=== PATIENT | female | born 1960 | race Caucasian/White ===

== ENCOUNTER 2020-09-28 20:08 | Emergency (ER) | payer MEDICAID, OTHER ==
--- OUTSIDE RECORDS SUMMARY | 2020-09-28 20:12 | XMS REPORT | Continuity of Care Document ---
:[address] [facility] t Address [address] [place] [address] Care Team Providers Name Role Phone Radiology Attending Clinician Unavailable Doctor Unassigned, Name Attending Clinician Unavailable Keo SON, Jose Attending Clinician Problems This patient has no known problems. Allergies, Adverse Reactions, Alerts This patient has no known allergies or adverse reactions. Medications Ordered Filled Start Stop Current Ordering Indication Dosage Frequency Signature Comments Components Source Medication Medication Date Date Medication? Clinician (SIG) Name Name Omeprazole Omeprazole Yes Mode [address] [facility] 2-25 [facility] 30 minutes [facility] before [facility] 00 [facility] l meal [facility] Pantoprazol Pantoprazol Yes Mode [address] [facility] Sodium e Sodium [facility] Cyclobenzap Cyclobenzap Yes Mode TAKE [address] [facility] rine HCl rine HCl Johnson TABLET BY L [facility]kes - MOUTH ONCE Memoria DAILY l NEEDED [facility] Atorvastati Atorvastati Yes Mode [address] [facility] n Calcium n Calcium Johnsno [facility] Lisinopril- Lisinopril- Yes Mode [address] [facility] Hydrochloro Hydrochloro Johnson [facility] - thiazide thiazide [facility] Montelukast Montelukast Yes Mode [address] [facility] Sodium Sodium [facility] Metformin Metformin Yes Mode [address] [facility] HCl HCl Johnson with a [facility] - meal [facility] Amlodipine Amlodipine Yes Mode [address] [facility] Besylate Besylate [facility] Tramadol Tramadol Yes Mode [address] HCl HCl Johnson as needed [facility] Cyclobenzap Cyclobenzap Yes Mode [address] [facility] rine HCl rine HCl Johnson as needed [facility] - [facility] Phendimetra Phendimetra Mode [address] [facility] zine zine 10-12 Johnson hour [facility] - Tartrate Tartrate 00:00 before a Me moria :00 meal l [facility] ent Clinics Immunizations Ordered Filled Immunization Date Status Comments [facility] e Immunization Name Name Afluria single dose Afluria single dose 2019-01-[address] [facility]00 [facility] Procedures This patient has no known procedures. Encounters Start End Encounter Admission Attending Care Care Encounter Source Date/Time Date/Time Type Type Clinicians Facility Department ID 2020-09-24 2020-09-24 Outpatient [facility] [id number] [facility] 2020-08-26 2020-08-26 Outpatient [facility] [id number] [facility] 2020-03-18 2020-03-18 Outpatient [facility] [id number] [facility] 2020-03-05 2020-03-05 Outpatient [facility] [id number] [facility] 2020-02-20 2020-02-20 Outpatient [facility] [id number] [facility] 2020-01-22 2020-01-22 Outpatient [facility] [id number] [facility] 2020-01-03 2020-01-03 Hospital Radiology [facility] [id number] 09:53:20 23:59:00 Encounter Maribeth [id number] [place] [id number] [place] [id number] 2020-01-03 2020-01-03 Orders Doctor EBENEZER [id number] 00:00:00 00:00:00 Only Unassigned, LUIS DANIEL [id number] [place] [facility] [id number] 2019-10-10 2019-10-10 [facility] [id number] [address] 09:30:00 09:30:00 t [employer] [facility] Outpati ent Clinics 2019-08-14 2019-08-14 [facility] [id number] [address] 11:30:00 11:30:00 [employer] [facility] Medicine Outpati ent Clinics 2019-08-10 2019-08-10 [facility] [id number] 10:42:00 10:42:00 t [employer] [facility] Outpati ent Clinics 2019-07-10 2019-07-10 [facility] [id number] [address] 10:45:00 10:45:00 [employer] [facility] Outpati ent Clinics 2019-06-19 2019-06-19 [facility] [id number] [address] 12:53:00 12:53:00 [employer] [facility] Medicine Outpati ent Clinics 2019-06-18 2019-06-18 Office LOGAN Crowley [id number] 10:59:16 11:29:16 Visit Guido Garcia AMBULATOR [id number] Y [id number] 2019-06-14 2019-06-14 [facility] [id number] 08:09:00 08:09:[address] [facility] - [facility] Medicine l Medicine Outpati ent Clinics 2019-05-15 2019-05-15 [facility] [id number] 09:45:00 09:45:[address] [facility] - Drive [facility] Medicine l Medicine Outpati ent Clinics 2019-05-01 2019-05-01 [facility] [id number] 17:15:00 17:15:[address] [facility] - Drive [facility] Medicine l Medicine Outpati ent Clinics 2019-04-24 2019-04-24 [facility] [id number] 12:46:00 12:46:00 t [place] [employer] [facility] - Drive [facility] Medicine l Medicine Outpati ent Clinics 2019-04-11 2019-04-11 [facility] [id number] 14:30:00 14:30:00 t [place] [employer] [facility] - Drive [facility] Medicine Outpati ent Clinics 2019-04-03 2019-04-03 [facility] [id number] 10:19:00 10:19:00 t [place] [employer] [facility] - Drive [facility] Medicine l Medicine Outpati ent Clinics 2019-04-02 2019-04-02 [facility] [id number] 16:33:00 16:33:00 [place] [employer] [facility] - Drive [facility] Medicine l Medicine Outpati ent Clinics 2019-01-17 2019-01-17 [facility] [id number] 13:00:00 13:00:00 t [place] [employer] [facility] - Drive [facility] Medicine l Medicine Outpati ent Clinics 2019-01-01 2019-01-01 [facility] [id number] 14:30:00 14:30:00 t [place] [employer] [facility] - Drive [facility] Medicine l Medicine Outpati ent Clinics 2018-12-20 2018-12-20 [facility] [id number] 17:00:00 17:00:00 [place] [employer] [facility] - Drive [facility] Medicine Outpati ent Clinics 2018-12-20 2018-12-20 [facility] [id number] 14:00:00 14:00:00 t [employer] [facility] Medicine Outpati ent Clinics Results This patient has no known results.
[2020-09-28 22:17] LABS: Absolute Lymphocytes (CBC) 1.2 K/uL (0.7-4.9); Basophils % 0.5 % (0-1.3); Hematocrit 38.5 % (36.0-45.0); Lymphocytes % 14.8 % (15.3-44.8); MPV 8.5 fL (7.6-11.3); RBC Red Blood Cell Count 4.48 M/uL (3.86-4.86)
[2020-09-28] MEDS ORDERED: BENZONATATE 100 MG CAP PO ONE (22:20)
[2020-09-28 22:25] LABS: ALT/SGPT 27 U/L (12-78); AST/SGOT 20 U/L (15-37); Alkaline Phosphatase 73 U/L (45-117); BUN Blood Urea Nitrogen 11 mg/dL (7-18); Bicarbonate 32 mmol/L (21-32); Bilirubin Direct < 0.1 mg/dL (0-0.2); Bilirubin Total 0.3 mg/dL (0.2-1.0); Glucose Level 105 mg/dL (74-106); Lipase 83 U/L (73-393); Potassium 3.3 mmol/L (3.5-5.1); Protein, Total 8.1 g/dL (6.4-8.2); Sodium Level 140 mmol/L (136-145)
[2020-09-28] MEDS ORDERED: IPRATROPIUM BROM 0.5MG/2.5ML ONE (23:07)
[2020-09-28] MEDS ORDERED: ALBUTEROL 2.5 MG/3 ML NEB SOL ONE (23:07)
--- NOTE | 2020-09-28 23:41 | ER ---
Nurse's Notes [facility] Name: Batsheva Guevara Age: 60 yrs Sex: Female : 1960 Arrival Date: 09/28/2020 Time: 20:18 Bed 5 Private MD: Diagnosis: Bronchitis, not specified as acute or chronic Presentation: 09/28 20:27 Chief complaint: Patient states: her daughter was here last night and diagnosed with an bb upper respiratory infection she is having similar symptoms x 3 days with cough, congestion. Pt states she is having pain to her ribs from coughing so much. Coronavirus screen: congestion, cough unrelated to allergies. Ebola Screen: No symptoms or risks identified at this time. Initial Sepsis Screen: Does the patient meet any 2 criteria? No. Patient's initial sepsis screen is negative. Does the patient have a suspected source of infection? No. Patient's initial sepsis screen is negative. Risk Assessment: Do you want to hurt yourself or someone else? Patient reports no desire to harm self or others. Onset of symptoms was September 25, 2020. 20:27 Method Of Arrival: Ambulatory 20:27 Acuity: HERMELINDA 3 bb Historical: - Allergies: 20:34 No Known Allergies; bb - Home Meds: 20:34 lisinopril-hydrochlorothiazide oral oral [Active]; Cyclobenzaprine Oral [Active]; bb amlodipine oral [Active]; pantoprazole oral oral [Active]; montelukast oral oral [Active]; Metformin Oral [Active]; Tramadol Oral [Active]; phentermine oral oral [Active]; - PMHx: 20:34 Hypertension; Diabetes - NIDDM; chronic neck pain; bb - PSHx: 20:34 Hysterectomy; ; bb - Immunization history:: Adult Immunizations up to date. - Social history:: Smoking status: unknown. Screenin:00 Abuse screen: Denies threats or abuse. Denies injuries from another. Nutritional lp1 screening: No deficits noted. Tuberculosis screening: No symptoms or risk factors identified. Fall Risk None identified. Assessment: 20:45 General: Appears in no apparent distress. Behavior is calm, cooperative. Pain: Pain: lp1 Complains of pain in chest Aggravated by coughing. 20:45 Neuro: Level of Consciousness is awake, alert, obeys commands, Oriented to person, lp1 place, time, situation. Cardiovascular: Patient's skin is warm and dry. Respiratory: Airway is patent Respiratory effort is even, Breath sounds are coarse in left posterior lower lobe and right posterior lower lobe. GI: No signs and/or symptoms were reported involving the gastrointestinal system. : No signs and/or symptoms were reported regarding the genitourinary system. EENT: No signs and/or symptoms were reported regarding the EENT system. Derm: Skin is intact, Skin is dry, Skin is normal. Musculoskeletal: No deficits noted. 22:30 Reassessment: Verbal order from Provider for Albuterol/Atrovent 3:1 nebulizer when lp1 COVID negative resulted. 22:45 Reassessment: Patient appears in no apparent distress at this time. Patient is alert, lp1 oriented x 3, equal unlabored respirations, skin warm/dry/pink. Patient denies shortness of breath. 23:30 Reassessment: Patient appears in no apparent distress at this time. Patient is alert, lp1 oriented x 3, equal unlabored respirations, skin warm/dry/pink. Patient states feeling better. Respiratory: Respiratory effort is even, unlabored, Respiratory pattern is regular, Breath sounds are clear bilaterally. Vital Signs: 20:27 BP 141 / 85; Pulse 94; Resp 18 S; Temp 98.2(O); Pulse Ox 95% on R/A; Weight 78.02 kg bb (R); Height 5 ft. 4 in. (162.56 cm) (R); Pain 4/10; 21:30 BP 133 / 87; Pulse 77; Resp 18; Pulse Ox 95% on R/A; lp1 22:30 BP 148 / 84; Pulse 96; Resp 20; Pulse Ox 94% on R/A; lp1 23:00 BP 130 / 71; Pulse 87; Resp 18; Pulse Ox 98% on R/A; lp1 23:45 BP 114 / 57; Pulse 92; Resp 18; Pulse Ox 96% on R/A; lp1 20:27 Body Mass Index 29.52 (78.02 kg, 162.56 cm) ED Course: 20:18 Patient arrived in ED. es 20:31 Triage completed. bb 20:32 Dustin Macdonald MD is Attending Physician. tw4 20:34 Arm band placed on Patient placed in an exam room, on a stretcher, on pulse oximetry. bb 20:35 Vandana Durand, RN is Primary Nurse. lp1 20:45 Patient has correct armband on for positive identification. Placed in gown. Bed in low lp1 position. panel monitor on. Pulse ox on. NIBP on. 20:45 Missed attempt(s): 20 gauge in left antecubital area. lp1 20:45 Missed attempt(s): 22 gauge in left forearm. lp1 21:00 COVID swab sent to lab. lp1 21:17 CXR XRAY In Process Unspecified. EDMS 21:45 Initial lab(s) drawn, by nd, sent to lab. Inserted saline lock: 18 gauge in right bb antecubital area, using aseptic technique. Blood collected. 22:28 No provider procedures requiring assistance completed. lp1 09/29 00:00 IV discontinued, No redness/swelling at site. Pressure dressing applied. lp1 Administered Medications: 09/28 21:58 CANCELLED (Other Intervention Used): Robitussin Pediatric (dextromethorphan) 20 mg PO bb once 22:00 Drug: Tessalon Perle (benzonatate) 200 mg Route: PO; bb 22:59 Follow up: Response: No adverse reaction lp1 22:45 Drug: Albuterol - atroVENT (ipratropium) (3:1) (2.5 mg - 0.5 mg) 3 ml Route: Nebulizer; lp1 Outcome: 23:41 Discharge ordered by . tw4 09/29 00:00 Discharged to home ambulatory. lp1 Condition: good Discharge instructions given to patient, Instructed on discharge instructions, follow up and referral plans. medication usage, Demonstrated understanding of instructions, follow-up care, medications, Prescriptions given X 3. 00:13 Patient left the ED. lp1 Signatures: Dispatcher [employer] TODDCT Lorri Long Brenda, RN RN bb Vandana Durand, LUNA RN lp1 Dustin Macdonald MD MD tw4 Corrections: (The following items were deleted from the chart) 09/28 22:28 22:19 General: Appears in no apparent distress. Behavior is calm, cooperative, lp1 lp1 22:28 22:19 Pain: lp1 lp1
--- NOTE | 2020-09-28 23:41 | EDPHYS ---
Physician Documentation [facility] Name: Batsheva Guevara Age: 60 yrs Sex: Female : 1960 Arrival Date: 09/28/2020 Time: 20:18 Bed 5 Private MD: ED Physician Dustin Macdonald HPI: 09/29 06:32 This 60 yrs old Female presents to ER via Ambulatory with complaints of COUGH.tw4 06:32 The patient or guardian reports cough, difficulty breathing. Onset: The tw4 symptoms/episode began/occurred 3 day(s) ago. Severity of symptoms: At their worst the symptoms were moderate, in the emergency department the symptoms are unchanged. The patient has not experienced similar symptoms in the past. Historical: - Allergies: 09/28 20:34 No Known Allergies; bb - Home Meds: 20:34 lisinopril-hydrochlorothiazide oral oral [Active]; Cyclobenzaprine Oral [Active]; bb amlodipine oral [Active]; pantoprazole oral oral [Active]; montelukast oral oral [Active]; Metformin Oral [Active]; Tramadol Oral [Active]; phentermine oral oral [Active]; - PMHx: 20:34 Hypertension; Diabetes - NIDDM; chronic neck pain; bb - PSHx: 20:34 Hysterectomy; ; bb - Immunization history:: Adult Immunizations up to date. - Social history:: Smoking status: unknown. ROS: 09/29 06:32 Constitutional: Negative for fever, chills, and weight loss. tw4 Eyes: Negative for injury, pain, redness, and discharge, Cardiovascular: Negative for chest pain, palpitations, and edema, Back: Negative for injury and pain, MS/Extremity: Negative for injury and deformity, Skin: Negative for injury, rash, and discoloration, Neuro: Negative for headache, weakness, numbness, tingling, and seizure. Respiratory: Positive for cough, Negative for dyspnea on exertion, hemoptysis, orthopnea, pleurisy. Exam: 06:32 Constitutional: This is a well developed, well nourished patient who is awake, alert, tw4 and in no acute distress. Head/Face: Normocephalic, atraumatic. Chest/axilla: Normal chest wall appearance and motion. Nontender with no deformity. No lesions are appreciated. Cardiovascular: Regular rate and rhythm with a normal S1 and S2. No gallops, murmurs, or rubs. Normal PMI, no JVD. No pulse deficits. Respiratory: Lungs have equal breath sounds bilaterally, clear to auscultation and percussion. No rales, rhonchi or wheezes noted. No increased work of breathing, no retractions or nasal flaring. Abdomen/GI: Soft, non-tender, with normal bowel sounds. No distension or tympany. No guarding or rebound. No evidence of tenderness throughout. Back: No spinal tenderness. No costovertebral tenderness. Full range of motion. Skin: Warm, dry with normal turgor. Normal color with no rashes, no lesions, and no evidence of cellulitis. MS/ Extremity: Pulses equal, no cyanosis. Neurovascular intact. Full, normal range of motion. Neuro: Awake and alert, GCS 15, oriented to person, place, time, and situation. Cranial nerves II-XII grossly intact. Motor strength 5/5 in all extremities. Sensory grossly intact. Cerebellar exam normal. Normal gait. Vital Signs: 09/28 20:27 BP 141 / 85; Pulse 94; Resp 18 S; Temp 98.2(O); Pulse Ox 95% on R/A; Weight 78.02 kg bb (R); Height 5 ft. 4 in. (162.56 cm) (R); Pain 4/10; 21:30 BP 133 / 87; Pulse 77; Resp 18; Pulse Ox 95% on R/A; lp1 22:30 BP 148 / 84; Pulse 96; Resp 20; Pulse Ox 94% on R/A; lp1 23:00 BP 130 / 71; Pulse 87; Resp 18; Pulse Ox 98% on R/A; lp1 23:45 BP 114 / 57; Pulse 92; Resp 18; Pulse Ox 96% on R/A; lp1 20:27 Body Mass Index 29.52 (78.02 kg, 162.56 cm) bb MDM: 20:32 Patient medically screened. tw4 09/29 06:32 Differential Diagnosis: Obstructed Airway Bronchitis Influenza. Data reviewed: vital tw4 signs, nurses notes. Data reviewed: lab test result(s), cardiac enzymes, CBC, hepatic panel, radiologic studies, plain films. Data interpreted: Pulse oximetry: Interpretation: normal. Test interpretation: by ED physician or midlevel provider: plain radiologic studies. Counseling: I had a detailed discussion with the patient and/or guardian regarding: the historical points, exam findings, and any diagnostic results supporting the discharge/admit diagnosis. Medication response: Response to treatment: and as a result, I will discharge patient. Special discussion: I discussed with the patient/guardian in detail that at this point there is no indication for admission to the hospital. It is understood, however, that if the symptoms persist or worsen the patient needs to return immediately for re-evaluation. 09/28 20:34 Order name: Basic Metabolic Panel tw4 09/28 20:34 Order name: CBC with Diff tw4 09/28 20:34 Order name: Hepatic Function tw4 09/28 20:34 Order name: Lipase tw4 09/28 22:28 Order name: SARS-COV-2 RT PCR EDLA 09/28 20:34 Order name: IV Saline Lock; Complete Time: 22:00 tw4 09/28 20:34 Order name: Labs collected and sent; Complete Time: 22:00 tw4 09/28 20:34 Order name: CXR XRAY tw4 Administered Medications: 09/28 21:58 CANCELLED (Other Intervention Used): Robitussin Pediatric (dextromethorphan) 20 mg PO bb once 22:00 Drug: Tessalon Perle (benzonatate) 200 mg Route: PO; bb 22:59 Follow up: Response: No adverse reaction lp1 22:45 Drug: Albuterol - atroVENT (ipratropium) (3:1) (2.5 mg - 0.5 mg) 3 ml Route: Nebulizer; lp1 Disposition: 09/28/20 23:41 Discharged to Home. Impression: Bronchitis, not specified as acute or chronic. - Condition is Stable. - Discharge Instructions: Acute Bronchitis, Adult, Upper Respiratory Infection, Adult. - Prescriptions for Tessalon Perles 100 mg Oral Capsule - take 1 capsule by ORAL route every 8 hours As needed; 15 capsule. Albuterol Sulfate 90 mcg/actuation - inhale 1-2 puff by INHALATION route every 4-6 hours; 1 Inhaler. Guaifenesin AC 10- 100 mg/5 mL Oral Liquid - take 10 milliliter by ORAL route every 4 hours As needed; 240 milliliter. - Medication Reconciliation Form, Thank You Letter, Antibiotic Education, Prescription Opioid Use form. - Follow up: Private Physician; When: Upon discharge from the Emergency Department; Reason: Recheck today's complaints, Continuance of care, Re-evaluation by your physician. - Problem is new. - Symptoms have improved. Signatures: Dispatcher [employer] EDYesenia Moreno RN RN bb Vandana Durand RN RN lp1 Dustin Macdonald MD MD tw4 Corrections: (The following items were deleted from the chart) 21:31 20:35 CORONAVIRUS+MR.LAB.BRZ ordered. EDLA EDMS 21:58 21:51 Robitussin Pediatric (dextromethorphan) Liquid 20 mg PO once ordered. tw4 09/29 00:13 09/28 23:41 09/28/2020 23:41 Discharged to Home. Impression: Bronchitis, not specified lp1 as acute or chronic. Condition is Stable. Forms are Medication Reconciliation Form, Thank You Letter, Antibiotic Education, Prescription Opioid Use. Follow up: Private Physician; When: Upon discharge from the Emergency Department; Reason: Recheck today's complaints, Continuance of care, Re-evaluation by your physician. Problem is new. Symptoms have improved. tw4
[2020-09-29 01:05] VITALS: TEMP 98.2
[2020-09-29 01:08] VITALS: BP 148/84; O2SAT 94
--- NOTE | 2020-09-29 07:38 | RAD REPORT ---
EXAM DESCRIPTION: Jameel Single View09/28/2020 9:17 pm CLINICAL HISTORY: Cough COMPARISON: none FINDINGS: The lungs appear clear of acute infiltrate. The heart is normal size IMPRESSION: No acute abnormalities displayed
== END 2020-09-29 00:13 | disposition home or self-care (01) ==
LOC: ER 20:08
DX: J40 Bronchitis, not specified as acute or chronic (principal); Z20.822 Contact with and (suspected) exposure to COVID-19; I10 Essential (primary) hypertension; E11.9 Type 2 diabetes mellitus without complications; M54.2 Cervicalgia; G89.29 Other chronic pain; Z79.84 Long term (current) use of oral hypoglycemic drugs
CPT/HCPCS: 85025; 80048; 36415; 80076; 83690; 71045; 99285; U0003

== ENCOUNTER 2020-10-03 16:11 | Inpatient (IN) | payer OTHER ==
[2020-10-03] MEDS ORDERED: ACETAMINOPHEN 325 MG TABLET ONE (16:55)
--- NOTE | 2020-10-03 17:17 | RAD REPORT ---
EXAM DESCRIPTION: RAD - Chest Pa And Lat (2 Views) - 10/03/2020 4:54 pm CLINICAL HISTORY: COUGH Chest pain. COMPARISON: Chest Single View dated 09/28/2020 FINDINGS: Airspace opacity has developed in the right middle lobe since the prior study compatible w ith bronchopneumonia. The heart is normal in size. No displaced fractures. IMPRESSION: Right middle lobe lobar bronchopneumonia.
[2020-10-03] MEDS ORDERED: METHYLPREDNISOLONE 125 MG INJ ONE (17:39)
[2020-10-03] MEDS ORDERED: IPRATROPIUM BROM 0.5MG/2.5ML ONE (17:40)
[2020-10-03] MEDS ORDERED: ALBUTEROL 2.5 MG/3 ML NEB SOL ONE (17:40)
[2020-10-03] MEDS ORDERED: CEFTRIAXONE/SWI 1gm 1 GM/10 ML SYR ONE (17:40)
[2020-10-03] MEDS ORDERED: AZITHROMYCIN 250 MG TAB ONE (17:40)
[2020-10-03 18:55] LABS: Absolute Lymphocytes (CBC) 1.4 K/uL (0.7-4.9); Basophils % 0.1 % (0-1.3); Hematocrit 30.8 % (36.0-45.0); Lymphocytes % 7.3 % (15.3-44.8); MPV 8.1 fL (7.6-11.3); RBC Red Blood Cell Count 3.63 M/uL (3.86-4.86)
--- NOTE | 2020-10-03 19:31 | EDPHYS ---
Physician Documentation [facility] Name: Batsheva Guevara Age: 60 yrs Sex: Female : 1960 Arrival Date: 10/03/2020 Time: 16:13 Bed 18 Private MD: Alex [facility] ED Physician Ketan Raymundo HPI: 10/03 19:35 This 60 yrs old Female presents to ER via Wheelchair with complaints of kb worsening bronchitis. 19:35 The patient or guardian reports cough, that is intermittent, described as moderate, flu kb symptoms, low-grade fever, myalgias. Onset: The symptoms/episode began/occurred 7 day(s) ago. Severity of symptoms: At their worst the symptoms were moderate, in the emergency department the symptoms are unchanged. Modifying factors: The symptoms are alleviated by nothing, the symptoms are aggravated by nothing. Associated signs and symptoms: Pertinent positives: fever, Pertinent negatives: chest pain, diarrhea, ear ache, nausea, rhinorrhea, sore throat, vomiting. The patient has not experienced similar symptoms in the past. The patient has been recently seen at the [facility] Emergency Department, this week, for similar complaints labs were performed, X-rays were performed. Pt reports she was here 5 days ago for bronchitis and her symptoms have gotten worse. Historical: - Allergies: 16:28 No Known Allergies; kg - Home Meds: 22:37 amlodipine oral [Active]; Cyclobenzaprine Oral [Active]; lisinopril-hydrochlorothiazide ap3 Oral [Active]; Metformin Oral [Active]; montelukast Oral [Active]; pantoprazole Oral [Active]; phentermine Oral [Active]; Tramadol Oral [Active]; - PMHx: 16:28 Hypertension; High Cholesterol; Diabetes - NIDDM; chronic neck pain; kg - PSHx: 16:28 ; Hysterectomy; kg - Immunization history:: Adult Immunizations not up to date, Client reports receiving the 2nd dose of the Covid vaccine. - Social history:: Smoking status: Patient denies any tobacco usage or history of. Patient uses alcohol, occasionally. ROS: 19:33 Cardiovascular: Negative for chest pain, palpitations, and edema, Abdomen/GI: Negative kb for abdominal pain, nausea, vomiting, diarrhea, and constipation. 19:33 Constitutional: Positive for body aches, chills, fatigue, fever, malaise. 19:33 Respiratory: Positive for cough, dyspnea on exertion, shortness of breath, Negative for hemoptysis, orthopnea, pleurisy. 19:33 All other systems are negative. 19:40 : Positive for burning with urination. kb Exam: 19:33 Constitutional: This is a well developed, well nourished patient who is awake, alert, kb and in no acute distress. Head/Face: Normocephalic, atraumatic. ENT: Moist Mucous membranes Cardiovascular: Regular rate and rhythm with a normal S1 and S2. No gallops, murmurs, or rubs. No pulse deficits. Abdomen/GI: Soft, non-tender. No distention Skin: Warm, dry with normal turgor. Normal color. MS/ Extremity: Pulses equal, no cyanosis. Neurovascular intact. Full, normal range of motion. Neuro: Awake and alert, GCS 15, oriented to person, place, time, and situation. Moves all extremities. Normal gait. Psych: Awake, alert, with orientation to person, place and time. Behavior, mood, and affect are within normal limits. 19:33 Respiratory: mild respiratory distress is noted, Respirations: labored breathing, that is mild, Breath sounds: wheezing: inspiratory expiratory that is moderate, is heard in the right middle lobe and right posterior middle lobe. Vital Signs: 16:23 BP 123 / 66; Pulse 108; Temp 100.4(O); Pulse Ox 93% on R/A; Weight 78.93 kg (R); Height kg 5 ft. 4 in. (162.56 cm) (R); Pain 7/10; 17:14 BP 107 / 52; Pulse 98; Resp 18; Pulse Ox 96% on R/A; vg1 18:44 BP 103 / 73; Pulse 77; Resp 16; Pulse Ox 98% on R/A; vg1 21:40 BP 112 / 55; Pulse 87; Resp 18; Pulse Ox 94% ; ap3 22:33 Temp 98.7; ap3 16:23 Body Mass Index 29.87 (78.93 kg, 162.56 cm) kg MDM: 16:31 Patient medically screened. kb 19:28 Data reviewed: vital signs, nurses notes. Data interpreted: Pulse oximetry: on room air benito is 98 %. Interpretation: normal. Counseling: I had a detailed discussion with the patient and/or guardian regarding: the historical points, exam findings, and any diagnostic results supporting the discharge/admit diagnosis, lab results, radiology results, the need for further work-up and treatment in the hospital. Physician consultation: Connor BARRAGAN was contacted at 19:29, regarding admission, to the medical/surgical unit. patient's condition, and will see patient in ED. 10/03 16:28 Order name: Urine Microscopic Only 10/03 16:29 Order name: Urine Microscopic Only EDAR 10/03 17:07 Order name: CBC with Diff 10/03 17:07 Order name: Basic Metabolic Panel; Complete Time: 19:24 kb 10/03 17:07 Order name: Blood Culture Adult (2) 10/03 17:07 Order name: Procalcitonin; Complete Time: 19:24 kb 10/03 16:28 Order name: Chest Pa And Lat (2 Views) XRAY; Complete Time: 17:18 kb 10/03 17:07 Order name: Lactate; Complete Time: 19:12 kb 10/03 17:07 Order name: CBC with Automated Diff; Complete Time: 18:59 EDAR 10/03 19:28 Order name: COVID-19 : Document "Date of Symptom Onset" if Symptomatic. kb 10/03 19:40 Order name: CT Chest W/ Con; Complete Time: 20:13 kb 10/03 22:21 Order name: SARS-COV-2 RT PCR EDAR 10/03 17:07 Order name: IV Start; Complete Time: 18:43 kb Administered Medications: 17:05 Drug: Tylenol 650 mg Route: PO; vg1 20:07 Follow up: Response: No adverse reaction ap3 17:51 Drug: DuoNeb (albuterol 2.5 mg, ipratropium 0.5 mg) (3:1) (2.5 mg - 0.5 mg) 3 ml Route: vg1 Nebulizer; 18:42 Follow up: Response: No adverse reaction vg1 18:36 Drug: Zithromax (azithromycin) 500 mg Route: PO; vg1 20:06 Follow up: Response: No adverse reaction ap3 18:37 Drug: Rocephin (cefTRIAXone) 1 grams Route: IV; Rate: calculated rate; Site: left vg1 jugular; 20:06 Follow up: IV Status: Completed infusion ap3 18:38 Drug: SOLU-Medrol (methylPrednisoLONE) 125 mg Route: IVP; Site: left jugular; vg1 20:06 Follow up: Response: No adverse reaction ap3 20:06 Drug: NS 0.9% 1000 ml Route: IV; Rate: 100 ml/hr; Site: left jugular; ap3 22:48 Follow up: Response: No adverse reaction; IV Status: Infusion continued upon admission ap3 21:13 Drug: Potassium Effervescent Tablet 50 mEq Route: PO; ap3 22:25 Follow up: Response: No adverse reaction ap3 Disposition: 10/03/20 19:30 Hospitalization ordered by Jayson Sheth for Observation. Preliminary diagnosis are Pneumonia, unspecified organism, Elevated white blood cell count. - Bed requested for Telemetry/MedSurg (observation). - Status is Observation. mw2 - Condition is Stable. - Problem is new. - Symptoms are unchanged. Addendum: 10/06/2020 11:18 Co-signature as Attending Physician, Ketan Raymundo MD I agree with the assessment and k dr plan of care. Signatures: Dispatcher [employer] EDMS Monalisa Leon, YUNG MIRELES-Ketan Toney MD MD [facility] Connor Sierra FNP-C F[facility] HospitalHelena Garcia, LUNA RN cg Shereen Cabrera RN RN ap3 Emile Luu mw2 Lacie Garg RN LUAN vg1 Angeli Barnhart RN RN kg Corrections: (The following items were deleted from the chart) 10/03 22:23 19:30 Hospitalization Ordered by Jayson Sheth DO for Observation. Preliminary cg diagnosis is Pneumonia, unspecified organism; Elevated white blood cell count. Bed requested for Telemetry/MedSurg (observation). Status is Observation. Condition is Stable. Problem is new. Symptoms are unchanged. kb 23:10 22:23 10/03/2020 19:30 Hospitalization Ordered by Jayson Sheth DO for Observation. mw2 Preliminary diagnosis is Pneumonia, unspecified organism; Elevated white blood cell count. Bed requested for Telemetry/MedSurg (observation). Status is Observation. Condition is Stable. Problem is new. Symptoms are unchanged. cg
--- NOTE | 2020-10-03 19:31 | ER ---
Nurse's Notes [facility] Name: Batsheva Guevara Age: 60 yrs Sex: Female : 1960 Arrival Date: 10/03/2020 Time: 16:13 Bed 18 Private MD: Mode Johnson Diagnosis: Pneumonia, unspecified organism;Elevated white blood cell count Presentation: 10/03 16:23 Chief complaint: Patient states: Pt stated, "I was just in here and they diagnosed me kg with bronchitis. I haven't gotten any better and just feel like I can't get enough air in my lungs. I also think I might have a bladder infection, its hurting when I pee.". Coronavirus screen: Client denies travel out of the [place] in the last 14 days. At this time, unable to obtain information related to travel outside the [place] Client presents with at least one sign or symptom that may indicate coronavirus-19. Standard/surgical mask placed on the client. Ebola Screen: Patient negative for fever greater than or equal to 101.5 degrees Fahrenheit, and additional compatible Ebola Virus Disease symptoms Patient denies exposure to infectious person. Patient denies travel to an Ebola-affected area in the 21 days before illness onset. Initial Sepsis Screen: Does the patient meet any 2 criteria? RR > 20 per min. HR > 90 bpm. Does the patient have a suspected source of infection? No. Patient's initial sepsis screen is negative. Risk Assessment: Do you want to hurt yourself or someone else? Patient reports no desire to harm self or others. Onset of symptoms was September 26, 2020. 16:23 Method Of Arrival: Wheelchair kg 16:23 Acuity: HERMELINDA 3 kg Triage Assessment: 16:28 General: Appears in no apparent distress. Behavior is calm, cooperative, appropriate kg for age, quiet. Pain: Complains of pain in left breast Pain radiates to back of neck. Historical: - Allergies: 16:28 No Known Allergies; kg - Home Meds: 22:37 amlodipine oral [Active]; Cyclobenzaprine Oral [Active]; lisinopril-hydrochlorothiazide ap3 Oral [Active]; Metformin Oral [Active]; montelukast Oral [Active]; pantoprazole Oral [Active]; phentermine Oral [Active]; Tramadol Oral [Active]; - PMHx: 16:28 Hypertension; High Cholesterol; Diabetes - NIDDM; chronic neck pain; kg - PSHx: 16:28 ; Hysterectomy; kg - Immunization history:: Adult Immunizations not up to date, Client reports receiving the 2nd dose of the Covid vaccine. - Social history:: Smoking status: Patient denies any tobacco usage or history of. Patient uses alcohol, occasionally. Screenin:14 Abuse screen: Denies threats or abuse. Nutritional screening: No deficits noted. vg1 Tuberculosis screening: No symptoms or risk factors identified. Fall Risk No fall in past 12 months (0 pts). No secondary diagnosis (0 pts). IV access (20 points). Ambulatory Aid- None/Bed Rest/Nurse Assist (0 pts). Gait- Normal/Bed Rest/Wheelchair (0 pts) Mental Status- Oriented to own ability (0 pts). Total Means Fall Scale indicates No Risk (0-24 pts). Assessment: 17:05 General: Appears in no apparent distress. comfortable, Behavior is calm, cooperative. vg1 Pain: Complains of pain in throat and lower left marni of rib Pain currently is 5 out of 10 on a pain scale. Pain began 09/28/20. Neuro: Level of Consciousness is awake, alert, obeys commands, Oriented to person, place, time, situation. Cardiovascular: Patient's skin is warm and dry. Respiratory: Airway is patent Respiratory effort is even, labored, Breath sounds with wheezes bilaterally. in right upper lobe, left upper lobe, left posterior upper lobe, right posterior upper lobe, left posterior lower lobe and right posterior middle lobe. GI: Reports nausea. : No signs and/or symptoms were reported regarding the genitourinary system. EENT: Throat is pink. Derm: Skin is intact, Skin is pink, warm \\T\\ dry. Musculoskeletal: Circulation, motion, and sensation intact. 18:44 Reassessment: Patient appears in no apparent distress at this time. Patient and/or vg1 family updated on plan of care and expected duration. Pain level reassessed. Patient is alert, oriented x 3, equal unlabored respirations, skin warm/dry/pink. Patient is alert/active/playful, equal unlabored respirations, skin warm/dry/pink. 21:40 Reassessment: Patient and/or family updated on plan of care and expected duration. Pain ap3 level reassessed. Patient is alert, oriented x 3, equal unlabored respirations, skin warm/dry/pink. 22:40 General: attempted report to 2nd floor receiving nurse. was told they will call me back.ap3 Vital Signs: 16:23 BP 123 / 66; Pulse 108; Temp 100.4(O); Pulse Ox 93% on R/A; Weight 78.93 kg (R); Height kg 5 ft. 4 in. (162.56 cm) (R); Pain 7/10; 17:14 BP 107 / 52; Pulse 98; Resp 18; Pulse Ox 96% on R/A; vg1 18:44 BP 103 / 73; Pulse 77; Resp 16; Pulse Ox 98% on R/A; vg1 21:40 BP 112 / 55; Pulse 87; Resp 18; Pulse Ox 94% ; ap3 22:33 Temp 98.7; ap3 16:23 Body Mass Index 29.87 (78.93 kg, 162.56 cm) kg ED Course: 16:13 Patient arrived in ED. am2 16:13 Mode Johnson DO is Private Physician. am2 16:27 Triage completed. kg 16:27 Monalisa Leon FNP-C [facility] kb 16:27 Ketan Raymundo MD is Attending Physician. kb 16:33 Lacie Garg, LUNA is Primary Nurse. vg1 16:52 Chest Pa And Lat (2 Views) XRAY In Process Unspecified. EDMS 17:14 Patient has correct armband on for positive identification. Bed in low position. Call vg1 light in reach. Side rails up X 1. 17:43 Missed attempt(s): 22 gauge in right forearm. vg1 17:46 Missed attempt(s): 22 gauge in left antecubital area. vg1 18:30 Inserted saline lock: 20 gauge in left EJ, using aseptic technique. Blood collected. bp 19:12 Primary Nurse role handed off by Lacie Garg, RN ap3 19:12 Shereen Cabrera, LUNA is Primary Nurse. ap3 19:24 Primary Nurse role handed off by Shereen Cabrera, LUNA mw2 19:29 Jayson Sheth DO is Hospitalizing Provider. kb 19:31 Prokisch, Shereen, RN is Primary Nurse. ap3 19:57 CT Chest W/ Con In Process Unspecified. EDMS 22:36 Arm band placed on right wrist. ap3 22:47 Report given to Lilibeth. ap3 22:47 No provider procedures requiring assistance completed. Patient admitted, IV remains in ap3 place. Administered Medications: 17:05 Drug: Tylenol 650 mg Route: PO; vg1 20:07 Follow up: Response: No adverse reaction ap3 17:51 Drug: DuoNeb (albuterol 2.5 mg, ipratropium 0.5 mg) (3:1) (2.5 mg - 0.5 mg) 3 ml Route: vg1 Nebulizer; 18:42 Follow up: Response: No adverse reaction vg1 18:36 Drug: Zithromax (azithromycin) 500 mg Route: PO; vg1 20:06 Follow up: Response: No adverse reaction ap3 18:37 Drug: Rocephin (cefTRIAXone) 1 grams Route: IV; Rate: calculated rate; Site: left vg1 jugular; 20:06 Follow up: IV Status: Completed infusion ap3 18:38 Drug: SOLU-Medrol (methylPrednisoLONE) 125 mg Route: IVP; Site: left jugular; vg1 20:06 Follow up: Response: No adverse reaction ap3 20:06 Drug: NS 0.9% 1000 ml Route: IV; Rate: 100 ml/hr; Site: left jugular; ap3 22:48 Follow up: Response: No adverse reaction; IV Status: Infusion continued upon admission ap3 21:13 Drug: Potassium Effervescent Tablet 50 mEq Route: PO; ap3 22:25 Follow up: Response: No adverse reaction ap3 Outcome: 19:30 Decision to Hospitalize by Provider. kb 22:47 Admitted to Med/surg accompanied by nurse, via wheelchair, room 213, with chart. ap3 22:47 Condition: good 23:10 Patient left the ED. mw2 Signatures: Dispatcher [employer] EDMS Monalisa Leon, YUNG ALEOJP-Shereen Chau am2 Jhony Parker, RN RN bp Shereen Cabrera, RN RN ap3 Emile Luu mw2 Lacie Garg RN RN vg1 Angeli Barnhart, RN RN kg
[2020-10-03] MEDS ORDERED: NA CHLORIDE 0.9% 1,000 ML ONE (19:53)
--- NOTE | 2020-10-03 20:10 | RAD REPORT ---
EXAM DESCRIPTION: CT - Thorax W/ Con CLINICAL HISTORY: Chest pain dyspnea COMPARISON: No comparisons FINDINGS: Large airspace consolidation is seen in the right middle lobe. Small area of consolidation is seen in the medial and posterior right lower lobe. Findings likely represent a bacterial pneumoni a. No pleural thickening or pleural effusion. No pneumothorax. Mildly prominent lymph nodes are seen in the mediastinum in right hilum favored to represent reactive adenopathy. No concerning bony finding. Irregular low-density 5.9 x 3.8 cm mass lesion in the posterior right hep atic lobe with large internal area of calcification. All CT scans are performed using dose optimization technique as appropriate and may include automated exposure control or mA/KV adjustment according to patient size. IMPRESSION: Bronchopneumonia pattern is seen involving the right middle lobe and right lower lobe as detailed.After appropriate therapy, followup imaging would be advised assure complete clearance. Irregular low-density 5.9 cm hepatic mass containing internal calcification. Followup MRI liver dennis col with contrast would be recommended for further evaluation.
--- NOTE | 2020-10-03 20:58 | P.HP ---
Certification for Inpatient Patient admitted to: Inpatient With expected LOS: >2 Midnights Patient will require the following post-hospital care: None Practitioner: I am a practitioner with admitting privileges, knowledge of patient current condition, hospital course, and medical plan of care. Services: Services provided to patient in accordance with Admission requirements found in Title 42 Section 412.3 of the Code of Federal Regulations Patient History Date of Service: 10/03/20 Reason for admission: Dyspnea, Pneumonia History of Present Illness: 60-year-old female with history of diabetes mellitus type 2, hypertension, hyperlipidemia presents emergency department for shortness of breath. Patient was seen in the emergency department few days prior diagnosed with bronchitis, discharged out antibiotics, chest x-ray unremarkable at that time. Chest x-ray/CT today demonstrates right middle and lower lobe pneumonia, white blood cell count 18.9 hemoglobin 10.6 hematocrit 30.8 sodium 125 potassium 3.0 GFR 57 pro calcitonin 0.4. Patient saturating around 93% on room air, feeling a bit short of breath. ED provider wishes to admit for further evaluation and management. - Past Medical/Surgical History -: Hypertension -: Hyperlipidemia -: Diabetes mellitus type 2 -: -: Hysterectomy Psychosocial/ Personal History: Retired, lives with family - Family History Father -: Heart disease Mother -: Lung disease Brother -: Lung disease - Social History Smoking Status: Never smoker Counseled patient to stop smoking for: less than 10 minutes Alcohol use: No CD- Drugs: No Caffeine use: Yes Place of Residence: Home Review of Systems 10-point ROS is otherwise unremarkable General: Weakness, Malaise Respiratory: Cough, Shortness of Breath, SOB with Excertion Physical Examination - Physical Exam General: Alert, In no apparent distress, Oriented x3 HEENT: Atraumatic, PERRLA, Mucous membr. moist/pink Neck: Supple, 2+ carotid pulse no bruit, No LAD Respiratory: Normal air movement, Crackles/rales Cardiovascular: Regular rate/rhythm, Normal S1 S2 Gastrointestinal: Normal bowel sounds, No tenderness Musculoskeletal: No tenderness Integumentary: No rashes Neurological: Normal gait, Normal speech, Normal strength at 5/5 x4 extr, Normal tone, Normal affect - Studies Laboratory Data (last 24 hrs) 10/03/20 18:29: Sodium 125 L, Potassium 3.0 L, BUN 12, Creatinine 0.99, Glucose 203 H 10/03/20 18:29: WBC 18.90 H D, Hgb 10.6 L D, Hct 30.8 L D, Plt Count 331 Assessment and Plan - Plan Assessment Dyspnea secondary to right middle/lower lobe pneumonia Hyponatremia, hypokalemia Diabetes mellitus type 2 Hypertension, hyperlipidemia Plan Dyspnea secondary to right middle/lower lobe pneumonia: Continue with IV Rocephin/Zithromax, blood cultures obtained sputum cultures ordered. Daily room air saturations. Daily labs. Anticipate clinical improvement next 48-72 hr. DVT prophylaxis Lovenox 40 mg subcutaneous once daily. Hyponatremia, hypokalemia: Potassium protocol in place continue with normal saline at 100 cc/hour, recheck with morning labs tomorrow. Diabetes mellitus type 2: A.c. HS Accu-Cheks, sliding scale insulin. A1c with morning labs. Hypertension, hyperlipidemia: Continue home medications. Discharge Plan: Home Plan to discharge in: 48 Hours - Advance Directives Does patient have a Living Will: No Does patient have a Durable POA for Healthcare: No - Code Status/Comfort Care Code Status Assessed: Yes (Full code) Critical Care: No Time Spent Managing Pts Care (In Minutes): 55
[2020-10-03] MEDS ORDERED: POTASSIUM 25 MEQ EFFERV TAB ONE (21:32)
[2020-10-03] MEDS ORDERED: BENZONATATE 100 MG CAP PO PRN (23:31)
[2020-10-03] MEDS ORDERED: ACETAMINOPHEN 500 MG TAB PO PRN (23:31)
[2020-10-03] MEDS ORDERED: ONDANSETRON 4 MG/2 ML VIAL IV PRN (23:31)
[2020-10-04 00:27] VITALS: BMI 29.8
[2020-10-04] MEDS: NA CHLORIDE 0.9% 1,000 ML IV SCH ×3 (00:41→21:08)
[2020-10-04] MEDS ORDERED: NA CHLORIDE 0.9% 1,000 ML ONE (00:59)
[2020-10-04] MEDS: INSULIN -REGULAR HUMAN 50 UNIT/0.5 ML ML SQ SCH ×5 (04:46→21:16)
[2020-10-04] MEDS ORDERED: INSULIN -REGULAR HUMAN 50 UNIT/0.5 ML ML ONE (05:05)
[2020-10-04 05:40] LABS: Absolute Lymphocytes (CBC) 0.6 K/uL (0.7-4.9); Basophils % 0.2 % (0-1.3); Hematocrit 34.7 % (36.0-45.0); MPV 8.2 fL (7.6-11.3); RBC Red Blood Cell Count 4.05 M/uL (3.86-4.86)
--- NOTE | 2020-10-04 05:56 | P.PN ---
Subjective Date of Service: 10/04/20 Chief Complaint: Dyspnea, Pneumonia Subjective: Other (Still feeling very weak. Still with cough. SOB has improved) Physical Examination - Vital Signs Temperature: 98.6 F Blood Pressure: 100/61 Pulse: 81 Respirations: 18 Pulse Ox (%): 95 - Studies Laboratory Data (last 24 hrs) 10/03/20 18:29: Sodium 125 L, Potassium 3.0 L, BUN 12, Creatinine 0.99, Glucose 203 H 10/03/20 18:29: WBC 18.90 H D, Hgb 10.6 L D, Hct 30.8 L D, Plt Count 331 Assessment & Plan Discharge Plan: Home Plan to discharge in: 24 Hours Physician Review Additional Text: CT scan: COMPARISON: No comparisons FINDINGS: Large airspace consolidation is seen in the right middle lobe. Small area of consolidation is seen in the medial and posterior right lower lobe. Findings likely represent a bacterial pneumonia. No pleural thickening or pleural effusion. No pneumothorax. Mildly prominent lymph nodes are seen in the mediastinum in right hilum favored to represent reactive adenopathy. No concerning bony finding. Irregular low-density 5.9 x 3.8 cm mass lesion in the posterior right hepatic lobe with large internal area of calcification. All CT scans are performed using dose optimization technique as appropriate and may include automated exposure control or mA/KV adjustment according to patient size. IMPRESSION: Bronchopneumonia pattern is seen involving the right middle lobe and right lower lobe as detailed.After appropriate therapy, followup imaging would be advised assure complete clearance. Irregular low-density 5.9 cm hepatic mass containing internal calcification. Followup MRI liver protocol with contrast would be recommended for further evaluation. Physical Exam: GENERAL: The patient is a well-developed, well-nourished, in no apparent distress. Alert and oriented x3. VITAL SIGNS: Reviewed HEENT: Head is normocephalic and atraumatic. Extraocular muscles are intact. Pupils are equal, round, and reactive to light and accommodation. Nares appeared normal. Mouth is well hydrated and without lesions. Mucous membranes are moist. NECK: Supple. No carotid bruits. No lymphadenopathy or thyromegaly. LUNGS: Clear to auscultation. No crackles or wheezes are heard. HEART: Regular rate and rhythm, no appreciable gallops, rubs, murmurs or extra heart sounds ABDOMEN: Soft, nontender, and nondistended. Positive bowel sounds. No hepatosplenomegaly was noted. EXTREMITIES: Without any cyanosis, clubbing, rash, lesions or peripheral edema. NEUROLOGIC: The patient is oriented to person, place and time. Strength and sensation are grossly intact. Face is symmetric. SKIN: Normal color, turgor and temperature. No ulcerations or rashes noted. Impression: Dyspnea secondary to right middle/lower lobe pneumonia Hyponatremia with hypokalemia likely from dehydration Diabetes mellitus type 2 with hyperglycemia Hypertension Hyperlipidemia GERD Seasonal allergies Chronic pain Plan Dyspnea secondary to right middle/lower lobe pneumonia: Slight improvement noted. Continue IV Rocephin and Zithromax. Blood and sputum cultures obtained. Encourage incentive spirometer. Encourage ambulation. Continue with IV fluids due to hyponatremia. Will provide medication for cough. DVT prophylaxis in place. Recheck chest x-ray tomorrow. Anticipate improvement over the next 24 to 48 hours. Hyponatremia with hypokalemia likely from dehydration: Continue IV fluids. Electrolyte protocol in place. Recheck lab tomorrow. Overall improved. Encourage oral intake. Diabetes mellitus type 2 with hyperglycemia: Continue to hold metformin as the patient had CT scan. Due to elevated blood sugar will start Lantus 10 units this morning for better blood pressure control. Continue Accu-Cheks and sliding scale. Hemoglobin A1c 6.3 Hypertension: Blood pressure remains low but stable. Continue to hold home medicationNorvasc. Will obtain and review home meds. Hyperlipidemia: Continue home medicationLipitor. GERD: Continue home medicationProtonix Seasonal allergies: Continue with home medicationSingulair Chronic pain: Restart home medicationtramadol as needed along with muscle relaxer. Code Status: Full Code DVT prophylaxis: Lovenox Advanced Care Planning-30 minutes: Patient desires to go home at discharge. Time Spent Managing Pts Care (In Minutes): 55
[2020-10-04 06:05] LABS: Platelet Estimate ADEQ; White Blood Cell Scan OK (OK)
[2020-10-04 06:06] LABS: Blood Morphology Comment NOT SEEN (NOT SEEN)
[2020-10-04 06:11] LABS: Albumin 2.5 g/dL (3.4-5.0); Bilirubin Total 0.5 mg/dL (0.2-1.0); Potassium 3.4 mmol/L (3.5-5.1); Protein, Total 7.9 g/dL (6.4-8.2); Thyroid Stimulating Hormone 0.449 uIU/mL (0.360-3.740)
[2020-10-04] MEDS ORDERED: GLUCAGON 1 MG/VIAL IM PRN (06:54)
[2020-10-04] MEDS ORDERED: D50W 25 GM/50 ML VIAL IV PRN (07:27)
[2020-10-04] MEDS ORDERED: KCL 20 MEQ/100 mL IVPB 20 MEQ/100 ML BAG IV SCH (08:00)
[2020-10-04] MEDS ORDERED: TRAMADOL HCL 50 MG TAB PO PRN (08:46)
[2020-10-04] MEDS ORDERED: HOME MED 1 EA UNK (Cyclobenzaprine Hcl [Flexeril] 5 MG Tablet) PO PRN (08:46)
[2020-10-04] MEDS ORDERED: POTASSIUM CL SA 10 MEQ TAB PO ONE ×2 (09:00→21:00)
[2020-10-04] MEDS: ENOXAPARIN 40 MG/0.4 ML SQ SCH (09:00)
[2020-10-04] MEDS ORDERED: CYCLOBENZAPRINE 10 MG TAB PO PRN (09:01)
[2020-10-04] MEDS: CEFTRIAXONE/SWI 1gm 1 GM/10 ML SYR IVP SCH (09:11)
[2020-10-04] MEDS: INSULIN GLARGINE 100 UNITS/ML SQ SCH (09:11)
[2020-10-04] MEDS: PANTOPRAZOLE 40MG TABLET PO SCH (09:16)
[2020-10-04] MEDS: MONTELUKAST 10 MG TAB PO SCH (09:16)
[2020-10-04] MEDS: ATORVASTATIN 10 MG TAB PO SCH (09:16)
[2020-10-04] MEDS: AZITHROMYCIN IV 500 MG in NA CHLORIDE 0.9% 250 ML IVPB SCH (09:17)
[2020-10-04 15:13] LABS: Urine Appearance Clear (Clear); Urine Bilirubin Negative (Negative); Urine Blood 2+ (Negative); Urine Color Yellow (Yellow); Urine Glucose 3+ (Negative); Urine Protein 2+ (Negative); Urine Specific Gravity 1.015 (1.005-1.030); Urine Urobilinogen 0.2 mg/dL (0.2-1.0); Urine pH 6.5 (5.0-7.0)
[2020-10-04 15:15] LABS: Urine Microscopic Reflex ORDER UMIC
[2020-10-04 15:42] LABS: Potassium 3.8 mmol/L (3.5-5.1)
[2020-10-04 15:47] LABS: Urine Bacteria <20 /HPF (<20); Urine RBC <5 /HPF (NONE SEEN)
--- NOTE | 2020-10-05 05:55 | P.DS ---
Admission Date: 10/03/20 Discharge Date: 10/05/20 Primary Care Provider: Dr. Johnson Disposition: ROUTINE DISCHARGE Discharge Condition: GOOD Reason for Admission: Dyspnea, Pneumonia Consultations: none Procedures: COVID: Negative CT scan: COMPARISON: No comparisons FINDINGS: Large airspace consolidation is seen in the right middle lobe. Small area of consolidation is seen in the medial and posterior right lower lobe. Findings likely represent a bacterial pneumonia. No pleural thickening or pleural effusion. No pneumothorax. Mildly prominent lymph nodes are seen in the mediastinum in right hilum favored to represent reactive adenopathy. No concerning bony finding. Irregular low-density 5.9 x 3.8 cm mass lesion in the posterior right hepatic lobe with large internal area of calcification. All CT scans are performed using dose optimization technique as appropriate and may include automated exposure control or mA/KV adjustment according to patient size. IMPRESSION: Bronchopneumonia pattern is seen involving the right middle lobe and right lower lobe as detailed.After appropriate therapy, followup imaging would be advised assure complete clearance. Irregular low-density 5.9 cm hepatic mass containing internal calcification. Followup MRI liver protocol with contrast would be recommended for further evaluation. Medical Problem list: Dyspnea secondary to right middle/lower lobe pneumonia Hyponatremia with hypokalemia likely from dehydration Diabetes mellitus type 2 with hyperglycemia Hypertension Hyperlipidemia GERD Seasonal allergies Chronic pain CT showing irregular low-density 5.9 cm hepatic mass, patient reports history of liver hemangioma in the past Brief History of Present Illness: 60-year-old female with history of diabetes mellitus type 2, hypertension, hyperlipidemia presents emergency department for shortness of breath. Patient was seen in the emergency department few days prior diagnosed with bronchitis, discharged out antibiotics, chest x-ray unremarkable at that time. Chest x-ray/CT today demonstrates right middle and lower lobe pneumonia, white blood cell count 18.9 hemoglobin 10.6 hematocrit 30.8 sodium 125 potassium 3.0 GFR 57 pro calcitonin 0.4. Patient saturating around 93% on room air, feeling a bit short of breath. ED provider wishes to admit for further evaluation and management. Hospital Course: Patient presented with dyspnea secondary to right middle and lower lobe pneumonia. Patient also hyponatremic with hypokalemia from dehydration. Patient received IV antibiotic therapy and IV fluids with improvement. Patient has done well. Patient not requiring any oxygen at discharge. No significant shortness of breath or cough noted at discharge. Blood cultures negative. COVID test negative. At discharge patient will continue with Levaquin 500 mg daily for 7 days. Patient will be provided Tessalon Perles 100 mg 3 times a day as needed for cough. Patient may continue with albuterol 2 puffs 3 times a day as needed for shortness of breath. Recommend to continue incentive spirometer at home. Recommend follow-up with her PCP this week to follow-up his hospitalization. Recommend to recheck chest x-ray in 2 to 4 weeks to monitor resolution. If this persists recommend pulmonology evaluation as an outpatient. Recommend to recheck labCBC, BMP in 1 week to monitor resolution as well. Education on pneumonia provided. Patient with diabetes mellitus type 2 with hyperglycemia. Hemoglobin A1c 6.3. Blood sugars better controlled. At discharge patient may continue with Metformin 500 mg 1 pill twice daily. Recommend to maintain blood sugar less than 140 fasting and less than 200 after meals. If blood sugars remain above 200 she should follow-up with her PCP to further address and consider adjustment in medication. Recommend to recheck hemoglobin A1c every 3 months to monitor her progress. Recommend follow-up this week to monitor her diabetes. Patient with hypertension. Her blood pressure medicationNorvasc 10 mg daily was held due to low blood pressure during the course of her stay. Blood pressures have remained stable off medication. Recommend to monitor her blood pressures daily. Recommend to maintain blood pressure less than 130/80. I will recommend at discharge to lower Norvasc to 5 mg daily. May need to hold medication if blood pressure systolic less than 110. Recommend follow-up with her PCP to further monitor and adjust her medication. Patient with hyperlipidemia. At discharge patient may continue with Lipitor 10 mg daily. Patient with GERD. At discharge she may continue with Protonix 40 mg daily. Patient with seasonal allergies. At discharge she may continue with Singulair daily. Patient with chronic pain. Patient may continue with tramadol 50 mg daily and muscle relaxerFlexeril 5 mg at bedtime. Further adjustment in medication can be done by her PCP. Vital Signs/Physical Exam: Temp Pulse Resp BP Pulse Ox 97.7 F 80 18 120/67 97 10/05/20 00:00 10/05/20 00:00 10/05/20 00:00 10/05/20 00:00 10/05/20 00:00 General: Alert, In no apparent distress, Oriented x3, Cooperative HEENT: Atraumatic Neck: Supple Respiratory: Clear to auscultation bilaterally, Normal air movement Cardiovascular: Normal pulses, Regular rate/rhythm Gastrointestinal: Normal bowel sounds, Soft and benign, Non-distended, No tenderness, No masses, No rebound, No guarding Musculoskeletal: No erythema, No tenderness, No warmth Integumentary: No tenderness/swelling Neurological: Normal speech, Normal strength at 5/5 x4 extr, Normal tone, Normal affect Laboratory Data at Discharge: WBC 14.80 K/uL (4.3-10.9) H D 10/04/20 05:07 Hgb 11.6 g/dL (12.0-15.0) L 10/04/20 05:07 Hct 34.7 % (36.0-45.0) L 10/04/20 05:07 Plt Count 350 K/uL (152-406) 10/04/20 05:07 Sodium 130 mmol/L (136-145) L 10/04/20 15:20 Potassium 3.8 mmol/L (3.5-5.1) 10/04/20 15:20 BUN 21 mg/dL (7-18) H 10/04/20 15:20 Creatinine 0.87 mg/dL (0.55-1.3) 10/04/20 15:20 Glucose 238 mg/dL (74-106) H 10/04/20 15:20 Magnesium 2.0 mg/dL (1.8-2.4) 10/04/20 05:07 Total Bilirubin 0.5 mg/dL (0.2-1.0) 10/04/20 05:07 AST 37 U/L (15-37) 10/04/20 05:07 ALT 40 U/L (12-78) 10/04/20 05:07 Alkaline Phosphatase 74 U/L (45-117) 10/04/20 05:07 Triglycerides 112 mg/dL (<150) 10/04/20 05:07 Cholesterol 116 mg/dL (<200) 10/04/20 05:07 HDL Cholesterol 14 mg/dL (40-60) L 10/04/20 05:07 Cholesterol/HDL Ratio 8.29 10/04/20 05:07 Home Medications: Atorvastatin Calcium [Lipitor*] 1 tab PO DAILY 10/04/20 Cyclobenzaprine HCl [Flexeril] 1 tab PO BEDTIME PRN 10/04/20 Metformin HCl [Glucophage*] 1 tab PO BIDWM 10/04/20 Montelukast Sodium [Singulair] 1 tab PO DAILY 10/04/20 Pantoprazole [Protonix Tab*] 1 tab PO DAILY 10/04/20 Tramadol HCl [Ultram] 1 tab PO DAILY PRN 10/04/20 Amlodipine [Norvasc] 5 mg PO DAILY #30 tab 10/05/20 Benzonatate [Tessalon Perle*] 100 mg PO TID PRN #10 cap 10/05/20 levoFLOXacin [Levaquin] 500 mg PO DAILY #7 tab 10/05/20 New Medications: levoFLOXacin [Levaquin] 500 mg PO DAILY #7 tab Amlodipine [Norvasc] 5 mg PO DAILY #30 tab Benzonatate [Tessalon Perle*] 100 mg PO TID PRN #10 cap PRN Reason: Cough Physician Discharge Instructions: Patient presented with dyspnea secondary to right middle and lower lobe pneumonia. Patient also hyponatremic with hypokalemia from dehydration. Patient received IV antibiotic therapy and IV fluids with improvement. Patient has done well. Patient not requiring any oxygen at discharge. No significant shortness of breath or cough noted at discharge. Blood cultures negative. COVID test negative. At discharge patient will continue with Levaquin 500 mg daily for 7 days. Patient will be provided Tessalon Perles 100 mg 3 times a day as needed for cough. Patient may continue with albuterol 2 puffs 3 times a day as needed for shortness of breath. Recommend to continue incentive spirometer at home. Recommend follow-up with her PCP this week to follow-up his hospitalization. Recommend to recheck chest x-ray in 2 to 4 weeks to monitor resolution. If this persists recommend pulmonology evaluation as an outpatient. Recommend to recheck labCBC, BMP in 1 week to monitor resolution as well. Education on pneumonia provided. Patient with diabetes mellitus type 2 with hyperglycemia. Hemoglobin A1c 6.3. Blood sugars better controlled. At discharge patient may continue with Metformin 500 mg 1 pill twice daily. Recommend to maintain blood sugar less than 140 fasting and less than 200 after meals. If blood sugars remain above 200 she should follow-up with her PCP to further address and consider adjustment in medication. Recommend to recheck hemoglobin A1c every 3 months to monitor her progress. Recommend follow-up this week to monitor her diabetes. Patient with hypertension. Her blood pressure medicationNorvasc 10 mg daily was held due to low blood pressure during the course of her stay. Blood pressures have remained stable off medication. Recommend to monitor her blood pressures daily. Recommend to maintain blood pressure less than 130/80. I will recommend at discharge to lower Norvasc to 5 mg daily. May need to hold medication if blood pressure systolic less than 110. Recommend follow-up with her PCP to further monitor and adjust her medication. Patient with hyperlipidemia. At discharge patient may continue with Lipitor 10 mg daily. Patient with GERD. At discharge she may continue with Protonix 40 mg daily. Patient with seasonal allergies. At discharge she may continue with Singulair daily. Patient with chronic pain. Patient may continue with tramadol 50 mg daily and muscle relaxerFlexeril 5 mg at bedtime. Further adjustment in medication can be done by her PCP. Diet: ADA Activity: Ad caridad Followup: Mode Johnson DO [Primary Care Provider] - Time spent managing pt's care (in minutes): 55
[2020-10-05 06:03] LABS: Absolute Lymphocytes (CBC) 1.2 K/uL (0.7-4.9); Basophils % 0.1 % (0-1.3); Hematocrit 32.1 % (36.0-45.0); Lymphocytes % 6.1 % (15.3-44.8); MPV 8.6 fL (7.6-11.3); RBC Red Blood Cell Count 3.74 M/uL (3.86-4.86)
[2020-10-05 06:18] LABS: Albumin 2.5 g/dL (3.4-5.0); Bilirubin Total 0.3 mg/dL (0.2-1.0); Magnesium 2.3 mg/dL (1.8-2.4); Potassium 3.9 mmol/L (3.5-5.1)
[2020-10-05] MEDS: NA CHLORIDE 0.9% 1,000 ML IV SCH (06:50)
[2020-10-05 08:05] LABS: Blood Morphology Comment NOT SEEN (NOT SEEN); Platelet Estimate ADEQ
[2020-10-05] MEDS: INSULIN -REGULAR HUMAN 50 UNIT/0.5 ML ML SQ SCH ×2 (08:12→11:30)
[2020-10-05] MEDS: ENOXAPARIN 40 MG/0.4 ML SQ SCH (09:00)
[2020-10-05] MEDS ORDERED: POTASSIUM CL SA 10 MEQ TAB PO ONE (09:00)
[2020-10-05] MEDS: INSULIN GLARGINE 100 UNITS/ML SQ SCH (09:13)
[2020-10-05] MEDS: AZITHROMYCIN IV 500 MG in NA CHLORIDE 0.9% 250 ML IVPB SCH (09:13)
[2020-10-05] MEDS: CEFTRIAXONE/SWI 1gm 1 GM/10 ML SYR IVP SCH (09:13)
[2020-10-05] MEDS: MONTELUKAST 10 MG TAB PO SCH (09:14)
[2020-10-05] MEDS: PANTOPRAZOLE 40MG TABLET PO SCH (09:14)
[2020-10-05] MEDS: ATORVASTATIN 10 MG TAB PO SCH (09:14)
[2020-10-05 10:21] VITALS: BP 115/68; TEMP 97.3
[2020-10-05 10:50] VITALS: O2SAT 98
--- NOTE | 2020-10-05 12:17 | RAD REPORT ---
EXAM DESCRIPTION: RAD - Chest Pa And Lat (2 Views) - 10/05/2020 5:49 am CLINICAL HISTORY: follow up R sided pneumonia Chest pain. COMPARISON: Chest Pa And Lat (2 Views) dated 10/03/2020; Chest Single View dated 09/28/2020 FINDINGS: Mild improvement is seen in the inferior right lung pneumonia since comparative study. The left lung remains grossly clear. The heart is normal in size. No displaced fractures. IMPRESSION: Mild improvement in right-sided pneumonia.
== END 2020-10-05 13:42 | disposition home or self-care (01) | DRG 194 ==
LOC: ER 16:11 → ERHOLD 20:36 → 2ND 22:36
PROVIDERS: ADMIT Family Medicine; ATTEND Family Medicine
DX: J18.9 Pneumonia, unspecified organism (principal); E87.1 Hypo-osmolality and hyponatremia; E87.6 Hypokalemia; E86.0 Dehydration; E11.65 Type 2 diabetes mellitus with hyperglycemia; I10 Essential (primary) hypertension; E78.5 Hyperlipidemia, unspecified; K21.9 Gastro-esophageal reflux disease without esophagitis; J30.2 Other seasonal allergic rhinitis; R16.0 Hepatomegaly, not elsewhere classified; G89.29 Other chronic pain; Z20.822 Contact with and (suspected) exposure to COVID-19
CPT/HCPCS: 36415; 71046; 71260; 80048; 80053; 80061; 81003; 81015; 82947; 83036; 83605; 83735; 84145; 84439; 84443; 85025; 87040; 94010; 96361; 96365; 96375; 97116; 97162; 99285; J0456; J0696; J1650; J1815; J2930; J7030; J7050; Q9967; U0003

== ENCOUNTER 2021-06-12 14:43 | Emergency (ER) | payer OTHER ==
--- OUTSIDE RECORDS SUMMARY | 2021-06-12 14:46 | XMS REPORT | Continuity of Care Document ---
:1960 Author Organization [facility] t Address [address] [place] [address] Care Team Providers Name Role Phone Kamlesh Johnson Attending Clinician Unavailable Radiology Attending Clinician Unavailable RADIOLOGY Attending Clinician Unavailable Doctor Unassigned, Name Attending Clinician Unavailable Jose Crowley MD Attending Clinician Payers Payer Name Policy Type Policy Number Effective Date Expiration Date S ource Problems Condition Condition Condition Status Onset Resolution Last Treating Co mments Source Name Details Category Date Date Treatment Clinician Date No known No known Disease [facility] active [place] problems problems of Medicin e Allergies, Adverse Reactions, Alerts Allergy Allergy Status Severity Reaction(s) Onset Inactive Treating Comm ents Source Name Type Date Date Clinician NO KNOWN Drug Active Univers ALLERGIE Class [facility] Social History Social Habit Start Date Stop Date Quantity Comments Source Sex Assigned [facility] Exposure to Not sure [facility]-CoV-2 [facility] (event) Branch Alcohol intake 2019-06-18 2019-06-18 Current drinker [facility] of 00:00:00 00:00:00 of alcohol Medicine (finding) Smoking Status Start Date Stop Date Source Unknown if ever smoked [facility] Former smoker 2019-06-18 00:00:00 2019-06-18 00:00:00 [facility] debo of Medicine Medications Ordered Filled Start Stop Current Ordering Indication Dosage Frequency Signature Comments Components Source Medication Medication Date Date Medication? Clinician (SIG) Name Name Omeprazole Omeprazole 2020-0 Yes Mode [address] [facility] 2-25 Johnson 30 minutes [facility] 00:[facility]: before [facility] 00 morning l [facility] ATORVASTATI 2020-0 Yes Take by [facility] N CALCIUM 2-24 mouth. [place] OR 17:05: of 00 Medicin e METFORMIN 2020-0 Yes Take by [facility] OR 2-24 mouth. [place] 17:05: of 00 Medicin e PHENDIMETRA 2020-0 Yes Take by Ba [facility]lor ZINE 2-24 mouth. [place] TARTRATE OR 17:05: of 00 Medicin e Cyclobenzap 2020-0 Yes Take by Ba [facility] rine HCl 2-24 mouth. [place] (FLEXERIL 17:05: of OR) 00 Medicin e LISINOPRIL 2020-0 Yes Take by [place] kev OR 2-24 mouth. [place] 17:05: of 00 Medicin e TRAMADOL 2019-0 Yes Take by [facility]CL ER OR 2-24 mouth. [place] 17:04: of 59 Medicin e tramadol 2020-0 Yes 1{tbl} Take 1 Tab [facility] (ULTRAM) 50 2-24 by mouth Tommy ege MG tablet 00:00: every 8 of 00 hours as Medicin needed for e Pain. Pantoprazol Pantoprazol Yes Mode [address] [facility] Sodium e Sodium Johnson [facility] Cyclobenzap Cyclobenzap Yes Mode TAKE [address] [facility] rine HCl rine HCl Johnson TABLET BY L ukes - MOUTH ONCE [facility] DAILY l NEEDED [facility] Atorvastati Atorvastati Yes Mode [address] [facility] n Calcium n Calcium Johnson [facility] Lisinopril- Lisinopril- Yes Mode [address] [facility] Hydrochloro Hydrochloro Johnson [facility] - thiazide thiazide [facility] Montelukast Montelukast Yes Mode [address] [facility] Sodium Sodium Johnson [facility] Metformin Metformin Yes Mode [address] [facility] HCl HCl Johnson with a [facility] - meal [facility] Amlodipine Amlodipine Yes Mode [address] [facility] Besylate Besylate Johnson [facility] Tramadol Tramadol Yes Mode [address] HCl HCl Johnson as needed [facility] Cyclobenzap Cyclobenzap Yes Mode [address] [facility] rine HCl rine HCl Johnson as needed L [facility]kes - [facility] Phendimetra Phendimetra 2020- No Mode [address] [facility] zine zine 06-20 Johnson hour [facility] - Tartrate Tartrate 00:00 before a Me moria :00 meal l [facility] Immunizations Ordered Filled Immunization Date Status Comments Sour e Immunization Name Name Influenza Quad-PF 2019-05-18 Completed [facility] 00:00:00 Medicine Afluria single dose Afluria single dose 2019-01-[address] [facility] 00[facility]00 [facility] Vital Signs Vital Name Observation Time Observation Value Comments Source Systolic blood 2019-06-18 17:03:00 111 mm[Hg] [facility] Medicine Diastolic blood 2019-06-18 17:03:00 77 mm[Hg] [facility] Medicine Heart rate 2019-06-18 17:03:00 76 /min [facility] Body temperature 2019-06-18 17:03:00 37 [facility] Body height 2019-06-18 17:03:00 162.6 cm [facility] Body weight 2019-06-18 17:03:00 78.472 kg [facility] BMI 2019-06-18 17:03:00 29.70 kg/m2 [facility] Systolic blood 2019-06-18 17:03:00 111 mm[Hg] [facility] Medicine Diastolic blood 2019-06-18 17:03:00 77 mm[Hg] [facility] Medicine Heart rate 2019-06-18 17:03:00 76 /min [facility] Body temperature 2019-06-18 17:03:00 37 [facility] Body height 2019-06-18 17:03:00 162.6 cm [facility] Body weight 2019-06-18 17:03:00 78.472 kg [facility] BMI 2019-06-18 17:03:00 29.70 kg/m2 [facility] Procedures Procedure Date / Time Performed Performing Clinician Chyna cabral MR CERVICAL SPINE WO 2020-01-03 16:04:53 Requisition, Paper [facility] ASSIGNMENT OF BENEFITS 2020-01-03 14:52:10 Doctor Unassigned, No [facility] Plan of Care Planned Activity Planned Date Details Comments Source Future Scheduled Test COLON CANCER SCREENING: [facility] COLONOSCOPY [code = Medicine COLON CANCER SCREENING: COLONOSCOPY] Future Scheduled Test MAMMOGRAM ANNUAL [code [facility] = MAMMOGRAM ANNUAL] Medicine Future Scheduled Test TETANUS SHOT (ADULT) [facility] [code = TETANUS SHOT Medicin e (ADULT)] Future Scheduled Test BMI FOLLOW UP PLAN [facility] [code = BMI FOLLOW UP Medici ne PLAN] Future Scheduled Test HEPATITIS C SCREENING [facility] [code = HEPATITIS C Medicine SCREENING] Future Scheduled Test HIV SCREENING [code = [facility] HIV SCREENING] Medicine Future Scheduled Test CERVICAL CANCER [facility] SCREENING 3 YEAR FOLLOW Medi cine UP [code = CERVICAL CANCER SCREENING 3 YEAR FOLLOW UP] Encounters Start End Encounter Admission Attending Care Care Encounter Source Date/Time Date/Time Type Type Clinicians Facility Department ID 2021-05-20 Outpatient Johnson, [facility] 13:[facility]:21 Mode [id number] [facility] 2021-05-20 [facility] 13[facility]:10 Mode [id number] [facility] 2021-05-20 Out[facility] Johnson[facility] 13[facility]32:56 Mode [id number] [facility] 2021-05-20 [facility] 13[facility]14:18 Mode [id number] [facility] 2021-05-20 Outpatient Johnson, [facility] 13:05:50 Mode [id number] [facility] 2021-05-20 [facility] 12[facility]59:33 Mode [id number] [facility] 2021-05-20 Outpatient Johnson, STLMLC STLMLC [id number] 12:56:29 Mode [id number] [facility] 2021-05-20 Outpatient Johnson, STLMLC STLMLC [id number] 12:08:06 Mode [id number] [facility] 2021-05-20 Outpatient Johnson, STLMLC STLMLC [id number] [facility] 12:07:38 Mode [id number] [facility] 2021-05-20 Outpatient Johnson, STLMLC STLMLC [id number] 11:17:53 Mode [id number] [facility] 2021-05-20 Outpatient Johnson, STLMLC STLC [id number] [facility] 11:17:22 Mode [id number] [facility] 2021-05-20 Outpatient Johnson, STLMLC STLC [id number] 11:10:00 Mode [id number] [facility] 2021-05-20 Outpatient Johnson, STLMLC STLC [id number] [facility] 11:02:01 Mode [id number] [facility] 2021-05-20 Outpatient Johnson, STLMLC STLC [id number] 11:01:01 Mode [id number] [facility] 2021-05-25 2021-05-25 ambulatory [facility]LMLC [facility] [id number] [facility] 2021-01-29 2021-01-29 Outpatient [facility] [id number] [facility] 2020-12-30 2020-12-30 Outpatient STLMLC [facility] [id number] [facility] 2020-12-23 2020-12-23 Outpatient [facility] [id number] [facility] 2020-12-17 2020-12-17 Outpatient STLMLC [facility] [id number] [facility] 2020-12-15 2020-12-15 Outpatient STLMLC [facility] [id number] [facility] 2020-12-15 2020-12-15 Outpatient STLMLC [facility] [id number] [facility] 2020-11-21 2020-11-21 Outpatient STLMLC [facility] [id number] [facility] 2020-10-22 2020-10-22 Outpatient STLMLC [facility] [id number] [facility] 2020-10-15 2020-10-15 Outpatient STLMLC [facility] [id number] [facility] 2020-10-13 2020-10-13 Outpatient STLMLC [facility] [id number] [facility] 2020-10-13 2020-10-13 Outpatient [facility]LMLC [facility] [id number] [facility] 2020-10-03 2020-10-03 Outpatient STLMLC [facility] [id number] [facility] 2020-09-24 2020-09-24 Outpatient [facility]LMLC [facility] [id number] [facility] 2020-08-26 2020-08-26 Outpatient [facility]LMLC [facility] [id number] [facility] 2020-03-18 2020-03-18 [facility] [id number] [facility] 2020-03-05 2020-03-05 [facility] [id number] [facility] 2020-02-20 2020-02-20 [facility] [id number] [facility] 2020-01-22 2020-01-22 [facility] [id number] [facility] 2020-01-03 2020-01-03 Hospital Radiology [facility] [id number] [facility] 09:53:20 23:59:00 Encounter [place] [id number] ity of [place] [id number] [facility] [id number] [facility] [address] [place] [address] 2020-01-03 2020-01-03 [facility] Radiology [facility] [id number] 09:53:20 23:59:00 Encounter [place] [id number] [place] [id number] [place] [id number] 2020-01-03 2020-01-03 Outpatient R RADIOLOGY [facility] [id number] Univers 00:00:00 00:00:00 ity of [facility] 2020-01-03 2020-01-03 Orders Doctor SOL [id number] Univers 00:00:00 00:00:00 Only Unassigned, LUIS DANIEL [id number] ity of [place] [facility] [id number] Eric [id number] [address] 2020-01-03 2020-01-03 Orders Doctor EBENEZER [id number] 00:00:00 00:00:00 Only Unassigned, LUIS DANIEL [id number] Minor [facility] [id number] 2019-10-10 2019-10-10 [facility] [id number] 09:30:00 09:30:[address] [employer] s - Drive [facility] Medicine Outpati ent Clinics 2019-08-14 2019-08-14 [facility] [id number] 11:30:00 11:30:[address] [employer] s - Drive [facility] Medicine Outpati ent Clinics 2019-08-10 2019-08-10 [facility] [id number] 10:42:00 10:42:00 [place] [employer]um[place] [employer] s - Drive [facility] Medicine Outpati ent Clinics 2019-07-10 2019-07-10 [facility] [id number] 10:45:00 10:45:00 [place] [employer] [employer] s - Drive [facility] Medicine Outpati ent Clinics 2019-06-19 2019-06-19 [facility] [id number] 12:53:00 12:53:00 t [place] [employer] s - Drive [facility] Medicine Outpati ent Clinics 2019-06-18 2019-06-18 Office Keo, LOGAN [id number] 10:59:16 11:29:16 Visit Guido Ray AMBULATOR [id number] Y [id number] 2019-06-18 2019-06-18 Office Keo, LOGAN [id number] [place] [address] 10:59:16 11:29:16 Visit Guido Ray AMBULATOR [id number] [place] Y [id number] of [id number] [facility] 800 e 2019-06-14 2019-06-14 [facility] [id number] 08:09:00 08:09:00 [place] [employer] s - Drive [facility] Medicine Outpati ent Clinics 2019-05-15 2019-05-15 [facility] [id number] 09:45:00 09:45:00 [place] [employer] [employer] s - Drive [facility] Out[facility] Clinics 2019-05-01 2019-05-01 [facility] [id number] 17:15:00 17:15:00 [place] [employer] [employer] s - Drive [facility] Medicine l Medicine Outpati ent Clinics 2019-04-24 2019-04-24 [facility] [id number] 12:46:00 12:46:00 [place] [employer] s - Drive [facility] Medicine l Medicine Outpati ent Clinics 2019-04-11 2019-04-11 [facility] [id number] 14:30:00 14:30:00 [place] [employer] [employer] s - Drive [facility] Medicine l Medicine Outpati ent Clinics 2019-04-03 2019-04-03 [facility] [id number] 10:19:00 10:19:00 [place] [employer] s - Drive [facility] Medicine l Medicine Outpati ent Clinics 2019-04-02 2019-04-02 [facility] [id number] 16:33:00 16:33:00 [place] [employer] s - Drive [facility] Medicine Medicine Outpati ent Clinics 2019-01-17 2019-01-17 [facility] [id number] 13:00:00 13:00:00 [place] [employer] s - Drive [facility] Medicine Medicine Outpati ent Clinics 2019-01-01 2019-01-01 [facility] [id number] 14:30:00 14:30:00 [place] [employer] s - Drive [facility] Medicine l Medicine Outpati ent Clinics 2018-12-20 2018-12-20 [facility] [id number] 17:00:00 17:00:00 [place] [employer] s - Drive [facility] Medicine Medicine Outpati ent Clinics 2018-12-20 2018-12-20 [facility] [id number] 14:00:00 14:00:00 [place] [employer] s - Drive [facility] Medicine l Medicine Outpati ent Clinics Results Test Description Test Test Results Result Source Time Comments Comments MR CERVICAL 2019-12- HISTORY: Chronic neck Un iversity of SPINE WO 10 pain radiating into [facility] 16:17:36 both shoulders with Branc h bilateralhand numbness. TECHNIQUE: T1/T2/STIR sagittal and T1/T2 FRFSE/2D MERGE axial studies ofcervical spines were obtained. FINDINGS: Reversal of normal cervical lordosis is suggestive of chronicneck muscle spasm. No compression fracture or abnormal marrow changes ofthe bones detected. Spinal canal is of adequate size and no intrinsiccervical cord pathology detected. Low lying cerebellar tonsils noted, left side more than right, minimallyprotruding below the level of foramina magnum.. C2-C3: Prominent bulging disc into the prevertebral soft tissue. Minimalbulging disc in the spinal canal without cord compression or foraminalencroachment. C3-C4: Small osteophytes along the ventral vertebral margins and minimalmidline disc bulge without cord compression or foraminal encroachment. C4-C5: Moderate degenerative disc disease with narrowing of the posteriordisc by approximately 50%, prominent Schmorl's nodes in the vertebralendplates, likely secondary to remote trauma, large osteophytes protrudinginto the prevertebral soft tissues, minimal retrolisthesis of C4 over C5,disc osteophyte complex encroaching into the spinal canal and into theneural foramina, slightly more on the right side. No cord compressioncompression. Minimal bilateral nerve root compression suspected. C5-C6: Moderate degenerative disc disease with narrowing of the posteriordisc space by 50-60%, grade 1 retrolisthesis of C5 over C6, prominent discosteophyte complex along the ventral as well as dorsal vertebral marginsencroaching toward the spinal canal causing spinal stenosis with mildflattening of the spinal cord in AP dimension. Encroachment is slightlymore into the left side of the spinal canal. Foraminal encroachment is notsignificant on either side. C6-C7: Moderate degenerative disc disease with narrowing of the posteriordisc space by up to 70%, grade 1 retrolisthesis of C6 over C7, bulging discinto the spinal canal with additional encroachment from dorsal aspect bythickened ligaments causing mild spinal stenosis with mild flattening ofthe spinal cord in AP dimension. Foraminal narrowing noted on both sides,slightly more on the right side with mild right nerve root compression andminimal left nerve root compression. C7-T1, T1-T2, T2-T3, T3-T4: Unremarkable. CONCLUSIONS:1. Reversal of normal cervical lordosis suggestive of chronic neck musclespasm.2. Spinal stenosis at C6-C7, C5-C6 secondary to grade 1 retrolisthesis ofC6 over C7 and C5 over C6, prominent osteophyte complex encroach into thespinal canal with additional encroachment from dorsal aspect by thickenedligaments causing mild flattening of the spinal cord in AP dimension atC5-C6 and C6-C7.3. Foraminal encroachment causing mild right nerve root compression atC6-C7, minimal left nerve root compression at C6-C7 and minimal bilateralnerve root compression suspected at C4-C5. [facility], Radiant Results Inft User - 01/03/2020 11:18 AM CDTHISTORY: Chronic neck pain radiating into both shoulders with bilateralhand numbness.TECHNIQUE: T1/T2/STIR sagittal and T1/T2 FRFSE/2D MERGE axial studies ofcervical spines were obtained.FINDINGS: Reversal of normal cervical lordosis is suggestive of chronicneck muscle spasm. No compression fracture or abnormal marrow changes ofthe bones detected. Spinal canal is of adequate size and no intrinsiccervical cord pathology detected.Low lying cerebellar tonsils noted, left side more than right, minimallyprotruding below the level of foramina magnum..C2-C3: Prominent bulging disc into the prevertebral soft tissue. Minimalbulging disc in the spinal canal without cord compression or foraminalencroachment.C 3-C4: Small osteophytes along the ventral vertebral margins and minimalmidline disc bulge without cord compression or foraminal encroachment.C4-C5: Moderate degenerative disc disease with narrowing of the posteriordisc by approximately 50%, prominent Schmorl's nodes in the vertebralendplates, likely secondary to remote trauma, large osteophytes protrudinginto the prevertebral soft tissues, minimal retrolisthesis of C4 over C5,disc osteophyte complex encroaching into the spinal canal and into theneural foramina, slightly more on the right side. No cord compressioncompression. Minimal bilateral nerve root compression suspected.C5-C6: Moderate degenerative disc disease with narrowing of the posteriordisc space by 50-60%, grade 1 retrolisthesis of C5 over C6, prominent discosteophyte complex along the ventral as well as dorsal vertebral marginsencroaching toward the spinal canal causing spinal stenosis with mildflattening of the spinal cord in AP dimension. Encroachment is slightlymore into the left side of the spinal canal. Foraminal encroachment is notsignificant on either side.C6-C7: Moderate degenerative disc disease with narrowing of the posteriordisc space by up to 70%, grade 1 retrolisthesis of C6 over C7, bulging discinto the spinal canal with additional encroachment from dorsal aspect bythickened ligaments causing mild spinal stenosis with mild flattening ofthe spinal cord in AP dimension. Foraminal narrowing noted on both sides,slightly more on the right side with mild right nerve root compression andminimal left nerve root compression.C7-T1, T1-T2, T2-T3, T3-T4: Unremarkable.CONCLUSION S:1. Reversal of normal cervical lordosis suggestive of chronic neck musclespasm.2. Spinal stenosis at C6-C7, C5-C6 secondary to grade 1 retrolisthesis ofC6 over C7 and C5 over C6, prominent osteophyte complex encroach into thespinal canal with additional encroachment from dorsal aspect by thickenedligaments causing mild flattening of the spinal cord in AP dimension atC5-C6 and C6-C7.3. Foraminal encroachment causing mild right nerve root compression atC6-C7, minimal left nerve root compression at C6-C7 and minimal bilateralnerve root compression suspected at C4-C5.
[2021-06-12] MEDS ORDERED: HYDROCODONE/APAP 5/325 MG TAB ONE (15:28)
--- NOTE | 2021-06-12 16:16 | RAD REPORT ---
EXAM DESCRIPTION: RAD - Wrist Right 3 View - 06/12/2021 3:59 pm CLINICAL HISTORY: Right wrist pain status post injury FINDINGS: No fracture or dislocation is seen. No bone or joint abnormality noted If the patient continues to have symptoms to suggest an occult fracture then a followup plain film s eries in 7 days would be recommended.
[2021-06-12] MEDS ORDERED: TRAMADOL HCL 50 MG TAB ONE (16:26)
--- NOTE | 2021-06-12 16:59 | ER ---
Nurse's Notes [facility] Name: Batsheva Guevara Age: 61 yrs Sex: Female : 1960 Arrival Date: 06/12/2021 Time: 14:44 Bed 10 Private MD: Diagnosis: Sprain of carpal joint of right wrist Presentation: 06/12 14:56 Chief complaint: Patient states: I tripped over uneven sidewalk, caught my toe and I ld1 fell. C/O right hand/wrist. Coronavirus screen: At this time, the client does not indicate any symptoms associated with coronavirus-19. Ebola Screen: No symptoms or risks identified at this time. Initial Sepsis Screen: Does the patient meet any 2 criteria? No. Patient's initial sepsis screen is negative. Does the patient have a suspected source of infection? No. Patient's initial sepsis screen is negative. Risk Assessment: Do you want to hurt yourself or someone else?. Onset of symptoms was June 12, 2021. 14:56 Method Of Arrival: Ambulatory ld1 14:56 Acuity: HERMELINDA 4 ld1 Triage Assessment: 14:57 General: Appears in no apparent distress. comfortable, Behavior is calm, cooperative, ld1 appropriate for age. Pain: Complains of pain in right hand and right wrist Pain does not radiate. Pain currently is 10 out of 10 on a pain scale. Quality of pain is described as sharp, shooting, throbbing, Pain began suddenly, Is continuous. Neuro: Level of Consciousness is awake, alert, obeys commands, Oriented to person, place, time, situation. Respiratory: Airway is patent Respiratory effort is even, unlabored. 15:39 General: Appears in no apparent distress. comfortable, Behavior is calm, cooperative. lr4 Pain: Denies pain. Aggravated by increased activity. Neuro: No deficits noted. Cardiovascular: No deficits noted. Respiratory: No deficits noted. Musculoskeletal: Circulation, motion, and sensation intact. Capillary refill Range of motion: limited in right wrist Swelling present in right wrist Tenderness Reports pain in right hand and right wrist Pain is 0 out of 10 on a pain scale. Pt denies pain as long as she is not moving her R wrist, pt states pain is sharp and 10/10 upon movement of R wrist. 17:00 General: pt departed ed ambulatory with all personal effects, pt in nad, vss. lr4 Historical: - Home Meds: 14:57 amlodipine oral [Active]; Cyclobenzaprine Oral [Active]; lisinopril-hydrochlorothiazide ld1 Oral [Active]; Metformin Oral [Active]; montelukast Oral [Active]; pantoprazole Oral [Active]; phentermine Oral [Active]; Tramadol Oral [Active]; - PMHx: 14:57 Diabetes - NIDDM; chronic neck pain; High Cholesterol; Hypertension; ld1 - PSHx: 14:57 section; Hysterectomy; ld1 - Immunization history:: Adult Immunizations up to date, Adult Immunizations Client reports receiving the 2nd dose of the Covid vaccine, moderna. - Social history:: Smoking status: Patient denies any tobacco usage or history of. Patient uses alcohol, occasionally. Screenin:43 Abuse screen: Denies threats or abuse. Nutritional screening: No deficits noted. lr4 Tuberculosis screening: No symptoms or risk factors identified. Fall Risk Fall in past 12 months (25 points). No secondary diagnosis (0 pts). No IV (0 pts). Ambulatory Aid- None/Bed Rest/Nurse Assist (0 pts). Gait- Normal/Bed Rest/Wheelchair (0 pts) Mental Status- Oriented to own ability (0 pts). Total Means Fall Scale indicates No Risk (0-24 pts). Vital Signs: 14:56 BP 136 / 86; Pulse 80; Resp 18; Temp 98.3(TE); Pulse Ox 96% on R/A; Weight 85.73 kg; ld1 Height 5 ft. 4 in. (162.56 cm); Pain 10/10; 16:49 BP 154 / 72; Pulse 73; Resp 20; Temp 96.6; Pulse Ox 98% ; lr4 14:56 Body Mass Index 32.44 (85.73 kg, 162.56 cm) ld1 ED Course: 14:44 Patient arrived in ED. as 14:53 Rivas Steinberg PA is PHCP. [facility] 14:53 Arnold Ayala MD is Attending Physician. jm 14:57 Triage completed. ld1 14:57 Arm band placed on right wrist. ld1 15:43 Wrist Right 3 View XRAY Sent. lr4 15:44 Patient has correct armband on for positive identification. Bed in low position. Call lr4 light in reach. 15:59 Wrist Right 3 View XRAY In Process Unspecified. EDMS 16:44 No provider procedures requiring assistance completed. lr4 16:44 Patient did not have IV access during this emergency room visit. lr4 16:58 Son Ruiz MD is Referral Physician. duran Administered Medications: 15:27 Drug: HYDROcodone-acetaminophen 5 mg-325 mg 1 tabs Route: PO; ww 16:26 Follow up: Response: Pain is decreased lr4 16:26 Drug: UltRAM (traMADol) 50 mg Route: PO; lr4 16:26 Follow up: Response: Pain is decreased lr4 Outcome: 15:44 Condition: good lr4 16:44 Discharged to home lr4 16:50 Discharge instructions given to patient. lr4 16:58 Discharge ordered by . duran 17:06 Patient left the ED. lr4 Signatures: Dispatcher [employer] EDMS Rivas Steinberg PA PA jmm Martinez, Amelia as Dibbern, Lauren, RN RN ld1 Kym Anders RN RN ww Cassi Smyth RN RN lr4
--- NOTE | 2021-06-12 16:59 | EDPHYS ---
Physician Documentation [facility] Name: Batsheva Guevara Age: 61 yrs Sex: Female : 1960 Arrival Date: 06/12/2021 Time: 14:44 Bed 10 Private MD: ED Physician Arnold Ayala HPI: 06/12 16:53 This 61 yrs old Female presents to ER via Ambulatory with complaints of Fall Injury, jmm Wrist Injury. 16:53 Onset: The symptoms/episode began/occurred acutely, just prior to arrival. Associated jmm injuries: The patient sustained Right wrist. It is unknown whether or not the patient has had similar symptoms in the past. Patient complaints of right wrist pain after falling on an outstretched hand after tripping on a curb. Denies other injury.. Denies hitting her head. . Historical: - Home Meds: 14:57 amlodipine oral [Active]; Cyclobenzaprine Oral [Active]; lisinopril-hydrochlorothiazide ld1 Oral [Active]; Metformin Oral [Active]; montelukast Oral [Active]; pantoprazole Oral [Active]; phentermine Oral [Active]; Tramadol Oral [Active]; - PMHx: 14:57 Diabetes - NIDDM; chronic neck pain; High Cholesterol; Hypertension; ld1 - PSHx: 14:57 section; Hysterectomy; ld1 - Immunization history:: Adult Immunizations up to date, Adult Immunizations Client reports receiving the 2nd dose of the Covid vaccine, moderna. - Social history:: Smoking status: Patient denies any tobacco usage or history of. Patient uses alcohol, occasionally. ROS: 16:53 Constitutional: Negative for fever, chills, and weight loss, Cardiovascular: Negative jmm for chest pain, palpitations, and edema, Respiratory: Negative for shortness of breath, cough, wheezing, and pleuritic chest pain. 16:53 MS/extremity: Positive for pain. 16:53 All other systems are negative. Exam: 16:53 Constitutional: This is a well developed, well nourished patient who is awake, alert, jmm and in no acute distress. Head/Face: atraumatic. Eyes: EOMI, no conjunctival erythema appreciated ENT: Moist Mucus Membranes Neck: Trachea midline, Supple Chest/axilla: Normal chest wall appearance and motion. Cardiovascular: Regular rate and rhythm. No edema appreciated Respiratory: Normal respirations, no respiratory distress appreciated Abdomen/GI: Non distended, soft Back: Normal ROM Skin: General appearance color normal 16:53 Musculoskeletal/extremity: pain on palpation of the right snuffbox region, swellling noted to the wrist, compartments are soft, full radial pulse, NVI. 16:53 Skin: Appearance: Color: normal in color. 16:53 Neuro: Orientation: is normal, Mentation: is normal, Memory: is normal. 16:53 Psych: Behavior/mood is pleasant, cooperative. Vital Signs: 14:56 BP 136 / 86; Pulse 80; Resp 18; Temp 98.3(TE); Pulse Ox 96% on R/A; Weight 85.73 kg; ld1 Height 5 ft. 4 in. (162.56 cm); Pain 10/10; 16:49 BP 154 / 72; Pulse 73; Resp 20; Temp 96.6; Pulse Ox 98% ; lr4 14:56 Body Mass Index 32.44 (85.73 kg, 162.56 cm) ld1 MDM: 15:16 Patient medically screened. [facility] 16:55 Data reviewed: vital signs, nurses notes. Counseling: I had a detailed discussion with [facility] the patient and/or guardian regarding: the historical points, exam findings, and any diagnostic results supporting the discharge/admit diagnosis, radiology results, the need for outpatient follow up, to return to the emergency department if symptoms worsen or persist or if there are any questions or concerns that arise at home. ED course: Patient advised to follow up with ortho/hand for reevaluation. Patient understood and agrees with the plan of care. . 06/12 15:18 Order name: Wrist Right 3 View XRAY; Complete Time: 16:17 [facility] 06/12 16:03 Order name: Thumb Spica Splint; Complete Time: 16:43 [facility] Administered Medications: 15:27 Drug: HYDROcodone-acetaminophen 5 mg-325 mg 1 tabs Route: PO; ww 16:26 Follow up: Response: Pain is decreased lr4 16:26 Drug: UltRAM (traMADol) 50 mg Route: PO; lr4 16:26 Follow up: Response: Pain is decreased lr4 Disposition: 18:46 Co-signature as Attending Physician, Arnold Ayala MD I agree with the assessment and rn plan of care. Attestation: The patient's history, exam findings, diagnostics, and a summary of any interventions or procedures was reviewed in detail with Rivas TORRES. Disposition Summary: 06/12/21 16:58 Discharge Ordered Location: Home [facility] Condition: Stable jmm Diagnosis - Sprain of carpal joint of right wrist jmm Followup: [facility] - With: Son Ruiz MD - When: 2 - 3 days - Reason: Recheck today's complaints, Continuance of care, Re-evaluation by your physician Discharge Instructions: - Discharge Summary Sheet jmm - Scaphoid Fracture jmm - Wrist Sprain, Adult jm Forms: - Medication Reconciliation Form jm - Thank You Letter jmm - Antibiotic Education jmm - Prescription Opioid Use [facility] Signatures: Dispatcher [employer] Rivas Escalante PA PA m Arnold Ayala MD MD rn Dibbern, Lauren, RN RN ld1 Kym Anders RN RN Cassi Milian RN RN lr4
[2021-06-12 17:44] VITALS: BP 154/72; TEMP 96.6; O2SAT 98
== END 2021-06-12 17:06 | disposition home or self-care (01) ==
LOC: ER 14:43
DX: S63.511A Sprain of carpal joint of right wrist, initial encounter (principal); W01.0XXA Fall on same level from slipping, tripping and stumbling without subsequent striking against object, initial encounter; I10 Essential (primary) hypertension; E11.9 Type 2 diabetes mellitus without complications
CPT/HCPCS: 99283

== ENCOUNTER 2021-12-08 12:28 | Emergency (ER) | payer OTHER ==
--- OUTSIDE RECORDS SUMMARY | 2021-12-08 12:31 | XMS REPORT | Continuity of Care Document ---
:1960 Author Organization [facility] t Address [address] [place] [address] Care Team Providers Name Role Phone Mode Johnson Attending Clinician Unavailable Radiology Attending Clinician Unavailable RADIOLOGY Attending Clinician Unavailable Doctor Unassigned, [place] Attending Clinician Unavailable Keo SON, Guido Garcia Attending Clinician Payers Payer Name Policy Type Policy Number Effective Date Expiration Date S ource Problems Condition Condition Condition Status Onset Resolution Last Treating Co mments Source Name Details Category Date Date Treatment Clinician Date No known No known Disease [facility] problems problems of Medicin e Allergies, Adverse Reactions, Alerts Allergy Allergy Status Severity Reaction(s) Onset Inactive Treating Comm ents Source Name Type Date Date Clinician NO KNOWN Drug Active Univers ALLERGIE Class ity of S [facility] Social History Social Habit Start Date Stop Date Quantity Comments Source Sex Assigned At [facility] l[facility] of Medicine Exposure to Not sure University SARS-CoV-2 [facility] (event) Branch Alcohol intake 2019-06-18 2019-06-18 Current drinker [facility] of 00:00:00 00:00:00 of alcohol Medicine (finding) Smoking Status Start Date Stop Date Source Unknown if ever smoked General acute hospital Former smoker 2019-06-18 00:00:00 2019-06-18 00:00:00 [facility] Medications Ordered Filled Start Stop Current Ordering Indication Dosage Frequency Signature Comments Components Source Medication Medication Date Date Medication? Clinician (SIG) Name Name Omeprazole Omeprazole 2020-0 Yes Mode 1 capsule Common 2-25 Johnson 30 minutes Spirit 00:00: before - [facility] 00 morning [facility] LISINOPRIL 2020-0 Yes Take by Bayl or OR 2-24 mouth. College 17:05: of 00 Medicin e ATORVASTATI 2020-0 Yes Take by Belle kev N CALCIUM 2-24 mouth. [place] OR 17:05: of 00 Medicin e METFORMIN 2020-0 Yes Take by Baylo r HCL OR 2-24 mouth. [place] 17:05: of 00 Medicin e PHENDIMETRA 2020-0 Yes Take by Belle kev ZINE 2-24 mouth. [place] [facility] 17:05: of 00 Medicin e Cyclobenzap 2020-0 Yes Take by Belle kev rine HCl 2-24 mouth. [place] (FLEXERIL 17:05: of OR) 00 Medicin e TRAMADOL 2020-0 Yes Take by Wilman HCL ER OR 2-24 mouth. [place] 17:04: of 59 Medicin e tramadol 2020-0 Yes 1{tbl} Take 1 Tab B aylor (ULTRAM) 50 2-24 by mouth Tommy ege MG tablet 00:00: every 8 of 00 hours as Medicin needed for e Pain. Pantoprazol Pantoprazol Yes Mode 1 tablet Common e Sodium e Sodium [facility] Cyclobenzap Cyclobenzap Yes Mode TAKE 1 Common rine HCl rine HCl Johnson TABLET BY S pirit MOUTH ONCE - CHI DAILY [facility] Atorvastati Atorvastati Yes Mode 1 tablet Common n Calcium n Calcium Johnson Spir it - [facility] Lisinopril- Lisinopril- Yes Mode 1 tablet Common Hydrochloro Hydrochloro [facility] thiazide thiazide - [facility] Montelukast Montelukast Yes Mode 1 tablet Common Sodium Sodium [facility] Metformin Metformin Yes Mode 1 tablet Common HCl HCl Johnson with a Spirit meal - [facility] Amlodipine Amlodipine Yes Mode 1 tablet Common Besylate Besylate [facility] Tramadol Tramadol Yes Mode 1 tablet C ommon HCl HCl Johnson [facility] Cyclobenzap Cyclobenzap Yes Mode 1 tablet Common rine HCl rine HCl Johnson as needed S pirit [facility] Phendimetra Phendimetra Mode 1 tablet 1 Common zine zine 10-12 Johnson hour Spirit Tartrate Tartrate 00:00 before a - [facility]I :00 meal [facility] Immunizations Ordered Immunization Filled Immunization Date Status Commen ts Source Name Name Influenza Quad-PF 2019-05-18 Completed [facility] 00:00:00 of Medicine Afluria single dose Afluria single dose 2019-01-17 Completed [facility] 00:00:00 [facility] Vital Signs Vital Name Observation Time Observation Value Comments Source Systolic blood 2019-06-18 17:03:00 111 mm[Hg] [facility] Medicine Diastolic blood 2019-06-18 17:03:00 77 mm[Hg] [facility] Medicine Heart rate 2019-06-18 17:03:00 76 /min [facility] Body temperature 2019-06-18 17:03:00 37 [facility] Body height 2019-06-18 17:03:00 162.6 cm [facility] Body weight 2019-06-18 17:03:00 78.472 kg [facility] BMI 2019-06-18 17:03:00 29.70 kg/m2 [facility] Systolic blood 2019-06-18 17:03:00 111 mm[Hg] [facility] Medicine Diastolic blood 2019-06-18 17:03:00 77 mm[Hg] [facility] Medicine Heart rate 2019-06-18 17:03:00 76 /min [facility] Body temperature 2019-06-18 17:03:00 37 [facility] Body height 2019-06-18 17:03:00 162.6 cm [facility] Body weight 2019-06-18 17:03:00 78.472 kg [facility] BMI 2019-06-18 17:03:00 29.70 kg/m2 [facility] Procedures Procedure Date / Time Performed Performing Clinician Chyna cabral MR CERVICAL SPINE WO 2020-01-03 16:04:53 Requisition, Paper [facility] ASSIGNMENT OF BENEFITS 2020-01-03 14:52:10 Doctor Unassigned, No [facility] Plan of Care Planned Activity Planned Date Details Comments Source Future Scheduled Test COLON CANCER SCREENING: [facility] COLONOSCOPY [code = Medicine COLON CANCER SCREENING: COLONOSCOPY] Future Scheduled Test MAMMOGRAM ANNUAL [code [facility] = MAMMOGRAM ANNUAL] Medicine Future Scheduled Test TETANUS SHOT (ADULT) [facility] [code = TETANUS SHOT Medicin e (ADULT)] Future Scheduled Test BMI FOLLOW UP PLAN [facility] [code = BMI FOLLOW UP Medici ne PLAN] Future Scheduled Test HEPATITIS C SCREENING [facility] [code = HEPATITIS C Medicine SCREENING] Future Scheduled Test HIV SCREENING [code = [facility] HIV SCREENING] Medicine Future Scheduled Test CERVICAL CANCER [facility] SCREENING 3 YEAR FOLLOW Medi cine UP [code = CERVICAL CANCER SCREENING 3 YEAR FOLLOW UP] Encounters Start End Encounter Admission Attending Care Care Encounter Source Date/Time Date/Time Type Type Clinicians Facility Department ID 2021-10-09 Outpatient Johnson, STLMLC [facility] [id number] Common 10:47:01 [facility] 2021-09-08 Outpatient Johnson, [facility] [id number] Common 10:11:20 [facility] 2021-09-07 Outpatient Johnson, STLMLC [facility] [id number] Common 13:25:06 [facility] 2021-09-04 Outpatient Johnson, STLMLC [facility] [id number] Common 11:34:00 [facility] 2021-05-20 Outpatient Johnson, STLM [facility] [id number] Common 13:45:21 [facility] [id number] [facility] 2021-05-20 Out[facility], [facility] [id number] Common 13:45:10 [facility] [id number] [facility] 2021-05-20 Outpatient Johnson, STLMLC STLMLC [id number] Common 13:32:56 Mode [id number] [facility] 2021-05-20 Outpatient Johnson, STLMLC STLMLC [id number] Common 13:14:18 Mode [id number] [facility] 2021-05-20 Outpatient Johnson, STLMLC STLMLC [id number] Common 13:05:50 Mode [id number] [facility] 2021-05-20 Outpatient Johnson, STLMLC STLMLC [id number] Common 12:59:33 Mode [id number] [facility] 2021-05-20 Outpatient Johnson, STLMLC STLMLC [id number] Common 12:56:29 Mode [id number] [facility] 2021-05-20 Outpatient Johnson, STLMLC STLMLC [id number] Common 12:08:06 Omde [id number] [facility] 2021-05-20 Outpatient Johnson, STLMLC STLMLC [id number] Common 12:07:38 Mode [id number] [facility] 2021-05-20 Outpatient Johnson, STLMLC STLMLC [id number] Common 11:17:53 Mode [id number] [facility] 2021-05-20 Outpatient Johnson, STLMLC STLMLC [id number] Common 11:17:22 Mode [id number] [facility] 2021-05-20 Outpatient Johnson, STLMLC STLMLC [id number] Common 11:10:00 Mode [id number] [facility] 2021-05-20 Outpatient Johnson, STLMLC STLMLC [id number] Common 11:02:01 Mode [id number] [facility] 2021-05-20 Outpatient Johnson, STLMLC STLMLC [id number] Common 11:01:01 Mode [id number] [facility] 2021-10-27 2021-10-27 ambulatory STLMLC STLMLC [id number] Common 00:00:00 00:00:00 [facility] 2021-10-16 2021-10-16 ambulatory STLMLC STLMLC [id number] Common 00:00:00 00:00:00 [facility] 2021-09-07 2021-09-07 ambulatory STLMLC STLMLC [id number] Common 00:00:00 00:00:00 [facility] 2021-07-23 2021-07-23 ambulatory STLMLC STLMLC [id number] Common 00:00:00 00:00:00 [facility] 2021-07-07 2021-07-07 ambulatory STLMLC STLMLC [id number] Common 00:00:00 00:00:00 [facility] 2021-06-12 2021-06-12 ambulatory STLMLC STLMLC [id number] Common 00:00:00 00:00:00 [facility] 2021-05-25 2021-05-25 ambulatory STLMLC STLMLC [id number] Common 00:00:00 00:00:00 [facility] 2021-01-29 2021-01-29 Outpatient STLMLC STLMLC [id number] Common 00:00:00 00:00:00 [facility] 2020-12-30 2020-12-30 Outpatient STLMLC STLMLC [id number] Common 00:00:00 00:00:00 [facility] 2020-12-23 2020-12-23 Outpatient STLMLC STLMLC [id number] Common 00:00:00 00:00:00 [facility] 2020-12-17 2020-12-17 Outpatient STLMLC STLMLC [id number] Common 00:00:00 00:00:00 [facility] 2020-12-15 2020-12-15 Outpatient STLMLC STLMLC [id number] Common 00:00:00 00:00:00 [facility] 2020-12-15 2020-12-15 Outpatient STLMLC STLMLC [id number] Common 00:00:00 00:00:00 [facility] 2020-11-21 2020-11-21 Outpatient STLMLC STLMLC [id number] Common 00:00:00 00:00:00 [facility] 2020-10-22 2020-10-22 Outpatient STLMLC STLMLC [id number] Common 00:00:00 00:00:00 [facility] 2020-10-15 2020-10-15 Outpatient STLMLC STLMLC [id number] Common 00:00:00 00:00:00 [facility] 2020-10-13 2020-10-13 Outpatient STLMLC STLMLC [id number] Common 00:00:00 00:00:00 [facility] 2020-10-13 2020-10-13 Outpatient STLMLC STLMLC [id number] Common 00:00:00 00:00:00 [facility] 2020-10-03 2020-10-03 Outpatient STLMLC STLMLC [id number] Common 00:00:00 00:00:00 [facility] 2020-09-24 2020-09-24 Outpatient STLMLC STLMLC [id number] Common 00:00:00 00:00:00 [facility] 2020-08-26 2020-08-26 Outpatient STLMLC STLMLC [id number] Common 00:00:00 00:00:00 [facility] 2020-03-18 2020-03-18 Outpatient STLMLC STLMLC [id number] Common 00:00:00 00:00:00 [facility] 2020-03-05 2020-03-05 Outpatient STLMLC STLMLC [id number] Common 00:00:00 00:00:00 [facility] 2020-02-20 2020-02-20 Outpatient STLMLC STLMLC [id number] Common 00:00:00 00:00:00 [facility] 2020-01-22 2020-01-22 Outpatient STLMLC STLMLC [id number] Common 00:00:00 00:00:00 [facility] 2020-01-03 2020-01-03 Hospital Radiology [facility] [id number] Univers 09:53:20 23:59:00 Encounter [place] [id number] ity of [place] [id number] [facility] [id number] [facility] [address] [place] 2020-01-03 2020-01-03 Hospital Radiology [facility] [id number] 09:53:20 23:59:00 Encounter [place] [id number] [place] [id number] [place] [id number] [facility] 2020-01-03 2020-01-03 Outpatient R RADIOLOGY [facility] [id number] Univers 00:00:00 00:00:00 ity of [facility] 2020-01-03 2020-01-03 Orders Doctor SOL [id number] Univers 00:00:00 00:00:00 Only Unassigned, LUIS DANIEL [id number] ity of [place] [facility] [id number] [facility] [id number] [address] 2020-01-03 2020-01-03 Orders Doctor EBENEZER [id number] 00:00:00 00:00:00 Only Unassigned, LUIS DANIEL [id number] [place] [facility] [id number] 2019-10-10 2019-10-10 [facility] [id number] Common 09:30:00 09:30:[address] [facility] 2019-08-14 2019-08-14 [facility] [id number] Common 11:30:00 11:30:[address] Family [facility] 2019-08-10 2019-08-10 [facility] [id number] Common 10:42:00 10:42:[address] [facility] 2019-07-10 2019-07-10 [facility] [id number] Common 10:45:00 10:45:[address] [facility] 2019-06-19 2019-06-19 Out[facility] [id number] Common 12:53:00 12:53:[address] [facility] 2019-06-18 2019-06-18 Office LOGAN Crowley [id number] 10:59:16 11:29:16 Visit Guido Ray AMBULATOR [id number] Y [id number] 2019-06-18 2019-06-18 Office LOGAN Crowley [id number] 93 [facility] 10:59:16 11:29:16 Visit Guido Ray AMBULATOR [id number] College Y [id number] of [id number] Medi stalin 800 e 2019-06-14 2019-06-14 Out[facility] [id number] Common 08:09:00 08:09:[address] [facility] 2019-05-15 2019-05-15 Out[facility] [id number] Common 09:45:00 09:45:[address] [facility] 2019-05-01 2019-05-01 Out[facility] [id number] Common 17:15:00 17:15:[address] [facility] 2019-04-24 2019-04-24 [facility] [id number] Common 12:46:00 12:46:[address] [facility] 2019-04-11 2019-04-11 Out[facility] [id number] Common 14:30:00 14:30:[address] [facility] 2019-04-03 2019-04-03 [facility] [id number] Common 10:19:00 10:19:[address] [facility] 2019-04-02 2019-04-02 [facility] [id number] Common 16:33:00 16:33:[address] [facility] 2019-01-17 2019-01-17 Outpatient Haydee Brice [id number] Common 13:00:00 13:00:[address] [facility] 2019-01-01 2019-01-01 Outpatient Haydee Brice [id number] Common 14:30:00 14:30:[address] [facility] 2018-12-20 2018-12-20 Outpatient Haydee Brice [id number] Common 17:00:00 17:00:[address] [facility] 2018-12-20 2018-12-20 Outpatient Haydee Brice [id number] Common 14:00:00 14:00:[address] [facility] Results Test Description Test Test Results Result [...] minimal bilateralnerve root compression suspected at C4-C5. [facility], Radiant Results Inft User - 01/03/2020 11:18 [...]
[2021-12-08] MEDS ORDERED: IBUPROFEN 200 MG TAB PO ONE (13:27)
--- NOTE | 2021-12-08 14:42 | RAD REPORT ---
EXAM DESCRIPTION: Jameel Single View12/08/2021 2:08 pm CLINICAL HISTORY: Chest pain COMPARISON: 2020 FINDINGS: The lungs appear clear of acute infiltrate. The heart is normal size IMPRESSION: No acute abnormalities displayed
--- NOTE | 2021-12-08 15:26 | RAD REPORT ---
EXAM DESCRIPTION: RAD - Ribs Left - 12/08/2021 2:15 pm CLINICAL HISTORY: Left rib pain FINDINGS: No fracture is seen
--- NOTE | 2021-12-08 15:53 | ER ---
Nurse's Notes [facility] Name: Batsheva Guevara Age: 61 yrs Sex: Female : 1960 Arrival Date: 12/08/2021 Time: 12:34 Bed Treatment Private MD: Diagnosis: Contusion of left back wall of thorax, initial encounter;Rib pain;Fall Presentation: 12/08 12:38 Chief complaint: Left wrist, forearm, and chest wall pain after mechanical fall from standing two days ago. left chest wall pain became severe after sneeze just prior to arrival. Coronavirus screen: At this time, the client does not indicate any symptoms associated with coronavirus-19. Ebola Screen: No symptoms or risks identified at this time. Initial Sepsis Screen: Does the patient meet any 2 criteria? No. Patient's initial sepsis screen is negative. Does the patient have a suspected source of infection? No. Patient's initial sepsis screen is negative. Risk Assessment: Do you want to hurt yourself or someone else? Patient reports no desire to harm self or others. Onset of symptoms was December 06, 2021. 12:38 Method Of Arrival: Ambulatory 12:38 Acuity: HERMELINDA 4 hb Triage Assessment: 12/07 14:10 General: Appears in no apparent distress. Behavior is calm, cooperative. iw Cardiovascular: Patient's skin is warm and dry. Historical: - Allergies: 12/08 12:40 No Known Allergies; hb - PMHx: 12:40 chronic neck pain; Diabetes - NIDDM; Hypertension; High Cholesterol; hb - PSHx: 12:40 section; hysterectomy; hb - Immunization history:: Adult Immunizations unknown. - Social history:: Smoking status: unknown. Screenin:00 Abuse screen: Denies threats or abuse. Denies injuries from another. Nutritional iw screening: No deficits noted. Nutritional screening: No deficits noted. Tuberculosis screening: No symptoms or risk factors identified. Fall Risk Assessment: 14:12 Reassessment: Patient appears in no apparent distress at this time. Patient and/or iw family updated on plan of care and expected duration. Pain level reassessed. Patient is alert, oriented x 3, equal unlabored respirations, skin warm/dry/pink. warm blanket given. Vital Signs: 12:38 BP 192 / 85; Pulse 74; Resp 16; Temp 97.8; Pulse Ox 97% on R/A; Weight 86.18 kg; Height hb 5 ft. 3 in. (160.02 cm); Pain 8/10; 12:38 Body Mass Index 33.66 (86.18 kg, 160.02 cm) hb ED Course: 12:34 Patient arrived in ED. bd 12:39 Ermias Levine DO is Attending Physician. ms3 12:40 Triage completed. hb 12:40 Arm band placed on. hb 13:59 CXR XRAY In Process Unspecified. EDMS 14:17 Ribs Left XRAY In Process Unspecified. EDMS 14:54 Kellee Thornton, RN is Primary Nurse. iw 15:52 Mode Johnson DO is Referral Physician. ms3 16:19 No provider procedures requiring assistance completed. Patient did not have IV access iw during this emergency room visit. Patient maintains SpO2 saturation greater than 95% on room air. Administered Medications: 13:23 Drug: Ibuprofen 600 mg Route: PO; iw 13:30 Follow up: Response: No adverse reaction iw Medication: 16:00 VIS not applicable for this client. iw Outcome: 15:53 Discharge ordered by MD. ms3 16:20 Discharged to home ambulatory. iw 16:20 Condition: good 16:20 Discharge instructions given to patient, Instructed on discharge instructions, follow up and referral plans. medication usage, Demonstrated understanding of instructions, follow-up care, medications, Prescriptions given X 1. 16:21 Patient left the ED. iw Signatures: Dispatcher [employer] EDMS Cat Lazcano Kellee Thornton RN RN Malia Daniel RN RN Ermias Levine DO DO ms3
--- NOTE | 2021-12-08 15:53 | EDPHYS ---
Physician Documentation [facility] Name: Batsheva Guevara Age: 61 yrs Sex: Female : 1960 Arrival Date: 12/08/2021 Time: 12:34 Bed Treatment Private MD: ED Physician Ermias Levine HPI: 12/08 15:53 This 61 yrs old Female presents to ER via Ambulatory with complaints of Chest Wall Pain.ms3 15:53 The patient or guardian reports chest pain that is located primarily in the left ms3 lateral posterior chest. Onset: 2 day(s) ago. The pain does not radiate. Associated signs and symptoms: The patient has no apparent associated signs or symptoms. The chest pain is described as sharp. Modifying factors: the symptoms are aggravated by movement. Severity of pain: At its worst the pain was severe in the emergency department the pain is unchanged. Historical: - Allergies: 12:40 No Known Allergies; hb - PMHx: 12:40 chronic neck pain; Diabetes - NIDDM; Hypertension; High Cholesterol; hb - PSHx: 12:40 section; hysterectomy; hb - Immunization history:: Adult Immunizations unknown. - Social history:: Smoking status: unknown. ROS: 15:53 Constitutional: Negative for fever, and chills. Neck: Negative for injury, pain, and ms3 swelling, Respiratory: Negative for shortness of breath, cough, wheezing, and pleuritic chest pain, Abdomen/GI: Negative for abdominal pain, nausea, vomiting, diarrhea, and constipation, Skin: Negative for injury, rash, and discoloration, Neuro: Negative for headache, weakness, numbness, tingling. 15:53 Cardiovascular: Positive for chest pain. 15:53 All other systems are negative. Exam: 15:53 Constitutional: This is a well developed, well nourished patient who is awake, alert, ms3 and in no acute distress. Head/Face: Normocephalic, atraumatic. Neck: Trachea midline, no cervical lymphadenopathy. Supple, full range of motion without nuchal rigidity, or vertebral point tenderness. No Meningismus. Cardiovascular: Regular rate and rhythm with a normal S1 and S2. No gallops, murmurs, or rubs. Normal PMI, no JVD. No pulse deficits. 15:53 Abdomen/GI: Soft, non-tender, with normal bowel sounds. No distension or tympany. No guarding or rebound. No evidence of tenderness throughout. Neuro: Awake and alert, GCS 15, oriented to person, place, time, and situation. Cranial nerves II-XII grossly intact. Motor strength 5/5 in all extremities. Sensory grossly intact. Cerebellar exam normal. Normal gait. Psych: Awake, alert, with orientation to person, place and time. Behavior, mood, and affect are within normal limits. 15:53 Chest/axilla: Inspection: normal, Palpation: tenderness, of the left lateral posterior chest. Vital Signs: 12:38 BP 192 / 85; Pulse 74; Resp 16; Temp 97.8; Pulse Ox 97% on R/A; Weight 86.18 kg; Height hb 5 ft. 3 in. (160.02 cm); Pain 8/10; 12:38 Body Mass Index 33.66 (86.18 kg, 160.02 cm) hb MDM: 12:52 Patient medically screened. ms3 15:53 Data reviewed: vital signs, nurses notes, radiologic studies, plain films, and as a ms3 result, I will discharge patient. Counseling: I had a detailed discussion with the patient and/or guardian regarding: the historical points, exam findings, and any diagnostic results supporting the discharge/admit diagnosis, radiology results, the need for outpatient follow up, to return to the emergency department if symptoms worsen or persist or if there are any questions or concerns that arise at home. 12/08 12:53 Order name: CXR XRAY; Complete Time: 14:57 ms3 12/08 12:53 Order name: Ribs Left XRAY; Complete Time: 15:52 ms3 Administered Medications: 13:23 Drug: Ibuprofen 600 mg Route: PO; iw 13:30 Follow up: Response: No adverse reaction iw Disposition Summary: 12/08/21 15:53 Discharge Ordered Location: Home ms3 Condition: Stable ms3 Diagnosis - Contusion of left back wall of thorax, initial encounter ms3 - Rib pain ms3 - Fall ms3 Followup: ms3 - With: Mode Johnson DO - When: 2 - 3 days - Reason: Recheck today's complaints Discharge Instructions: - Discharge Summary Sheet ms3 - Blunt Chest Trauma ms3 Forms: - Medication Reconciliation Form ms3 - Thank You Letter ms3 - Antibiotic Education ms3 - Prescription Opioid Use ms3 Prescriptions: - Ibuprofen 600 mg Oral Tablet - take 1 tablet by ORAL route every 6 hours As needed take with food; 30 tablet; ms3 Refills: 0, Product Selection Permitted Signatures: Dispatcher [employer] Kellee Freeman, RN Malia Pedraza RN RN Ermias Kowng, DO ms3
[2021-12-08 16:40] VITALS: BP 192/85; TEMP 97.8; O2SAT 97
== END 2021-12-08 16:21 | disposition home or self-care (01) ==
LOC: ER 12:28
DX: S20.222A Contusion of left back wall of thorax, initial encounter (principal); W19.XXXA Unspecified fall, initial encounter; E11.9 Type 2 diabetes mellitus without complications; I10 Essential (primary) hypertension
CPT/HCPCS: 71045

== ENCOUNTER 2022-01-04 08:58 | Emergency (ER) | payer OTHER ==
--- OUTSIDE RECORDS SUMMARY | 2022-01-04 09:02 | XMS REPORT | Continuity of Care Document ---
:1960 Author Organization [facility] t Address [address] [place] [address] Care Team Providers Name Role Phone Mode Johnson Attending Clinician Unavailable Radiology Attending Clinician Unavailable RADIOLOGY Attending Clinician Unavailable Doctor Unassigned, [place] Attending Clinician Unavailable Keo SON, Guido Garcia Attending Clinician Payers Payer Name Policy Type Policy Number Effective Date Expiration Date S ource Problems Condition Condition Condition Status Onset Resolution Last Treating Co mments Source Name Details Category Date Date Treatment Clinician Date No known No known Disease [facility] active [place] problems problems of Medicin e Allergies, Adverse Reactions, Alerts Allergy Allergy Status Severity Reaction(s) Onset Inactive Treating Comm ents Source Name Type Date Date Clinician NO KNOWN Drug Active Univers ALLERGIE Class ity of [facility] [place] Social History Social Habit Start Date Stop Date Quantity Comments Source Exposure to Not sure [facility]-CoV-2 [facility] (event) Branch Sex Assigned At [facility] llege of Medicine Alcohol intake 2019-06-18 2019-06-18 Current drinker [facility] of 00:00:00 00:00:00 of alcohol Medicine (finding) Smoking Status Start Date Stop Date Source Unknown if ever smoked [facility] Former smoker 2019-06-18 00:00:00 2019-06-18 00:00:00 [facility] debo [facility] Medications Ordered Filled Start Stop Current Ordering Indication Dosage Frequency Signature Comments Components Source Medication Medication Date Date Medication? Clinician (SIG) Name Name Omeprazole Omeprazole 2020-0 Yes Mode 1 capsule Common 2-25 Johnson 30 minutes Spirit 00:00: before - [facility] [address] [facility] LISINOPRIL 2020-0 Yes Take by Bayl or OR 2-24 mouth. [place] 17:05: of 00 Medicin e ATORVASTATI 2020-0 Yes Take by [place] kev N CALCIUM 2-24 mouth. [facility] 17:05: of 00 Medicin e METFORMIN 2020-0 Yes Take by Baylo r HCL OR 2-24 mouth. [place] 17:05: of 00 Medicin e PHENDIMETRA 2020-0 Yes Take by Ba ylor ZINE 2-24 mouth. [place] [facility] OR 17:05: of 00 Medicin e Cyclobenzap 2019-0 Yes Take by [place] kev rine HCl 2-24 mouth. [place] (FLEXERIL 17:05: of OR) 00 Medicin e TRAMADOL 2020-0 Yes Take by Wilman HCL ER OR 2-24 mouth. [place] 17:04: of 58 Medicin e tramadol 2020-0 Yes 1{tbl} Take 1 Tab B aylor (ULTRAM) 50 2-24 by mouth Tommy ege MG tablet 00:00: every 8 of 00 hours as Medicin needed for e Pain. Pantoprazol Pantoprazol Yes Mode 1 tablet Common e Sodium e Sodium [facility] Cyclobenzap Cyclobenzap Yes Mode TAKE 1 Common rine HCl rine HCl Johnson TABLET BY S pirit MOUTH ONCE - [facility]I DAILY [facility] Atorvastati Atorvastati Yes Mode 1 tablet Common n Calcium n Calcium Johnson Spir it - [facility] Lisinopril- Lisinopril- Yes Mode 1 tablet Common Hydrochloro Hydrochloro [facility] thiazide thiazide - [facility] Montelukast Montelukast Yes Mode 1 tablet Common Sodium Sodium [facility] Metformin Metformin Yes Mode 1 tablet Common HCl HCl Johnson with a Spirit meal - [facility] Amlodipine Amlodipine Yes Mode 1 tablet Common Besylate Besylate Johnson [facility] Tramadol Tramadol Yes Mode 1 tablet C ommon HCl HCl Johnson as needed [facility] Cyclobenzap Cyclobenzap Yes Mode 1 tablet Common rine HCl rine HCl Johnson as needed S pirit [facility] Phendimetra Phendimetra No Mode 1 tablet 1 Common zine zine 10-12 Johnson hour Spirit Tartrate Tartrate 00:00 before a - [facility] :00 meal [facility] Immunizations Ordered Immunization Filled Immunization Date Status Commen ts Source Name Name Influenza Quad-PF 2019-05-18 Completed [facility] 00:00:00 of Medicine Afluria single dose Afluria single dose 2019-01-17 Completed Common [facility] 00:00:00 [facility] Vital Signs Vital Name Observation Time Observation Value Comments Source Systolic blood 2019-06-18 17:03:00 111 mm[Hg] [facility] Medicine Diastolic blood 2019-06-18 17:03:00 77 mm[Hg] [facility] Heart rate 2019-06-18 17:03:00 76 /min [facility] Body temperature 2019-06-18 17:03:00 37 [facility] Body height 2019-06-18 17:03:00 162.6 cm [facility] Body weight 2019-06-18 17:03:00 78.472 kg [facility] BMI 2019-06-18 17:03:00 29.70 kg/m2 [facility] Systolic blood 2019-06-18 17:03:00 111 mm[Hg] [facility] Medicine Diastolic blood 2019-06-18 17:03:00 77 mm[Hg] [facility] Heart rate 2019-06-18 17:03:00 76 /min [facility] Body temperature 2019-06-18 17:03:00 37 [facility] Body height 2019-06-18 17:03:00 162.6 cm [facility] Body weight 2019-06-18 17:03:00 78.472 kg [facility] BMI 2019-06-18 17:03:00 29.70 kg/m2 [facility] Procedures Procedure Date / Time Performed Performing Clinician Chyna cabral MR CERVICAL SPINE WO 2020-01-03 16:04:53 Requisition, Paper [facility] ASSIGNMENT OF BENEFITS 2020-01-03 14:52:10 Doctor Unassigned, No [facility] [place] Plan of Care Planned Activity Planned Date Details Comments Source Future Scheduled Test COLON CANCER SCREENING: [facility] COLONOSCOPY [code = Medicine COLON CANCER SCREENING: COLONOSCOPY] Future Scheduled Test MAMMOGRAM ANNUAL [code [facility] = MAMMOGRAM ANNUAL] Medicine Future Scheduled Test TETANUS SHOT (ADULT) [facility] [code = TETANUS SHOT Medicin e (ADULT)] Future Scheduled Test BMI FOLLOW UP PLAN [facility] [code = BMI FOLLOW UP Medici ne PLAN] Future Scheduled Test HEPATITIS C SCREENING [facility] [code = HEPATITIS C Medicine SCREENING] Future Scheduled Test HIV SCREENING [code = [facility] HIV SCREENING] Medicine Future Scheduled Test CERVICAL CANCER [facility] SCREENING 3 YEAR FOLLOW Medi cine UP [code = CERVICAL CANCER SCREENING 3 YEAR FOLLOW UP] Encounters Start End Encounter Admission Attending Care Care Encounter Source Date/Time Date/Time Type Type Clinicians Facility Department ID 2021-12-31 Outpatient Johnson, STLMLC [facility] [id number] Common 11:26:00 [facility] 2021-10-09 Outpatient Johnson, STLMLC [facility] [id number] Common 10:47:01 [facility] 2021-09-08 Outpatient Johnson, STLMLC [facility] [id number] Common 10:11:20 [facility] 2021-09-07 Outpatient Johnson, STLMLC [facility] [id number] Common 13:25:06 [facility] 2021-09-04 Outpatient Johnson, STLMLC ST[facility] [id number] Common 11:34:00 [facility] 2021-05-20 Outpatient Johnson, STLMLC [facility] [id number] Common 13:45:21 Mode [id number] [facility] 2021-05-20 Outpatient Johnson, STLMLC ST[facility] [id number] Common 13:45:10 Mode [id number] [facility] 2021-05-20 Outpatient Johnson, STLMLC STL[facility]C [id number] Common 13:32:56 Mode [id number] [facility] 2021-05-20 Outpatient Johnson, STLMLC STL[facility] [id number] Common 13:14:18 Mode [id number] [facility] 2021-05-20 Outpatient Johnson, STLMLC STL[facility]C [id number] Common 13:05:50 Mode 25702 [facility] 2021-05-20 Outpatient Johnson, STLMLC STL[facility]C [id number] Common 12:59:33 Mode 11133 [facility] 2021-05-20 Outpatient Johnson, STLMLC STL[facility]C [id number] Common 12:56:29 Mode [id number] [facility] 2021-05-20 Outpatient Johnson, STLMLC ST[facility]C [id number] Common 12:08:06 Mode [id number] [facility] 2021-05-20 Outpatient Johnson, STLMLC STLMLC [id number] Common 12:07:38 Mode 50096 [facility] 2021-05-20 Outpatient Johnson, STLMLC STLMLC [id number] Common 11:17:53 Mode [id number] [facility] 2021-05-20 Outpatient Johnson, STLMLC STLMLC [id number] Common 11:17:22 Mode [id number] [facility] 2021-05-20 Outpatient Johnson, STLMLC STLMLC [id number] Common 11:10:00 Mode [id number] [facility] 2021-05-20 Outpatient Johnson, STLMLC STLMLC [id number] Common 11:02:01 Mode 10580 [facility] 2021-05-20 Outpatient Johnson, STLMLC STLMLC [id number] Common 11:01:01 Mode 02041 [facility] 2021-12-29 2021-12-29 ambulatory STLMLC STLMLC [id number] Common 00:00:00 00:00:00 [facility] 2021-10-27 2021-10-27 ambulatory STLMLC STLMLC [id number] Common 00:00:00 00:00:00 [facility] 2021-10-16 2021-10-16 ambulatory STLMLC STLMLC [id number] Common 00:00:00 00:00:00 [facility] 2021-09-07 2021-09-07 ambulatory STLMLC STLMLC [id number] Common 00:00:00 00:00:00 [facility] 2021-07-23 2021-07-23 ambulatory STLMLC STLMLC [id number] Common 00:00:00 00:00:00 [facility] 2021-07-07 2021-07-07 ambulatory STLMLC STLMLC [id number] Common 00:00:00 00:00:00 [facility] 2021-06-12 2021-06-12 ambulatory STLMLC STLMLC [id number] Common 00:00:00 00:00:00 [facility] 2021-05-25 2021-05-25 ambulatory STLMLC STLMLC [id number] Common 00:00:00 00:00:00 [facility] 2021-01-29 2021-01-29 Outpatient STLMLC STLMLC [id number] Common 00:00:00 00:00:00 [facility] 2020-12-30 2020-12-30 Outpatient STLMLC STLMLC [id number] Common 00:00:00 00:00:00 [facility] 2020-12-23 2020-12-23 Outpatient STLMLC STLMLC [id number] Common 00:00:00 00:00:00 [facility] 2020-12-17 2020-12-17 Outpatient STLMLC STLMLC [id number] Common 00:00:00 00:00:00 [facility] 2020-12-15 2020-12-15 Outpatient STLMLC STLMLC [id number] Common 00:00:00 00:00:00 [facility] 2020-12-15 2020-12-15 Outpatient STLMLC STLMLC [id number] Common 00:00:00 00:00:00 [facility] 2020-11-21 2020-11-21 Outpatient STLMLC STLMLC [id number] Common 00:00:00 00:00:00 [facility] 2020-10-22 2020-10-22 Outpatient STLMLC STLMLC [id number] Common 00:00:00 00:00:00 [facility] 2020-10-15 2020-10-15 Outpatient STLMLC STLMLC [id number] Common 00:00:00 00:00:00 [facility] 2020-10-13 2020-10-13 Outpatient STLMLC STLMLC [id number] Common 00:00:00 00:00:00 [facility] 2020-10-13 2020-10-13 Outpatient STLMLC STLMLC [id number] Common 00:00:00 00:00:00 [facility] 2020-10-03 2020-10-03 Outpatient STLMLC STLMLC [id number] Common 00:00:00 00:00:00 [facility] 2020-09-24 2020-09-24 Outpatient STLMLC STLMLC [id number] Common 00:00:00 00:00:00 [facility] 2020-08-26 2020-08-26 Outpatient STLMLC STLMLC [id number] Common 00:00:00 00:00:00 [facility] 2020-03-18 2020-03-18 Outpatient STLMLC STLMLC [id number] Common 00:00:00 00:00:00 [facility] 2020-03-05 2020-03-05 Outpatient STLMLC STLMLC [id number] Common 00:00:00 00:00:00 [facility] 2020-02-20 2020-02-20 Outpatient STLMLC STLMLC [id number] Common 00:00:00 00:00:00 [facility] 2020-01-22 2020-01-22 Outpatient STLMLC STLMLC [id number] Common 00:00:00 00:00:00 [facility] 2020-01-03 2020-01-03 [facility] Radiology [facility] [id number] [facility] 09:53:20 23:59:00 Encounter [place] [id number] ity [facility] [id number] [facility] [id number] [facility] 804 [place] 2020-01-03 2020-01-03 [facility] Radiology [facility] [id number] 09:53:20 23:59:00 Encounter [place] [id number] [place] [id number] [place] [id number] 2020-01-03 2020-01-03 Outpatient R RADIOLOGY [facility] [id number] Univers 00:00:00 00:00:[address] [facility] [place] 2020-01-03 2020-01-03 Orders Doctor EBENEZER [id number] 00:00:00 00:00:00 Only Unassigned, LUIS DANIEL [id number] [facility] [id number] [facility] 2020-01-03 2020-01-03 Orders Doctor EBENEZER [id number] Univers 00:00:00 00:00:00 Only Unassigned, LUIS DANIEL [id number] [facility] [id number] [facility] [id number] [facility] 009 Branch 2019-10-10 2019-10-10 [facility] [id number] Common 09:30:00 09:30:00 t Who is Undercover Spy Spir [address] [facility] 2019-08-14 2019-08-14 [facility] [id number] Common 11:30:00 11:30:00 t Who is Undercover Spy [address]ir [address] [facility] 2019-08-10 2019-08-10 [facility] [id number] Common 10:42:00 10:42:[address] [facility] 2019-07-10 2019-07-10 [facility] [id number] Common 10:45:00 10:45:[address] [facility] 2019-06-19 2019-06-19 Out[facility] [id number] Common 12:53:00 12:53:[address] [facility] 2019-06-18 2019-06-18 Office Crowley, MANDEEP [id number] [facility] 10:59:16 11:29:16 Visit Guido Ray AMBULATOR [id number] College Y [id number] of [id number] Medi stalin 800 e 2019-06-18 2019-06-18 Office Keo, LOGAN [id number] 10:59:16 11:29:16 Visit Guido Ray AMBULATOR [id number] Y [id number] 2019-06-14 2019-06-14 [facility] [id number] Common 08:09:00 08:09:[address] [facility] 2019-05-15 2019-05-15 Out[facility] [id number] Common 09:45:00 09:45:[address] [facility] 2019-05-01 2019-05-01 Outpatient [facility] [id number] Common 17:15:00 17:15:[address] [facility] 2019-04-24 2019-04-24 Outpatient [facility] [id number] Common 12:46:00 12:46:[address] [facility] 2019-04-11 2019-04-11 Outpatient [facility] [id number] Common 14:30:00 14:30:[address] [facility] 2019-04-03 2019-04-03 Outpatient Brazpablo [facility]t [id number] Common 10:19:00 10:19:[address] [facility] 2019-04-02 2019-04-02 Outpatient Haydee [facility] [id number] Common 16:33:00 16:33:[address] [facility] 2019-01-17 2019-01-17 Outpatient Brazpablo [facility] [id number] Common 13:00:00 13:00:[address] [facility] 2019-01-01 2019-01-01 Outpatient Braz[facility] [id number] Common 14:30:00 14:30:[address] [facility] 2018-12-20 2018-12-20 Outpatient Haydee Brice [id number] Common 17:00:00 17:00:[address] [facility] 2018-12-20 2018-12-20 Outpatient Brazp[facility] [id number] Common 14:00:00 14:00:[address] [facility] Results Test Description Test Test [...] minimal bilateralnerve root compression suspected at C4-C5. [facility], Radiant Results Inft User - 01/03/2020 11:18 [...]
[2022-01-04] MEDS ORDERED: MORPHINE 2 MG/ML SYR ONE (10:01)
[2022-01-04] MEDS ORDERED: ONDANSETRON 4 MG/2 ML VIAL ONE (10:02)
[2022-01-04] MEDS ORDERED: KETOROLAC 30 MG/ML INJ ONE (10:02)
[2022-01-04 10:44] LABS: Absolute Lymphocytes (CBC) 1.7 K/uL (0.7-4.9); Hematocrit 37.8 % (36.0-45.0); MCV 84.4 fL (80-100); MPV 8.1 fL (7.6-11.3); RBC Red Blood Cell Count 4.48 M/uL (3.86-4.86)
[2022-01-04 10:50] LABS: Urine Blood Negative (Negative); Urine Glucose 3+ (Negative); Urine Protein Negative (Negative); Urine Specific Gravity 1.015 (1.005-1.030)
[2022-01-04 11:04] LABS: Albumin 3.8 g/dL (3.4-5.0); Bilirubin Total 0.5 mg/dL (0.2-1.0); Protein, Total 7.4 g/dL (6.4-8.2)
--- NOTE | 2022-01-04 12:26 | RAD REPORT ---
EXAM DESCRIPTION: CT - Chest Abdomen Pelvis W Cont - 01/04/2022 11:21 am CLINICAL HISTORY: Chest and abdomen pain. Polytrauma, blunt COMPARISON: Thorax W/ Con dated 10/03/2020 TECHNIQUE: Approximately 100 mL nonionic IV contrast was administered to the patient. All CT scans are performed using dose optimization technique as appropriate and may include automated exposure control or mA/KV adjustment according to patient size. FINDINGS: There are fractures present of the left posterolateral eleventh and twelfth ribs. These fr actures are only slightly displaced.The lung are clear.No pleural or pericardial effusion.No intratho racic adenopathy. Low-density hepatic lesion again seen containing calcification. This measures 5.8 cm is unchanged sin ce 2020 comparative study. Nonemergent MRI follow up remains advisable. Intact spleen. Pancreas, adre nal glands are normal. Benign cysts present left kidney. No renal acute or aggressive abnormality. No bowel obstruction, free air, free fluid or abscess. Nonvisualized appendix. Colonic diverticulosis without diverticulitis. Small fat containing umbilical hernia. No pathologic lymphadenopathy in the abdomen or pelvis. Mild lumbosacral degenerative changes. IMPRESSION: Mildly displaced fracture posterolateral left eleventh and twelfth ribs.No pneumothorax or spleen injury.
--- NOTE | 2022-01-04 12:29 | EDPHYS ---
Physician Documentation [facility] Name: Batsheva Guevara Age: 61 yrs Sex: Female : 1960 Arrival Date: 01/04/2022 Time: 09:00 Bed 7 Private MD: TODD Physician Everardo Tenorio HPI: 01/04 10:14 This 61 yrs old Female presents to ER via Ambulatory with complaints of Back trisha Pain. 10:14 The patient presents with pain that is acute, and contusion. The symptoms are located trisha in the left mid back. Onset: The symptoms/episode began/occurred 14 day(s) ago. The pain does not radiate. Associated signs and symptoms: The patient has no apparent associated signs or symptoms. The problem was sustained during a fall, while walking. Modifying factors: The patient symptoms are alleviated by remaining still, the patient symptoms are aggravated by movement, walking. The patient has not experienced similar symptoms in the past. Historical: - Allergies: 09:12 No Known Allergies; aa5 - PMHx: 09:12 chronic neck pain; Diabetes - NIDDM; High Cholesterol; Hypertension; aa5 - PSHx: 09:12 section; hysterectomy; aa5 - Immunization history:: Adult Immunizations unknown. - Social history:: Smoking status: Patient denies any tobacco usage or history of. ROS: 10:14 Constitutional: Negative for fever, chills, and weight loss, Eyes: Negative for injury, trisha pain, redness, and discharge, ENT: Negative for injury, pain, and discharge, Neck: Negative for injury, pain, and swelling, Cardiovascular: Negative for chest pain, palpitations, and edema, : Negative for injury, bleeding, discharge, and swelling, MS/Extremity: Negative for injury and deformity, Skin: Negative for injury, rash, and discoloration, Neuro: Negative for headache, weakness, numbness, tingling, and seizure, Psych: Negative for depression, anxiety, suicide ideation, homicidal ideation, and hallucinations, Allergy/Immunology: Negative for hives, rash, and allergies, Endocrine: Negative for neck swelling, polydipsia, polyuria, polyphagia, and marked weight changes, Hematologic/Lymphatic: Negative for swollen nodes, abnormal bleeding, and unusual bruising. 10:14 Respiratory: Positive for pleurisy, of the left mid back and anterior aspect of left lateral abdomen and posterior aspect of left lateral abdomen. 10:14 Abdomen/GI: Positive for abdominal pain, of the posterior aspect of left lateral abdomen and anterior aspect of left lateral abdomen. 10:14 Back: Positive for decreased range of motion, pain at rest, pain with movement. Exam: 10:14 Constitutional: This is a well developed, well nourished patient who is awake, alert, trisha and in no acute distress. Head/Face: Normocephalic, atraumatic. Eyes: Pupils equal round and reactive to light, extra-ocular motions intact. Lids and lashes normal. Conjunctiva and sclera are non-icteric and not injected. Cornea within normal limits. Periorbital areas with no swelling, redness, or edema. ENT: Nares patent. No nasal discharge, no septal abnormalities noted. Tympanic membranes are normal and external auditory canals are clear. Oropharynx with no redness, swelling, or masses, exudates, or evidence of obstruction, uvula midline. Mucous membranes moist. Neck: Trachea midline, no thyromegaly or masses palpated, and no cervical lymphadenopathy. Supple, full range of motion without nuchal rigidity, or vertebral point tenderness. No Meningismus. Chest/axilla: Normal chest wall appearance and motion. Nontender with no deformity. No lesions are appreciated. Cardiovascular: Regular rate and rhythm with a normal S1 and S2. No gallops, murmurs, or rubs. Normal PMI, no JVD. No pulse deficits. Back: No spinal tenderness. No costovertebral tenderness. Full range of motion. Female : Normal external genitalia. Skin: Warm, dry with normal turgor. Normal color with no rashes, no lesions, and no evidence of cellulitis. MS/ Extremity: Pulses equal, no cyanosis. Neurovascular intact. Full, normal range of motion. Neuro: Awake and alert, GCS 15, oriented to person, place, time, and situation. Cranial nerves II-XII grossly intact. Motor strength 5/5 in all extremities. Sensory grossly intact. Cerebellar exam normal. Normal gait. Psych: Awake, alert, with orientation to person, place and time. Behavior, mood, and affect are within normal limits. 10:14 Respiratory: the patient does not display signs of respiratory distress, Respirations: normal, Breath sounds: decreased breath sounds, that are mild, are heard in the left posterior lower lobe. Vital Signs: 09:12 BP 156 / 80; Pulse 90; Resp 16 S; Temp 98.6(O); Pulse Ox 99% on R/A; Weight 86.18 kg aa5 (R); Height 5 ft. 3 in. (160.02 cm) (R); Pain 7/10; 11:20 BP 158 / 87; Pulse 79; Resp 18; Pulse Ox 98% on R/A; em6 12:48 BP 125 / 83; Pulse 69; Resp 18; Pulse Ox 99% on R/A; Pain 2/10; eh3 09:12 Body Mass Index 33.66 (86.18 kg, 160.02 cm) aa5 MDM: 09:11 Patient medically screened. [facility] 10:17 Differential diagnosis: Osteoarthritis ruptured disc, sprain, vertebral fracture. Data trisha reviewed: vital signs, nurses notes, EMS record, lab test result(s), radiologic studies, CT scan. Data interpreted: court recording monitor: rate is 90 beats/min, rhythm is regular, Pulse oximetry: on room air is 99 %. Test interpretation: by ED physician or midlevel provider:. Counseling: I had a detailed discussion with the patient and/or guardian regarding: the historical points, exam findings, and any diagnostic results supporting the discharge/admit diagnosis, lab results, radiology results, the need for outpatient follow up, for definitive care, a family practitioner. 01/04 09:37 Order name: CBC with Diff; Complete Time: 10:56 [facility] 01/04 09:37 Order name: Comprehensive Metabolic Panel; Complete Time: 11:06 [facility] 01/04 09:37 Order name: CT Chest, Abdomen, Pelvis - W/Contrast [facility] 01/04 09:37 Order name: INCENTIVE SPIROMETRY [facility] 01/04 10:50 Order name: Urine Dipstick-Ancillary; Complete Time: 10:56 [facility] 01/04 09:37 Order name: Urine Dipstick-Ancillary (obtain specimen); Complete Time: 11:28 [facility] 01/04 10:28 Order name: IV; Complete Time: 10:28 jd3 Administered Medications: 10:33 Drug: Zofran (Ondansetron) 4 mg Route: IVP; Site: right forearm; em6 11:30 Follow up: Response: No adverse reaction em6 10:34 Drug: Ketorolac 30 mg Route: IVP; Site: right forearm; em6 11:30 Follow up: Response: Adverse reaction, Physician notified em6 10:34 Drug: morphine 2 mg Route: IVP; Infused Over: 4 mins; Site: right forearm; em6 11:30 Follow up: Response: No adverse reaction; RASS: Alert and Calm (0) em6 Disposition Summary: 01/04/22 12:29 Discharge Ordered Location: Home trisha Problem: new trisha Symptoms: have improved trisha Condition: Stable trisha Diagnosis - Fall on same level, unspecified trisha - Contusion of left front wall of thorax trisha - Contusion of left back wall of thorax trisha - Contusion of thorax trisha - Multiple fractures of ribs, left side - 11th \T\ 12th ribs trisha Followup: trisha - With: Private Physician - When: 2 - 3 days - Reason: Recheck today's complaints, Continuance of care, Re-evaluation by your physician Discharge Instructions: - Discharge Summary Sheet trisha - Contusion trisha - How to Use an Incentive Spirometer trisha - Contusion, [id number] trisha - Fall Prevention in the Home, Adult, [id number] trisha - Rib Fracture, Sios-[id number] [facility] Forms: - Medication Reconciliation Form [facility] - Thank You Letter trisha - Antibiotic Education trisha - Prescription Opioid Use [facility] Prescriptions: - Diclofenac Sodium 75 mg Oral Tablet Sustained Release - take 1 tablet by ORAL route 2 times per day; 30 tablet; Refills: 0, Product trisha Selection Permitted - Cyclobenzaprine 5 mg Oral Tablet - take 1 tablet by ORAL route 3 times per day As needed; 15 tablet; Refills: 0, [facility] Product Selection Permitted - Tylenol-Codeine #3 300 mg-30 mg Oral - take 2 tablet by ORAL route every 6 hours; 24 tablet; Refills: 0, Product [facility] Selection Permitted Signatures: Dispatcher [employer] Everardo Curran MD MD cha Calderon, Audri, RN RN [email or web address] Onofre Pinon RN RN jd3 Dianne Rosado RN RN em6
--- NOTE | 2022-01-04 12:29 | ER ---
Nurse's Notes [facility] Name: Batsheva Guevara Age: 61 yrs Sex: Female : 1960 Arrival Date: 01/04/2022 Time: 09:00 Bed 7 Private MD: Diagnosis: Fall on same level, unspecified;Contusion of left front wall of thorax;Contusion of left back wall of thorax;Contusion of thorax;Multiple fractures of ribs, left side-11th \\T\\ 12th ribs Presentation: 01/04 09:09 Chief complaint: Patient states: seen here on Tuesday post fall, reports she had a aa5 negative x-ray for fracture. Pt c/o left flank pain, pt states "I was moving some decorations on Tuesday and I think I twisted my side or something because it hurts worse". Coronavirus screen: At this time, the client does not indicate any symptoms associated with coronavirus-19. Ebola Screen: Patient denies travel to an Ebola-affected area in the 21 days before illness onset. Initial Sepsis Screen: Does the patient meet any 2 criteria? No. Patient's initial sepsis screen is negative. Does the patient have a suspected source of infection? No. Patient's initial sepsis screen is negative. Risk Assessment: Do you want to hurt yourself or someone else? Patient reports no desire to harm self or others. Onset of symptoms was December 2021. 09:09 Acuity: HERMELINDA 4 aa5 09:09 Method Of Arrival: Ambulatory aa5 09:44 Acuity: HERMELINDA 3 iw Historical: - Allergies: 09:12 No Known Allergies; aa5 - PMHx: 09:12 chronic neck pain; Diabetes - NIDDM; High Cholesterol; Hypertension; aa5 - PSHx: 09:12 section; hysterectomy; aa5 - Immunization history:: Adult Immunizations unknown. - Social history:: Smoking status: Patient denies any tobacco usage or history of. Screenin:20 Abuse screen: Denies threats or abuse. Nutritional screening: No deficits noted. em6 Tuberculosis screening: No symptoms or risk factors identified. 12:47 Fall Risk None identified. eh3 Assessment: 09:16 General: Appears in no apparent distress. Behavior is calm, cooperative, appropriate em6 for age. Pain: Complains of pain in posterior aspect of left lateral abdomen and anterior aspect of left lateral abdomen Pain does not radiate. Pain currently is 10 out of 10 on a pain scale. Quality of pain is described as sharp, Is continuous, Alleviated by repositioning, Aggravated by sneezing and coughing. Neuro: Mckeon Agitation-Sedation Scale (RASS): 0 - Alert and Calm Level of Consciousness is awake, alert, obeys commands, Oriented to person, place, time, situation. Cardiovascular: Heart tones present Capillary refill < 3 seconds Patient's skin is warm and dry. Respiratory: Airway is patent Respiratory effort is even, unlabored, Respiratory pattern is regular, symmetrical. GI: Abdomen is non-distended, Abd is soft and non tender X 4 quads. : No signs and/or symptoms were reported regarding the genitourinary system. EENT: No signs and/or symptoms were reported regarding the EENT system. Derm: No signs and/or symptoms reported regarding the dermatologic system. Musculoskeletal: Circulation, motion, and sensation intact. Range of motion: intact in all extremities. 10:20 Reassessment: No changes from previously documented assessment. Patient and/or family em6 updated on plan of care and expected duration. Pain level reassessed. Patient is alert, oriented x 3, equal unlabored respirations, skin warm/dry/pink. 11:20 Reassessment: No changes from previously documented assessment. Patient and/or family em6 updated on plan of care and expected duration. Pain level reassessed. Patient is alert, oriented x 3, equal unlabored respirations, skin warm/dry/pink. 12:20 Reassessment: Patient and/or family updated on plan of care and expected duration. Pain eh3 level reassessed. Patient is alert, oriented x 3, equal unlabored respirations, skin warm/dry/pink. Patient denies pain at this time. Patient states feeling better. Vital Signs: 09:12 BP 156 / 80; Pulse 90; Resp 16 S; Temp 98.6(O); Pulse Ox 99% on R/A; Weight 86.18 kg aa5 (R); Height 5 ft. 3 in. (160.02 cm) (R); Pain 7/10; 11:20 BP 158 / 87; Pulse 79; Resp 18; Pulse Ox 98% on R/A; em6 12:48 BP 125 / 83; Pulse 69; Resp 18; Pulse Ox 99% on R/A; Pain 2/10; eh3 09:12 Body Mass Index 33.66 (86.18 kg, 160.02 cm) aa5 ED Course: 09:00 Patient arrived in ED. rg4 09:09 Arm band placed on Patient placed in an exam room, on a stretcher. aa5 09:11 Everardo Tenorio MD is Attending Physician. [facility] 09:11 Triage completed. aa5 09:20 Patient has correct armband on for positive identification. Bed in low position. Call em6 light in reach. Side rails up X 1. Pulse ox on. NIBP on. Warm blanket given. 09:21 Onofre Pinon, RN is Primary Nurse. jd3 10:28 Inserted saline lock: 22 gauge in right forearm, using aseptic technique. Blood jd3 collected. 11:22 CT Chest, Abdomen, Pelvis - W/Contrast In Process Unspecified. EDMS 11:55 Primary Nurse role handed off by Onofre Pinon RN eh3 11:55 Kelly Smyth, LUNA is Primary Nurse. eh3 12:02 INCENTIVE SPIROMETRY Sent. ld1 12:46 No provider procedures requiring assistance completed. eh3 12:47 IV discontinued, intact, bleeding controlled, No redness/swelling at site. Pressure eh3 dressing applied. Administered Medications: 10:33 Drug: Zofran (Ondansetron) 4 mg Route: IVP; Site: right forearm; em6 11:30 Follow up: Response: No adverse reaction em6 10:34 Drug: Ketorolac 30 mg Route: IVP; Site: right forearm; em6 11:30 Follow up: Response: Adverse reaction, Physician notified em6 10:34 Drug: morphine 2 mg Route: IVP; Infused Over: 4 mins; Site: right forearm; em6 11:30 Follow up: Response: No adverse reaction; RASS: Alert and Calm (0) em6 Medication: 12:47 VIS not applicable for this client. eh3 Outcome: 12:29 Discharge ordered by . trisha 12:47 Discharged to home ambulatory. eh3 12:47 Condition: stable 12:47 Discharge instructions given to patient, Instructed on discharge instructions, follow up and referral plans. medication usage, Demonstrated understanding of instructions, follow-up care, medications, Prescriptions given X 3. 12:58 Patient left the ED. eh3 Signatures: Dispatcher [employer] EDEverardo Stern MD MD cha Williams, Irene, RN RN Chika Saldivar, RN RN [email or web address] Yana Garg Jonathon RN RN jd3 Anjana Mckeon RN RN ld1 Kelly Smyth, RN RN eh3 Dianne Rosado RN RN em6
[2022-01-04 13:27] VITALS: TEMP 98.6
[2022-01-04 13:33] VITALS: BP 125/83; O2SAT 99
== END 2022-01-04 12:58 | disposition home or self-care (01) ==
LOC: ER 08:58
DX: S22.42XA Multiple fractures of ribs, left side, initial encounter for closed fracture (principal); S20.212A Contusion of left front wall of thorax, initial encounter; S20.222A Contusion of left back wall of thorax, initial encounter; W18.30XA Fall on same level, unspecified, initial encounter; I10 Essential (primary) hypertension
CPT/HCPCS: 85025; 36415; 81003; 80053; 71260; 74177; 96375; 96374; 99284; Q9967; J2270; J2405

== ENCOUNTER 2022-08-23 00:27 | Emergency (ER) | payer OTHER ==
--- OUTSIDE RECORDS SUMMARY | 2022-08-23 00:34 | XMS REPORT | Continuity of Care Document ---
:1960 Author Organization [facility] t Address [address] [place] [address] Care Team Providers Name Role Phone Mode Johnson Attending Clinician Unavailable Radiology Attending Clinician Unavailable RADIOLOGY Attending Clinician Unavailable Doctor Unassigned, Mason Attending Clinician Unavailable Keo SON, Guido Garcia Attending Clinician Payers Payer Name Policy Type Policy Number Effective Date Expiration Date [place] [address] [id number] 2021 Common HEALTHCARE 00:00:00 [facility] Problems Condition Condition Condition Status Onset Resolution Last Treating Co mments Source Name Details Category Date Date Treatment Clinician Date No known No known Disease [facility] active active College problems problems of Medicin e Body mass Body mass Problem Com mon index index Spirit 30.00 to (BMI) of - [facility] 34.[address] 32[address]9 in [facility] [id number] Noncomplia Problem Co mmon nce with Spirit dietary - [facility] restrictio [facility] [id number] Pain, [place] Commo n 13634 joint, Spirit hip, right - [facility] [id number] Pain, [place] 7[address] joint, Spirit hip, left - [facility] [id number] Bilateral Problem Co mmon [id number] carpal Spirit tunnel - [facility]I syndrome [facility] [id number] Chronic Problem Commo n hepatitis Spirit C without - [facility] hepatic [facility] [id number] Gastroesop Problem Co mmon hageal Spirit reflux - [facility] disease [facility] esophagiti [facility]ica [facility] [place] [id number] Mixed Problem Common hyperlipid Spirit emia - [facility] [id number] Other Problem Common chronic Spirit pain - [facility]I [facility] [id number] Type 2 Problem Common diabetes [facility] mellitus - [facility] with other [facility] complicati Medica l on, Center without long-term current use of insulin [id number] Depression Problem Co mmon with Spirit anxiety - [facility] [id number] Allergic Problem Commo n rhinitis, Spirit unspecifie - [facility]I d [facility] unspecifie Center d trigger [id number] Subclinica Problem Com mon l Spirit hypothyroi - [facility]I dism [facility] [id number] HTN, goal Problem Comm on below Spirit 130/80 - [facility] [id number] Cervical Problem Comm on herniated Spirit disc - [facility] [id number] Body mass Problem Com mon index Spirit (BMI) - [facility] 32.0-32.9, [facility] [id number] Other Problem Common obesity Spirit due to - [facility] excess [facility] Allergies, Adverse Reactions, Alerts Allergy Allergy Status Severity Reaction(s) Onset Inactive Treating Comm ents Source Name Type Date Date Clinician NO KNOWN Drug Active Univers ALLERGIE Class ity of [facility] Social History Social Habit Start Date Stop Date Quantity Comments Source Exposure to Not sure [facility]2 [facility]event[facility] History of Common Spirit - Tobacco Use [facility] Sex Assigned At Common Sp mikaela - [facility] Alcohol intake 2019-06-18 2019-06-18 Current drinker [facility] 00:00:00 00:00:00 of alcohol Medicine (finding) Smoking Status Start Date Stop Date Source Unknown if ever smoked [facility] Former Smoker 2022-04-02 00:00:00 2022-04-02 00:00:00 Common S pirit - [facility] Medications Ordered Filled Start Stop Current Ordering Indication Dosage Frequency Signature Comments Components Source Medication Medication Date Date Medication? Clinician (SIG) Name Name Jardiance Jardiance 2021-04- No 1{table QD Jardiance 10 MG 10 MG 2-14 03-14 t} 10 MG 00:00: 00:00 00 :00 Phentermine Phentermine 2020-04 No 1{capsu QD Phentermin HCl 37.5 MG HCl 37.5 MG 0-07 le} e HCl 37.5 00:00: MG 00 Omeprazole Omeprazole 2020-0 Yes Mode 1 capsule Common 2-25 Johnson 30 minutes Spirit 00:00: before - [facility] 00 morning [facility] Omeprazole Omeprazole 2020-0 No QD Omeprazole 40 MG 40 MG 2-25 40 MG 00:00: 00 Omeprazole Omeprazole 2020-0 No QD Omeprazole 40 MG 40 MG 2-25 40 MG 00:00: 00 Omeprazole Omeprazole 2020-0 No QD Omeprazole 40 MG 40 MG 2-25 40 MG 00:00: 00 Omeprazole Omeprazole 2020-0 No QD Omeprazole 40 MG 40 MG 2-25 40 MG 00:00: 00 Omeprazole Omeprazole 2020-0 No QD Omeprazole 40 MG 40 MG 2-25 40 MG 00:00: 00 Omeprazole Omeprazole 2020-0 No QD Omeprazole 40 MG 40 MG 2-25 40 MG 00:00: 00 Omeprazole Omeprazole 2020-0 No QD Omeprazole 40 MG 40 MG 2-25 40 MG 00:00: 00 Omeprazole Omeprazole 2020-0 No QD Omeprazole 40 MG 40 MG 2-25 40 MG 00:00: 00 Omeprazole Omeprazole 2020-0 No QD Omeprazole 40 MG 40 MG 2-25 40 MG 00:00: 00 Omeprazole Omeprazole 2020-0 No QD Omeprazole 40 MG 40 MG 2-25 40 MG 00:00: 00 Omeprazole Omeprazole 2020-0 No QD Omeprazole 40 MG 40 MG 2-25 40 MG 00:00: 00 Omeprazole Omeprazole 2020-0 No QD Omeprazole 40 MG 40 MG 2-25 40 MG 00:00: 00 Omeprazole Omeprazole 2020-0 No QD Omeprazole 40 MG 40 MG 2-25 40 MG 00:00: 00 Omeprazole Omeprazole 2020-0 No QD Omeprazole 40 MG 40 MG 2-25 40 MG 00:00: 00 Omeprazole Omeprazole 2020-0 No QD Omeprazole 40 MG 40 MG 2-25 40 MG 00:00: 00 Omeprazole Omeprazole 2020-0 No QD Omeprazole 40 MG 40 MG 2-25 40 MG 00:00: 00 Omeprazole Omeprazole 2020-0 No QD Omeprazole 40 MG 40 MG 2-25 40 MG 00:00: 00 Omeprazole Omeprazole 2020-0 No QD Omeprazole 40 MG 40 MG 2-25 40 MG 00:00: 00 Omeprazole Omeprazole 2020-0 No QD Omeprazole 40 MG 40 MG 2-25 40 MG 00:00: 00 Omeprazole Omeprazole 2020-0 No QD Omeprazole 40 MG 40 MG 2-25 40 MG 00:00: 00 LISINOPRIL 2020-0 Yes Take by Bayl or OR 2-24 mouth. College 17:05: of 00 Medicin e ATORVASTATI 2020-0 Yes Take by Irion kev N CALCIUM 2-24 mouth. College OR 17:05: of 00 Medicin e METFORMIN 2020-0 Yes Take by Bay[facility] r HCL OR 2-24 mouth. College 17:05: of 00 Medicin e PHENDIMETRA 2020-0 Yes Take by Irion kev ZINE 2-24 mouth. Sammy Martinez TARTRATE OR 17:05: of 00 Medicin e Cyclobenzap 2020-0 Yes Take by Irion kev rine HCl 2-24 mouth. College (FLEXERIL 17:05: of OR) 00 Medicin e TRAMADOL 2020-0 Yes Take by Wilman HCL ER OR 2-24 mouth. College 17:04: of 59 Medicin e tramadol 2020-0 Yes 1{tbl} Take 1 Tab B aylor (ULTRAM) 50 2-24 by mouth Tommy ege MG tablet 00:00: every 8 of 00 hours as Medicin needed for e Pain. Kenalog Kenalog 2018-0 No 40mg Common (Triamcinol (Triamcinol 9- S pirit one) one) 00:00: - [facility]I 00 [facility] Kenalog Kenalog 2019-0 No 40mg Common (Triamcinol (Triamcinol 9-09 S pirit one) one) 00:00: - CHI 00 [facility] Kenalog Kenalog 2019-0 No 40mg Common (Triamcinol (Triamcinol 9-09 S pirit one) one) 00:00: - CHI 00 [facility] Kenalog Kenalog 2019-0 No 40mg Common (Triamcinol (Triamcinol 9-09 S pirit one) one) 00:00: - CHI 00 [facility] Kenalog Kenalog 2019-0 No 40mg Common (Triamcinol (Triamcinol 9-09 S pirit one) one) 00:00: - CHI 00 [facility] Kenalog Kenalog 2019-0 No 40mg Common (Triamcinol (Triamcinol 9-09 S pirit one) one) 00:00: - CHI 00 [facility] Kenalog Kenalog 2019-0 No 40mg Common (Triamcinol (Triamcinol 9-09 S pirit one) one) 00:00: - CHI 00 [facility] Kenalog Kenalog 2019-0 No 40mg Common (Triamcinol (Triamcinol 9-09 S pirit one) one) 00:00: - CHI 00 [facility] Kenalog Kenalog 2019-0 No 40mg Common (Triamcinol (Triamcinol 9-09 S pirit one) one) 00:00: - CHI 00 [facility] Kenalog Kenalog 2019-0 No 40mg Common (Triamcinol (Triamcinol 9-09 S pirit one) one) 00:00: - CHI 00 [facility] Kenalog Kenalog 2019-0 No 40mg Common (Triamcinol (Triamcinol 9-09 S pirit one) one) 00:00: - CHI 00 [facility] Kenalog Kenalog 2019-0 No 40mg Common (Triamcinol (Triamcinol 9-09 S pirit one) one) 00:00: - CHI 00 [facility] Kenalog Kenalog 2019-0 No 40mg Common (Triamcinol (Triamcinol 9- S pirit one) one) 00:00: [facility] Common (Triamcinol (Triamcinol 9- S pirit one) one) 00:00: - CHI 00 [facility] Juan Antonio Akbaralog No 40mg Common (Triamcinol (Triamcinol 9- S pirit one) one) 00:00: - CHI [facility] Raffysaint alphonsus eagle Raffysaint alphonsus eagle No 40mg Common (Triamcinol (Triamcinol 9- S pirit one) one) 00:00: - CHI 00 [facility] Raffysaint alphonsus eagle Raffysaint alphonsus eagle No 40mg Common (Triamcinol (Triamcinol 9- S pirit one) one) 00:00: - CHI 00 [facility] Pantoprazol Pantoprazol Yes Mode 1 tablet Common e Sodium e Sodium Johnson [facility] Cyclobenzap Cyclobenzap Yes Mode TAKE 1 Common rine HCl rine HCl Johnson TABLET BY S pirit MOUTH ONCE - CHI DAILY [facility] Atorvastati Atorvastati Yes Mode 1 tablet Common n Calcium n Calcium Johnson Spir it - [facility] Lisinopril- Lisinopril- Yes Mode 1 tablet Common Hydrochloro Hydrochloro Johnson Spirit thiazide thiazide [facility] Montelukast Montelukast Yes Mode 1 tablet Common Sodium Sodium Johnson [facility] Metformin Metformin Yes Mode 1 tablet Common HCl HCl Johnson with a Spirit meal [facility] Amlodipine Amlodipine Yes Mode 1 tablet Common Besylate Besylate Johnson [facility] Tramadol Tramadol Yes Mode 1 tablet C ommon HCl HCl Johnson as needed Spirit [facility] Cyclobenzap Cyclobenzap Yes Mode 1 tablet Common rine HCl rine HCl Johnson as needed S pirit [facility] traMADol traMADol No 1{table traMADol HCl 50 MG HCl 50 MG t_as_ne HCl 50 MG eded} amLODIPine amLODIPine No amLODIPine Besylate 5 Besylate 5 Besylate 5 MG MG MG Pantoprazol Pantoprazol No 1{table QD Pantoprazo e Sodium 40 e Sodium 40 t} le Sodium MG MG 40 MG Fluticasone Fluticasone No 1{spray QD Fluticason Propionate Propionate _in_eac e 50 MCG/ACT 50 MCG/ACT h_nostr Propionate il} 50 MCG/ACT Atorvastati Atorvastati No Atorvastat n Calcium n Calcium in Calcium 40 MG 40 MG 40 MG Atorvastati Atorvastati No 1{table QD Atorvastat n Calcium n Calcium t} in Calcium 40 MG 40 MG 40 MG Lisinopril- Lisinopril- No 1{table QD Lisinopril hydroCHLORO hydroCHLORO t} -hydroCHLO thiazide thiazide ROthiazide 10-12.5 MG 10-12.5 MG 10-12.5 MG metFORMIN metFORMIN No metFORMIN HCl 500 MG HCl 500 MG HCl 500 MG Cyclobenzap Cyclobenzap No Cyclobenza rine HCl 10 rine HCl 10 carolina HCl MG MG 10 MG Lisinopril- Lisinopril- No 1{table QD Lisinopril hydroCHLORO hydroCHLORO t} -hydroCHLO thiazide thiazide ROthiazide 10-12.5 MG 10-12.5 MG 10-12.5 MG Cyclobenzap Cyclobenzap No Cyclobenza rine HCl 10 rine HCl 10 carolina HCl MG MG 10 MG Fluticasone Fluticasone No 1{spray QD Fluticason Propionate Propionate _in_eac e 50 MCG/ACT 50 MCG/ACT h_nostr Propionate il} 50 MCG/ACT metFORMIN metFORMIN No 1{table BID metFORMIN HCl 500 MG HCl 500 MG t_with_ HCl 500 MG a_meal} Montelukast Montelukast No Montelukas Sodium 10 Sodium 10 t Sodium MG MG 10 MG Lisinopril- Lisinopril- No Lisinopril hydroCHLORO hydroCHLORO -hydroCHLO thiazide thiazide ROthiazide 10-12.5 MG 10-12.5 MG 10-12.5 MG Atorvastati Atorvastati No Atorvastat n Calcium n Calcium in Calcium 40 MG 40 MG 40 MG Atorvastati Atorvastati No 1{table QD Atorvastat n Calcium n Calcium t} in Calcium 40 MG 40 MG 40 MG traMADol traMADol No 1{table traMADol HCl 50 MG HCl 50 MG t_as_ne HCl 50 MG eded} amLODIPine amLODIPine No amLODIPine Besylate 5 Besylate 5 Besylate 5 MG MG MG Cyclobenzap Cyclobenzap No 1{table QD Cyclobenza rine HCl 10 rine HCl 10 t_as_ne carolina HCl MG MG eded} 10 MG Pantoprazol Pantoprazol No Pantoprazo e Sodium 40 e Sodium 40 le Sodium MG MG 40 MG Tylenol Tylenol No Tylenol with with with Codeine #3 Codeine #3 Codeine #3 Phendimetra Phendimetra No QD Phendimetr zine zine azine Tartrate 35 Tartrate 35 Tartrate MG MG 35 MG amLODIPine amLODIPine No amLODIPine Besylate 10 Besylate 10 Besylate MG MG 10 MG Montelukast Montelukast No 1{table QD Montelukas Sodium 10 Sodium 10 t} t Sodium MG MG 10 MG metFORMIN metFORMIN No metFORMIN HCl 500 MG HCl 500 MG HCl 500 MG Pantoprazol Pantoprazol No 1{table QD Pantoprazo e Sodium 40 e Sodium 40 t} le Sodium MG MG 40 MG amLODIPine amLODIPine No amLODIPine Besylate 10 Besylate 10 Besylate MG MG 10 MG Pantoprazol Pantoprazol No 1{table QD Pantoprazo e Sodium 40 e Sodium 40 t} le Sodium MG MG 40 MG Cyclobenzap Cyclobenzap No Cyclobenza rine HCl 10 rine HCl 10 carolina HCl MG MG 10 MG Phendimetra Phendimetra No QD Phendimetr tien bhatiane azine Tartrate 35 Tartrate 35 Tartrate MG MG 35 MG methylPREDN methylPREDN No QD methylPRED ISolone 4 ISolone 4 NISolone 4 MG MG MG Fluticasone Fluticasone No 1{spray QD Fluticason Propionate Propionate _in_eac e 50 MCG/ACT 50 MCG/ACT h_nostr Propionate il} 50 MCG/ACT Pseudoeph-B Pseudoeph-B No 5{ml_as QID Pseudoeph- romphen-DM romphen-DM _needed Bromphen-D 302- 30210 } M 30-2-10 MG/5ML MG/5ML MG/5ML traMADol traMADol No 1{table traMADol HCl 50 MG HCl 50 MG t_as_ne HCl 50 MG eded} metFORMIN metFORMIN No 1{table BID metFORMIN HCl 500 MG HCl 500 MG t_with_ HCl 500 MG a_meal} Montelukast Montelukast No Montelukas Sodium 10 Sodium 10 t Sodium MG MG 10 MG Pantoprazol Pantoprazol No Pantoprazo e Sodium 40 e Sodium 40 le Sodium MG MG 40 MG Lisinopril- Lisinopril- No 1{table QD Lisinopril hydroCHLORO hydroCHLORO t} -hydroCHLO thiazide thiazide ROthiazide 10-12.5 MG 10-12.5 MG 10-12.5 MG Lisinopril- Lisinopril- No Lisinopril hydroCHLORO hydroCHLORO -hydroCHLO thiazide thiazide ROthiazide 10-12.5 MG 10-12.5 MG 10-12.5 MG Atorvastati Atorvastati No Atorvastat n Calcium n Calcium in Calcium 40 MG 40 MG 40 MG Cyclobenzap Cyclobenzap No 1{table QD Cyclobenza rine HCl 10 rine HCl 10 t_as_ne carolina HCl MG MG eded} 10 MG metFORMIN metFORMIN No metFORMIN HCl 500 MG HCl 500 MG HCl 500 MG Atorvastati Atorvastati No 1{table QD Atorvastat n Calcium n Calcium t} in Calcium 40 MG 40 MG 40 MG Montelukast Montelukast No 1{table QD Montelukas Sodium 10 Sodium 10 t} t Sodium MG MG 10 MG Tylenol Tylenol No Tylenol with with with Codeine #3 Codeine #3 Codeine #3 amLODIPine amLODIPine No amLODIPine Besylate 5 Besylate 5 Besylate 5 MG MG MG amLODIPine amLODIPine No amLODIPine Besylate 10 Besylate 10 Besylate MG MG 10 MG Pantoprazol Pantoprazol No 1{table QD Pantoprazo e Sodium 40 e Sodium 40 t} le Sodium MG MG 40 MG Cyclobenzap Cyclobenzap No Cyclobenza rine HCl 10 rine HCl 10 carolina HCl MG MG 10 MG Phendimetra Phendimetra No QD Phendimetr zine zine azine Tartrate 35 Tartrate 35 Tartrate MG MG 35 MG methylPREDN methylPREDN No QD methylPRED ISolone 4 ISolone 4 NISolone 4 MG MG MG Fluticasone Fluticasone No 1{spray QD Fluticason Propionate Propionate _in_eac e 50 MCG/ACT 50 MCG/ACT h_nostr Propionate il} 50 MCG/ACT Pseudoeph-B Pseudoeph-B No 5{ml_as QID Pseudoeph- romphen-DM romphen-DM _needed Bromphen-D 30-2-10 30-2-10 } M 30-2-10 MG/5ML MG/5ML MG/5ML traMADol traMADol No 1{table traMADol HCl 50 MG HCl 50 MG t_as_ne HCl 50 MG eded} metFORMIN metFORMIN No 1{table BID metFORMIN HCl 500 MG HCl 500 MG t_with_ HCl 500 MG a_meal} Montelukast Montelukast No Montelukas Sodium 10 Sodium 10 t Sodium MG MG 10 MG Pantoprazol Pantoprazol No Pantoprazo e Sodium 40 e Sodium 40 le Sodium MG MG 40 MG Lisinopril- Lisinopril- No 1{table QD Lisinopril hydroCHLORO hydroCHLORO t} -hydroCHLO thiazide thiazide ROthiazide 10-12.5 MG 10-12.5 MG 10-12.5 MG Lisinopril- Lisinopril- No Lisinopril hydroCHLORO hydroCHLORO -hydroCHLO thiazide thiazide ROthiazide 10-12.5 MG 10-12.5 MG 10-12.5 MG Atorvastati Atorvastati No Atorvastat n Calcium n Calcium in Calcium 40 MG 40 MG 40 MG Cyclobenzap Cyclobenzap No 1{table QD Cyclobenza rine HCl 10 rine HCl 10 t_as_ne carolina HCl MG MG eded} 10 MG metFORMIN metFORMIN No metFORMIN HCl 500 MG HCl 500 MG HCl 500 MG Atorvastati Atorvastati No 1{table QD Atorvastat n Calcium n Calcium t} in Calcium 40 MG 40 MG 40 MG Montelukast Montelukast No 1{table QD Montelukas Sodium 10 Sodium 10 t} t Sodium MG MG 10 MG Tylenol Tylenol No Tylenol with with with Codeine #3 Codeine #3 Codeine #3 amLODIPine amLODIPine No amLODIPine Besylate 5 Besylate 5 Besylate 5 MG MG MG Cyclobenzap Cyclobenzap No Cyclobenza rine HCl 10 rine HCl 10 carolina HCl MG MG 10 MG amLODIPine amLODIPine No amLODIPine Besylate 10 Besylate 10 Besylate MG MG 10 MG metFORMIN metFORMIN No 1{table BID metFORMIN HCl 500 MG HCl 500 MG t_with_ HCl 500 MG a_meal} traMADol traMADol No 1{table traMADol HCl 50 MG HCl 50 MG t_as_ne HCl 50 MG eded} Pantoprazol Pantoprazol No Pantoprazo e Sodium 40 e Sodium 40 le Sodium MG MG 40 MG metFORMIN metFORMIN No 1{table BID metFORMIN HCl 500 MG HCl 500 MG t_with_ HCl 500 MG a_meal} Phendimetra Phendimetra No QD Phendimetr zimp bhatiane azine Tartrate 35 Tartrate 35 Tartrate MG MG 35 MG amLODIPine amLODIPine No 1{table QD amLODIPine Besylate 5 Besylate 5 t} Besylate 5 MG MG MG Lisinopril- Lisinopril- No 1{table QD Lisinopril hydroCHLORO hydroCHLORO t} -hydroCHLO thiazide thiazide ROthiazide 10-12.5 MG 10-12.5 MG 10-12.5 MG Montelukast Montelukast No Montelukas Sodium 10 Sodium 10 t Sodium MG MG 10 MG Cyclobenzap Cyclobenzap No 1{table QD Cyclobenza rine HCl 10 rine HCl 10 t_as_ne carolina HCl MG MG eded} 10 MG Montelukast Montelukast No 1{table QD Montelukas Sodium 10 Sodium 10 t} t Sodium MG MG 10 MG Atorvastati Atorvastati No 1{table QD Atorvastat n Calcium n Calcium t} in Calcium 40 MG 40 MG 40 MG amLODIPine amLODIPine No amLODIPine Besylate 5 Besylate 5 Besylate 5 MG MG MG Fluticasone Fluticasone No 1{spray QD Fluticason Propionate Propionate _in_eac e 50 MCG/ACT 50 MCG/ACT h_nostr Propionate il} 50 MCG/ACT Pantoprazol Pantoprazol No 1{table QD Pantoprazo e Sodium 40 e Sodium 40 t} le Sodium MG MG 40 MG amLODIPine amLODIPine No amLODIPine Besylate 10 Besylate 10 Besylate MG MG 10 MG metFORMIN metFORMIN No 1{table BID metFORMIN HCl 500 MG HCl 500 MG t_with_ HCl 500 MG a_meal} Fluticasone Fluticasone No 1{spray QD Fluticason Propionate Propionate _in_eac e 50 MCG/ACT 50 MCG/ACT h_nostr Propionate il} 50 MCG/ACT Montelukast Montelukast No Montelukas Sodium 10 Sodium 10 t Sodium MG MG 10 MG Cyclobenzap Cyclobenzap No Cyclobenza rine HCl 10 rine HCl 10 carolina HCl MG MG 10 MG Atorvastati Atorvastati No 1{table QD Atorvastat n Calcium n Calcium t} in Calcium 40 MG 40 MG 40 MG Lisinopril- Lisinopril- No 1{table QD Lisinopril hydroCHLORO hydroCHLORO t} -hydroCHLO thiazide thiazide ROthiazide 10-12.5 MG 10-12.5 MG 10-12.5 MG Montelukast Montelukast No 1{table QD Montelukas Sodium 10 Sodium 10 t} t Sodium MG MG 10 MG Atorvastati Atorvastati No 1{table QD Atorvastat n Calcium n Calcium t} in Calcium 40 MG 40 MG 40 MG traMADol traMADol No 1{table traMADol HCl 50 MG HCl 50 MG t_as_ne HCl 50 MG eded} metFORMIN metFORMIN No metFORMIN HCl 500 MG HCl 500 MG HCl 500 MG Pantoprazol Pantoprazol No Pantoprazo e Sodium 40 e Sodium 40 le Sodium MG MG 40 MG Pantoprazol Pantoprazol No 1{table QD Pantoprazo e Sodium 40 e Sodium 40 t} le Sodium MG MG 40 MG Phendimetra Phendimetra No QD Phendimetr zine zine azine Tartrate 35 Tartrate 35 Tartrate MG MG 35 MG Cyclobenzap Cyclobenzap No 1{table QD Cyclobenza rine HCl 10 rine HCl 10 t_as_ne carolina HCl MG MG eded} 10 MG amLODIPine amLODIPine No 1{table QD amLODIPine Besylate 5 Besylate 5 t} Besylate 5 MG MG MG amLODIPine amLODIPine No amLODIPine Besylate 5 Besylate 5 Besylate 5 MG MG MG amLODIPine amLODIPine No amLODIPine Besylate 10 Besylate 10 Besylate MG MG 10 MG metFORMIN metFORMIN No 1{table BID metFORMIN HCl 500 MG HCl 500 MG t_with_ HCl 500 MG a_meal} Fluticasone Fluticasone No 1{spray QD Fluticason Propionate Propionate _in_eac e 50 MCG/ACT 50 MCG/ACT h_nostr Propionate il} 50 MCG/ACT Montelukast Montelukast No Montelukas Sodium 10 Sodium 10 t Sodium MG MG 10 MG Cyclobenzap Cyclobenzap No Cyclobenza rine HCl 10 rine HCl 10 carolina HCl MG MG 10 MG Atorvastati Atorvastati No 1{table QD Atorvastat n Calcium n Calcium t} in Calcium 40 MG 40 MG 40 MG Lisinopril- Lisinopril- No 1{table QD Lisinopril hydroCHLORO hydroCHLORO t} -hydroCHLO thiazide thiazide ROthiazide 10-12.5 MG 10-12.5 MG 10-12.5 MG Montelukast Montelukast No 1{table QD Montelukas Sodium 10 Sodium 10 t} t Sodium MG MG 10 MG Atorvastati Atorvastati No 1{table QD Atorvastat n Calcium n Calcium t} in Calcium 40 MG 40 MG 40 MG traMADol traMADol No 1{table traMADol HCl 50 MG HCl 50 MG t_as_ne HCl 50 MG eded} metFORMIN metFORMIN No metFORMIN HCl 500 MG HCl 500 MG HCl 500 MG Pantoprazol Pantoprazol No Pantoprazo e Sodium 40 e Sodium 40 le Sodium MG MG 40 MG Pantoprazol Pantoprazol No 1{table QD Pantoprazo e Sodium 40 e Sodium 40 t} le Sodium MG MG 40 MG Phendimetra Phendimetra No QD Phendimetr tien bhatiane azine Tartrate 35 Tartrate 35 Tartrate MG MG 35 MG Cyclobenzap Cyclobenzap No 1{table QD Cyclobenza rine HCl 10 rine HCl 10 t_as_ne carolina HCl MG MG eded} 10 MG amLODIPine amLODIPine No 1{table QD amLODIPine Besylate 5 Besylate 5 t} Besylate 5 MG MG MG amLODIPine amLODIPine No amLODIPine Besylate 5 Besylate 5 Besylate 5 MG MG MG Cyclobenzap Cyclobenzap No Cyclobenza rine HCl 10 rine HCl 10 carolina HCl MG MG 10 MG amLODIPine amLODIPine No amLODIPine Besylate 10 Besylate 10 Besylate MG MG 10 MG metFORMIN metFORMIN No metFORMIN HCl 500 MG HCl 500 MG HCl 500 MG Fluticasone Fluticasone No 1{spray QD Fluticason Propionate Propionate _in_eac e 50 MCG/ACT 50 MCG/ACT h_nostr Propionate il} 50 MCG/ACT Atorvastati Atorvastati No 1{table QD Atorvastat n Calcium n Calcium t} in Calcium 40 MG 40 MG 40 MG Montelukast Montelukast No 1{table QD Montelukas Sodium 10 Sodium 10 t} t Sodium MG MG 10 MG Pantoprazol Pantoprazol No Pantoprazo e Sodium 40 e Sodium 40 le Sodium MG MG 40 MG Atorvastati Atorvastati No 1{table QD Atorvastat n Calcium n Calcium t} in Calcium 40 MG 40 MG 40 MG Cyclobenzap Cyclobenzap No 1{table QD Cyclobenza rine HCl 10 rine HCl 10 t_as_ne carolina HCl MG MG eded} 10 MG traMADol traMADol No 1{table traMADol HCl 50 MG HCl 50 MG t_as_ne HCl 50 MG eded} amLODIPine amLODIPine No amLODIPine Besylate 5 Besylate 5 Besylate 5 MG MG MG Montelukast Montelukast No Montelukas Sodium 10 Sodium 10 t Sodium MG MG 10 MG Lisinopril- Lisinopril- No Lisinopril hydroCHLORO hydroCHLORO -hydroCHLO thiazide thiazide ROthiazide 10-12.5 MG 10-12.5 MG 10-12.5 MG amLODIPine amLODIPine No 1{table QD amLODIPine Besylate 5 Besylate 5 t} Besylate 5 MG MG MG Phendimetra Phendimetra No QD Phendimetr zine zine azine Tartrate 35 Tartrate 35 Tartrate MG MG 35 MG metFORMIN metFORMIN No 1{table BID metFORMIN HCl 500 MG HCl 500 MG t_with_ HCl 500 MG a_meal} Fluticasone Fluticasone No 1{spray QD Fluticason Propionate Propionate _in_eac e 50 MCG/ACT 50 MCG/ACT h_nostr Propionate il} 50 MCG/ACT Lisinopril- Lisinopril- No Lisinopril hydroCHLORO hydroCHLORO -hydroCHLO thiazide thiazide ROthiazide 10-12.5 MG 10-12.5 MG 10-12.5 MG Phendimetra Phendimetra No QD Phendimetr zine zine azine Tartrate 35 Tartrate 35 Tartrate MG MG 35 MG Montelukast Montelukast No Montelukas Sodium 10 Sodium 10 t Sodium MG MG 10 MG Pantoprazol Pantoprazol No Pantoprazo e Sodium 40 e Sodium 40 le Sodium MG MG 40 MG metFORMIN metFORMIN No 1{table BID metFORMIN HCl 500 MG HCl 500 MG t_with_ HCl 500 MG a_meal} amLODIPine amLODIPine No amLODIPine Besylate 5 Besylate 5 Besylate 5 MG MG MG metFORMIN metFORMIN No metFORMIN HCl 500 MG HCl 500 MG HCl 500 MG Atorvastati Atorvastati No Atorvastat n Calcium n Calcium in Calcium 40 MG 40 MG 40 MG Cyclobenzap Cyclobenzap No 1{table QD Cyclobenza rine HCl 10 rine HCl 10 t_as_ne carolina HCl MG MG eded} 10 MG amLODIPine amLODIPine No amLODIPine Besylate 10 Besylate 10 Besylate MG MG 10 MG amLODIPine amLODIPine No 1{table QD amLODIPine Besylate 5 Besylate 5 t} Besylate 5 MG MG MG traMADol traMADol No 1{table traMADol HCl 50 MG HCl 50 MG t_as_ne HCl 50 MG eded} Cyclobenzap Cyclobenzap No Cyclobenza rine HCl 10 rine HCl 10 carolina HCl MG MG 10 MG Atorvastati Atorvastati No 1{table QD Atorvastat n Calcium n Calcium t} in Calcium 40 MG 40 MG 40 MG Lisinopril- Lisinopril- No 1{table QD Lisinopril hydroCHLORO hydroCHLORO t} -hydroCHLO thiazide thiazide ROthiazide 10-12.5 MG 10-12.5 MG 10-12.5 MG Montelukast Montelukast No 1{table QD Montelukas Sodium 10 Sodium 10 t} t Sodium MG MG 10 MG Cyclobenzap Cyclobenzap No 1{table QD Cyclobenza rine HCl 10 rine HCl 10 t_as_ne carolina HCl MG MG eded} 10 MG metFORMIN metFORMIN No 1{table BID metFORMIN HCl 500 MG HCl 500 MG t_with_ HCl 500 MG a_meal} Atorvastati Atorvastati No Atorvastat n Calcium n Calcium in Calcium 40 MG 40 MG 40 MG Lisinopril- Lisinopril- No Lisinopril hydroCHLORO hydroCHLORO -hydroCHLO thiazide thiazide ROthiazide 10-12.5 MG 10-12.5 MG 10-12.5 MG Pantoprazol Pantoprazol No Pantoprazo e Sodium 40 e Sodium 40 le Sodium MG MG 40 MG Pantoprazol Pantoprazol No 1{table QD Pantoprazo e Sodium 40 e Sodium 40 t} le Sodium MG MG 40 MG traMADol traMADol No 1{table traMADol HCl 50 MG HCl 50 MG t_as_ne HCl 50 MG eded} Montelukast Montelukast No Montelukas Sodium 10 Sodium 10 t Sodium MG MG 10 MG Cyclobenzap Cyclobenzap No Cyclobenza rine HCl 10 rine HCl 10 carolina HCl MG MG 10 MG amLODIPine amLODIPine No amLODIPine Besylate 5 Besylate 5 Besylate 5 MG MG MG Fluticasone Fluticasone No 1{spray QD Fluticason Propionate Propionate _in_eac e 50 MCG/ACT 50 MCG/ACT h_nostr Propionate il} 50 MCG/ACT Phendimetra Phendimetra No QD Phendimetr zine zine azine Tartrate 35 Tartrate 35 Tartrate MG MG 35 MG metFORMIN metFORMIN No metFORMIN HCl 500 MG HCl 500 MG HCl 500 MG amLODIPine amLODIPine No amLODIPine Besylate 10 Besylate 10 Besylate MG MG 10 MG Lisinopril- Lisinopril- No Lisinopril hydroCHLORO hydroCHLORO -hydroCHLO thiazide thiazide ROthiazide 10-12.5 MG 10-12.5 MG 10-12.5 MG traMADol traMADol No 1{table traMADol HCl 50 MG HCl 50 MG t_as_ne HCl 50 MG eded} Montelukast Montelukast No 1{table QD Montelukas Sodium 10 Sodium 10 t} t Sodium MG MG 10 MG Montelukast Montelukast No Montelukas Sodium 10 Sodium 10 t Sodium MG MG 10 MG metFORMIN metFORMIN No metFORMIN HCl 500 MG HCl 500 MG HCl 500 MG Cyclobenzap Cyclobenzap No Cyclobenza rine HCl 10 rine HCl 10 carolina HCl MG MG 10 MG Fluticasone Fluticasone No 1{spray QD Fluticason Propionate Propionate _in_eac e 50 MCG/ACT 50 MCG/ACT h_nostr Propionate il} 50 MCG/ACT Pantoprazol Pantoprazol No Pantoprazo e Sodium 40 e Sodium 40 le Sodium MG MG 40 MG Atorvastati Atorvastati No Atorvastat n Calcium n Calcium in Calcium 40 MG 40 MG 40 MG Cyclobenzap Cyclobenzap No 1{table QD Cyclobenza rine HCl 10 rine HCl 10 t_as_ne carolina HCl MG MG eded} 10 MG amLODIPine amLODIPine No amLODIPine Besylate 10 Besylate 10 Besylate MG MG 10 MG Phendimetra Phendimetra No QD Phendimetr jannettemp bhatiane azine Tartrate 35 Tartrate 35 Tartrate MG MG 35 MG amLODIPine amLODIPine No amLODIPine Besylate 5 Besylate 5 Besylate 5 MG MG MG metFORMIN metFORMIN No 1{table BID metFORMIN HCl 500 MG HCl 500 MG t_with_ HCl 500 MG a_meal} Lisinopril- Lisinopril- No Lisinopril hydroCHLORO hydroCHLORO -hydroCHLO thiazide thiazide ROthiazide 10-12.5 MG 10-12.5 MG 10-12.5 MG Cyclobenzap Cyclobenzap No 1{table QD Cyclobenza rine HCl 10 rine HCl 10 t_as_ne carolina HCl MG MG eded} 10 MG Montelukast Montelukast No 1{table QD Montelukas Sodium 10 Sodium 10 t} t Sodium MG MG 10 MG Montelukast Montelukast No Montelukas Sodium 10 Sodium 10 t Sodium MG MG 10 MG metFORMIN metFORMIN No metFORMIN HCl 500 MG HCl 500 MG HCl 500 MG Fluticasone Fluticasone No 1{spray QD Fluticason Propionate Propionate _in_eac e 50 MCG/ACT 50 MCG/ACT h_nostr Propionate il} 50 MCG/ACT traMADol traMADol No 1{table traMADol HCl 50 MG HCl 50 MG t_as_ne HCl 50 MG eded} metFORMIN metFORMIN No 1{table BID metFORMIN HCl 500 MG HCl 500 MG t_with_ HCl 500 MG a_meal} amLODIPine amLODIPine No amLODIPine Besylate 10 Besylate 10 Besylate MG MG 10 MG amLODIPine amLODIPine No amLODIPine Besylate 5 Besylate 5 Besylate 5 MG MG MG Cyclobenzap Cyclobenzap No Cyclobenza rine HCl 10 rine HCl 10 carolina HCl MG MG 10 MG Phendimetra Phendimetra No QD Phendimetr tien bhatiane azine Tartrate 35 Tartrate 35 Tartrate MG MG 35 MG Pantoprazol Pantoprazol No Pantoprazo e Sodium 40 e Sodium 40 le Sodium MG MG 40 MG Atorvastati Atorvastati No Atorvastat n Calcium n Calcium in Calcium 40 MG 40 MG 40 MG Atorvastati Atorvastati No Atorvastat n Calcium n Calcium in Calcium 40 MG 40 MG 40 MG amLODIPine amLODIPine No amLODIPine Besylate 10 Besylate 10 Besylate MG MG 10 MG metFORMIN metFORMIN No 1{table BID metFORMIN HCl 500 MG HCl 500 MG t_with_ HCl 500 MG a_meal} Atorvastati Atorvastati No 1{table QD Atorvastat n Calcium n Calcium t} in Calcium 40 MG 40 MG 40 MG Lisinopril- Lisinopril- No Lisinopril hydroCHLORO hydroCHLORO -hydroCHLO thiazide thiazide ROthiazide 10-12.5 MG 10-12.5 MG 10-12.5 MG Pantoprazol Pantoprazol No Pantoprazo e Sodium 40 e Sodium 40 le Sodium MG MG 40 MG Montelukast Montelukast No Montelukas Sodium 10 Sodium 10 t Sodium MG MG 10 MG metFORMIN metFORMIN No metFORMIN HCl 500 MG HCl 500 MG HCl 500 MG Cyclobenzap Cyclobenzap No 1{table QD Cyclobenza rine HCl 10 rine HCl 10 t_as_ne carolina HCl MG MG eded} 10 MG Pantoprazol Pantoprazol No 1{table QD Pantoprazo e Sodium 40 e Sodium 40 t} le Sodium MG MG 40 MG amLODIPine amLODIPine No amLODIPine Besylate 5 Besylate 5 Besylate 5 MG MG MG Fluticasone Fluticasone No 1{spray QD Fluticason Propionate Propionate _in_eac e 50 MCG/ACT 50 MCG/ACT h_nostr Propionate il} 50 MCG/ACT Lisinopril- Lisinopril- No 1{table QD Lisinopril hydroCHLORO hydroCHLORO t} -hydroCHLO thiazide thiazide ROthiazide 10-12.5 MG 10-12.5 MG 10-12.5 MG traMADol traMADol No 1{table traMADol HCl 50 MG HCl 50 MG t_as_ne HCl 50 MG eded} Phendimetra Phendimetra No QD Phendimetr tien bhatiane azine Tartrate 35 Tartrate 35 Tartrate MG MG 35 MG Montelukast Montelukast No 1{table QD Montelukas Sodium 10 Sodium 10 t} t Sodium MG MG 10 MG Cyclobenzap Cyclobenzap No Cyclobenza rine HCl 10 rine HCl 10 carolina HCl MG MG 10 MG Montelukast Montelukast No Montelukas Sodium 10 Sodium 10 t Sodium MG MG 10 MG Cyclobenzap Cyclobenzap No Cyclobenza rine HCl 10 rine HCl 10 carolina HCl MG MG 10 MG metFORMIN metFORMIN No metFORMIN HCl 500 MG HCl 500 MG HCl 500 MG Atorvastati Atorvastati No Atorvastat n Calcium n Calcium in Calcium 40 MG 40 MG 40 MG Pantoprazol Pantoprazol No 1{table QD Pantoprazo e Sodium 40 e Sodium 40 t} le Sodium MG MG 40 MG Lisinopril- Lisinopril- No 1{table QD Lisinopril hydroCHLORO hydroCHLORO t} -hydroCHLO thiazide thiazide ROthiazide 10-12.5 MG 10-12.5 MG 10-12.5 MG Montelukast Montelukast No 1{table QD Montelukas Sodium 10 Sodium 10 t} t Sodium MG MG 10 MG metFORMIN metFORMIN No 1{table BID metFORMIN HCl 500 MG HCl 500 MG t_with_ HCl 500 MG a_meal} Phendimetra Phendimetra No QD Phendimetr tien bhatiane azine Tartrate 35 Tartrate 35 Tartrate MG MG 35 MG amLODIPine amLODIPine No amLODIPine Besylate 10 Besylate 10 Besylate MG MG 10 MG Atorvastati Atorvastati No 1{table QD Atorvastat n Calcium n Calcium t} in Calcium 40 MG 40 MG 40 MG Pantoprazol Pantoprazol No Pantoprazo e Sodium 40 e Sodium 40 le Sodium MG MG 40 MG Cyclobenzap Cyclobenzap No 1{table QD Cyclobenza rine HCl 10 rine HCl 10 t_as_ne carolina HCl MG MG eded} 10 MG amLODIPine amLODIPine No amLODIPine Besylate 5 Besylate 5 Besylate 5 MG MG MG Fluticasone Fluticasone No 1{spray QD Fluticason Propionate Propionate _in_eac e 50 MCG/ACT 50 MCG/ACT h_nostr Propionate il} 50 MCG/ACT traMADol traMADol No 1{table traMADol HCl 50 MG HCl 50 MG t_as_ne HCl 50 MG eded} Lisinopril- Lisinopril- No Lisinopril hydroCHLORO hydroCHLORO -hydroCHLO thiazide thiazide ROthiazide 10-12.5 MG 10-12.5 MG 10-12.5 MG Pantoprazol Pantoprazol No Pantoprazo e Sodium 40 e Sodium 40 le Sodium MG MG 40 MG metFORMIN metFORMIN No 1{table BID metFORMIN HCl 500 MG HCl 500 MG t_with_ HCl 500 MG a_meal} Lisinopril- Lisinopril- No Lisinopril hydroCHLORO hydroCHLORO -hydroCHLO thiazide thiazide ROthiazide 10-12.5 MG 10-12.5 MG 10-12.5 MG amLODIPine amLODIPine No amLODIPine Besylate 10 Besylate 10 Besylate MG MG 10 MG Montelukast Montelukast No 1{table QD Montelukas Sodium 10 Sodium 10 t} t Sodium MG MG 10 MG Phendimetra Phendimetra No QD Phendimetr zine zine azine Tartrate 35 Tartrate 35 Tartrate MG MG 35 MG Tylenol Tylenol No Tylenol with with with Codeine #3 Codeine #3 Codeine #3 Montelukast Montelukast No Montelukas Sodium 10 Sodium 10 t Sodium MG MG 10 MG Cyclobenzap Cyclobenzap No 1{table QD Cyclobenza rine HCl 10 rine HCl 10 t_as_ne carolina HCl MG MG eded} 10 MG traMADol traMADol No 1{table traMADol HCl 50 MG HCl 50 MG t_as_ne HCl 50 MG eded} amLODIPine amLODIPine No amLODIPine Besylate 5 Besylate 5 Besylate 5 MG MG MG Pantoprazol Pantoprazol No 1{table QD Pantoprazo e Sodium 40 e Sodium 40 t} le Sodium MG MG 40 MG Fluticasone Fluticasone No 1{spray QD Fluticason Propionate Propionate _in_eac e 50 MCG/ACT 50 MCG/ACT h_nostr Propionate il} 50 MCG/ACT Atorvastati Atorvastati No Atorvastat n Calcium n Calcium in Calcium 40 MG 40 MG 40 MG Atorvastati Atorvastati No 1{table QD Atorvastat n Calcium n Calcium t} in Calcium 40 MG 40 MG 40 MG Lisinopril- Lisinopril- No 1{table QD Lisinopril hydroCHLORO hydroCHLORO t} -hydroCHLO thiazide thiazide ROthiazide 10-12.5 MG 10-12.5 MG 10-12.5 MG metFORMIN metFORMIN No metFORMIN HCl 500 MG HCl 500 MG HCl 500 MG Cyclobenzap Cyclobenzap No Cyclobenza rine HCl 10 rine HCl 10 carolina HCl MG MG 10 MG Lisinopril- Lisinopril- No 1{table QD Lisinopril hydroCHLORO hydroCHLORO t} -hydroCHLO thiazide thiazide ROthiazide 10-12.5 MG 10-12.5 MG 10-12.5 MG Cyclobenzap Cyclobenzap No Cyclobenza rine HCl 10 rine HCl 10 carolina HCl MG MG 10 MG Fluticasone Fluticasone No 1{spray QD Fluticason Propionate Propionate _in_eac e 50 MCG/ACT 50 MCG/ACT h_nostr Propionate il} 50 MCG/ACT metFORMIN metFORMIN No 1{table BID metFORMIN HCl 500 MG HCl 500 MG t_with_ HCl 500 MG a_meal} Montelukast Montelukast No Montelukas Sodium 10 Sodium 10 t Sodium MG MG 10 MG Lisinopril- Lisinopril- No Lisinopril hydroCHLORO hydroCHLORO -hydroCHLO thiazide thiazide ROthiazide 10-12.5 MG 10-12.5 MG 10-12.5 MG Atorvastati Atorvastati No Atorvastat n Calcium n Calcium in Calcium 40 MG 40 MG 40 MG Atorvastati Atorvastati No 1{table QD Atorvastat n Calcium n Calcium t} in Calcium 40 MG 40 MG 40 MG traMADol traMADol No 1{table traMADol HCl 50 MG HCl 50 MG t_as_ne HCl 50 MG eded} amLODIPine amLODIPine No amLODIPine Besylate 5 Besylate 5 Besylate 5 MG MG MG Cyclobenzap Cyclobenzap No 1{table QD Cyclobenza rine HCl 10 rine HCl 10 t_as_ne carolina HCl MG MG eded} 10 MG Pantoprazol Pantoprazol No Pantoprazo e Sodium 40 e Sodium 40 le Sodium MG MG 40 MG Tylenol Tylenol No Tylenol with with with Codeine #3 Codeine #3 Codeine #3 Phendimetra Phendimetra No QD Phendimetr tien bhatiane azine Tartrate 35 Tartrate 35 Tartrate MG MG 35 MG amLODIPine amLODIPine No amLODIPine Besylate 10 Besylate 10 Besylate MG MG 10 MG Montelukast Montelukast No 1{table QD Montelukas Sodium 10 Sodium 10 t} t Sodium MG MG 10 MG metFORMIN metFORMIN No metFORMIN HCl 500 MG HCl 500 MG HCl 500 MG Pantoprazol Pantoprazol No 1{table QD Pantoprazo e Sodium 40 e Sodium 40 t} le Sodium MG MG 40 MG amLODIPine amLODIPine No amLODIPine Besylate 10 Besylate 10 Besylate MG MG 10 MG Pantoprazol Pantoprazol No 1{table QD Pantoprazo e Sodium 40 e Sodium 40 t} le Sodium MG MG 40 MG Cyclobenzap Cyclobenzap No Cyclobenza rine HCl 10 rine HCl 10 carolina HCl MG MG 10 MG Phendimetra Phendimetra No QD Phendimetr zine zine azine Tartrate 35 Tartrate 35 Tartrate MG MG 35 MG methylPREDN methylPREDN No QD methylPRED ISolone 4 ISolone 4 NISolone 4 MG MG MG Fluticasone Fluticasone No 1{spray QD Fluticason Propionate Propionate _in_eac e 50 MCG/ACT 50 MCG/ACT h_nostr Propionate il} 50 MCG/ACT Pseudoeph-B Pseudoeph-B No 5{ml_as QID Pseudoeph- romphen-DM romphen-DM _needed Bromphen-D 30-2-10 30-2-10 } M 30-2-10 MG/5ML MG/5ML MG/5ML traMADol traMADol No 1{table traMADol HCl 50 MG HCl 50 MG t_as_ne HCl 50 MG eded} metFORMIN metFORMIN No 1{table BID metFORMIN HCl 500 MG HCl 500 MG t_with_ HCl 500 MG a_meal} Montelukast Montelukast No Montelukas Sodium 10 Sodium 10 t Sodium MG MG 10 MG Pantoprazol Pantoprazol No Pantoprazo e Sodium 40 e Sodium 40 le Sodium MG MG 40 MG Lisinopril- Lisinopril- No 1{table QD Lisinopril hydroCHLORO hydroCHLORO t} -hydroCHLO thiazide thiazide ROthiazide 10-12.5 MG 10-12.5 MG 10-12.5 MG Lisinopril- Lisinopril- No Lisinopril hydroCHLORO hydroCHLORO -hydroCHLO thiazide thiazide ROthiazide 10-12.5 MG 10-12.5 MG 10-12.5 MG Atorvastati Atorvastati No Atorvastat n Calcium n Calcium in Calcium 40 MG 40 MG 40 MG Cyclobenzap Cyclobenzap No 1{table QD Cyclobenza rine HCl 10 rine HCl 10 t_as_ne carolina HCl MG MG eded} 10 MG metFORMIN metFORMIN No metFORMIN HCl 500 MG HCl 500 MG HCl 500 MG Atorvastati Atorvastati No 1{table QD Atorvastat n Calcium n Calcium t} in Calcium 40 MG 40 MG 40 MG Montelukast Montelukast No 1{table QD Montelukas Sodium 10 Sodium 10 t} t Sodium MG MG 10 MG Tylenol Tylenol No Tylenol with with with Codeine #3 Codeine #3 Codeine #3 amLODIPine amLODIPine No amLODIPine Besylate 5 Besylate 5 Besylate 5 MG MG MG amLODIPine amLODIPine No amLODIPine Besylate 10 Besylate 10 Besylate MG MG 10 MG Pantoprazol Pantoprazol No 1{table QD Pantoprazo e Sodium 40 e Sodium 40 t} le Sodium MG MG 40 MG Cyclobenzap Cyclobenzap No Cyclobenza rine HCl 10 rine HCl 10 carolina HCl MG MG 10 MG Phendimetra Phendimetra No QD Phendimetr zine zine azine Tartrate 35 Tartrate 35 Tartrate MG MG 35 MG methylPREDN methylPREDN No QD methylPRED ISolone 4 ISolone 4 NISolone 4 MG MG MG Fluticasone Fluticasone No 1{spray QD Fluticason Propionate Propionate _in_eac e 50 MCG/ACT 50 MCG/ACT h_nostr Propionate il} 50 MCG/ACT Pseudoeph-B Pseudoeph-B No 5{ml_as QID Pseudoeph- romphen-DM romphen-DM _needed Bromphen-D 30-2-10 30-2-10 } M 30-2-10 MG/5ML MG/5ML MG/5ML traMADol traMADol No 1{table traMADol HCl 50 MG HCl 50 MG t_as_ne HCl 50 MG eded} metFORMIN metFORMIN No 1{table BID metFORMIN HCl 500 MG HCl 500 MG t_with_ HCl 500 MG a_meal} Montelukast Montelukast No Montelukas Sodium 10 Sodium 10 t Sodium MG MG 10 MG Pantoprazol Pantoprazol No Pantoprazo e Sodium 40 e Sodium 40 le Sodium MG MG 40 MG Lisinopril- Lisinopril- No 1{table QD Lisinopril hydroCHLORO hydroCHLORO t} -hydroCHLO thiazide thiazide ROthiazide 10-12.5 MG 10-12.5 MG 10-12.5 MG Lisinopril- Lisinopril- No Lisinopril hydroCHLORO hydroCHLORO -hydroCHLO thiazide thiazide ROthiazide 10-12.5 MG 10-12.5 MG 10-12.5 MG Atorvastati Atorvastati No Atorvastat n Calcium n Calcium in Calcium 40 MG 40 MG 40 MG Cyclobenzap Cyclobenzap No 1{table QD Cyclobenza rine HCl 10 rine HCl 10 t_as_ne carolina HCl MG MG eded} 10 MG metFORMIN metFORMIN No metFORMIN HCl 500 MG HCl 500 MG HCl 500 MG Atorvastati Atorvastati No 1{table QD Atorvastat n Calcium n Calcium t} in Calcium 40 MG 40 MG 40 MG Montelukast Montelukast No 1{table QD Montelukas Sodium 10 Sodium 10 t} t Sodium MG MG 10 MG Tylenol Tylenol No Tylenol with with with Codeine #3 Codeine #3 Codeine #3 amLODIPine amLODIPine No amLODIPine Besylate 5 Besylate 5 Besylate 5 MG MG MG amLODIPine amLODIPine No amLODIPine Besylate 10 Besylate 10 Besylate MG MG 10 MG Pantoprazol Pantoprazol No 1{table QD Pantoprazo e Sodium 40 e Sodium 40 t} le Sodium MG MG 40 MG Cyclobenzap Cyclobenzap No Cyclobenza rine HCl 10 rine HCl 10 carolina HCl MG MG 10 MG Phendimetra Phendimetra No QD Phendimetr zine zine azine Tartrate 35 Tartrate 35 Tartrate MG MG 35 MG methylPREDN methylPREDN No QD methylPRED ISolone 4 ISolone 4 NISolone 4 MG MG MG Fluticasone Fluticasone No 1{spray QD Fluticason Propionate Propionate _in_eac e 50 MCG/ACT 50 MCG/ACT h_nostr Propionate il} 50 MCG/ACT Pseudoeph-B Pseudoeph-B No 5{ml_as QID Pseudoeph- romphen-DM romphen-DM _needed Bromphen-D 302- 30210 } M 30-2-10 MG/5ML MG/5ML MG/5ML traMADol traMADol No 1{table traMADol HCl 50 MG HCl 50 MG t_as_ne HCl 50 MG eded} metFORMIN metFORMIN No 1{table BID metFORMIN HCl 500 MG HCl 500 MG t_with_ HCl 500 MG a_meal} Montelukast Montelukast No Montelukas Sodium 10 Sodium 10 t Sodium MG MG 10 MG Pantoprazol Pantoprazol No Pantoprazo e Sodium 40 e Sodium 40 le Sodium MG MG 40 MG Lisinopril- Lisinopril- No 1{table QD Lisinopril hydroCHLORO hydroCHLORO t} -hydroCHLO thiazide thiazide ROthiazide 10-12.5 MG 10-12.5 MG 10-12.5 MG Lisinopril- Lisinopril- No Lisinopril hydroCHLORO hydroCHLORO -hydroCHLO thiazide thiazide ROthiazide 10-12.5 MG 10-12.5 MG 10-12.5 MG Atorvastati Atorvastati No Atorvastat n Calcium n Calcium in Calcium 40 MG 40 MG 40 MG Cyclobenzap Cyclobenzap No 1{table QD Cyclobenza rine HCl 10 rine HCl 10 t_as_ne carolina HCl MG MG eded} 10 MG metFORMIN metFORMIN No metFORMIN HCl 500 MG HCl 500 MG HCl 500 MG Atorvastati Atorvastati No 1{table QD Atorvastat n Calcium n Calcium t} in Calcium 40 MG 40 MG 40 MG Montelukast Montelukast No 1{table QD Montelukas Sodium 10 Sodium 10 t} t Sodium MG MG 10 MG Tylenol Tylenol No Tylenol with with with Codeine #3 Codeine #3 Codeine #3 amLODIPine amLODIPine No amLODIPine Besylate 5 Besylate 5 Besylate 5 MG MG MG Montelukast Montelukast No 1{table QD Montelukas Sodium 10 Sodium 10 t} t Sodium MG MG 10 MG traMADol traMADol No 1{table traMADol HCl 50 MG HCl 50 MG t_as_ne HCl 50 MG eded} Atorvastati Atorvastati No 1{table QD Atorvastat n Calcium n Calcium t} in Calcium 40 MG 40 MG 40 MG amLODIPine amLODIPine No amLODIPine Besylate 5 Besylate 5 Besylate 5 MG MG MG metFORMIN metFORMIN No 1{table BID metFORMIN HCl 500 MG HCl 500 MG t_with_ HCl 500 MG a_meal} Pseudoeph-B Pseudoeph-B No 5{ml_as QID Pseudoeph- romphen-DM romphen-DM _needed Bromphen-D 30-2-10 30-2-10 } M 30-2-10 MG/5ML MG/5ML MG/5ML Lisinopril- Lisinopril- No 1{table QD Lisinopril hydroCHLORO hydroCHLORO t} -hydroCHLO thiazide thiazide ROthiazide 10-12.5 MG 10-12.5 MG 10-12.5 MG Tylenol Tylenol No Tylenol with with with Codeine #3 Codeine #3 Codeine #3 metFORMIN metFORMIN No metFORMIN HCl 500 MG HCl 500 MG HCl 500 MG Lisinopril- Lisinopril- No Lisinopril hydroCHLORO hydroCHLORO -hydroCHLO thiazide thiazide ROthiazide 10-12.5 MG 10-12.5 MG 10-12.5 MG Phendimetra Phendimetra No QD Phendimetr zine zine azine Tartrate 35 Tartrate 35 Tartrate MG MG 35 MG methylPREDN methylPREDN No QD methylPRED ISolone 4 ISolone 4 NISolone 4 MG MG MG Pantoprazol Pantoprazol No 1{table QD Pantoprazo e Sodium 40 e Sodium 40 t} le Sodium MG MG 40 MG Atorvastati Atorvastati No Atorvastat n Calcium n Calcium in Calcium 40 MG 40 MG 40 MG Montelukast Montelukast No Montelukas Sodium 10 Sodium 10 t Sodium MG MG 10 MG Cyclobenzap Cyclobenzap No 1{table QD Cyclobenza rine HCl 10 rine HCl 10 t_as_ne carolina HCl MG MG eded} 10 MG amLODIPine amLODIPine No amLODIPine Besylate 10 Besylate 10 Besylate MG MG 10 MG Cyclobenzap Cyclobenzap No Cyclobenza rine HCl 10 rine HCl 10 carolina HCl MG MG 10 MG Pantoprazol Pantoprazol No Pantoprazo e Sodium 40 e Sodium 40 le Sodium MG MG 40 MG Fluticasone Fluticasone No 1{spray QD Fluticason Propionate Propionate _in_eac e 50 MCG/ACT 50 MCG/ACT h_nostr Propionate il} 50 MCG/ACT Pantoprazol Pantoprazol No Pantoprazo e Sodium 40 e Sodium 40 le Sodium MG MG 40 MG metFORMIN metFORMIN No 1{table BID metFORMIN HCl 500 MG HCl 500 MG t_with_ HCl 500 MG a_meal} Lisinopril- Lisinopril- No Lisinopril hydroCHLORO hydroCHLORO -hydroCHLO thiazide thiazide ROthiazide 10-12.5 MG 10-12.5 MG 10-12.5 MG amLODIPine amLODIPine No amLODIPine Besylate 10 Besylate 10 Besylate MG MG 10 MG Montelukast Montelukast No 1{table QD Montelukas Sodium 10 Sodium 10 t} t Sodium MG MG 10 MG Phendimetra Phendimetra No QD Phendimetr zine zine azine Tartrate 35 Tartrate 35 Tartrate MG MG 35 MG Tylenol Tylenol No Tylenol with with with Codeine #3 Codeine #3 Codeine #3 Montelukast Montelukast No Montelukas Sodium 10 Sodium 10 t Sodium MG MG 10 MG Cyclobenzap Cyclobenzap No 1{table QD Cyclobenza rine HCl 10 rine HCl 10 t_as_ne carolina HCl MG MG eded} 10 MG Phendimetra Phendimetra 2020- No Mode 1 tablet 1 [facility] Tart[facility] Tartrate 00:00 before a - [facility] :00 meal [facility] Immunizations Ordered Immunization Filled Immunization Date Status Commen ts Source Name Name Flucelvax - single Flucelvax - single 2022-01-06 Completed [facility] - dose syringe dose syringe 14:17:00 [facility] Flucelvax - single Flucelvax - single 2022-01-06 Completed [facility] - dose syringe dose syringe 14:17:00 [facility] Flucelvax - single Flucelvax - single 2022-01-06 Completed [facility] - dose syringe dose syringe 14:17:00 [facility] Flucelvax - single Flucelvax - single 2022-01-06 Completed [facility] - dose syringe dose syringe 14:17:00 [facility] Flucelvax - single Flucelvax - single 2022-01-06 Completed [facility] - dose syringe dose syringe 14:17:00 [facility] Flucelvax - single Flucelvax - single 2022-01-06 Completed [facility] - dose syringe dose syringe 14:17:00 [facility] Flucelvax - single Flucelvax - single 2022-01-06 Completed [facility] - dose syringe dose syringe 14:17:00 [facility] Flucelvax - single Flucelvax - single 2022-01-06 Completed [facility] - dose syringe dose syringe 14:17:00 [facility] Flucelvax - single Flucelvax - single 2022-01-06 Completed [facility] - dose syringe dose syringe 14:17:00 [facility] Flucelvax - single Flucelvax - single 2022-01-06 Completed [facility] - dose syringe dose syringe 14:17:00 [facility] Flucelvax - single Flucelvax - single 2022-01-06 Completed [facility] - dose syringe dose syringe 14:17:00 [facility] Moderna COVID-19 Moderna COVID-19 2020-08-07 Completed [facility] - Vaccine Vaccine 17:23:00 [facility] Moderna COVID-19 Moderna COVID-19 2020-08-07 Completed [facility] - Vaccine Vaccine 17:23:00 [facility] Moderna COVID-19 Moderna COVID-19 2020-08-07 Completed [facility] - Vaccine Vaccine 17:23:00 [facility] Moderna COVID-19 Moderna COVID-19 2020-08-07 Completed [facility] - Vaccine Vaccine 17:23:00 [facility] Moderna COVID-19 Moderna COVID-19 2020-08-07 Completed [facility] - Vaccine Vaccine 17:23:00 [facility] Moderna COVID-19 Moderna COVID-19 2020-08-07 Completed [facility] - Vaccine Vaccine 17:23:00 [facility] Moderna COVID-19 Moderna COVID-19 2020-08-07 Completed [facility] - Vaccine Vaccine 17:23:00 [facility] Moderna COVID-19 Moderna COVID-19 2020-08-07 Completed [facility] - Vaccine Vaccine 17:23:00 [facility] Moderna COVID-19 Moderna COVID-19 2020-08-07 Completed [facility] - Vaccine Vaccine 17:23:00 [facility] Moderna COVID-19 Moderna COVID-19 2020-08-07 Completed [facility] - Vaccine Vaccine 17:23:00 [facility] Moderna COVID-19 Moderna COVID-19 2020-08-07 Completed [facility] - Vaccine Vaccine 17:23:00 [facility] Moderna COVID-19 Moderna COVID-19 2020-08-07 Completed [facility] - Vaccine Vaccine 17:23:00 [facility] Moderna COVID-19 Moderna COVID-19 2020-08-07 Completed [facility] - Vaccine Vaccine 17:23:00 [facility] Moderna COVID-19 Moderna COVID-19 2020-08-07 Completed [facility] - Vaccine Vaccine 17:23:00 [facility] Moderna COVID-19 Moderna COVID-19 2020-08-07 Completed [facility] Vaccine Vaccine 17:23:00 [facility] Moderna COVID-19 Moderna COVID-19 2020-08-07 Completed [facility] - Vaccine Vaccine 17:23:00 [facility] Moderna COVID-19 Moderna COVID-19 2020-08-07 Completed [facility] Vaccine Vaccine 17:23:00 [facility] Moderna COVID-19 Moderna COVID-19 2020-08-07 Completed [facility] Vaccine Vaccine 17:23:00 [facility] Moderna COVID-19 Moderna COVID-19 2020-08-07 Completed [facility] 17[facility]23:00 [facility] [facility] COVID-19 Moderna COVID-19 2020-08-07 Completed [facility] Vaccine Vaccine 17:23:00 [facility] Moderna COVID-19 Moderna COVID-19 2020-07-10 Completed [facility] Vaccine Vaccine 17:22:00 [facility] Moderna COVID-19 Moderna COVID-19 2020-07-10 Completed [facility] Vaccine Vaccine 17:22:00 [facility] Moderna COVID-19 Moderna COVID-19 2020-07-10 Completed [facility] Vaccine Vaccine 17:22:00 [facility] Moderna COVID-19 Moderna COVID-19 2020-07-10 Completed [facility] Vaccine Vaccine 17:22:00 [facility] Moderna COVID-19 Moderna COVID-19 2020-07-10 Completed [facility] Vaccine Vaccine 17:22:00 [facility] Moderna COVID-19 Moderna COVID-19 2020-07-10 Completed [facility] Vaccine Vaccine 17:22:00 [facility] Moderna COVID-19 Moderna COVID-19 2020-07-10 Completed [facility] Vaccine Vaccine 17:22:00 [facility] Moderna COVID-19 Moderna COVID-19 2020-07-10 Completed [facility] Vaccine Vaccine 17:22:00 [facility] Moderna COVID-19 Moderna COVID-19 2020-07-10 Completed [facility] Vaccine Vaccine 17:22:00 [facility] Moderna COVID-19 Moderna COVID-19 2020-07-10 Completed [facility] Vaccine Vaccine 17:22:00 [facility] Moderna COVID-19 Moderna COVID-19 2020-07-10 Completed [facility] Vaccine Vaccine 17:22:00 [facility] Moderna COVID-19 Moderna COVID-19 2020-07-10 Completed [facility] Vaccine Vaccine 17:22:00 [facility] Moderna COVID-19 Moderna COVID-19 2020-07-10 Completed [facility] Vaccine Vaccine 17:22:00 [facility] Moderna COVID-19 Moderna COVID-19 2020-07-10 Completed [facility] Vaccine Vaccine 17:22:00 [facility] Moderna COVID-19 Moderna COVID-19 2020-07-10 Completed [facility] Vaccine Vaccine 17:22:00 [facility] Moderna COVID-19 Moderna COVID-19 2020-07-10 Completed [facility] Vaccine Vaccine 17:22:00 [facility] Moderna COVID-19 Moderna COVID-19 2020-07-10 Completed [facility] Vaccine Vaccine 17:22:00 [facility] Moderna COVID-19 Moderna COVID-19 2020-07-10 Completed [facility] Vaccine Vaccine 17:22:00 [facility] Moderna COVID-19 Moderna COVID-19 2020-07-10 Completed [facility] Vaccine Vaccine 17:22:00 [facility] Moderna COVID-19 Moderna COVID-19 2020-07-10 Completed [facility] Vaccine Vaccine 17:22:00 [facility] Afluria single dose Afluria single dose 2020-01-22 Completed [facility] 10:26:00 [facility] Afluria single dose Afluria single dose 2020-01-22 Completed [facility] 10:26:00 [facility] Afluria single dose Afluria single dose 2020-01-22 Completed [facility] 10:26:00 [facility] Afluria single dose Afluria single dose 2020-01-22 Completed [facility] 10:26:00 [facility] Afluria single dose Afluria single dose 2020-01-22 Completed [facility] 10:26:00 [facility] Afluria single dose Afluria single dose 2020-01-22 Completed [facility] 10:26:00 [facility] Afluria single dose Afluria single dose 2020-01-22 Completed [facility] 10:26:00 [facility] Afluria single dose Afluria single dose 2020-01-22 Completed [facility] 10:26:00 [facility] Afluria single dose Afluria single dose 2020-01-22 Completed [facility] 10:26:00 [facility] Afluria single dose Afluria single dose 2020-01-22 Completed [facility] 10:26:00 [facility] Afluria single dose Afluria single dose 2020-01-22 Completed [facility] 10:26:00 [facility] Afluria single dose Afluria single dose 2020-01-22 Completed [facility] 10:26:00 [facility] Afluria single dose Afluria single dose 2020-01-22 Completed [facility] 10:26:00 [facility] Afluria single dose Afluria single dose 2020-01-22 Completed [facility] 10:26:00 [facility] Afluria single dose Afluria single dose 2020-01-22 Completed [facility] 10:26:00 [facility] Afluria single dose Afluria single dose 2020-01-22 Completed [facility] 10:26:00 [facility] Afluria single dose Afluria single dose 2020-01-22 Completed [facility] 10:26:00 [facility] Afluria single dose Afluria single dose 2020-01-22 Completed [facility] 10:26:00 [facility] Afluria single dose Afluria single dose 2020-01-22 Completed [facility] 10:26:00 [facility] Afluria single dose Afluria single dose 2020-01-22 Completed [facility] 10:26:00 [facility] Influenza Quad-PF 2019-05-18 Completed [facility] 00:00:00 of Medicine Afluria single dose Afluria single dose 2019-01-17 Completed [facility] - 13:15:00 [facility] Afluria single dose Afluria single dose 2019-01-17 Completed [facility] - 13:15:00 [facility] Afluria single dose Afluria single dose 2019-01-17 Completed [facility] - 13:15:00 [facility] Afluria single dose Afluria single dose 2019-01-17 Completed [facility] 13:15:00 [facility] Afluria single dose Afluria single dose 2019-01-17 Completed [facility] - 13:15:00 [facility] Afluria single dose Afluria single dose 2019-01-17 Completed [facility] 13:15:00 [facility] Afluria single dose Afluria single dose 2019-01-17 Completed [facility] 13:15:00 [facility] Afluria single dose Afluria single dose 2019-01-17 Completed [facility] 13:15:00 [facility] Afluria single dose Afluria single dose 2019-01-17 Completed [facility] 13:15:00 [facility] Afluria single dose Afluria single dose 2019-01-17 Completed [facility] 13:15:00 [facility] Afluria single dose Afluria single dose 2019-01-17 Completed [facility] 13:15:00 [facility] Afluria single dose Afluria single dose 2019-01-17 Completed [facility] 13:15:00 [facility] Afluria single dose Afluria single dose 2019-01-17 Completed [facility] 13:15:00 [facility] Afluria single dose Afluria single dose 2019-01-17 Completed [facility] 13:15:00 [facility] Afluria single dose Afluria single dose 2019-01-17 Completed [facility] 13:15:00 [facility] Afluria single dose Afluria single dose 2019-01-17 Completed [facility] 13:15:00 [facility] Afluria single dose Afluria single dose 2019-01-17 Completed [facility] 13:15:00 [facility] Afluria single dose Afluria single dose 2019-01-17 Completed [facility] 13:15:00 [facility] Afluria single dose Afluria single dose 2019-01-17 Completed [facility] 13:15:00 [facility] Afluria single dose Afluria single dose 2019-01-17 Completed [facility] 13:15:00 [facility] Afluria single dose Afluria single dose 2019-01-17 Completed [facility] 00:00:00 [facility] Kenalog Kenalog 2019-01-01 Completed [facility] - (Triamcinolone) (Triamcinolone) 14:58:00 [facility] Vital Signs Vital Name Observation Time Observation Value Comments Source height 2022-04-07 11:10:00 64 [in_i] [facility] weight 2022-04-07 11:10:00 192.4 [lb_av] [facility] temperature 2022-04-07 11:10:00 97.3 [degF] [facility] bmi 2022-04-07 11:10:00 33.02 kg/m2 [facility] oximetry 2022-04-07 11:10:00 96 % [facility] respiratory rate 2022-04-07 11:10:00 17 /min [facility] blood pressure 2022-04-07 11:10:00 124 mm[Hg] [facility] - systolic [facility] blood pressure 2022-04-07 11:10:00 69 mm[Hg] [facility] diastolic [facility] height 2022-01-22 08:20:00 64 [in_i] [facility] weight 2022-01-22 08:20:00 206 [lb_av] [facility] bmi 2022-01-22 08:20:00 35.36 kg/m2 [facility] height 2022-01-13 13:00:00 64 [in_i] [facility] weight 2022-01-13 13:00:00 206 [lb_av] [facility] temperature 2022-01-13 13:00:00 98.1 [degF] [facility] bmi 2022-01-13 13:00:00 35.36 kg/m2 [facility] blood pressure 2022-01-13 13:00:00 132 mm[Hg] [facility] - systolic [facility] blood pressure 2022-01-13 13:00:00 75 mm[Hg] [facility] diastolic [facility] height 2022-01-06 13:50:00 64 [in_i] [facility] weight 2022-01-06 13:50:00 204.9 [lb_av] [facility] temperature 2022-01-06 13:50:00 97.4 [degF] [facility] bmi 2022-01-06 13:50:00 35.17 kg/m2 [facility] oximetry 2022-01-06 13:50:00 96 % [facility] respiratory rate 2022-01-06 13:50:00 17 /min Comm on [facility] blood pressure 2022-01-06 13:50:00 129 mm[Hg] [facility] - systolic [facility] blood pressure 2022-01-06 13:50:00 74 mm[Hg] [facility] diastolic [facility] height 2021-09-07 13:00:00 64 [in_i] [facility] weight 2021-09-07 13:00:00 191.9 [lb_av] [facility] temperature 2021-09-07 13:00:00 96.3 [degF] [facility] bmi 2021-09-07 13:00:00 32.94 kg/m2 [facility] oximetry 2021-09-07 13:00:00 95 % [facility] respiratory rate 2021-09-07 13:00:00 16 /min Comm on [facility] blood pressure 2021-09-07 13:00:00 134 mm[Hg] [facility] - systolic [facility] blood pressure 2021-09-07 13:00:00 75 mm[Hg] [facility] diastolic [facility] height 2021-05-25 16:20:00 64 [in_i] [facility] weight 2021-05-25 16:20:00 175 [lb_av] [facility] temperature 2021-05-25 16:20:00 98 [degF] [facility] bmi 2021-05-25 16:20:00 30.04 kg/m2 [facility] blood pressure 2021-05-25 16:20:00 132 mm[Hg] [facility] systolic [facility] blood pressure 2021-05-25 16:20:00 70 mm[Hg] [facility] diastolic [facility] height 2021-01-29 13:00:00 64 [in_i] [facility] weight 2021-01-29 13:00:00 172 [lb_av] [facility] temperature 2021-01-29 13:00:00 97.5 [degF] [facility] bmi 2021-01-29 13:00:00 29.52 kg/m2 [facility] blood pressure 2021-01-29 13:00:00 135 mm[Hg] [facility] - systolic [facility] blood pressure 2021-01-29 13:00:00 70 mm[Hg] [facility] - diastolic [facility] Systolic blood 2019-06-18 17:03:00 111 mm[Hg] [facility] Medicine Diastolic blood 2019-06-18 17:03:00 77 mm[Hg] [facility] Medicine Heart rate 2019-06-18 17:03:00 76 /min [facility] Body temperature 2019-06-18 17:03:00 37 [facility] Body height 2019-06-18 17:03:00 [facility] Body weight 2019-06-18 17:03:00 78[facility]472 [facility] BMI 2019-06-18 17:03:00 29.70 kg/m2 [facility] Systolic blood 2019-06-18 17:03:00 111 mm[Hg] [facility] pressure Medicine Diastolic blood 2019-06-18 17:03:00 77 mm[Hg] [facility] Medicine Heart rate 2019-06-18 17:03:00 76 /min [facility] Body temperature 2019-06-18 17:03:00 37 [place] Body height 2019-06-18 17:03:00 162.6 cm [facility] Medicine Body weight 2019-06-18 17:03:00 78.472 kg [facility] BMI 2019-06-18 17:03:00 29.70 [facility]m2 [facility] Procedures Procedure Date / Time Performed Performing Clinician Chyna cabral MR CERVICAL SPINE WO 2020-01-03 16:04:53 Requisition, Paper [facility] ASSIGNMENT OF BENEFITS 2020-01-03 14:52:10 Doctor Unassigned, No [facility] Plan of Care Planned Activity Planned Date Details Comments Source Future Scheduled Test COLON CANCER SCREENING: [facility] COLONOSCOPY [code = Medicine COLON CANCER SCREENING: COLONOSCOPY] Future Scheduled Test MAMMOGRAM ANNUAL [code [facility] = MAMMOGRAM ANNUAL] Medicine Future Scheduled Test TETANUS SHOT (ADULT) [facility] [code = TETANUS SHOT Medicin e (ADULT)] Future Scheduled Test BMI FOLLOW UP PLAN [facility] [code = BMI FOLLOW UP Medici ne PLAN] Future Scheduled Test HEPATITIS C SCREENING [facility] [code = HEPATITIS C Medicine SCREENING] Future Scheduled Test HIV SCREENING [code = [facility] HIV SCREENING] Medicine Future Scheduled Test CERVICAL CANCER [facility] SCREENING 3 YEAR FOLLOW Medi cine UP [code = CERVICAL CANCER SCREENING 3 YEAR FOLLOW UP] Encounters Start End Encounter Admission Attending Care Care Encounter Source Date/Time Date/Time Type Type Clinicians Facility Department ID 2022-07-06 Outpatient Johnson, STLMLC STLC [id number] Common 09:20:01 [facility] [address] [facility] 2022-07-02 Outpatient Johnson, STLMLC STLMLC [id number] Common 09:15:00 [facility] [address] [facility] 2022-06-24 Outpatient Johnson, STLMLC STLMLC [id number] Common 14:38:01 [facility] [address] [facility] 2022-04-07 Outpatient Johnson, STLMLC STLMLC [id number] Common 10:54:00 [facility] [address] [facility] 2022-04-05 Outpatient Johnson, STLMLC STLMLC [id number] Common 13:33:01 [facility] [address] [facility] 2022-01-14 Outpatient Johnson, STLMLC STLMLC [id number] Common 07:17:00 [facility] [address] [facility] 2022-01-05 Outpatient Johnson, STLMLC STLMLC [id number] Common 11:43:00 [facility] [address] [facility] 2021-12-31 Outpatient Johnson, STLMLC STLMLC [id number] Common 11:26:00 Mode [facility] 2021-10-09 Outpatient Johnson, STLMLC STLMLC [id number] Common 10:47:01 Mode [facility] 2021-09-08 Outpatient Johnson, STLMLC STLMLC [id number] Common 10:11:20 Mode [facility] 2021-09-07 Outpatient Johnson, STLMLC STLMLC [id number] Common 13:25:06 Mode [facility] 2021-09-04 Outpatient Johnson, STLMLC STLMLC [id number] Common 11:34:00 Mode [facility] 2021-05-20 Outpatient Johnson, STLMLC STLMLC [id number] Common 13:45:21 Mode 12786 [facility] 2021-05-20 Outpatient Johnson, STLMLC STLMLC [id number] Common 13:45:10 Mode 88031 [facility] 2021-05-20 Outpatient Johnson, STLMLC STLMLC [id number] Common 13:32:56 Mode 43119 [facility] 2021-05-20 Outpatient Johnson, STLMLC STLMLC [id number] Common 13:14:18 Mode 41150 [facility] 2021-05-20 Outpatient Johnson, STLMLC STLMLC [id number] Common 13:05:50 Mode 30975 [facility] 2021-05-20 Outpatient Johnson, STLMLC STLMLC [id number] Common 12:59:33 Mode 57904 [facility] 2021-05-20 Outpatient Johnson, STLMLC STLMLC [id number] Common 12:56:29 Mode 41887 [facility] 2021-05-20 Outpatient Johnson, STLMLC STLMLC [id number] Common 12:08:06 Mode 48488 [facility] 2021-05-20 Outpatient Johnson, STLMLC STLMLC [id number] Common 12:07:38 Mode 21672 [facility] 2021-05-20 Outpatient Johnson, STLMLC STLMLC [id number] Common 11:17:53 Mode 58418 [facility] 2021-05-20 Outpatient Johnson, STLMLC STLMLC [id number] Common 11:17:22 Mode 63145 [facility] 2021-05-20 Outpatient Johnson, STLMLC STLMLC [id number] Common 11:10:00 Mode 88962 [facility] 2021-05-20 Outpatient Johnson, STLMLC STLMLC [id number] Common 11:02:01 Mode 62517 [facility] 2021-05-20 Outpatient Johnson, STLMLC STLMLC [id number] Common 11:01:01 Mode 21436 [facility] 2022-04-07 2022-04-07 OFFICE STLMLC STLMLC [id number] [facility] 00:00:00 00:00:00 VISIT [facility] PT [facility] LEVEL 4 [facility] 2022-03-04 2022-03-04 (TEL) STLMLC STLMLC [id number] [facility] 00:00:00 00:00:00 [facility] 2022-01-22 2022-01-22 OFFICE STLMLC STLMLC [id number] [facility] 00:00:00 00:00:00 VISIT EST Spir it PT LEVEL 3 [facility] 2022-01-21 2022-01-21 (TEL) STLMLC STLMLC [id number] [facility] 00:00:00 00:00:00 [facility] 2022-01-13 2022-01-13 (TEL) STLMLC STLMLC [id number] [facility] 00:00:00 00:00:00 [facility] 2022-01-13 2022-01-13 OFFICE STLMLC STLMLC [id number] [facility] 00:00:00 00:00:00 VISIT NEW Spir it PT LEVEL 3 [facility] 2022-01-06 2022-01-06 (WELLNESS) STLMLC STLMLC [id number] Common 00:00:00 00:00:00 [facility] 2021-12-29 2021-12-29 (TEL) STLMLC STLMLC [id number] [facility] 00:00:00 00:00:00 [facility] 2021-10-27 2021-10-27 (TEL) STLMLC STLMLC [id number] [facility] 00:00:00 00:00:00 [facility] 2021-10-16 2021-10-16 (TEL) STLMLC STLMLC [id number] [facility] 00:00:00 00:00:00 [facility] 2021-09-07 2021-09-07 OFFICE STLMLC STLMLC [id number] [facility] 00:00:00 00:00:00 VISIT [facility] ESTAB PT - CHI LEVEL 4 [facility] 2021-07-23 2021-07-23 (TEL) STLMLC STLMLC [id number] [facility] 00:00:00 00:00:00 [facility] 2021-07-07 2021-07-07 (TEL) STLMLC STLMLC [id number] [facility] 00:00:00 00:00:00 [facility] 2021-06-12 2021-06-12 (TEL) STLMLC STLMLC [id number] [facility] 00:00:00 00:00:00 [facility] 2021-05-25 2021-05-25 OFFICE STLMLC STLMLC [id number] [facility] 00:00:00 00:00:00 VISIT EST Spir it PT LEVEL 3 [facility] 2021-01-29 2021-01-29 OFFICE STLMLC STLMLC [id number] [facility] 00:00:00 00:00:00 VISIT [facility] ESTAB PT - CHI LEVEL 4 [facility] 2020-12-30 2020-12-30 Outpatient STLMLC STLMLC [id number] Common 00:00:00 00:00:00 [facility] 2020-12-23 2020-12-23 Outpatient STLMLC STLMLC [id number] Common 00:00:00 00:00:00 [facility] 2020-12-17 2020-12-17 Outpatient STLMLC STLMLC [id number] Common 00:00:00 00:00:00 [facility] 2020-12-15 2020-12-15 Outpatient STLMLC STLMLC [id number] Common 00:00:00 00:00:00 [facility] 2020-12-15 2020-12-15 Outpatient STLMLC STLMLC [id number] Common 00:00:00 00:00:00 [facility] 2020-11-21 2020-11-21 Outpatient STLMLC STLMLC [id number] Common 00:00:00 00:00:00 [facility] 2020-10-22 2020-10-22 Outpatient STLMLC STLMLC [id number] Common 00:00:00 00:00:00 [facility] 2020-10-15 2020-10-15 Outpatient STLMLC STLMLC [id number] Common 00:00:00 00:00:00 [facility] 2020-10-13 2020-10-13 Outpatient STLMLC STLMLC [id number] Common 00:00:00 00:00:00 [facility] 2020-10-13 2020-10-13 Outpatient STLMLC STLMLC [id number] Common 00:00:00 00:00:00 [facility] 2020-10-03 2020-10-03 Outpatient STLMLC STLMLC [id number] Common 00:00:00 00:00:00 [facility] 2020-09-24 2020-09-24 Outpatient STLMLC STLMLC [id number] Common 00:00:00 00:00:00 [facility] 2020-08-26 2020-08-26 Outpatient STLMLC STLMLC [id number] Common 00:00:00 00:00:00 [facility] 2020-03-18 2020-03-18 Outpatient STLMLC STLMLC [id number] Common 00:00:00 00:00:00 [facility] 2020-03-05 2020-03-05 Outpatient STLMLC STLMLC [id number] Common 00:00:00 00:00:00 [facility] 2020-02-20 2020-02-20 Outpatient STLMLC STLMLC [id number] Common 00:00:00 00:00:00 [facility] 2020-01-22 2020-01-22 Outpatient STLMLC STLMLC [id number] Common 00:00:00 00:00:00 [facility] 2020-01-03 2020-01-03 Hospital Radiology [facility] [id number] Univers 09:53:20 23:59:00 Encounter [place] [id number] ity of [place] [id number] [facility] [id number] [facility] [address] [place] 2020-01-03 2020-01-03 Hospital Radiology [facility] [id number] 09:53:20 23:59:00 Encounter [place] [id number] [place] [id number] [place] [id number] 2020-01-03 2020-01-03 Outpatient R RADIOLOGY [facility] [id number] Univers 00:00:00 00:00:00 ity of [facility] 2020-01-03 2020-01-03 Orders Doctor SOL [id number] Univers 00:00:00 00:00:00 Only Unassigned, LUIS DANIEL [id number] ity of [place] [facility] [id number] Eric [id number] [facility] [address] 2020-01-03 2020-01-03 Orders Doctor EBENEZER [id number] 00:00:00 00:00:00 Only Unassigned, LUIS DANIEL [id number] [place] [facility] [id number] 009 2019-10-10 2019-10-10 [facility] [id number] Common 09:30:00 09:30:[address] [facility] 2019-08-14 2019-08-14 [facility] [id number] Common 11:30:00 11:30:[address] [facility] 2019-08-10 2019-08-10 [facility] [id number] Common 10:42:00 10:42:[address] [facility] 2019-07-10 2019-07-10 [facility] [id number] Common 10:45:00 10:45:[address] [facility] 2019-06-19 2019-06-19 [facility] [id number] Common 12:53:00 12:53:[address] [facility] 2019-06-18 2019-06-18 Office LOGAN Crowley [id number] 10:59:16 11:29:16 Visit Guido Ray AMBULATOR [id number] Y [id number] [facility] 2019-06-18 2019-06-18 Office LOGAN Crowley [id number] [place] [address] 10:59:16 11:29:16 Visit Guido Ray AMBULATOR [id number] College Y [id number] [facility] 800 e 2019-06-14 2019-06-14 [facility] [id number] Common 08:09:00 08:09:[address] [facility] 2019-05-15 2019-05-15 [facility] [id number] Common 09:45:00 09:45:[address] [facility] 2019-05-01 2019-05-01 [facility] [id number] Common 17:15:00 17:15:[address] [facility] 2019-04-24 2019-04-24 [facility] [id number] Common 12:46:00 12:46:[address] [facility] 2019-04-11 2019-04-11 [facility] [id number] Common 14:30:00 14:30:[address] [facility] 2019-04-03 2019-04-03 [facility] [id number] Common 10:19:00 10:19:[address] [facility] 2019-04-02 2019-04-02 [facility] [id number] Common 16:33:00 16:33:[address] [facility] 2019-01-17 2019-01-17 [facility] [id number] Common 13:00:00 13:00:[address] [facility] 2019-01-01 2019-01-01 [facility] [id number] Common 14:30:00 14:30:[address] [facility] 2018-12-20 2018-12-20 [facility] [id number] Common 17:00:00 17:00:[address] [facility] 2018-12-20 2018-12-20 [facility] [id number] Common 14:00:00 14:00:[address] [facility] Results Test Description Test Test Results Result [...]
[2022-08-23] MEDS ORDERED: IBUPROFEN 400 MG TAB ONE (01:12)
[2022-08-23] MEDS ORDERED: HYDROCODONE/APAP 10/325 TAB ONE (01:12)
--- NOTE | 2022-08-23 04:16 | ER ---
Nurse's Notes [facility] Name: Batsheva Guevara Age: 62 yrs Sex: Female : 1960 Arrival Date: 08/23/2022 Time: 00:27 Bed 13 Private MD: Diagnosis: Fracture of the left radial head without displacement, acute left elbow fracture Presentation: 08/23 00:47 Chief complaint: Patient states: "I was going down some steps and I missed one. my left as6 arm really hurts". Coronavirus screen: At this time, the client does not indicate any symptoms associated with coronavirus-19. Ebola Screen: No symptoms or risks identified at this time. Initial Sepsis Screen: Does the patient meet any 2 criteria? No. Patient's initial sepsis screen is negative. Does the patient have a suspected source of infection? No. Patient's initial sepsis screen is negative. Risk Assessment: Do you want to hurt yourself or someone else? Patient reports no desire to harm self or others. Onset of symptoms was August 23, 2022. 00:47 Method Of Arrival: Ambulatory as6 00:47 Acuity: HERMELINDA 4 as6 Triage Assessment: 00:50 General: Appears uncomfortable, Behavior is calm, cooperative. Pain: Complains of pain as6 in left arm. Musculoskeletal: Range of motion: limited in left elbow. Historical: - Allergies: 00:48 No Known Allergies; as6 - Home Meds: 00:48 Metformin Oral [Active]; Lisinopril Oral [Active]; atorvastatin oral [Active]; as6 - PMHx: 00:48 chronic neck pain; Diabetes - NIDDM; High Cholesterol; Hypertension; as6 - PSHx: 00:48 section; hysterectomy; as6 - Immunization history:: Client reports receiving the 2nd dose of the Covid vaccine, moderna. - Social history:: Smoking status: Patient denies any tobacco usage or history of. - Family history:: not pertinent. Screenin:51 [facility] ED Fall Risk Assessment (Adult) History of falling in the last 3 months, ll3 including since admission Yes- single mechanical fall (1 pt) Confusion or Disorientation No (0 pts) Intoxicated or Sedated No (0 pts) Impaired Gait No (0 pts) Mobility Assist Device Used No (0 pt) Altered Elimination No (0 pt) Score/Fall Risk Level 0 - 2 = Low Risk Oriented to surroundings, Maintained a safe environment, Educated pt \\T\\ family on fall prevention, incl call for assistance when getting out of bed. Abuse screen: Denies threats or abuse. Denies injuries from another. Nutritional screening: No deficits noted. Tuberculosis screening: No symptoms or risk factors identified. Assessment: 00:50 General: Appears uncomfortable, Behavior is calm, cooperative. Pain: Complains of pain ll3 in anterior aspect of left shoulder and left bicep Pain does not radiate. Is continuous. 00:50 Neuro: Level of Consciousness is awake, alert, obeys commands, Oriented to person, ll3 place, time, situation. Derm: Skin is pink, warm \\T\\ dry. Musculoskeletal: Reports pain in left arm. Vital Signs: 00:47 BP 125 / 72; Pulse 85; Resp 18 S; Temp 97.7(O); Pulse Ox 97% on R/A; Weight 81.65 kg as6 (R); Height 5 ft. 4 in. (R); Pain 6/10; 01:30 BP 113 / 78; Pulse 80; Resp 16; Pulse Ox 100% on R/A; ll3 02:30 BP 100 / 73; Pulse 80; Resp 16; Pulse Ox 93% on R/A; ll3 04:07 BP 123 / 71; Pulse 77; Resp 15; Pulse Ox 97% on R/A; ll3 00:47 Body Mass Index 30.90 (81.65 kg, 162.56 cm) as6 00:47 Pain Scale: Adult as6 ED Course: 00:31 Patient arrived in ED. mr 00:48 Triage completed. as6 00:50 Arm band placed on. as6 00:51 Patient has correct armband on for positive identification. Bed in low position. Call ll3 light in reach. Side rails up X 1. 00:54 Reza Diaz MD is Attending Physician. sp4 01:21 Elbow Left 3 View XRAY In Process Unspecified. EDMS 01:21 Wrist Left (3 View) XRAY In Process Unspecified. EDMS 04:14 Roman Hughes MD is Referral Physician. sp4 04:36 No provider procedures requiring assistance completed. Patient did not have IV access ll3 during this emergency room visit. Administered Medications: 01:07 Drug: [place] PO 10 mg-325 mg 1 tabs Route: PO; ll3 04:16 Follow up: Response: No adverse reaction; Marked relief of symptoms ll3 01:07 Drug: Ibuprofen PO 800 mg Route: PO; ll3 04:16 Follow up: Response: No adverse reaction; Marked relief of symptoms ll3 04:16 Drug: HYDROcodone-acetaminophen PO 5 mg-325 mg 1 tabs Route: PO; ll3 04:36 Follow up: Response: No adverse reaction ll3 Medication: 04:36 VIS not applicable for this client. ll3 Outcome: 04:15 Discharge ordered by . sp4 04:36 Discharged to home ambulatory, with family. ll3 04:36 Condition: stable 04:36 Discharge instructions given to patient, Instructed on discharge instructions, follow up and referral plans. medication usage, Demonstrated understanding of instructions, follow-up care, medications, Prescriptions given X 1. 04:38 Patient left the ED. ll3 Signatures: Dispatcher [employer] [facility] HarshaCe Ashby, RN RN as6 Preston Corbin RN RN ll3 Reza Diaz MD MD sp4 Corrections: (The following items were deleted from the chart) 00:51 00:50 Pain: Complains of pain in anterior aspect of left shoulder and left bicep Pain ll3 does not radiate. Pain ll3
--- NOTE | 2022-08-23 04:16 | EDPHYS ---
Physician Documentation [facility] Name: Batsheva Guevara Age: 62 yrs Sex: Female : 1960 Arrival Date: 08/23/2022 Time: 00:27 Bed 13 Private MD: ED Physician Reza Diaz HPI: 08/23 00:54 This 62 yrs old Other Female presents to ER via Ambulatory with complaints of Fall sp4 Injury, Arm Pain. 04:08 Severity of symptoms: in the emergency department the symptoms are unchanged. sp4 62-year-old female presents after acute fall at home with injury to the left elbow. Patient states she fell sideways accidentally stumbling and injuring her left elbow. Patient complains of pain in the left elbow decreased range of motion left elbow. No additional injury. Historical: - Allergies: 00:48 No Known Allergies; as6 - Home Meds: 00:48 Metformin Oral [Active]; Lisinopril Oral [Active]; atorvastatin oral [Active]; as6 - PMHx: 00:48 chronic neck pain; Diabetes - NIDDM; High Cholesterol; Hypertension; as6 - PSHx: 00:48 section; hysterectomy; as6 - Immunization history:: Client reports receiving the 2nd dose of the Covid vaccine, moderna. - Social history:: Smoking status: Patient denies any tobacco usage or history of. - Family history:: not pertinent. ROS: 04:10 Constitutional: Negative for fever, chills, and weight loss, MS/Extremity: Positive for sp4 left elbow injury, positive for left elbow pain, negative deformity, positive decreased range of motion. Positive worsening pain with movement, otherwise negative musculoskeletal ROS 04:10 All other systems are negative. Exam: 04:10 Constitutional: This is a well developed, well nourished patient who is awake, alert, sp4 and in no acute distress. Head/Face: Normocephalic, atraumatic. Eyes: Pupils equal round and reactive to light, extra-ocular motions intact. Lids and lashes normal. Conjunctiva and sclera are not injected. Cornea within normal limits. Periorbital areas with no swelling, redness, or edema. ENT: Nares patent. No nasal discharge, no septal abnormalities noted. Tympanic membranes are normal and external auditory canals are clear. Oropharynx with no redness, swelling, or masses, exudates, or evidence of obstruction, uvula midline. Mucous membranes moist. Neck: Trachea midline, no thyromegaly or masses palpated, and no cervical lymphadenopathy. Supple, full range of motion without nuchal rigidity, or vertebral point tenderness. No Meningismus. Chest/axilla: Normal chest wall appearance and motion. Nontender with no deformity. No lesions are appreciated. Cardiovascular: Regular rate and rhythm with a normal S1 and S2. No gallops, murmurs, or rubs. Normal PMI, no JVD. No pulse deficits. Respiratory: Lungs have equal breath sounds bilaterally, clear to auscultation and percussion. No rales, rhonchi or wheezes noted. No increased work of breathing, no retractions or nasal flaring. Abdomen/GI: Soft, non-tender, with normal bowel sounds. No distension or tympany. No guarding or rebound. No evidence of tenderness throughout. Back: No spinal tenderness. No costovertebral tenderness. Skin: Warm, dry with normal turgor. Normal color with no rashes, no lesions, and no evidence of cellulitis. MS/ Extremity: Pulses equal, no cyanosis. Neurovascular intact. Full, positive for left elbow tenderness, positive for left elbow decreased ROM, negative for effusion, negative for deformity, neurovascular components intact Neuro: Awake and alert, GCS 15, oriented to person, place, time, and situation. Cranial nerves II-XII grossly intact. Motor strength 5/5 in all extremities. Sensory grossly intact. Psych: Awake, alert, with orientation to person, place and time. Behavior, mood, and affect are within normal limits Vital Signs: 00:47 BP 125 / 72; Pulse 85; Resp 18 S; Temp 97.7(O); Pulse Ox 97% on R/A; Weight 81.65 kg as6 (R); Height 5 ft. 4 in. (R); Pain 6/10; 01:30 BP 113 / 78; Pulse 80; Resp 16; Pulse Ox 100% on R/A; ll3 02:30 BP 100 / 73; Pulse 80; Resp 16; Pulse Ox 93% on R/A; ll3 04:07 BP 123 / 71; Pulse 77; Resp 15; Pulse Ox 97% on R/A; ll3 00:47 Body Mass Index 30.90 (81.65 kg, 162.56 cm) as6 00:47 Pain Scale: Adult as6 Procedures: 04:10 Splinting: Splint applied to left tricep, left elbow, left wrist and palmar aspect of sp4 left forearm using Orthoglass splint, Fiberglas left posterior arm splint at 90 degree angle. applied by myself. post reduction film - Postreduction film not indicated, Examined by me, post splint application: neurovascular intact, 2+ distal pulses palpable, brisk capillary refill noted, Patient tolerated well, Left arm sling applied. MDM: 01:00 Patient medically screened. sp4 04:10 Differential diagnosis: contusion, fracture, multiple trauma, sprain, strain. Data sp4 reviewed: vital signs, nurses notes, radiologic studies, plain films. ED course: Left wrist x-ray revealed no acute bony injuries, minimal early degenerative change. Left elbow x-ray revealed acute depressed radial head fracture without significant displacement of the radial head, there is associated anterior and posterior joint effusion. In conclusion there is a radial head fracture that is nondisplaced. . ED course: Splint was applied patient will be referred to orthopedist for follow-up in the next 2 to 3 days, will advised to maintain arm in the splint and sling until cleared by orthopedic. . 08/23 00:59 Order name: Elbow Left 3 View XRAY sp4 08/23 01:00 Order name: Wrist Left (3 View) XRAY sp4 08/23 04:10 Order name: Sling; Complete Time: 04:36 sp4 08/23 04:10 Order name: Splint - Elbow - Posterior; Complete Time: 04:17 sp4 Administered Medications: 01:07 Drug: [place] PO 10 mg-325 mg 1 tabs Route: PO; ll3 04:16 Follow up: Response: No adverse reaction; Marked relief of symptoms ll3 01:07 Drug: Ibuprofen PO 800 mg Route: PO; ll3 04:16 Follow up: Response: No adverse reaction; Marked relief of symptoms ll3 04:16 Drug: HYDROcodone-acetaminophen PO 5 mg-325 mg 1 tabs Route: PO; ll3 04:36 Follow up: Response: No adverse reaction ll3 Disposition Summary: 08/23/22 04:15 Discharge Ordered Location: Home sp4 Problem: new sp4 Symptoms: have improved sp4 Condition: Stable sp4 Diagnosis - Fracture of the left radial head without displacement, acute left elbow fracture sp4 Followup: sp4 - With: Roman Hughes MD - When: 2 - 3 days - Reason: Recheck today's complaints Discharge Instructions: - Discharge Summary Sheet sp4 - Elbow Contusion, [id number] sp4 Forms: - Prescription Opioid Use sp4 Prescriptions: - Tramadol 50 mg Oral Tablet - take 1 tablet by ORAL route every 6 hours as needed; 30 tablet; Refills: 0, sp4 Product Selection Permitted Signatures: Dispatcher [employer] EDPrashant Villafuerte RN RN as6 Preston Corbin RN RN ll3 Reza Diaz MD MD sp4
[2022-08-23] MEDS ORDERED: HYDROCODONE/APAP 5/325 MG TAB ONE (04:21)
[2022-08-23 04:46] VITALS: TEMP 97.7
[2022-08-23 04:50] VITALS: BP 123/71; O2SAT 97
--- NOTE | 2022-08-23 14:52 | RAD REPORT ---
EXAM DESCRIPTION: RAD - Wrist Left 3 View - 08/23/2022 1:19 am CLINICAL HISTORY: 62 years, Female, pain after a fall COMPARISON: None. FINDINGS: 3 X-ray views of the left wrist (Frontal, lateral and oblique views) were performed. No acute bony injuries were demonstrated. No gross articular or soft tissue abnormality is identifi ed. There are no gross intraosseous lesions. No periosteal reaction were seen. Carpal bones dem onstrate normal alignment. Minimal early degenerative changes within the first carpal metacarpal join t and minimal early degenerative changes 3 carpal joint. Scaphoid demonstrate no symptom displaced fr acture. IMPRESSION: No acute bony injuries were demonstrated. Minimal early degenerative changes. Electronically signed by: Stephen Salazar MD 08/23/2022 1:35 AM CDT Due to temporary technical issues with the PACS/Fluency reporting system, reports are being signed by the in house radiologist without review as a courtesy to ensure prompt reporting. The interpreting r adiologist is fully responsible for the content of the report.
--- NOTE | 2022-08-23 14:53 | RAD REPORT ---
EXAM DESCRIPTION: RAD - Elbow Left 3 View - 08/23/2022 1:19 am CLINICAL HISTORY: 62 years, Female, fall , pain L elbow COMPARISON: None FINDINGS: 3 X-ray views of the left elbow (Frontal, lateral and oblique views) were performed. There is acute depressed with anterior nondisplaced fragment radial head. There is associated anterio r posterior joint effusion. There are no gross intraosseous lesions. No periosteal reaction were se en. IMPRESSION: Acute depressed with anterior and not significantly displaced fragment radial head. Electronically signed by: Stephen Salazar MD 08/23/2022 1:34 AM CDT Due to temporary technical issues with the PACS/Fluency reporting system, reports are being signed by the in house radiologist without review as a courtesy to ensure prompt reporting. The interpreting r adiologist is fully responsible for the content of the report.
== END 2022-08-23 04:38 | disposition home or self-care (01) ==
LOC: ER 00:27
PROC: 2W3DX1Z Immobilization of Left Lower Arm using Splint (ICD-10-PCS; principal; 2022-08-23)
DX: S52.125A Nondisplaced fracture of head of left radius, initial encounter for closed fracture (principal); I10 Essential (primary) hypertension
CPT/HCPCS: 99284

== ENCOUNTER 2022-08-31 11:37 | Day surgery (SDC) | payer OTHER ==
[2022-08-30 14:31] LABS: Absolute Lymphocytes (CBC) 2.4 K/uL (0.7-4.9); Hematocrit 38.4 % (36.0-45.0); Lymphocytes % 23.2 % (15.3-44.8); MCV 84.9 fL (80-100); MPV 7.6 fL (7.6-11.3); RBC Red Blood Cell Count 4.52 M/uL (3.86-4.86)
[2022-08-30 14:56] LABS: Potassium 3.9 mEq/L (3.5-5.1)
--- NOTE | 2022-08-31 07:53 | EKG ---
Test Date: 2022-08-30 Test Time: 14:09:56 Training And Development Coordinator: ELLIOTT MEASUREMENT RESULTS: Intervals: Rate: 73 OK: 160 QRSD: 78 QT: 378 QTc: 416 [place]: P: 38 OK: 160 QRS: 16 T: 44 INTERPRETIVE STATEMENTS: Normal sinus rhythm Normal ECG No previous ECG available for comparison Electronically Signed On 08-31-22 07:52:23 CDT by Homero Schwartz
[2022-08-31] MEDS ORDERED: NA CHLORIDE 0.9% 1,000 ML ONE ×2 (12:08→15:49)
[2022-08-31] MEDS ORDERED: CEFAZOLIN SODIUM 1 GM/VIAL ONE (12:08)
[2022-08-31] MEDS ORDERED: FENTANYL CITR 100 MCG/2 ML ONE (13:18)
[2022-08-31] MEDS ORDERED: MIDAZOLAM HCL 2 MG/2 ML INJ ONE (13:18)
[2022-08-31] MEDS ORDERED: EPINEPHRINE/PF 1 MG/ML AMP ONE (13:18)
[2022-08-31] MEDS ORDERED: dexAMETHasone 4 MG/ML VIAL ONE (13:19)
[2022-08-31] MEDS ORDERED: ROPLVACAINE HCL 20 ML ONE ×2 (13:19→13:20)
[2022-08-31] MEDS ORDERED: LIDOCAINE 1% MPF 2 ML AMPULE ONE (13:19)
[2022-08-31] MEDS ORDERED: propofoL 200 MG/20 ML VIAL IV ONE (14:01)
[2022-08-31] MEDS ORDERED: LIDOCAINE 2% MPF 5 ML VIAL ONE (14:01)
[2022-08-31] MEDS ORDERED: ONDANSETRON 4 MG/2 ML VIAL ONE (14:53)
[2022-08-31] MEDS ORDERED: ALBUTEROL 2.5 MG/3 ML NEB SOL ONE (15:45)
--- NOTE | 2022-08-31 15:50 | RAD REPORT ---
EXAM DESCRIPTION: RAD - Elbow Left 2 View - 08/31/2022 3:21 pm CLINICAL HISTORY: Radial fracture FINDINGS: Nine intraoperative fluoroscopic spot images obtained Fluoroscopy time 0.4 minutes Surgery performed by Radial prosthesis is in good position. No dislocation
[2022-08-31 16:56] VITALS: BP 163/69; TEMP 97.8; O2SAT 98
--- NOTE | 2022-09-01 03:04 | OP ---
Date of Procedure: 08/31/2022 Surgeon: Roman Hughes MD Preoperative Diagnosis: Left radial head fracture with possible forearm ligamentous injury. Postoperative Diagnosis: Left radial head fracture with possible forearm ligamentous injury. Procedure: Left elbow radial head arthroplasty. Biomet System is used. Estimated Blood Loss: Less than 10 cc. Complications: There were no complications. Indications: Ms. Guevara is a 62-year-old female who unfortunately fell, apparently on to outstretc hed hand injuring her left elbow. She is not able to tell us exactly how she fell, but she had x-ray s taken, which demonstrated a comminuted and significantly plastically deformed radial head. She was also complaining of some pain in the wrist and throughout the forearm. A CT scan was performed to e nsure there was no coronoid fracture or sign of dislocation of the ulnohumeral joint and this appears to be isolated to the fracture of the radial head. Risks, benefits, and alternatives of different m ethods of treating this have been discussed with the patient including the possibility of pinning of the wrist or further supplementation of stability of the forearm. However, at this time plan is for excision of this type 3 radial head with replacement using a radial head arthroplasty. She says she understands things as presented and wishes to proceed. Description Of Procedure: The patient was taken to the operating room and placed in supine position. General anesthesia was easily obtained by the Anesthesia staff. First step is to obtain an x-ray o f the right wrist in supination to dog show judge the appropriate ulnar variance. She does appear to be sligh tly ulnar positive on the right side. Following this, the left lower extremity was then prepped and draped in usual sterile fashion and a tourniquet is placed. After this, the lateral epicondyle is pa lpated and was used as a landmark and an incision was taken down carefully through skin and soft tiss ues. There is quite a bit of adipose tissue, however, the interval between the anconeus and the exte nsor is found. Following this, a incision was made longitudinally in line with the radial shaft with care being taken to avoid progressing too inferiorly in the incision to avoid injury to the stabiliz ing ligaments. This leads to fracture hematoma, which was then evacuated and very carefully the inci nelly was then carried down to the appropriate level of the radial head. After this, the a small saw was used, using retractors to protect with great care being taken not to place them other than direct ly on the neck to avoid possible injury to the PIN or other structures. This cut was performed and t he canal was found using the canal finding tool. This was then dilated up with a broach to a size 6. Size 7 was placed and it was found to pass fairly easily about long-term down and the decision was ma jordyn not to overstuff this as I feel that the 6 is very good and she may have osteoporotic bone. Follo wing this, the final 6 stem and platform was then placed. The radial head was sized to a size 22 usi ng the ring gauges, after being reconstructed on the back table. It was initially trialed with a siz e 10. The size 10 goes on quite easily, it does appear to have some gapping and decision made to tri al with a size 12. Size 12 appeared to be more anatomic. It was brought through a range of motion i ncluding pronation and supination and did not appear to be overstuffed. An x-ray was taken of the wr ist that demonstrates identical ulnar positive variance as seen on the contralateral side. It was de emed that this was the best size. The trial was then removed and the final implant was then placed a nd the locking screw was placed. X-ray was again taken of the wrist, which demonstrates good positio n and the elbow was tested for stability and appeared to be stable to varus and valgus stress as well as other stresses placed on the elbow. It does have full range of motion and does not appear to hav e undue compression. Following this, the wound was irrigated and the capsular incision was then clos ed using 2-0 Mersilene suture in a running fashion. This was followed by irrigation and closure of s kin using 2-0 Vicryl sutures, followed by hesham. The patient was then placed in a well-padded ster ile dressing and taken to recovery room. It should be noted that prior to the conclusion of the case , the wrist was also tested in pronation, supination, and also with shucking of the distal radioulnar joint and it appeared to have appropriate version on x-ray and did not appear to be unstable in any plane. /ABRAHAN Voice ID: [id number] Report ID: [id number]
== END 2022-08-31 16:45 | disposition home or self-care (01) ==
LOC: OR 11:37
PROVIDERS: ATTEND Orthopaedic Surgery
PROC: 0RRM0JZ Replacement of Left Elbow Joint with Synthetic Substitute, Open Approach (ICD-10-PCS; principal; 2022-08-31 13:00)
DX: S52.122A Displaced fracture of head of left radius, initial encounter for closed fracture (principal)
CPT/HCPCS: 93005; 85025; 80048; 36415; 82947 ×2; 73070; 24363; J2704; J1100; J0171; J7613; J2001; J2250; J3010; J2405; J7030 ×2; J0690; 88305; 88311

== ENCOUNTER → 2023-05-03 | Emergency (ER) | payer OTHER, SELFPAY ==
--- OUTSIDE RECORDS SUMMARY | 2023-05-03 13:59 | XMS REPORT | Continuity of Care Document ---
Author Name Unknown Address [address] [facility] [address] [place] [address] [facility] thconnect Address [address] [facility] [address] [place] [address] Care Team Providers Care Manager Oracle Database Name Role Phone Mode Johnson Attending Clinician Unavailable Radiology Attending Clinician Unavailable RADIOLOGY Attending Clinician Unavailable Doctor Unassigned, [place] Attending Clinician U navailable Payers Payer Name Policy Type Policy Number Effective Date Expirati on Date Source [facility] PL[facility] [id number] 2021 00:00:00 [facility] Problems Condition Name Condition Details Condition Category Status Onset Date Resolution Date Last Treatment Date Treating Clinician Comments Source Body mass index 30.00 to 34.99 Body mass index (BMI) of 32.0 to 32.9 in adult Problem [facility] [id number] Noncomplia nce with dietary restrictio n Problem [facility] [id number] Pain in right hip Problem [facility] [id number] Pain in left hip Problem [facility] [id number] Bilateral carpal tunnel syndrome Problem [facility] [id number] Chronic hepatitis C without hepatic coma Problem [facility] [id number] Gastroesop hageal reflux disease without esophagiti s Problem [facility] [id number] Mixed hyperlipid emia Problem [facility] [id number] Pain in joint of left elbow Problem [facility] [id number] Closed displaced fracture of head of left radius with routine healing, subsequent encounter Problem [facility] [id number] Dislocatio n of distal radioulnar joint of left wrist, initial encounter Problem [facility] [id number] Other chronic pain Problem [facility] [id number] Displaced fracture of head of left radius, initial encounter for closed fracture Problem [facility] [id number] Type 2 diabetes mellitus with other specified complicati on, without long-term current use of insulin Problem [facility] [id number] Depression with anxiety Problem [facility] [id number] Allergic rhinitis, unspecifie d seasonalit y, unspecifie d trigger Problem [facility] [id number] Subclinica l hypothyroi dism Problem [facility] [id number] HTN, goal below 130/80 Problem [facility] [id number] Cervical herniated disc Problem [facility] [id number] Obesity (BMI 30-39.9) Problem [facility] [id number] Other obesity due to excess calories Problem [facility] Allergies, Adverse Reactions, Alerts Allergy Name Allergy Type Status Severity Reaction(s) Onset Date Inactive Date Treating Clinician Comments Source NO KNOWN ALLERGIE S Drug Class Active [facility] Social History Social Habit Start Date Stop Date Quantity Comments Source History of Tobacco Use [facility] Sex Assigned At [facility] Exposure to SARS-CoV-2 (event) Not sure [facility] Smoking Status Start Date Stop Date Source Unknown if ever smoked [facility] Former Smoker 2023-02-24 00:00:00 2023-02-24 00:00:00 [facility] Medications Ordered Medication Name Filled Medication Name Start Date Stop Date Current Medication? Ordering Clinician Indication Dosage Frequency Signature (SIG) Comments Components Source Oseltamivir Phosphate 75 MG Oseltamivir Phosphate 75 MG 2022-04 00:00: 00 No 1{capsu le} BID Oseltamivi r Phosphate 75 MG Oseltamivir Phosphate 75 MG Oseltamivir Phosphate 75 MG 2022-04 00:00: 00 No 1{capsu le} BID Oseltamivi r Phosphate 75 MG Oseltamivir Phosphate 75 MG Oseltamivir Phosphate 75 MG 2022-04 00:00: 00 No 1{capsu le} BID Oseltamivi r Phosphate 75 MG Oseltamivir Phosphate 75 MG Oseltamivir Phosphate 75 MG 2022-04 00:00: 00 No 1{capsu le} BID Oseltamivi r Phosphate 75 MG Oseltamivir Phosphate 75 MG Oseltamivir Phosphate 75 MG 2022-04 00:00: 00 No 1{capsu le} BID Oseltamivi r Phosphate 75 MG Oseltamivir Phosphate 75 MG Oseltamivir Phosphate 75 MG 2022-04 00:00: 00 No 1{capsu le} BID Oseltamivi r Phosphate 75 MG Oseltamivir Phosphate 75 MG Oseltamivir Phosphate 75 MG 2022-04 00:00: 00 No 1{capsu le} BID Oseltamivi r Phosphate 75 MG Oseltamivir Phosphate 75 MG Oseltamivir Phosphate 75 MG 2022-04 00:00: 00 No 1{capsu le} BID Oseltamivi r Phosphate 75 MG Oseltamivir Phosphate 75 MG Oseltamivir Phosphate 75 MG 2022-04 00:00: 00 No 1{capsu le} BID Oseltamivi r Phosphate 75 MG HYDROcodone -Acetaminop hen 7.5-325 MG HYDROcodone -Acetaminop hen 7.5-325 MG 2023-0 - 00:00: 00 No 1{table t_as_ne eded} QID HYDROcodon e-Acetamin ophen 7.5-325 MG HYDROcodone -Acetaminop hen 7.5-325 MG HYDROcodone -Acetaminop hen 7.5-325 MG 2023-0 08-31 00:00: 00 No 1{table t_as_ne eded} QID HYDROcodon e-Acetamin ophen 7.5-325 MG HYDROcodone -Acetaminop hen 7.5-325 MG HYDROcodone -Acetaminop hen 7.5-325 MG 2023-0 08-31 00:00: 00 No 1{table t_as_ne eded} QID HYDROcodon e-Acetamin ophen 7.5-325 MG HYDROcodone -Acetaminop hen 7.5-325 MG HYDROcodone -Acetaminop hen 7.5-325 MG 3-0 08-31 00:00: 00 No 1{table t_as_ne eded} QID HYDROcodon e-Acetamin ophen 7.5-325 MG HYDROcodone -Acetaminop hen 7.5-325 MG HYDROcodone -Acetaminop hen 7.5-325 MG 3-0 08-31 00:00: 00 No 1{table t_as_ne eded} QID HYDROcodon e-Acetamin ophen 7.5-325 MG HYDROcodone -Acetaminop hen 7.5-325 MG HYDROcodone -Acetaminop hen 7.5-325 MG 2023-0 08-31 00:00: 00 No 1{table t_as_ne eded} QID HYDROcodon e-Acetamin ophen 7.5-325 MG HYDROcodone -Acetaminop hen 7.5-325 MG HYDROcodone -Acetaminop hen 7.5-325 MG 2023-0 08-31 00:00: 00 No 1{table t_as_ne eded} QID HYDROcodon e-Acetamin ophen 7.5-325 MG HYDROcodone -Acetaminop hen 7.5-325 MG HYDROcodone -Acetaminop hen 7.5-325 MG 2023-0 08-31 00:00: 00 No 1{table t_as_ne eded} QID HYDROcodon e-Acetamin ophen 7.5-325 MG HYDROcodone -Acetaminop hen 7.5-325 MG HYDROcodone -Acetaminop hen 7.5-325 MG 3-0 09 00:00: 00 No 1{table t_as_ne eded} QID HYDROcodon e-Acetamin ophen 7.5-325 MG HYDROcodone -Acetaminop hen 7.5-325 MG HYDROcodone -Acetaminop hen 7.5-325 MG 3-0 09 00:00: 00 No 1{table t_as_ne eded} QID HYDROcodon e-Acetamin ophen 7.5-325 MG HYDROcodone -Acetaminop hen 7.5-325 MG HYDROcodone -Acetaminop hen 7.5-325 MG 3-0 08-31 00:00: 00 No 1{table t_as_ne eded} QID HYDROcodon e-Acetamin ophen 7.5-325 MG HYDROcodone -Acetaminop hen 7.5-325 MG HYDROcodone -Acetaminop hen 7.5-325 MG 2022-0 08-31 00:00: 00 No 1{table t_as_ne eded} QID HYDROcodon e-Acetamin ophen 7.5-325 MG Jardiance 10 MG Jardiance 10 MG 2021-06-08 00:00: 00 07-06 00:00 :00 No 1{table t} QD Jardiance 10 MG Phentermine HCl 37.5 MG Phentermine HCl 37.5 MG 2020- 0-07 00:00: 00 No 1{capsu le} QD Phentermin e HCl 37.5 MG Omeprazole Omeprazole 2019-0 2-25 00:00: 00 Yes Mode Johnson 1 capsule 30 minutes before morning meal [facility] Omeprazole 40 MG Omeprazole 40 MG 2020-0 2-25 00:00: 00 No QD Omeprazole 40 MG Omeprazole 40 MG Omeprazole 40 MG 2020-0 2-25 00:00: 00 No QD Omeprazole 40 MG Omeprazole 40 MG Omeprazole 40 MG 2020-0 2-25 00:00: 00 No QD Omeprazole 40 MG Omeprazole 40 MG Omeprazole 40 MG 2019-0 2-25 00:00: 00 No QD Omeprazole 40 MG Omeprazole 40 MG Omeprazole 40 MG 2019-0 2-25 00:00: 00 No QD Omeprazole 40 MG Omeprazole 40 MG Omeprazole 40 MG 2019-0 2-25 00:00: 00 No QD Omeprazole 40 MG Omeprazole 40 MG Omeprazole 40 MG 2019-0 2-25 00:00: 00 No QD Omeprazole 40 MG Omeprazole 40 MG Omeprazole 40 MG 2019-0 2-25 00:00: 00 No QD Omeprazole 40 MG Omeprazole 40 MG Omeprazole 40 MG 2019-0 2-25 00:00: 00 No QD Omeprazole 40 MG Omeprazole 40 MG Omeprazole 40 MG 2019-0 2-25 00:00: 00 No QD Omeprazole 40 MG Omeprazole 40 MG Omeprazole 40 MG 2019-0 2-25 00:00: 00 No QD Omeprazole 40 MG Omeprazole 40 MG Omeprazole 40 MG 2019-0 2-25 00:00: 00 No QD Omeprazole 40 MG Omeprazole 40 MG Omeprazole 40 MG 2019-0 2-25 00:00: 00 No QD Omeprazole 40 MG Omeprazole 40 MG Omeprazole 40 MG 2019-0 2-25 00:00: 00 No QD Omeprazole 40 MG Omeprazole 40 MG Omeprazole 40 MG 2019-0 2-25 00:00: 00 No QD Omeprazole 40 MG Omeprazole 40 MG Omeprazole 40 MG 2019-0 2-25 00:00: 00 No QD Omeprazole 40 MG Omeprazole 40 MG Omeprazole 40 MG 2019-0 2-25 00:00: 00 No QD Omeprazole 40 MG Omeprazole 40 MG Omeprazole 40 MG 2019-0 2-25 00:00: 00 No QD Omeprazole 40 MG Omeprazole 40 MG Omeprazole 40 MG 2019-0 2-25 00:00: 00 No QD Omeprazole 40 MG Omeprazole 40 MG Omeprazole 40 MG 2019-0 2-25 00:00: 00 No QD Omeprazole 40 MG Kenalog (Triamcinol one) Kenalog (Triamcinol one) 01-01 00:00: 00 No 40mg [facility] Kenalog (Triamcinol one) Kenalog (Triamcinol one) 01-01 00:00: 00 No 40mg [facility] Kenalog (Triamcinol one) Kenalog (Triamcinol one) 0 01-01 00:00: 00 No 40mg [facility] Kenalog (Triamcinol one) Kenalog (Triamcinol one) 0 01-01 00:00: 00 No 40mg [facility] Kenalog (Triamcinol one) Kenalog (Triamcinol one) 0 01-01 00:00: 00 No 40mg [facility] Kenalog (Triamcinol one) Kenalog (Triamcinol one) 0 01-01 00:00: 00 No 40mg [facility] Kenalog (Triamcinol one) Kenalog (Triamcinol one) 0 01-01 00:00: 00 No 40mg [facility] Kenalog (Triamcinol one) Kenalog (Triamcinol one) 0 01-01 00:00: 00 No 40mg [facility] Kenalog (Triamcinol one) Kenalog (Triamcinol one) 0 01-01 00:00: 00 No 40mg [facility] Kenalog (Triamcinol one) Kenalog (Triamcinol one) 0 01-01 00:00: 00 No 40mg [facility] Kenalog (Triamcinol one) Kenalog (Triamcinol one) [id number] 01-01 00:00: 00 No 40mg [facility] Kenalog (Triamcinol one) Kenalog (Triamcinol one) 0 01-01 00:00: 00 No 40mg [facility] Kenalog (Triamcinol one) Kenalog (Triamcinol one) 0 01-01 00:00: 00 No 40mg [facility] Kenalog (Triamcinol one) Kenalog (Triamcinol one) 0 01-01 00:00: 00 No 40mg [facility] Kenalog (Triamcinol one) Kenalog (Triamcinol one) 0 01-01 00:00: 00 No 40mg [facility] Kenalog (Triamcinol one) Kenalog (Triamcinol one) 0 01-01 00:00: 00 No 40mg [facility] Kenalog (Triamcinol one) Kenalog (Triamcinol one) 0 01-01 00:00: 00 No 40mg [facility] Kenalog (Triamcinol one) Kenalog (Triamcinol one) 0 01-01 00:00: 00 No 40mg [facility] Kenalog (Triamcinol one) Kenalog (Triamcinol one) 0 01-01 00:00: 00 No 40mg [facility] Kenalog (Triamcinol one) Kenalog (Triamcinol one) 0 01-01 00:00: 00 No 40mg [facility] Kenalog (Triamcinol one) Kenalog (Triamcinol one) 0 01-01 00:00: 00 No 40mg [facility] Kenalog (Triamcinol one) Kenalog (Triamcinol one) 0 01-01 00:00: 00 No 40mg [facility] Kenalog (Triamcinol one) Kenalog (Triamcinol one) 0 01-01 00:00: 00 No 40mg [facility] Kenalog (Triamcinol one) Kenalog (Triamcinol one) 0 01-01 00:00: 00 No 40mg [facility] Kenalog (Triamcinol one) Kenalog (Triamcinol one) 0 01-01 00:00: 00 No 40mg [facility] Kenalog (Triamcinol one) Kenalog (Triamcinol one) 0 01-01 00:00: 00 No 40mg [facility] Kenalog (Triamcinol one) Kenalog (Triamcinol one) 01-01 00:00: 00 No 40mg [facility] Kenalog (Triamcinol one) Kenalog (Triamcinol one) 01-01 00:00: 00 No 40mg [facility] Kenalog (Triamcinol one) [place] (Triamcinol one) 01-01 00:00: 00 No 40mg [facility] Kenalog (Triamcinol one) Kenalog (Triamcinol one) 01-01 00:00: 00 No 40mg [facility] Pantoprazol e Sodium Pantoprazol e Sodium Yes Mode Johnson 1 tablet [facility] Cyclobenzap rine HCl Cyclobenzap rine HCl Yes Mode Johnson TAKE 1 TABLET BY MOUTH ONCE DAILY NEEDED [facility] Atorvastati n Calcium Atorvastati n Calcium Yes Mode Johnson 1 tablet [facility] Lisinopril- Hydrochloro thiazide Lisinopril- Hydrochloro thiazide Yes Mode Johnson 1 tablet [facility] Montelukast Sodium Montelukast Sodium Yes Mode Johnson 1 tablet [facility] Metformin HCl Metformin HCl Yes Mode Johnson 1 tablet with a meal [facility] Amlodipine Besylate Amlodipine Besylate Yes Mode Johnson 1 tablet [facility] Tramadol HCl Tramadol HCl Yes Mode Johnson 1 tablet as needed [facility] Cyclobenzap rine HCl Cyclobenzap rine HCl Yes Mode Johnson 1 tablet as needed [facility] traMADol HCl 50 MG traMADol HCl 50 MG No 1{table t_as_ne eded} traMADol HCl 50 MG amLODIPine Besylate 5 MG amLODIPine Besylate 5 MG No amLODIPine Besylate 5 MG Cyclobenzap rine HCl 10 MG Cyclobenzap rine HCl 10 MG No Cyclobenza carolina HCl 10 MG Pantoprazol e Sodium 40 MG Pantoprazol e Sodium 40 MG No 1{table t} QD Pantoprazo le Sodium 40 MG Jardiance 25 MG Jardiance 25 MG No 1{table t} QD Jardiance 25 MG Montelukast Sodium 10 MG Montelukast Sodium 10 MG No 1{table t} QD Montelukas t Sodium 10 MG Atorvastati n Calcium 40 MG Atorvastati n Calcium 40 MG No 1{table t} QD Atorvastat in Calcium 40 MG traMADol HCl 50 MG traMADol HCl 50 MG No 1{table t_as_ne eded} traMADol HCl 50 MG Cyclobenzap rine HCl 10 MG Cyclobenzap rine HCl 10 MG No 1{table t_as_ne eded} QD Cyclobenza carolina HCl 10 MG Pantoprazol e Sodium 40 MG Pantoprazol e Sodium 40 MG No 1{table t} QD Pantoprazo le Sodium 40 MG Lisinopril- hydroCHLORO thiazide 10-12.5 MG Lisinopril- hydroCHLORO thiazide 10-12.5 MG No 1{table t} QD Lisinopril -hydroCHLO ROthiazide 10-12.5 MG Fluticasone Propionate 50 MCG/ACT Fluticasone Propionate 50 MCG/ACT No 1{spray _in_eac h_nostr il} QD Fluticason e Propionate 50 MCG/ACT Tylenol with Codeine #3 Tylenol with Codeine #3 No Tylenol with Codeine #3 metFORMIN HCl metFORMIN HCl No metFORMIN HCl metFORMIN HCl 500 MG metFORMIN HCl 500 MG No 1{table t_with_ a_meal} BID metFORMIN HCl 500 MG Jardiance 25 MG Jardiance 25 MG No 1{table t} QD Jardiance 25 MG Fluticasone Propionate 50 MCG/ACT Fluticasone Propionate 50 MCG/ACT No 1{spray _in_eac h_nostr il} QD Fluticason e Propionate 50 MCG/ACT Atorvastati n Calcium 40 MG Atorvastati n Calcium 40 MG No Atorvastat in Calcium 40 MG Cyclobenzap rine HCl 10 MG Cyclobenzap rine HCl 10 MG No Cyclobenza carolina HCl 10 MG Pantoprazol e Sodium 40 MG Pantoprazol e Sodium 40 MG No 1{table t} QD Pantoprazo le Sodium 40 MG Jardiance 25 MG Jardiance 25 MG No 1{table t} QD Jardiance 25 MG Montelukast Sodium 10 MG Montelukast Sodium 10 MG No 1{table t} QD Montelukas t Sodium 10 MG Atorvastati n Calcium 40 MG Atorvastati n Calcium 40 MG No 1{table t} QD Atorvastat in Calcium 40 MG traMADol HCl 50 MG traMADol HCl 50 MG No 1{table t_as_ne eded} traMADol HCl 50 MG Atorvastati n Calcium 40 MG Atorvastati n Calcium 40 MG No 1{table t} QD Atorvastat in Calcium 40 MG Cyclobenzap rine HCl 10 MG Cyclobenzap rine HCl 10 MG No 1{table t_as_ne eded} QD Cyclobenza carolina HCl 10 MG Lisinopril- hydroCHLORO thiazide 10-12.5 MG Lisinopril- hydroCHLORO thiazide 10-12.5 MG No 1{table t} QD Lisinopril -hydroCHLO ROthiazide 10-12.5 MG Fluticasone Propionate 50 MCG/ACT Fluticasone Propionate 50 MCG/ACT No 1{spray _in_eac h_nostr il} QD Fluticason e Propionate 50 MCG/ACT Tylenol with Codeine #3 Tylenol with Codeine #3 No Tylenol with Codeine #3 metFORMIN HCl metFORMIN HCl No metFORMIN HCl metFORMIN HCl 500 MG metFORMIN HCl 500 MG No 1{table t_with_ a_meal} BID metFORMIN HCl 500 MG Jardiance 25 MG Jardiance 25 MG No 1{table t} QD Jardiance 25 MG Lisinopril- hydroCHLORO thiazide 10-12.5 MG Lisinopril- hydroCHLORO thiazide 10-12.5 MG No 1{table t} QD Lisinopril -hydroCHLO ROthiazide 10-12.5 MG metFORMIN HCl 500 MG metFORMIN HCl 500 MG No metFORMIN HCl 500 MG Cyclobenzap rine HCl 10 MG Cyclobenzap rine HCl 10 MG No Cyclobenza carolina HCl 10 MG Cyclobenzap rine HCl 10 MG Cyclobenzap rine HCl 10 MG No Cyclobenza carolina HCl 10 MG Pantoprazol e Sodium 40 MG Pantoprazol e Sodium 40 MG No 1{table t} QD Pantoprazo le Sodium 40 MG Jardiance 25 MG Jardiance 25 MG No 1{table t} QD Jardiance 25 MG Montelukast Sodium 10 MG Montelukast Sodium 10 MG No 1{table t} QD Montelukas t Sodium 10 MG Atorvastati n Calcium 40 MG Atorvastati n Calcium 40 MG No 1{table t} QD Atorvastat in Calcium 40 MG traMADol HCl 50 MG traMADol HCl 50 MG No 1{table t_as_ne eded} traMADol HCl 50 MG Cyclobenzap rine HCl 10 MG Cyclobenzap rine HCl 10 MG No 1{table t_as_ne eded} QD Cyclobenza carolina HCl 10 MG Lisinopril- hydroCHLORO thiazide 10-12.5 MG Lisinopril- hydroCHLORO thiazide 10-12.5 MG No 1{table t} QD Lisinopril -hydroCHLO ROthiazide 10-12.5 MG Fluticasone Propionate 50 MCG/ACT Fluticasone Propionate 50 MCG/ACT No 1{spray _in_eac h_nostr il} QD Fluticason e Propionate 50 MCG/ACT Tylenol with Codeine #3 Tylenol with Codeine #3 No Tylenol with Codeine #3 metFORMIN HCl metFORMIN HCl No metFORMIN HCl metFORMIN HCl 500 MG metFORMIN HCl 500 MG No 1{table t_with_ a_meal} BID metFORMIN HCl 500 MG Jardiance 25 MG Jardiance 25 MG No 1{table t} QD Jardiance 25 MG Cyclobenzap rine HCl 10 MG Cyclobenzap rine HCl 10 MG No Cyclobenza carolina HCl 10 MG Cyclobenzap rine HCl 10 MG Cyclobenzap rine HCl 10 MG No 1{table t_as_ne eded} QD Cyclobenza carolina HCl 10 MG Pantoprazol e Sodium 40 MG Pantoprazol e Sodium 40 MG No 1{table t} QD Pantoprazo le Sodium 40 MG Jardiance 25 MG Jardiance 25 MG No 1{table t} QD Jardiance 25 MG traMADol HCl 50 MG traMADol HCl 50 MG No 1{table t_as_ne eded} traMADol HCl 50 MG Atorvastati n Calcium 40 MG Atorvastati n Calcium 40 MG No 1{table t} QD Atorvastat in Calcium 40 MG Montelukast Sodium 10 MG Montelukast Sodium 10 MG No 1{table t} QD Montelukas t Sodium 10 MG Fluticasone Propionate 50 MCG/ACT Fluticasone Propionate 50 MCG/ACT No 1{spray _in_eac h_nostr il} QD Fluticason e Propionate 50 MCG/ACT Lisinopril- hydroCHLORO thiazide 10-12.5 MG Lisinopril- hydroCHLORO thiazide 10-12.5 MG No 1{table t} QD Lisinopril -hydroCHLO ROthiazide 10-12.5 MG metFORMIN HCl metFORMIN HCl No metFORMIN HCl metFORMIN HCl 500 MG metFORMIN HCl 500 MG No 1{table t_with_ a_meal} BID metFORMIN HCl 500 MG Tylenol with Codeine #3 Tylenol with Codeine #3 No Tylenol with Codeine #3 Jardiance 25 MG Jardiance 25 MG No 1{table t} QD Jardiance 25 MG Lisinopril- hydroCHLORO thiazide 10-12.5 MG Lisinopril- hydroCHLORO thiazide 10-12.5 MG No 1{table t} QD Lisinopril -hydroCHLO ROthiazide 10-12.5 MG Cyclobenzap rine HCl 10 MG Cyclobenzap rine HCl 10 MG No Cyclobenza carolina HCl 10 MG Fluticasone Propionate 50 MCG/ACT Fluticasone Propionate 50 MCG/ACT No 1{spray _in_eac h_nostr il} QD Fluticason e Propionate 50 MCG/ACT metFORMIN HCl 500 MG metFORMIN HCl 500 MG No 1{table t_with_ a_meal} BID metFORMIN HCl 500 MG Montelukast Sodium 10 MG Montelukast Sodium 10 MG No Montelukas t Sodium 10 MG Lisinopril- hydroCHLORO thiazide 10-12.5 MG Lisinopril- hydroCHLORO thiazide 10-12.5 MG No Lisinopril -hydroCHLO ROthiazide 10-12.5 MG Atorvastati n Calcium 40 MG Atorvastati n Calcium 40 MG No Atorvastat in Calcium 40 MG Atorvastati n Calcium 40 MG Atorvastati n Calcium 40 MG No 1{table t} QD Atorvastat in Calcium 40 MG traMADol HCl 50 MG traMADol HCl 50 MG No 1{table t_as_ne eded} traMADol HCl 50 MG amLODIPine Besylate 5 MG amLODIPine Besylate 5 MG No amLODIPine Besylate 5 MG Cyclobenzap rine HCl 10 MG Cyclobenzap rine HCl 10 MG No 1{table t_as_ne eded} QD Cyclobenza carolina HCl 10 MG Pantoprazol e Sodium 40 MG Pantoprazol e Sodium 40 MG No Pantoprazo le Sodium 40 MG Tylenol with Codeine #3 Tylenol with Codeine #3 No Tylenol with Codeine #3 Phendimetra zine Tartrate 35 MG Phendimetra zine Tartrate 35 MG No QD Phendimetr azine Tartrate 35 MG amLODIPine Besylate 10 MG amLODIPine Besylate 10 MG No amLODIPine Besylate 10 MG Montelukast Sodium 10 MG Montelukast Sodium 10 MG No 1{table t} QD Montelukas t Sodium 10 MG metFORMIN HCl 500 MG metFORMIN HCl 500 MG No metFORMIN HCl 500 MG Pantoprazol e Sodium 40 MG Pantoprazol e Sodium 40 MG No 1{table t} QD Pantoprazo le Sodium 40 MG amLODIPine Besylate 10 MG amLODIPine Besylate 10 MG No amLODIPine Besylate 10 MG Pantoprazol e Sodium 40 MG Pantoprazol e Sodium 40 MG No 1{table t} QD Pantoprazo le Sodium 40 MG Cyclobenzap rine HCl 10 MG Cyclobenzap rine HCl 10 MG No Cyclobenza carolina HCl 10 MG Phendimetra zine Tartrate 35 MG Phendimetra zine Tartrate 35 MG No QD Phendimetr azine Tartrate 35 MG methylPREDN ISolone 4 MG methylPREDN ISolone 4 MG No QD methylPRED NISolone 4 MG Fluticasone Propionate 50 MCG/ACT Fluticasone Propionate 50 MCG/ACT No 1{spray _in_eac h_nostr il} QD Fluticason e Propionate 50 MCG/ACT Pseudoeph-B romphen-DM 30-2-10 MG/5ML Pseudoeph-B romphen-DM 30-2-10 MG/5ML No 5{ml_as _needed } QID Pseudoeph- Bromphen-D M 30-2-10 MG/5ML traMADol HCl 50 MG traMADol HCl 50 MG No 1{table t_as_ne eded} traMADol HCl 50 MG metFORMIN HCl 500 MG metFORMIN HCl 500 MG No 1{table t_with_ a_meal} BID metFORMIN HCl 500 MG Montelukast Sodium 10 MG Montelukast Sodium 10 MG No Montelukas t Sodium 10 MG Pantoprazol e Sodium 40 MG Pantoprazol e Sodium 40 MG No Pantoprazo le Sodium 40 MG Lisinopril- hydroCHLORO thiazide 10-12.5 MG Lisinopril- hydroCHLORO thiazide 10-12.5 MG No 1{table t} QD Lisinopril -hydroCHLO ROthiazide 10-12.5 MG Lisinopril- hydroCHLORO thiazide 10-12.5 MG Lisinopril- hydroCHLORO thiazide 10-12.5 MG No Lisinopril -hydroCHLO ROthiazide 10-12.5 MG Atorvastati n Calcium 40 MG Atorvastati n Calcium 40 MG No Atorvastat in Calcium 40 MG Cyclobenzap rine HCl 10 MG Cyclobenzap rine HCl 10 MG No 1{table t_as_ne eded} QD Cyclobenza carolina HCl 10 MG metFORMIN HCl 500 MG metFORMIN HCl 500 MG No metFORMIN HCl 500 MG Atorvastati n Calcium 40 MG Atorvastati n Calcium 40 MG No 1{table t} QD Atorvastat in Calcium 40 MG Montelukast Sodium 10 MG Montelukast Sodium 10 MG No 1{table t} QD Montelukas t Sodium 10 MG Tylenol with Codeine #3 Tylenol with Codeine #3 No Tylenol with Codeine #3 amLODIPine Besylate 5 MG amLODIPine Besylate 5 MG No amLODIPine Besylate 5 MG amLODIPine Besylate 10 MG amLODIPine Besylate 10 MG No amLODIPine Besylate 10 MG Pantoprazol e Sodium 40 MG Pantoprazol e Sodium 40 MG No 1{table t} QD Pantoprazo le Sodium 40 MG Cyclobenzap rine HCl 10 MG Cyclobenzap rine HCl 10 MG No Cyclobenza carolina HCl 10 MG Phendimetra zine Tartrate 35 MG Phendimetra zine Tartrate 35 MG No QD Phendimetr azine Tartrate 35 MG methylPREDN ISolone 4 MG methylPREDN ISolone 4 MG No QD methylPRED NISolone 4 MG Fluticasone Propionate 50 MCG/ACT Fluticasone Propionate 50 MCG/ACT No 1{spray _in_eac h_nostr il} QD Fluticason e Propionate 50 MCG/ACT Pseudoeph-B romphen-DM 30-2-10 MG/5ML Pseudoeph-B romphen-DM 30-2-10 MG/5ML No 5{ml_as _needed } QID Pseudoeph- Bromphen-D M 30-2-10 MG/5ML traMADol HCl 50 MG traMADol HCl 50 MG No 1{table t_as_ne eded} traMADol HCl 50 MG metFORMIN HCl 500 MG metFORMIN HCl 500 MG No 1{table t_with_ a_meal} BID metFORMIN HCl 500 MG Montelukast Sodium 10 MG Montelukast Sodium 10 MG No Montelukas t Sodium 10 MG Pantoprazol e Sodium 40 MG Pantoprazol e Sodium 40 MG No Pantoprazo le Sodium 40 MG Lisinopril- hydroCHLORO thiazide 10-12.5 MG Lisinopril- hydroCHLORO thiazide 10-12.5 MG No 1{table t} QD Lisinopril -hydroCHLO ROthiazide 10-12.5 MG Lisinopril- hydroCHLORO thiazide 10-12.5 MG Lisinopril- hydroCHLORO thiazide 10-12.5 MG No Lisinopril -hydroCHLO ROthiazide 10-12.5 MG Atorvastati n Calcium 40 MG Atorvastati n Calcium 40 MG No Atorvastat in Calcium 40 MG Cyclobenzap rine HCl 10 MG Cyclobenzap rine HCl 10 MG No 1{table t_as_ne eded} QD Cyclobenza carolina HCl 10 MG metFORMIN HCl 500 MG metFORMIN HCl 500 MG No metFORMIN HCl 500 MG Atorvastati n Calcium 40 MG Atorvastati n Calcium 40 MG No 1{table t} QD Atorvastat in Calcium 40 MG Montelukast Sodium 10 MG Montelukast Sodium 10 MG No 1{table t} QD Montelukas t Sodium 10 MG Tylenol with Codeine #3 Tylenol with Codeine #3 No Tylenol with Codeine #3 amLODIPine Besylate 5 MG amLODIPine Besylate 5 MG No amLODIPine Besylate 5 MG Cyclobenzap rine HCl 10 MG Cyclobenzap rine HCl 10 MG No Cyclobenza carolina HCl 10 MG amLODIPine Besylate 10 MG amLODIPine Besylate 10 MG No amLODIPine Besylate 10 MG metFORMIN HCl 500 MG metFORMIN HCl 500 MG No 1{table t_with_ a_meal} BID metFORMIN HCl 500 MG traMADol HCl 50 MG traMADol HCl 50 MG No 1{table t_as_ne eded} traMADol HCl 50 MG Pantoprazol e Sodium 40 MG Pantoprazol e Sodium 40 MG No Pantoprazo le Sodium 40 MG metFORMIN HCl 500 MG metFORMIN HCl 500 MG No 1{table t_with_ a_meal} BID metFORMIN HCl 500 MG Phendimetra zine Tartrate 35 MG Phendimetra zine Tartrate 35 MG No QD Phendimetr azine Tartrate 35 MG amLODIPine Besylate 5 MG amLODIPine Besylate 5 MG No 1{table t} QD amLODIPine Besylate 5 MG Lisinopril- hydroCHLORO thiazide 10-12.5 MG Lisinopril- hydroCHLORO thiazide 10-12.5 MG No 1{table t} QD Lisinopril -hydroCHLO ROthiazide 10-12.5 MG Montelukast Sodium 10 MG Montelukast Sodium 10 MG No Montelukas t Sodium 10 MG Cyclobenzap rine HCl 10 MG Cyclobenzap rine HCl 10 MG No 1{table t_as_ne eded} QD Cyclobenza caroilna HCl 10 MG Montelukast Sodium 10 MG Montelukast Sodium 10 MG No 1{table t} QD Montelukas t Sodium 10 MG Atorvastati n Calcium 40 MG Atorvastati n Calcium 40 MG No 1{table t} QD Atorvastat in Calcium 40 MG amLODIPine Besylate 5 MG amLODIPine Besylate 5 MG No amLODIPine Besylate 5 MG Fluticasone Propionate 50 MCG/ACT Fluticasone Propionate 50 MCG/ACT No 1{spray _in_eac h_nostr il} QD Fluticason e Propionate 50 MCG/ACT Pantoprazol e Sodium 40 MG Pantoprazol e Sodium 40 MG No 1{table t} QD Pantoprazo le Sodium 40 MG amLODIPine Besylate 10 MG amLODIPine Besylate 10 MG No amLODIPine Besylate 10 MG metFORMIN HCl 500 MG metFORMIN HCl 500 MG No 1{table t_with_ a_meal} BID metFORMIN HCl 500 MG Fluticasone Propionate 50 MCG/ACT Fluticasone Propionate 50 MCG/ACT No 1{spray _in_eac h_nostr il} QD Fluticason e Propionate 50 MCG/ACT Montelukast Sodium 10 MG Montelukast Sodium 10 MG No Montelukas t Sodium 10 MG Cyclobenzap rine HCl 10 MG Cyclobenzap rine HCl 10 MG No Cyclobenza carolina HCl 10 MG Atorvastati n Calcium 40 MG Atorvastati n Calcium 40 MG No 1{table t} QD Atorvastat in Calcium 40 MG Lisinopril- hydroCHLORO thiazide 10-12.5 MG Lisinopril- hydroCHLORO thiazide 10-12.5 MG No 1{table t} QD Lisinopril -hydroCHLO ROthiazide 10-12.5 MG Montelukast Sodium 10 MG Montelukast Sodium 10 MG No 1{table t} QD Montelukas t Sodium 10 MG Atorvastati n Calcium 40 MG Atorvastati n Calcium 40 MG No 1{table t} QD Atorvastat in Calcium 40 MG traMADol HCl 50 MG traMADol HCl 50 MG No 1{table t_as_ne eded} traMADol HCl 50 MG metFORMIN HCl 500 MG metFORMIN HCl 500 MG No metFORMIN HCl 500 MG Pantoprazol e Sodium 40 MG Pantoprazol e Sodium 40 MG No Pantoprazo le Sodium 40 MG Pantoprazol e Sodium 40 MG Pantoprazol e Sodium 40 MG No 1{table t} QD Pantoprazo le Sodium 40 MG Phendimetra zine Tartrate 35 MG Phendimetra zine Tartrate 35 MG No QD Phendimetr azine Tartrate 35 MG Cyclobenzap rine HCl 10 MG Cyclobenzap rine HCl 10 MG No 1{table t_as_ne eded} QD Cyclobenza carolina HCl 10 MG amLODIPine Besylate 5 MG amLODIPine Besylate 5 MG No 1{table t} QD amLODIPine Besylate 5 MG amLODIPine Besylate 5 MG amLODIPine Besylate 5 MG No amLODIPine Besylate 5 MG amLODIPine Besylate 10 MG amLODIPine Besylate 10 MG No amLODIPine Besylate 10 MG metFORMIN HCl 500 MG metFORMIN HCl 500 MG No 1{table t_with_ a_meal} BID metFORMIN HCl 500 MG Fluticasone Propionate 50 MCG/ACT Fluticasone Propionate 50 MCG/ACT No 1{spray _in_eac h_nostr il} QD Fluticason e Propionate 50 MCG/ACT Montelukast Sodium 10 MG Montelukast Sodium 10 MG No Montelukas t Sodium 10 MG Cyclobenzap rine HCl 10 MG Cyclobenzap rine HCl 10 MG No Cyclobenza carolina HCl 10 MG Atorvastati n Calcium 40 MG Atorvastati n Calcium 40 MG No 1{table t} QD Atorvastat in Calcium 40 MG Lisinopril- hydroCHLORO thiazide 10-12.5 MG Lisinopril- hydroCHLORO thiazide 10-12.5 MG No 1{table t} QD Lisinopril -hydroCHLO ROthiazide 10-12.5 MG Montelukast Sodium 10 MG Montelukast Sodium 10 MG No 1{table t} QD Montelukas t Sodium 10 MG Atorvastati n Calcium 40 MG Atorvastati n Calcium 40 MG No 1{table t} QD Atorvastat in Calcium 40 MG traMADol HCl 50 MG traMADol HCl 50 MG No 1{table t_as_ne eded} traMADol HCl 50 MG metFORMIN HCl 500 MG metFORMIN HCl 500 MG No metFORMIN HCl 500 MG Pantoprazol e Sodium 40 MG Pantoprazol e Sodium 40 MG No Pantoprazo le Sodium 40 MG Pantoprazol e Sodium 40 MG Pantoprazol e Sodium 40 MG No 1{table t} QD Pantoprazo le Sodium 40 MG Phendimetra zine Tartrate 35 MG Phendimetra zine Tartrate 35 MG No QD Phendimetr azine Tartrate 35 MG Cyclobenzap rine HCl 10 MG Cyclobenzap rine HCl 10 MG No 1{table t_as_ne eded} QD Cyclobenza carolina HCl 10 MG amLODIPine Besylate 5 MG amLODIPine Besylate 5 MG No 1{table t} QD amLODIPine Besylate 5 MG amLODIPine Besylate 5 MG amLODIPine Besylate 5 MG No amLODIPine Besylate 5 MG Cyclobenzap rine HCl 10 MG Cyclobenzap rine HCl 10 MG No Cyclobenza carolina HCl 10 MG amLODIPine Besylate 10 MG amLODIPine Besylate 10 MG No amLODIPine Besylate 10 MG metFORMIN HCl 500 MG metFORMIN HCl 500 MG No metFORMIN HCl 500 MG Fluticasone Propionate 50 MCG/ACT Fluticasone Propionate 50 MCG/ACT No 1{spray _in_eac h_nostr il} QD Fluticason e Propionate 50 MCG/ACT Atorvastati n Calcium 40 MG Atorvastati n Calcium 40 MG No 1{table t} QD Atorvastat in Calcium 40 MG Montelukast Sodium 10 MG Montelukast Sodium 10 MG No 1{table t} QD Montelukas t Sodium 10 MG Pantoprazol e Sodium 40 MG Pantoprazol e Sodium 40 MG No Pantoprazo le Sodium 40 MG Atorvastati n Calcium 40 MG Atorvastati n Calcium 40 MG No 1{table t} QD Atorvastat in Calcium 40 MG Cyclobenzap rine HCl 10 MG Cyclobenzap rine HCl 10 MG No 1{table t_as_ne eded} QD Cyclobenza carolina HCl 10 MG traMADol HCl 50 MG traMADol HCl 50 MG No 1{table t_as_ne eded} traMADol HCl 50 MG amLODIPine Besylate 5 MG amLODIPine Besylate 5 MG No amLODIPine Besylate 5 MG Montelukast Sodium 10 MG Montelukast Sodium 10 MG No Montelukas t Sodium 10 MG Lisinopril- hydroCHLORO thiazide 10-12.5 MG Lisinopril- hydroCHLORO thiazide 10-12.5 MG No Lisinopril -hydroCHLO ROthiazide 10-12.5 MG amLODIPine Besylate 5 MG amLODIPine Besylate 5 MG No 1{table t} QD amLODIPine Besylate 5 MG Phendimetra zine Tartrate 35 MG Phendimetra zine Tartrate 35 MG No QD Phendimetr azine Tartrate 35 MG metFORMIN HCl 500 MG metFORMIN HCl 500 MG No 1{table t_with_ a_meal} BID metFORMIN HCl 500 MG Fluticasone Propionate 50 MCG/ACT Fluticasone Propionate 50 MCG/ACT No 1{spray _in_eac h_nostr il} QD Fluticason e Propionate 50 MCG/ACT Lisinopril- hydroCHLORO thiazide 10-12.5 MG Lisinopril- hydroCHLORO thiazide 10-12.5 MG No Lisinopril -hydroCHLO ROthiazide 10-12.5 MG Phendimetra zine Tartrate 35 MG Phendimetra zine Tartrate 35 MG No QD Phendimetr azine Tartrate 35 MG Montelukast Sodium 10 MG Montelukast Sodium 10 MG No Montelukas t Sodium 10 MG Pantoprazol e Sodium 40 MG Pantoprazol e Sodium 40 MG No Pantoprazo le Sodium 40 MG metFORMIN HCl 500 MG metFORMIN HCl 500 MG No 1{table t_with_ a_meal} BID metFORMIN HCl 500 MG amLODIPine Besylate 5 MG amLODIPine Besylate 5 MG No amLODIPine Besylate 5 MG metFORMIN HCl 500 MG metFORMIN HCl 500 MG No metFORMIN HCl 500 MG Atorvastati n Calcium 40 MG Atorvastati n Calcium 40 MG No Atorvastat in Calcium 40 MG Cyclobenzap rine HCl 10 MG Cyclobenzap rine HCl 10 MG No 1{table t_as_ne eded} QD Cyclobenza carolina HCl 10 MG amLODIPine Besylate 10 MG amLODIPine Besylate 10 MG No amLODIPine Besylate 10 MG amLODIPine Besylate 5 MG amLODIPine Besylate 5 MG No 1{table t} QD amLODIPine Besylate 5 MG traMADol HCl 50 MG traMADol HCl 50 MG No 1{table t_as_ne eded} traMADol HCl 50 MG Cyclobenzap rine HCl 10 MG Cyclobenzap rine HCl 10 MG No Cyclobenza carolina HCl 10 MG Atorvastati n Calcium 40 MG Atorvastati n Calcium 40 MG No 1{table t} QD Atorvastat in Calcium 40 MG Lisinopril- hydroCHLORO thiazide 10-12.5 MG Lisinopril- hydroCHLORO thiazide 10-12.5 MG No 1{table t} QD Lisinopril -hydroCHLO ROthiazide 10-12.5 MG Montelukast Sodium 10 MG Montelukast Sodium 10 MG No 1{table t} QD Montelukas t Sodium 10 MG Cyclobenzap rine HCl 10 MG Cyclobenzap rine HCl 10 MG No 1{table t_as_ne eded} QD Cyclobenza carolina HCl 10 MG metFORMIN HCl 500 MG metFORMIN HCl 500 MG No 1{table t_with_ a_meal} BID metFORMIN HCl 500 MG Atorvastati n Calcium 40 MG Atorvastati n Calcium 40 MG No Atorvastat in Calcium 40 MG Lisinopril- hydroCHLORO thiazide 10-12.5 MG Lisinopril- hydroCHLORO thiazide 10-12.5 MG No Lisinopril -hydroCHLO ROthiazide 10-12.5 MG Pantoprazol e Sodium 40 MG Pantoprazol e Sodium 40 MG No Pantoprazo le Sodium 40 MG Pantoprazol e Sodium 40 MG Pantoprazol e Sodium 40 MG No 1{table t} QD Pantoprazo le Sodium 40 MG traMADol HCl 50 MG traMADol HCl 50 MG No 1{table t_as_ne eded} traMADol HCl 50 MG Montelukast Sodium 10 MG Montelukast Sodium 10 MG No Montelukas t Sodium 10 MG Cyclobenzap rine HCl 10 MG Cyclobenzap rine HCl 10 MG No Cyclobenza carolina HCl 10 MG amLODIPine Besylate 5 MG amLODIPine Besylate 5 MG No amLODIPine Besylate 5 MG Fluticasone Propionate 50 MCG/ACT Fluticasone Propionate 50 MCG/ACT No 1{spray _in_eac h_nostr il} QD Fluticason e Propionate 50 MCG/ACT Phendimetra zine Tartrate 35 MG Phendimetra zine Tartrate 35 MG No QD Phendimetr azine Tartrate 35 MG metFORMIN HCl 500 MG metFORMIN HCl 500 MG No metFORMIN HCl 500 MG amLODIPine Besylate 10 MG amLODIPine Besylate 10 MG No amLODIPine Besylate 10 MG Lisinopril- hydroCHLORO thiazide 10-12.5 MG Lisinopril- hydroCHLORO thiazide 10-12.5 MG No Lisinopril -hydroCHLO ROthiazide 10-12.5 MG traMADol HCl 50 MG traMADol HCl 50 MG No 1{table t_as_ne eded} traMADol HCl 50 MG Montelukast Sodium 10 MG Montelukast Sodium 10 MG No 1{table t} QD Montelukas t Sodium 10 MG Montelukast Sodium 10 MG Montelukast Sodium 10 MG No Montelukas t Sodium 10 MG metFORMIN HCl 500 MG metFORMIN HCl 500 MG No metFORMIN HCl 500 MG Cyclobenzap rine HCl 10 MG Cyclobenzap rine HCl 10 MG No Cyclobenza carolina HCl 10 MG Fluticasone Propionate 50 MCG/ACT Fluticasone Propionate 50 MCG/ACT No 1{spray _in_eac h_nostr il} QD Fluticason e Propionate 50 MCG/ACT Pantoprazol e Sodium 40 MG Pantoprazol e Sodium 40 MG No Pantoprazo le Sodium 40 MG Atorvastati n Calcium 40 MG Atorvastati n Calcium 40 MG No Atorvastat in Calcium 40 MG Cyclobenzap rine HCl 10 MG Cyclobenzap rine HCl 10 MG No 1{table t_as_ne eded} QD Cyclobenza carolina HCl 10 MG amLODIPine Besylate 10 MG amLODIPine Besylate 10 MG No amLODIPine Besylate 10 MG Phendimetra zine Tartrate 35 MG Phendimetra zine Tartrate 35 MG No QD Phendimetr azine Tartrate 35 MG amLODIPine Besylate 5 MG amLODIPine Besylate 5 MG No amLODIPine Besylate 5 MG metFORMIN HCl 500 MG metFORMIN HCl 500 MG No 1{table t_with_ a_meal} BID metFORMIN HCl 500 MG Lisinopril- hydroCHLORO thiazide 10-12.5 MG Lisinopril- hydroCHLORO thiazide 10-12.5 MG No Lisinopril -hydroCHLO ROthiazide 10-12.5 MG Cyclobenzap rine HCl 10 MG Cyclobenzap rine HCl 10 MG No 1{table t_as_ne eded} QD Cyclobenza carolina HCl 10 MG Montelukast Sodium 10 MG Montelukast Sodium 10 MG No 1{table t} QD Montelukas t Sodium 10 MG Montelukast Sodium 10 MG Montelukast Sodium 10 MG No Montelukas t Sodium 10 MG metFORMIN HCl 500 MG metFORMIN HCl 500 MG No metFORMIN HCl 500 MG Fluticasone Propionate 50 MCG/ACT Fluticasone Propionate 50 MCG/ACT No 1{spray _in_eac h_nostr il} QD Fluticason e Propionate 50 MCG/ACT traMADol HCl 50 MG traMADol HCl 50 MG No 1{table t_as_ne eded} traMADol HCl 50 MG metFORMIN HCl 500 MG metFORMIN HCl 500 MG No 1{table t_with_ a_meal} BID metFORMIN HCl 500 MG amLODIPine Besylate 10 MG amLODIPine Besylate 10 MG No amLODIPine Besylate 10 MG amLODIPine Besylate 5 MG amLODIPine Besylate 5 MG No amLODIPine Besylate 5 MG Cyclobenzap rine HCl 10 MG Cyclobenzap rine HCl 10 MG No Cyclobenza carolina HCl 10 MG Phendimetra zine Tartrate 35 MG Phendimetra zine Tartrate 35 MG No QD Phendimetr azine Tartrate 35 MG Pantoprazol e Sodium 40 MG Pantoprazol e Sodium 40 MG No Pantoprazo le Sodium 40 MG Atorvastati n Calcium 40 MG Atorvastati n Calcium 40 MG No Atorvastat in Calcium 40 MG Atorvastati n Calcium 40 MG Atorvastati n Calcium 40 MG No Atorvastat in Calcium 40 MG amLODIPine Besylate 10 MG amLODIPine Besylate 10 MG No amLODIPine Besylate 10 MG metFORMIN HCl 500 MG metFORMIN HCl 500 MG No 1{table t_with_ a_meal} BID metFORMIN HCl 500 MG Atorvastati n Calcium 40 MG Atorvastati n Calcium 40 MG No 1{table t} QD Atorvastat in Calcium 40 MG Lisinopril- hydroCHLORO thiazide 10-12.5 MG Lisinopril- hydroCHLORO thiazide 10-12.5 MG No Lisinopril -hydroCHLO ROthiazide 10-12.5 MG Pantoprazol e Sodium 40 MG Pantoprazol e Sodium 40 MG No Pantoprazo le Sodium 40 MG Montelukast Sodium 10 MG Montelukast Sodium 10 MG No Montelukas t Sodium 10 MG metFORMIN HCl 500 MG metFORMIN HCl 500 MG No metFORMIN HCl 500 MG Cyclobenzap rine HCl 10 MG Cyclobenzap rine HCl 10 MG No 1{table t_as_ne eded} QD Cyclobenza carolina HCl 10 MG Pantoprazol e Sodium 40 MG Pantoprazol e Sodium 40 MG No 1{table t} QD Pantoprazo le Sodium 40 MG amLODIPine Besylate 5 MG amLODIPine Besylate 5 MG No amLODIPine Besylate 5 MG Fluticasone Propionate 50 MCG/ACT Fluticasone Propionate 50 MCG/ACT No 1{spray _in_eac h_nostr il} QD Fluticason e Propionate 50 MCG/ACT Lisinopril- hydroCHLORO thiazide 10-12.5 MG Lisinopril- hydroCHLORO thiazide 10-12.5 MG No 1{table t} QD Lisinopril -hydroCHLO ROthiazide 10-12.5 MG traMADol HCl 50 MG traMADol HCl 50 MG No 1{table t_as_ne eded} traMADol HCl 50 MG Phendimetra zine Tartrate 35 MG Phendimetra zine Tartrate 35 MG No QD Phendimetr azine Tartrate 35 MG Montelukast Sodium 10 MG Montelukast Sodium 10 MG No 1{table t} QD Montelukas t Sodium 10 MG Cyclobenzap rine HCl 10 MG Cyclobenzap rine HCl 10 MG No Cyclobenza carolina HCl 10 MG Montelukast Sodium 10 MG Montelukast Sodium 10 MG No Montelukas t Sodium 10 MG Cyclobenzap rine HCl 10 MG Cyclobenzap rine HCl 10 MG No Cyclobenza carolina HCl 10 MG metFORMIN HCl 500 MG metFORMIN HCl 500 MG No metFORMIN HCl 500 MG Atorvastati n Calcium 40 MG Atorvastati n Calcium 40 MG No Atorvastat in Calcium 40 MG Pantoprazol e Sodium 40 MG Pantoprazol e Sodium 40 MG No 1{table t} QD Pantoprazo le Sodium 40 MG Lisinopril- hydroCHLORO thiazide 10-12.5 MG Lisinopril- hydroCHLORO thiazide 10-12.5 MG No 1{table t} QD Lisinopril -hydroCHLO ROthiazide 10-12.5 MG Montelukast Sodium 10 MG Montelukast Sodium 10 MG No 1{table t} QD Montelukas t Sodium 10 MG metFORMIN HCl 500 MG metFORMIN HCl 500 MG No 1{table t_with_ a_meal} BID metFORMIN HCl 500 MG Phendimetra zine Tartrate 35 MG Phendimetra zine Tartrate 35 MG No QD Phendimetr azine Tartrate 35 MG amLODIPine Besylate 10 MG amLODIPine Besylate 10 MG No amLODIPine Besylate 10 MG Atorvastati n Calcium 40 MG Atorvastati n Calcium 40 MG No 1{table t} QD Atorvastat in Calcium 40 MG Pantoprazol e Sodium 40 MG Pantoprazol e Sodium 40 MG No Pantoprazo le Sodium 40 MG Cyclobenzap rine HCl 10 MG Cyclobenzap rine HCl 10 MG No 1{table t_as_ne eded} QD Cyclobenza carolina HCl 10 MG amLODIPine Besylate 5 MG amLODIPine Besylate 5 MG No amLODIPine Besylate 5 MG Fluticasone Propionate 50 MCG/ACT Fluticasone Propionate 50 MCG/ACT No 1{spray _in_eac h_nostr il} QD Fluticason e Propionate 50 MCG/ACT traMADol HCl 50 MG traMADol HCl 50 MG No 1{table t_as_ne eded} traMADol HCl 50 MG Lisinopril- hydroCHLORO thiazide 10-12.5 MG Lisinopril- hydroCHLORO thiazide 10-12.5 MG No Lisinopril -hydroCHLO ROthiazide 10-12.5 MG Pantoprazol e Sodium 40 MG Pantoprazol e Sodium 40 MG No Pantoprazo le Sodium 40 MG metFORMIN HCl 500 MG metFORMIN HCl 500 MG No 1{table t_with_ a_meal} BID metFORMIN HCl 500 MG Lisinopril- hydroCHLORO thiazide 10-12.5 MG Lisinopril- hydroCHLORO thiazide 10-12.5 MG No Lisinopril -hydroCHLO ROthiazide 10-12.5 MG amLODIPine Besylate 10 MG amLODIPine Besylate 10 MG No amLODIPine Besylate 10 MG Montelukast Sodium 10 MG Montelukast Sodium 10 MG No 1{table t} QD Montelukas t Sodium 10 MG Phendimetra zine Tartrate 35 MG Phendimetra zine Tartrate 35 MG No QD Phendimetr azine Tartrate 35 MG Tylenol with Codeine #3 Tylenol with Codeine #3 No Tylenol with Codeine #3 Montelukast Sodium 10 MG Montelukast Sodium 10 MG No Montelukas t Sodium 10 MG Cyclobenzap rine HCl 10 MG Cyclobenzap rine HCl 10 MG No 1{table t_as_ne eded} QD Cyclobenza carolina HCl 10 MG traMADol HCl 50 MG traMADol HCl 50 MG No 1{table t_as_ne eded} traMADol HCl 50 MG amLODIPine Besylate 5 MG amLODIPine Besylate 5 MG No amLODIPine Besylate 5 MG Pantoprazol e Sodium 40 MG Pantoprazol e Sodium 40 MG No 1{table t} QD Pantoprazo le Sodium 40 MG Fluticasone Propionate 50 MCG/ACT Fluticasone Propionate 50 MCG/ACT No 1{spray _in_eac h_nostr il} QD Fluticason e Propionate 50 MCG/ACT Atorvastati n Calcium 40 MG Atorvastati n Calcium 40 MG No Atorvastat in Calcium 40 MG Atorvastati n Calcium 40 MG Atorvastati n Calcium 40 MG No 1{table t} QD Atorvastat in Calcium 40 MG Lisinopril- hydroCHLORO thiazide 10-12.5 MG Lisinopril- hydroCHLORO thiazide 10-12.5 MG No 1{table t} QD Lisinopril -hydroCHLO ROthiazide 10-12.5 MG metFORMIN HCl 500 MG metFORMIN HCl 500 MG No metFORMIN HCl 500 MG Cyclobenzap rine HCl 10 MG Cyclobenzap rine HCl 10 MG No Cyclobenza carolina HCl 10 MG Lisinopril- hydroCHLORO thiazide 10-12.5 MG Lisinopril- hydroCHLORO thiazide 10-12.5 MG No 1{table t} QD Lisinopril -hydroCHLO ROthiazide 10-12.5 MG Cyclobenzap rine HCl 10 MG Cyclobenzap rine HCl 10 MG No Cyclobenza carolina HCl 10 MG Fluticasone Propionate 50 MCG/ACT Fluticasone Propionate 50 MCG/ACT No 1{spray _in_eac h_nostr il} QD Fluticason e Propionate 50 MCG/ACT metFORMIN HCl 500 MG metFORMIN HCl 500 MG No 1{table t_with_ a_meal} BID metFORMIN HCl 500 MG Montelukast Sodium 10 MG Montelukast Sodium 10 MG No Montelukas t Sodium 10 MG Lisinopril- hydroCHLORO thiazide 10-12.5 MG Lisinopril- hydroCHLORO thiazide 10-12.5 MG No Lisinopril -hydroCHLO ROthiazide 10-12.5 MG Atorvastati n Calcium 40 MG Atorvastati n Calcium 40 MG No Atorvastat in Calcium 40 MG Atorvastati n Calcium 40 MG Atorvastati n Calcium 40 MG No 1{table t} QD Atorvastat in Calcium 40 MG traMADol HCl 50 MG traMADol HCl 50 MG No 1{table t_as_ne eded} traMADol HCl 50 MG amLODIPine Besylate 5 MG amLODIPine Besylate 5 MG No amLODIPine Besylate 5 MG Cyclobenzap rine HCl 10 MG Cyclobenzap rine HCl 10 MG No 1{table t_as_ne eded} QD Cyclobenza carolina HCl 10 MG Pantoprazol e Sodium 40 MG Pantoprazol e Sodium 40 MG No Pantoprazo le Sodium 40 MG Tylenol with Codeine #3 Tylenol with Codeine #3 No Tylenol with Codeine #3 Phendimetra zine Tartrate 35 MG Phendimetra zine Tartrate 35 MG No QD Phendimetr azine Tartrate 35 MG amLODIPine Besylate 10 MG amLODIPine Besylate 10 MG No amLODIPine Besylate 10 MG Montelukast Sodium 10 MG Montelukast Sodium 10 MG No 1{table t} QD Montelukas t Sodium 10 MG metFORMIN HCl 500 MG metFORMIN HCl 500 MG No metFORMIN HCl 500 MG Pantoprazol e Sodium 40 MG Pantoprazol e Sodium 40 MG No 1{table t} QD Pantoprazo le Sodium 40 MG amLODIPine Besylate 10 MG amLODIPine Besylate 10 MG No amLODIPine Besylate 10 MG Pantoprazol e Sodium 40 MG Pantoprazol e Sodium 40 MG No 1{table t} QD Pantoprazo le Sodium 40 MG Cyclobenzap rine HCl 10 MG Cyclobenzap rine HCl 10 MG No Cyclobenza carolina HCl 10 MG Phendimetra zine Tartrate 35 MG Phendimetra zine Tartrate 35 MG No QD Phendimetr azine Tartrate 35 MG methylPREDN ISolone 4 MG methylPREDN ISolone 4 MG No QD methylPRED NISolone 4 MG Fluticasone Propionate 50 MCG/ACT Fluticasone Propionate 50 MCG/ACT No 1{spray _in_eac h_nostr il} QD Fluticason e Propionate 50 MCG/ACT Pseudoeph-B romphen-DM 30-2-10 MG/5ML Pseudoeph-B romphen-DM 30-2-10 MG/5ML No 5{ml_as _needed } QID Pseudoeph- Bromphen-D M 30-2-10 MG/5ML traMADol HCl 50 MG traMADol HCl 50 MG No 1{table t_as_ne eded} traMADol HCl 50 MG metFORMIN HCl 500 MG metFORMIN HCl 500 MG No 1{table t_with_ a_meal} BID metFORMIN HCl 500 MG Montelukast Sodium 10 MG Montelukast Sodium 10 MG No Montelukas t Sodium 10 MG Pantoprazol e Sodium 40 MG Pantoprazol e Sodium 40 MG No Pantoprazo le Sodium 40 MG Lisinopril- hydroCHLORO thiazide 10-12.5 MG Lisinopril- hydroCHLORO thiazide 10-12.5 MG No 1{table t} QD Lisinopril -hydroCHLO ROthiazide 10-12.5 MG Lisinopril- hydroCHLORO thiazide 10-12.5 MG Lisinopril- hydroCHLORO thiazide 10-12.5 MG No Lisinopril -hydroCHLO ROthiazide 10-12.5 MG Atorvastati n Calcium 40 MG Atorvastati n Calcium 40 MG No Atorvastat in Calcium 40 MG Cyclobenzap rine HCl 10 MG Cyclobenzap rine HCl 10 MG No 1{table t_as_ne eded} QD Cyclobenza carolina HCl 10 MG metFORMIN HCl 500 MG metFORMIN HCl 500 MG No metFORMIN HCl 500 MG Atorvastati n Calcium 40 MG Atorvastati n Calcium 40 MG No 1{table t} QD Atorvastat in Calcium 40 MG Montelukast Sodium 10 MG Montelukast Sodium 10 MG No 1{table t} QD Montelukas t Sodium 10 MG Tylenol with Codeine #3 Tylenol with Codeine #3 No Tylenol with Codeine #3 amLODIPine Besylate 5 MG amLODIPine Besylate 5 MG No amLODIPine Besylate 5 MG amLODIPine Besylate 10 MG amLODIPine Besylate 10 MG No amLODIPine Besylate 10 MG Pantoprazol e Sodium 40 MG Pantoprazol e Sodium 40 MG No 1{table t} QD Pantoprazo le Sodium 40 MG Cyclobenzap rine HCl 10 MG Cyclobenzap rine HCl 10 MG No Cyclobenza carolina HCl 10 MG Phendimetra zine Tartrate 35 MG Phendimetra zine Tartrate 35 MG No QD Phendimetr azine Tartrate 35 MG methylPREDN ISolone 4 MG methylPREDN ISolone 4 MG No QD methylPRED NISolone 4 MG Fluticasone Propionate 50 MCG/ACT Fluticasone Propionate 50 MCG/ACT No 1{spray _in_eac h_nostr il} QD Fluticason e Propionate 50 MCG/ACT Pseudoeph-B romphen-DM 30-2-10 MG/5ML Pseudoeph-B romphen-DM 30-2-10 MG/5ML No 5{ml_as _needed } QID Pseudoeph- Bromphen-D M 30-2-10 MG/5ML traMADol HCl 50 MG traMADol HCl 50 MG No 1{table t_as_ne eded} traMADol HCl 50 MG metFORMIN HCl 500 MG metFORMIN HCl 500 MG No 1{table t_with_ a_meal} BID metFORMIN HCl 500 MG Montelukast Sodium 10 MG Montelukast Sodium 10 MG No Montelukas t Sodium 10 MG Pantoprazol e Sodium 40 MG Pantoprazol e Sodium 40 MG No Pantoprazo le Sodium 40 MG Lisinopril- hydroCHLORO thiazide 10-12.5 MG Lisinopril- hydroCHLORO thiazide 10-12.5 MG No 1{table t} QD Lisinopril -hydroCHLO ROthiazide 10-12.5 MG Lisinopril- hydroCHLORO thiazide 10-12.5 MG Lisinopril- hydroCHLORO thiazide 10-12.5 MG No Lisinopril -hydroCHLO ROthiazide 10-12.5 MG Atorvastati n Calcium 40 MG Atorvastati n Calcium 40 MG No Atorvastat in Calcium 40 MG Cyclobenzap rine HCl 10 MG Cyclobenzap rine HCl 10 MG No 1{table t_as_ne eded} QD Cyclobenza carolina HCl 10 MG metFORMIN HCl 500 MG metFORMIN HCl 500 MG No metFORMIN HCl 500 MG Atorvastati n Calcium 40 MG Atorvastati n Calcium 40 MG No 1{table t} QD Atorvastat in Calcium 40 MG Montelukast Sodium 10 MG Montelukast Sodium 10 MG No 1{table t} QD Montelukas t Sodium 10 MG Tylenol with Codeine #3 Tylenol with Codeine #3 No Tylenol with Codeine #3 amLODIPine Besylate 5 MG amLODIPine Besylate 5 MG No amLODIPine Besylate 5 MG amLODIPine Besylate 10 MG amLODIPine Besylate 10 MG No amLODIPine Besylate 10 MG Pantoprazol e Sodium 40 MG Pantoprazol e Sodium 40 MG No 1{table t} QD Pantoprazo le Sodium 40 MG Cyclobenzap rine HCl 10 MG Cyclobenzap rine HCl 10 MG No Cyclobenza carolina HCl 10 MG Phendimetra zine Tartrate 35 MG Phendimetra zine Tartrate 35 MG No QD Phendimetr azine Tartrate 35 MG methylPREDN ISolone 4 MG methylPREDN ISolone 4 MG No QD methylPRED NISolone 4 MG Fluticasone Propionate 50 MCG/ACT Fluticasone Propionate 50 MCG/ACT No 1{spray _in_eac h_nostr il} QD Fluticason e Propionate 50 MCG/ACT Pseudoeph-B romphen-DM 30-2-10 MG/5ML Pseudoeph-B romphen-DM 30-2-10 MG/5ML No 5{ml_as _needed } QID Pseudoeph- Bromphen-D M 30-2-10 MG/5ML traMADol HCl 50 MG traMADol HCl 50 MG No 1{table t_as_ne eded} traMADol HCl 50 MG metFORMIN HCl 500 MG metFORMIN HCl 500 MG No 1{table t_with_ a_meal} BID metFORMIN HCl 500 MG Montelukast Sodium 10 MG Montelukast Sodium 10 MG No Montelukas t Sodium 10 MG Pantoprazol e Sodium 40 MG Pantoprazol e Sodium 40 MG No Pantoprazo le Sodium 40 MG Lisinopril- hydroCHLORO thiazide 10-12.5 MG Lisinopril- hydroCHLORO thiazide 10-12.5 MG No 1{table t} QD Lisinopril -hydroCHLO ROthiazide 10-12.5 MG Lisinopril- hydroCHLORO thiazide 10-12.5 MG Lisinopril- hydroCHLORO thiazide 10-12.5 MG No Lisinopril -hydroCHLO ROthiazide 10-12.5 MG Atorvastati n Calcium 40 MG Atorvastati n Calcium 40 MG No Atorvastat in Calcium 40 MG Cyclobenzap rine HCl 10 MG Cyclobenzap rine HCl 10 MG No 1{table t_as_ne eded} QD Cyclobenza carolina HCl 10 MG metFORMIN HCl 500 MG metFORMIN HCl 500 MG No metFORMIN HCl 500 MG Atorvastati n Calcium 40 MG Atorvastati n Calcium 40 MG No 1{table t} QD Atorvastat in Calcium 40 MG Montelukast Sodium 10 MG Montelukast Sodium 10 MG No 1{table t} QD Montelukas t Sodium 10 MG Tylenol with Codeine #3 Tylenol with Codeine #3 No Tylenol with Codeine #3 amLODIPine Besylate 5 MG amLODIPine Besylate 5 MG No amLODIPine Besylate 5 MG Montelukast Sodium 10 MG Montelukast Sodium 10 MG No 1{table t} QD Montelukas t Sodium 10 MG traMADol HCl 50 MG traMADol HCl 50 MG No 1{table t_as_ne eded} traMADol HCl 50 MG Atorvastati n Calcium 40 MG Atorvastati n Calcium 40 MG No 1{table t} QD Atorvastat in Calcium 40 MG amLODIPine Besylate 5 MG amLODIPine Besylate 5 MG No amLODIPine Besylate 5 MG metFORMIN HCl 500 MG metFORMIN HCl 500 MG No 1{table t_with_ a_meal} BID metFORMIN HCl 500 MG Pseudoeph-B romphen-DM 30-2-10 MG/5ML Pseudoeph-B romphen-DM 30-2-10 MG/5ML No 5{ml_as _needed } QID Pseudoeph- Bromphen-D M 30-2-10 MG/5ML Lisinopril- hydroCHLORO thiazide 10-12.5 MG Lisinopril- hydroCHLORO thiazide 10-12.5 MG No 1{table t} QD Lisinopril -hydroCHLO ROthiazide 10-12.5 MG Tylenol with Codeine #3 Tylenol with Codeine #3 No Tylenol with Codeine #3 metFORMIN HCl 500 MG metFORMIN HCl 500 MG No metFORMIN HCl 500 MG Lisinopril- hydroCHLORO thiazide 10-12.5 MG Lisinopril- hydroCHLORO thiazide 10-12.5 MG No Lisinopril -hydroCHLO ROthiazide 10-12.5 MG Phendimetra zine Tartrate 35 MG Phendimetra zine Tartrate 35 MG No QD Phendimetr azine Tartrate 35 MG methylPREDN ISolone 4 MG methylPREDN ISolone 4 MG No QD methylPRED NISolone 4 MG Pantoprazol e Sodium 40 MG Pantoprazol e Sodium 40 MG No 1{table t} QD Pantoprazo le Sodium 40 MG Atorvastati n Calcium 40 MG Atorvastati n Calcium 40 MG No Atorvastat in Calcium 40 MG Montelukast Sodium 10 MG Montelukast Sodium 10 MG No Montelukas t Sodium 10 MG Cyclobenzap rine HCl 10 MG Cyclobenzap rine HCl 10 MG No 1{table t_as_ne eded} QD Cyclobenza carolina HCl 10 MG amLODIPine Besylate 10 MG amLODIPine Besylate 10 MG No amLODIPine Besylate 10 MG Cyclobenzap rine HCl 10 MG Cyclobenzap rine HCl 10 MG No Cyclobenza carolina HCl 10 MG Pantoprazol e Sodium 40 MG Pantoprazol e Sodium 40 MG No Pantoprazo le Sodium 40 MG Fluticasone Propionate 50 MCG/ACT Fluticasone Propionate 50 MCG/ACT No 1{spray _in_eac h_nostr il} QD Fluticason e Propionate 50 MCG/ACT traMADol HCl 50 MG traMADol HCl 50 MG No 1{table t_as_ne eded} traMADol HCl 50 MG Jardiance 25 MG Jardiance 25 MG No 1{table t} QD Jardiance 25 MG Tylenol with Codeine #3 Tylenol with Codeine #3 No Tylenol with Codeine #3 Cyclobenzap rine HCl 10 MG Cyclobenzap rine HCl 10 MG No Cyclobenza carolina HCl 10 MG Montelukast Sodium 10 MG Montelukast Sodium 10 MG No 1{table t} QD Montelukas t Sodium 10 MG metFORMIN HCl 500 MG metFORMIN HCl 500 MG No 1{table t_with_ a_meal} BID metFORMIN HCl 500 MG Fluticasone Propionate 50 MCG/ACT Fluticasone Propionate 50 MCG/ACT No 1{spray _in_eac h_nostr il} QD Fluticason e Propionate 50 MCG/ACT Atorvastati n Calcium 40 MG Atorvastati n Calcium 40 MG No 1{table t} QD Atorvastat in Calcium 40 MG Pantoprazol e Sodium 40 MG Pantoprazol e Sodium 40 MG No 1{table t} QD Pantoprazo le Sodium 40 MG metFORMIN HCl metFORMIN HCl No metFORMIN HCl Lisinopril- hydroCHLORO thiazide 10-12.5 MG Lisinopril- hydroCHLORO thiazide 10-12.5 MG No 1{table t} QD Lisinopril -hydroCHLO ROthiazide 10-12.5 MG metFORMIN HCl metFORMIN HCl No metFORMIN HCl metFORMIN HCl 500 MG metFORMIN HCl 500 MG No 1{table t_with_ a_meal} BID metFORMIN HCl 500 MG Cyclobenzap rine HCl 10 MG Cyclobenzap rine HCl 10 MG No 1{table t_as_ne eded} QD Cyclobenza carolina HCl 10 MG Jardiance 25 MG Jardiance 25 MG No 1{table t} QD Jardiance 25 MG Fluticasone Propionate 50 MCG/ACT Fluticasone Propionate 50 MCG/ACT No 1{spray _in_eac h_nostr il} QD Fluticason e Propionate 50 MCG/ACT Jardiance 25 MG Jardiance 25 MG No 1{table t} QD Jardiance 25 MG Montelukast Sodium 10 MG Montelukast Sodium 10 MG No 1{table t} QD Montelukas t Sodium 10 MG Lisinopril- hydroCHLORO thiazide 10-12.5 MG Lisinopril- hydroCHLORO thiazide 10-12.5 MG No 1{table t} QD Lisinopril -hydroCHLO ROthiazide 10-12.5 MG Pantoprazol e Sodium 40 MG Pantoprazol e Sodium 40 MG No 1{table t} QD Pantoprazo le Sodium 40 MG Cyclobenzap rine HCl 10 MG Cyclobenzap rine HCl 10 MG No Cyclobenza carolina HCl 10 MG Atorvastati n Calcium 40 MG Atorvastati n Calcium 40 MG No 1{table t} QD Atorvastat in Calcium 40 MG traMADol HCl 50 MG traMADol HCl 50 MG No 1{table t_as_ne eded} traMADol HCl 50 MG Tylenol with Codeine #3 Tylenol with Codeine #3 No Tylenol with Codeine #3 metFORMIN HCl metFORMIN HCl No metFORMIN HCl metFORMIN HCl 500 MG metFORMIN HCl 500 MG No 1{table t_with_ a_meal} BID metFORMIN HCl 500 MG Cyclobenzap rine HCl 10 MG Cyclobenzap rine HCl 10 MG No 1{table t_as_ne eded} QD Cyclobenza carolina HCl 10 MG Jardiance 25 MG Jardiance 25 MG No 1{table t} QD Jardiance 25 MG Fluticasone Propionate 50 MCG/ACT Fluticasone Propionate 50 MCG/ACT No 1{spray _in_eac h_nostr il} QD Fluticason e Propionate 50 MCG/ACT Jardiance 25 MG Jardiance 25 MG No 1{table t} QD Jardiance 25 MG Montelukast Sodium 10 MG Montelukast Sodium 10 MG No 1{table t} QD Montelukas t Sodium 10 MG Lisinopril- hydroCHLORO thiazide 10-12.5 MG Lisinopril- hydroCHLORO thiazide 10-12.5 MG No 1{table t} QD Lisinopril -hydroCHLO ROthiazide 10-12.5 MG Pantoprazol e Sodium 40 MG Pantoprazol e Sodium 40 MG No 1{table t} QD Pantoprazo le Sodium 40 MG Cyclobenzap rine HCl 10 MG Cyclobenzap rine HCl 10 MG No Cyclobenza carolina HCl 10 MG Atorvastati n Calcium 40 MG Atorvastati n Calcium 40 MG No 1{table t} QD Atorvastat in Calcium 40 MG traMADol HCl 50 MG traMADol HCl 50 MG No 1{table t_as_ne eded} traMADol HCl 50 MG Tylenol with Codeine #3 Tylenol with Codeine #3 No Tylenol with Codeine #3 metFORMIN HCl metFORMIN HCl No metFORMIN HCl metFORMIN HCl 500 MG metFORMIN HCl 500 MG No 1{table t_with_ a_meal} BID metFORMIN HCl 500 MG Cyclobenzap rine HCl 10 MG Cyclobenzap rine HCl 10 MG No 1{table t_as_ne eded} QD Cyclobenza carolina HCl 10 MG Jardiance 25 MG Jardiance 25 MG No 1{table t} QD Jardiance 25 MG Fluticasone Propionate 50 MCG/ACT Fluticasone Propionate 50 MCG/ACT No 1{spray _in_eac h_nostr il} QD Fluticason e Propionate 50 MCG/ACT Jardiance 25 MG Jardiance 25 MG No 1{table t} QD Jardiance 25 MG Montelukast Sodium 10 MG Montelukast Sodium 10 MG No 1{table t} QD Montelukas t Sodium 10 MG Lisinopril- hydroCHLORO thiazide 10-12.5 MG Lisinopril- hydroCHLORO thiazide 10-12.5 MG No 1{table t} QD Lisinopril -hydroCHLO ROthiazide 10-12.5 MG Pantoprazol e Sodium 40 MG Pantoprazol e Sodium 40 MG No 1{table t} QD Pantoprazo le Sodium 40 MG Cyclobenzap rine HCl 10 MG Cyclobenzap rine HCl 10 MG No Cyclobenza carolina HCl 10 MG Atorvastati n Calcium 40 MG Atorvastati n Calcium 40 MG No 1{table t} QD Atorvastat in Calcium 40 MG traMADol HCl 50 MG traMADol HCl 50 MG No 1{table t_as_ne eded} traMADol HCl 50 MG Tylenol with Codeine #3 Tylenol with Codeine #3 No Tylenol with Codeine #3 Cyclobenzap rine HCl 10 MG Cyclobenzap rine HCl 10 MG No Cyclobenza carolina HCl 10 MG Pantoprazol e Sodium 40 MG Pantoprazol e Sodium 40 MG No 1{table t} QD Pantoprazo le Sodium 40 MG Jardiance 25 MG Jardiance 25 MG No 1{table t} QD Jardiance 25 MG Montelukast Sodium 10 MG Montelukast Sodium 10 MG No 1{table t} QD Montelukas t Sodium 10 MG Atorvastati n Calcium 40 MG Atorvastati n Calcium 40 MG No 1{table t} QD Atorvastat in Calcium 40 MG traMADol HCl 50 MG traMADol HCl 50 MG No 1{table t_as_ne eded} traMADol HCl 50 MG Cyclobenzap rine HCl 10 MG Cyclobenzap rine HCl 10 MG No 1{table t_as_ne eded} QD Cyclobenza carolina HCl 10 MG Lisinopril- hydroCHLORO thiazide 10-12.5 MG Lisinopril- hydroCHLORO thiazide 10-12.5 MG No 1{table t} QD Lisinopril -hydroCHLO ROthiazide 10-12.5 MG Fluticasone Propionate 50 MCG/ACT Fluticasone Propionate 50 MCG/ACT No 1{spray _in_eac h_nostr il} QD Fluticason e Propionate 50 MCG/ACT Tylenol with Codeine #3 Tylenol with Codeine #3 No Tylenol with Codeine #3 metFORMIN HCl metFORMIN HCl No metFORMIN HCl metFORMIN HCl 500 MG metFORMIN HCl 500 MG No 1{table t_with_ a_meal} BID metFORMIN HCl 500 MG Jardiance 25 MG Jardiance 25 MG No 1{table t} QD Jardiance 25 MG Cyclobenzap rine HCl 10 MG Cyclobenzap rine HCl 10 MG No Cyclobenza carolina HCl 10 MG Pantoprazol e Sodium 40 MG Pantoprazol e Sodium 40 MG No 1{table t} QD Pantoprazo le Sodium 40 MG Jardiance 25 MG Jardiance 25 MG No 1{table t} QD Jardiance 25 MG Montelukast Sodium 10 MG Montelukast Sodium 10 MG No 1{table t} QD Montelukas t Sodium 10 MG Atorvastati n Calcium 40 MG Atorvastati n Calcium 40 MG No 1{table t} QD Atorvastat in Calcium 40 MG traMADol HCl 50 MG traMADol HCl 50 MG No 1{table t_as_ne eded} traMADol HCl 50 MG Pantoprazol e Sodium 40 MG Pantoprazol e Sodium 40 MG No Pantoprazo le Sodium 40 MG Cyclobenzap rine HCl 10 MG Cyclobenzap rine HCl 10 MG No 1{table t_as_ne eded} QD Cyclobenza carolina HCl 10 MG Lisinopril- hydroCHLORO thiazide 10-12.5 MG Lisinopril- hydroCHLORO thiazide 10-12.5 MG No 1{table t} QD Lisinopril -hydroCHLO ROthiazide 10-12.5 MG Fluticasone Propionate 50 MCG/ACT Fluticasone Propionate 50 MCG/ACT No 1{spray _in_eac h_nostr il} QD Fluticason e Propionate 50 MCG/ACT Tylenol with Codeine #3 Tylenol with Codeine #3 No Tylenol with Codeine #3 metFORMIN HCl metFORMIN HCl No metFORMIN HCl metFORMIN HCl 500 MG metFORMIN HCl 500 MG No 1{table t_with_ a_meal} BID metFORMIN HCl 500 MG Jardiance 25 MG Jardiance 25 MG No 1{table t} QD Jardiance 25 MG metFORMIN HCl 500 MG metFORMIN HCl 500 MG No 1{table t_with_ a_meal} BID metFORMIN HCl 500 MG Cyclobenzap rine HCl 10 MG Cyclobenzap rine HCl 10 MG No Cyclobenza carolina HCl 10 MG Pantoprazol e Sodium 40 MG Pantoprazol e Sodium 40 MG No 1{table t} QD Pantoprazo le Sodium 40 MG Jardiance 25 MG Jardiance 25 MG No 1{table t} QD Jardiance 25 MG Lisinopril- hydroCHLORO thiazide 10-12.5 MG Lisinopril- hydroCHLORO thiazide 10-12.5 MG No Lisinopril -hydroCHLO ROthiazide 10-12.5 MG Montelukast Sodium 10 MG Montelukast Sodium 10 MG No 1{table t} QD Montelukas t Sodium 10 MG Atorvastati n Calcium 40 MG Atorvastati n Calcium 40 MG No 1{table t} QD Atorvastat in Calcium 40 MG traMADol HCl 50 MG traMADol HCl 50 MG No 1{table t_as_ne eded} traMADol HCl 50 MG Cyclobenzap rine HCl 10 MG Cyclobenzap rine HCl 10 MG No 1{table t_as_ne eded} QD Cyclobenza carolina HCl 10 MG Lisinopril- hydroCHLORO thiazide 10-12.5 MG Lisinopril- hydroCHLORO thiazide 10-12.5 MG No 1{table t} QD Lisinopril -hydroCHLO ROthiazide 10-12.5 MG Fluticasone Propionate 50 MCG/ACT Fluticasone Propionate 50 MCG/ACT No 1{spray _in_eac h_nostr il} QD Fluticason e Propionate 50 MCG/ACT Tylenol with Codeine #3 Tylenol with Codeine #3 No Tylenol with Codeine #3 metFORMIN HCl metFORMIN HCl No metFORMIN HCl metFORMIN HCl 500 MG metFORMIN HCl 500 MG No 1{table t_with_ a_meal} BID metFORMIN HCl 500 MG amLODIPine Besylate 10 MG amLODIPine Besylate 10 MG No amLODIPine Besylate 10 MG Jardiance 25 MG Jardiance 25 MG No 1{table t} QD Jardiance 25 MG Montelukast Sodium 10 MG Montelukast Sodium 10 MG No 1{table t} QD Montelukas t Sodium 10 MG Cyclobenzap rine HCl 10 MG Cyclobenzap rine HCl 10 MG No Cyclobenza carolina HCl 10 MG Pantoprazol e Sodium 40 MG Pantoprazol e Sodium 40 MG No 1{table t} QD Pantoprazo le Sodium 40 MG Jardiance 25 MG Jardiance 25 MG No 1{table t} QD Jardiance 25 MG Montelukast Sodium 10 MG Montelukast Sodium 10 MG No 1{table t} QD Montelukas t Sodium 10 MG Atorvastati n Calcium 40 MG Atorvastati n Calcium 40 MG No 1{table t} QD Atorvastat in Calcium 40 MG traMADol HCl 50 MG traMADol HCl 50 MG No 1{table t_as_ne eded} traMADol HCl 50 MG Cyclobenzap rine HCl 10 MG Cyclobenzap rine HCl 10 MG No 1{table t_as_ne eded} QD Cyclobenza carolina HCl 10 MG Lisinopril- hydroCHLORO thiazide 10-12.5 MG Lisinopril- hydroCHLORO thiazide 10-12.5 MG No 1{table t} QD Lisinopril -hydroCHLO ROthiazide 10-12.5 MG Fluticasone Propionate 50 MCG/ACT Fluticasone Propionate 50 MCG/ACT No 1{spray _in_eac h_nostr il} QD Fluticason e Propionate 50 MCG/ACT Phendimetra zine Tartrate 35 MG Phendimetra zine Tartrate 35 MG No QD Phendimetr azine Tartrate 35 MG Tylenol with Codeine #3 Tylenol with Codeine #3 No Tylenol with Codeine #3 metFORMIN HCl metFORMIN HCl No metFORMIN HCl metFORMIN HCl 500 MG metFORMIN HCl 500 MG No 1{table t_with_ a_meal} BID metFORMIN HCl 500 MG Jardiance 25 MG Jardiance 25 MG No 1{table t} QD Jardiance 25 MG Tylenol with Codeine #3 Tylenol with Codeine #3 No Tylenol with Codeine #3 Montelukast Sodium 10 MG Montelukast Sodium 10 MG No Montelukas t Sodium 10 MG Cyclobenzap rine HCl 10 MG Cyclobenzap rine HCl 10 MG No Cyclobenza carolina HCl 10 MG Pantoprazol e Sodium 40 MG Pantoprazol e Sodium 40 MG No 1{table t} QD Pantoprazo le Sodium 40 MG Jardiance 25 MG Jardiance 25 MG No 1{table t} QD Jardiance 25 MG Montelukast Sodium 10 MG Montelukast Sodium 10 MG No 1{table t} QD Montelukas t Sodium 10 MG Atorvastati n Calcium 40 MG Atorvastati n Calcium 40 MG No 1{table t} QD Atorvastat in Calcium 40 MG traMADol HCl 50 MG traMADol HCl 50 MG No 1{table t_as_ne eded} traMADol HCl 50 MG Cyclobenzap rine HCl 10 MG Cyclobenzap rine HCl 10 MG No 1{table t_as_ne eded} QD Cyclobenza carolina HCl 10 MG Lisinopril- hydroCHLORO thiazide 10-12.5 MG Lisinopril- hydroCHLORO thiazide 10-12.5 MG No 1{table t} QD Lisinopril -hydroCHLO ROthiazide 10-12.5 MG Cyclobenzap rine HCl 10 MG Cyclobenzap rine HCl 10 MG No 1{table t_as_ne eded} QD Cyclobenza carolina HCl 10 MG Fluticasone Propionate 50 MCG/ACT Fluticasone Propionate 50 MCG/ACT No 1{spray _in_eac h_nostr il} QD Fluticason e Propionate 50 MCG/ACT Tylenol with Codeine #3 Tylenol with Codeine #3 No Tylenol with Codeine #3 metFORMIN HCl metFORMIN HCl No metFORMIN HCl metFORMIN HCl 500 MG metFORMIN HCl 500 MG No 1{table t_with_ a_meal} BID metFORMIN HCl 500 MG Jardiance 25 MG Jardiance 25 MG No 1{table t} QD Jardiance 25 MG Phendimetra zine Tartrate Phendimetra zine Tartrate 10-12 00:00 :00 No Mode [facility] 1 tablet 1 hour before a meal [facility] Immunizations Ordered Immunization Name Filled Immunization Name Date Status Comments Source Flucelvax - single dose syringe Flucelvax - single dose syringe 2022-01-06 14:17:00 Completed [facility] Flucelvax - single dose syringe Flucelvax - single dose syringe 2022-01-06 14:17:00 Completed [facility] Flucelvax - single dose syringe Flucelvax - single dose syringe 2022-01-06 14:17:00 Completed [facility] Flucelvax - single dose syringe Flucelvax - single dose syringe 2022-01-06 14:17:00 Completed [facility] Flucelvax - single dose syringe Flucelvax - single dose syringe 2022-01-06 14:17:00 Completed [facility] Flucelvax - single dose syringe Flucelvax - single dose syringe 2022-01-06 14:17:00 Completed [facility] Flucelvax - single dose syringe Flucelvax - single dose syringe 2022-01-06 14:17:00 Completed [facility] Flucelvax - single dose syringe Flucelvax - single dose syringe 2022-01-06 14:17:00 Completed [facility] Flucelvax - single dose syringe Flucelvax - single dose syringe 2022-01-06 14:17:00 Completed [facility] Flucelvax - single dose syringe Flucelvax - single dose syringe 2022-01-06 14:17:00 Completed [facility] Flucelvax - single dose syringe Flucelvax - single dose syringe 2022-01-06 14:17:00 Completed [facility] Flucelvax - single dose syringe Flucelvax - single dose syringe 2022-01-06 14:17:00 Completed [facility] Moderna COVID-19 Vaccine Moderna COVID-19 Vaccine 2020-08-07 17:23:00 Completed [facility] Moderna COVID-19 Vaccine Moderna COVID-19 Vaccine 2020-08-07 17:23:00 Completed [facility] Moderna COVID-19 Vaccine Moderna COVID-19 Vaccine 2020-08-07 17:23:00 Completed [facility] Moderna COVID-19 Vaccine Moderna COVID-19 Vaccine 2020-08-07 17:23:00 Completed [facility] Moderna COVID-19 Vaccine Moderna COVID-19 Vaccine 2020-08-07 17:23:00 Completed [facility] Moderna COVID-19 Vaccine Moderna COVID-19 Vaccine 2020-08-07 17:23:00 Completed [facility] Moderna COVID-19 Vaccine Moderna COVID-19 Vaccine 2020-08-07 17:23:00 Completed [facility] Moderna COVID-19 Vaccine Moderna COVID-19 Vaccine 2020-08-07 17:23:00 Completed [facility] Moderna COVID-19 Vaccine Moderna COVID-19 Vaccine 2020-08-07 17:23:00 Completed [facility] Moderna COVID-19 Vaccine Moderna COVID-19 Vaccine 2020-08-07 17:23:00 Completed [facility] Moderna COVID-19 Vaccine Moderna COVID-19 Vaccine 2020-08-07 17:23:00 Completed [facility] Moderna COVID-19 Vaccine Moderna COVID-19 Vaccine 2020-08-07 17:23:00 Completed [facility] Moderna COVID-19 Vaccine Moderna COVID-19 Vaccine 2020-08-07 17:23:00 Completed [facility] Moderna COVID-19 Vaccine Moderna COVID-19 Vaccine 2020-08-07 17:23:00 Completed [facility] Moderna COVID-19 Vaccine Moderna COVID-19 Vaccine 2020-08-07 17:23:00 Completed [facility] Moderna COVID-19 Vaccine Moderna COVID-19 Vaccine 2020-08-07 17:23:00 Completed [facility] Moderna COVID-19 Vaccine Moderna COVID-19 Vaccine 2020-08-07 17:23:00 Completed [facility] Moderna COVID-19 Vaccine Moderna COVID-19 Vaccine 2020-08-07 17:23:00 Completed [facility] Moderna COVID-19 Vaccine Moderna COVID-19 Vaccine 2020-08-07 17:23:00 Completed [facility] Moderna COVID-19 Vaccine Moderna COVID-19 Vaccine 2020-08-07 17:23:00 Completed [facility] Moderna COVID-19 Vaccine Moderna COVID-19 Vaccine 2020-08-07 17:23:00 Completed [facility] Moderna COVID-19 Vaccine Moderna COVID-19 Vaccine 2020-07-10 17:22:00 Completed [facility] Moderna COVID-19 Vaccine Moderna COVID-19 Vaccine 2020-07-10 17:22:00 Completed [facility] Moderna COVID-19 Vaccine Moderna COVID-19 Vaccine 2020-07-10 17:22:00 Completed [facility] Moderna COVID-19 Vaccine Moderna COVID-19 Vaccine 2020-07-10 17:22:00 Completed [facility] Moderna COVID-19 Vaccine Moderna COVID-19 Vaccine 2020-07-10 17:22:00 Completed [facility] Moderna COVID-19 Vaccine Moderna COVID-19 Vaccine 2020-07-10 17:22:00 Completed [facility] Moderna COVID-19 Vaccine Moderna COVID-19 Vaccine 2020-07-10 17:22:00 Completed [facility] Moderna COVID-19 Vaccine Moderna COVID-19 Vaccine 2020-07-10 17:22:00 Completed [facility] Moderna COVID-19 Vaccine Moderna COVID-19 Vaccine 2020-07-10 17:22:00 Completed [facility] Moderna COVID-19 Vaccine Moderna COVID-19 Vaccine 2020-07-10 17:22:00 Completed [facility] Moderna COVID-19 Vaccine Moderna COVID-19 Vaccine 2020-07-10 17:22:00 Completed [facility] Moderna COVID-19 Vaccine Moderna COVID-19 Vaccine 2020-07-10 17:22:00 Completed [facility] Moderna COVID-19 Vaccine Moderna COVID-19 Vaccine 2020-07-10 17:22:00 Completed [facility] Moderna COVID-19 Vaccine Moderna COVID-19 Vaccine 2020-07-10 17:22:00 Completed [facility] Moderna COVID-19 Vaccine Moderna COVID-19 Vaccine 2020-07-10 17:22:00 Completed [facility] Moderna COVID-19 Vaccine Moderna COVID-19 Vaccine 2020-07-10 17:22:00 Completed [facility] Moderna COVID-19 Vaccine Moderna COVID-19 Vaccine 2020-07-10 17:22:00 Completed [facility] Moderna COVID-19 Vaccine Moderna COVID-19 Vaccine 2020-07-10 17:22:00 Completed [facility] Moderna COVID-19 Vaccine Moderna COVID-19 Vaccine 2020-07-10 17:22:00 Completed [facility] Moderna COVID-19 Vaccine Moderna COVID-19 Vaccine 2020-07-10 17:22:00 Completed [facility] Moderna COVID-19 Vaccine Moderna COVID-19 Vaccine 2020-07-10 17:22:00 Completed [facility] Afluria single dose Afluria single dose 10:26:00 Completed [facility] Afluria single dose Afluria single dose 10:26:00 Completed [facility] Afluria single dose Afluria single dose 10:26:00 Completed [facility] Afluria single dose Afluria single dose 10:26:00 Completed [facility] Afluria single dose Afluria single dose 10:26:00 Completed [facility] Afluria single dose Afluria single dose 10:26:00 Completed [facility] Afluria single dose Afluria single dose 10:26:00 Completed [facility] Afluria single dose Afluria single dose 10:26:00 Completed [facility] Afluria single dose Afluria single dose 10:26:00 Completed [facility] Afluria single dose Afluria single dose 10:26:00 Completed [facility] Afluria single dose Afluria single dose 10:26:00 Completed [facility] Afluria single dose Afluria single dose 10:26:00 Completed [facility] Afluria single dose Afluria single dose 10:26:00 Completed [facility] Afluria single dose Afluria single dose 10:26:00 Completed [facility] Afluria single dose Afluria single dose 10:26:00 Completed [facility] Afluria single dose Afluria single dose 10:26:00 Completed [facility] Afluria single dose Afluria single dose 10:26:00 Completed [facility] Afluria single dose Afluria single dose 10:26:00 Completed [facility] Afluria single dose Afluria single dose 10:26:00 Completed [facility] Afluria single dose Afluria single dose 10:26:00 Completed [facility] Afluria single dose Afluria single dose 10:26:00 Completed [facility] Afluria single dose Afluria single dose 13:15:00 Completed [facility] Afluria single dose Afluria single dose 13:15:00 Completed [facility] Afluria single dose Afluria single dose 13:15:00 Completed [facility] Afluria single dose Afluria single dose 13:15:00 Completed [facility] Afluria single dose Afluria single dose 13:15:00 Completed [facility] Afluria single dose Afluria single dose 13:15:00 Completed [facility] Afluria single dose Afluria single dose 13:15:00 Completed [facility] Afluria single dose Afluria single dose 13:15:00 Completed [facility] Afluria single dose Afluria single dose 13:15:00 Completed [facility] Afluria single dose Afluria single dose 13:15:00 Completed [facility] Afluria single dose Afluria single dose 13:15:00 Completed [facility] Afluria single dose Afluria single dose 13:15:00 Completed [facility] Afluria single dose Afluria single dose 13:15:00 Completed [facility] Afluria single dose Afluria single dose 13:15:00 Completed [facility] Afluria single dose Afluria single dose 13:15:00 Completed [facility] Afluria single dose Afluria single dose 13:15:00 Completed [facility] Afluria single dose Afluria single dose 13:15:00 Completed [facility] Afluria single dose Afluria single dose 13:15:00 Completed [facility] Afluria single dose Afluria single dose 13:15:00 Completed [facility] Afluria single dose Afluria single dose 13:15:00 Completed [facility] Afluria single dose Afluria single dose 13:15:00 Completed [facility] Afluria single dose Afluria single dose 00:00:00 Completed [facility] Kenalog (Triamcinolone) Kenalog (Triamcinolone) 2019-01-01 14:58:00 Completed [facility] Afluria single dose Afluria single dose Unknown Completed [facility] Flucelvax - single dose syringe Flucelvax - single dose syringe Unknown Completed [facility] Moderna COVID-19 Vaccine Moderna COVID-19 Vaccine Unknown Completed [facility] Moderna COVID-19 Vaccine Moderna COVID-19 Vaccine Unknown Completed [facility] Afluria single dose Afluria single dose Unknown Completed [facility] Afluria single dose Afluria single dose Unknown Completed [facility] Flucelvax - single dose syringe Flucelvax - single dose syringe Unknown Completed [facility] Moderna COVID-19 Vaccine Moderna COVID-19 Vaccine Unknown Completed [facility] Moderna COVID-19 Vaccine Moderna COVID-19 Vaccine Unknown Completed [facility] Afluria single dose Afluria single dose Unknown Completed [facility] Afluria single dose Afluria single dose Unknown Completed [facility] Flucelvax - single dose syringe Flucelvax - single dose syringe Unknown Completed [facility] Moderna COVID-19 Vaccine Moderna COVID-19 Vaccine Unknown Completed [facility] Moderna COVID-19 Vaccine Moderna COVID-19 Vaccine Unknown Completed [facility] Afluria single dose Afluria single dose Unknown Completed [facility] Afluria single dose Afluria single dose Unknown Completed [facility] Flucelvax - single dose syringe Flucelvax - single dose syringe Unknown Completed [facility] Moderna COVID-19 Vaccine Moderna COVID-19 Vaccine Unknown Completed [facility] Moderna COVID-19 Vaccine Moderna COVID-19 Vaccine Unknown Completed [facility] Afluria (IIV4) - 3 years and older - SDS - 0.5mL Afluria (IIV4) - 3 years and older - SDS - 0.5mL Unknown Completed [facility] Afluria (IIV4) - 3 years and older - SDS - 0.5mL Afluria (IIV4) - 3 years and older - SDS - 0.5mL Unknown Completed [facility] Flucelvax (ccIIV4) - SDS - 0.5mL Flucelvax (ccIIV4) - SDS - 0.5mL Unknown Completed [facility] Moderna COVID-19 Vaccine Moderna COVID-19 Vaccine Unknown Completed [facility] Moderna COVID-19 Vaccine Moderna COVID-19 Vaccine Unknown Completed [facility] Afluria single dose Afluria single dose Unknown Completed [facility] Afluria single dose Afluria single dose Unknown Completed [facility] Flucelvax - single dose syringe Flucelvax - single dose syringe Unknown Completed [facility] Moderna COVID-19 Vaccine Moderna COVID-19 Vaccine Unknown Completed [facility] Moderna COVID-19 Vaccine Moderna COVID-19 Vaccine Unknown Completed [facility] Afluria single dose Afluria single dose Unknown Completed [facility] Afluria single dose Afluria single dose Unknown Completed [facility] Flucelvax - single dose syringe Flucelvax - single dose syringe Unknown Completed [facility] Moderna COVID-19 Vaccine Moderna COVID-19 Vaccine Unknown Completed [facility] Moderna COVID-19 Vaccine Moderna COVID-19 Vaccine Unknown Completed [facility] Afluria single dose Afluria single dose Unknown Completed [facility] Afluria single dose Afluria single dose Unknown Completed [facility] Flucelvax - single dose syringe Flucelvax - single dose syringe Unknown Completed [facility] Moderna COVID-19 Vaccine Moderna COVID-19 Vaccine Unknown Completed [facility] Moderna COVID-19 Vaccine Moderna COVID-19 Vaccine Unknown Completed [facility] Afluria single dose Afluria single dose Unknown Completed [facility] Afluria single dose Afluria single dose Unknown Completed [facility] Flucelvax - single dose syringe Flucelvax - single dose syringe Unknown Completed [facility] Moderna COVID-19 Vaccine Moderna COVID-19 Vaccine Unknown Completed [facility] Moderna COVID-19 Vaccine Moderna COVID-19 Vaccine Unknown Completed [facility] Afluria single dose Afluria single dose Unknown Completed [facility] Afluria single dose Afluria single dose Unknown Completed [facility] Flucelvax - single dose syringe Flucelvax - single dose syringe Unknown Completed [facility] Moderna COVID-19 Vaccine Moderna COVID-19 Vaccine Unknown Completed [facility] Moderna COVID-19 Vaccine Moderna COVID-19 Vaccine Unknown Completed [facility] Afluria single dose Afluria single dose Unknown Completed [facility] Afluria single dose Afluria single dose Unknown Completed [facility] Flucelvax - single dose syringe Flucelvax - single dose syringe Unknown Completed [facility] Moderna COVID-19 Vaccine Moderna COVID-19 Vaccine Unknown Completed [facility] Moderna COVID-19 Vaccine Moderna COVID-19 Vaccine Unknown Completed [facility] Afluria single dose Afluria single dose Unknown Completed [facility] Afluria single dose Afluria single dose Unknown Completed [facility] Flucelvax - single dose syringe Flucelvax - single dose syringe Unknown Completed [facility] Moderna COVID-19 Vaccine Moderna COVID-19 Vaccine Unknown Completed [facility] Moderna COVID-19 Vaccine Moderna COVID-19 Vaccine Unknown Completed [facility] Afluria single dose Afluria single dose Unknown Completed [facility] Vital Signs Vital Name Observation Time Observation Value Comments S ource height 2022-11-22 15:10:00 64 [in_i] Commo n [facility] weight 2022-11-22 15:10:00 176.4 [lb_av] Co mmon [facility] temperature 2022-11-22 15:10:00 97.3 [degF] Com [facility] bmi 2022-11-22 15:10:00 30.28 kg/m2 Comm on [facility] oximetry 2022-11-22 15:10:00 98 % Commo n [facility] respiratory rate 2022-11-22 15:10:00 16 /min [facility] blood pressure systolic 2022-11-22 15:10:00 131 mm[Hg] [facility] blood pressure diastolic 2022-11-22 15:10:00 84 mm[Hg] [facility] height 2022-10-11 13:00:00 64 [in_i] Commo n [facility] weight 2022-10-11 13:00:00 180 [lb_av] Comm on [facility] temperature 2022-10-11 13:00:00 97.6 [degF] Com mon [facility] bmi 2022-10-11 13:00:00 30.89 kg/m2 Comm on [facility] blood pressure systolic 2022-10-11 13:00:00 131 mm[Hg] Common [facility] blood pressure diastolic 2022-10-11 13:00:00 80 mm[Hg] [facility] height 2022-09-22 11:00:00 64 [in_i] Commo n [facility] weight 2022-09-22 11:00:00 181 [lb_av] Comm on [facility] temperature 2022-09-22 11:00:00 98.0 [degF] Com [facility] bmi 2022-09-22 11:00:00 31.07 kg/m2 Comm on [facility] blood pressure systolic 2022-09-22 11:00:00 128 mm[Hg] [facility] blood pressure diastolic 2022-09-22 11:00:00 78 mm[Hg] [facility] height 2022-09-03 09:30:00 64 [in_i] Commo n [facility] weight 2022-09-03 09:30:00 180 [lb_av] Comm on [facility] temperature 2022-09-03 09:30:00 97.8 [degF] Com [facility] bmi 2022-09-03 09:30:00 30.89 kg/m2 Comm on [facility] blood pressure systolic 2022-09-03 09:30:00 120 mm[Hg] [facility] blood pressure diastolic 2022-09-03 09:30:00 76 mm[Hg] [facility] height 2022-08-30 10:30:00 64 [in_i] Commo n [facility] weight 2022-08-30 10:30:00 180 [lb_av] Comm on [facility] temperature 2022-08-30 10:30:00 97.2 [degF] Com [facility] bmi 2022-08-30 10:30:00 30.89 kg/m2 Comm on [facility] blood pressure systolic 2022-08-30 10:30:00 124 mm[Hg] [facility] blood pressure diastolic 2022-08-30 10:30:00 72 mm[Hg] [facility] height 2022-08-26 08:30:00 64 [in_i] Commo n [facility] weight 2022-08-26 08:30:00 181 [lb_av] Comm on [facility] temperature 2022-08-26 08:30:00 97.8 [degF] Com mon [facility] bmi 2022-08-26 08:30:00 31.07 kg/m2 Comm on [facility] blood pressure systolic 2022-08-26 08:30:00 122 mm[Hg] [facility] blood pressure diastolic 2022-08-26 08:30:00 78 mm[Hg] Common [facility] height 2022-07-08 10:20:00 64 [in_i] Commo n [facility] weight 2022-07-08 10:20:00 185.4 [lb_av] Co mmon [facility] temperature 2022-07-08 10:20:00 97.3 [degF] Com mon [facility] bmi 2022-07-08 10:20:00 31.82 kg/m2 Comm on [facility] oximetry 2022-07-08 10:20:00 98 % Commo n [facility] respiratory rate 2022-07-08 10:20:00 17 /min Common [facility] blood pressure systolic 2022-07-08 10:20:00 117 mm[Hg] [facility] blood pressure diastolic 2022-07-08 10:20:00 71 mm[Hg] [facility] respiratory rate 2022-06-25 09:20:00 18 /min Common [facility] blood pressure systolic 2022-06-25 09:20:00 127 mm[Hg] [facility] blood pressure diastolic 2022-06-25 09:20:00 77 mm[Hg] [facility] height 2022-06-25 09:20:00 64 [in_i] Commo n [facility] weight 2022-06-25 09:20:00 186.0 [lb_av] Co mmon [facility] temperature 2022-06-25 09:20:00 97.0 [degF] Com mon [facility] bmi 2022-06-25 09:20:00 31.92 kg/m2 Comm on [facility] oximetry 2022-06-25 09:20:00 96 % Commo n [facility] height 2022-04-07 11:10:00 64 [in_i] Commo n [facility] weight 2022-04-07 11:10:00 192.4 [lb_av] Co mmon [facility] temperature 2022-04-07 11:10:00 97.3 [degF] Com mon [facility] bmi 2022-04-07 11:10:00 33.02 kg/m2 Comm on [facility] oximetry 2022-04-07 11:10:00 96 % Commo n [facility] respiratory rate 2022-04-07 11:10:00 17 /min [facility] blood pressure systolic 2022-04-07 11:10:00 124 mm[Hg] [facility] blood pressure diastolic 2022-04-07 11:10:00 69 mm[Hg] [facility] height 2022-01-22 08:20:00 64 [in_i] Commo n [facility] weight 2022-01-22 08:20:00 206 [lb_av] Comm on [facility] bmi 2022-01-22 08:20:00 35.36 kg/m2 Comm on [facility] height 2022-01-13 13:00:00 64 [in_i] Commo n [facility] weight 2022-01-13 13:00:00 206 [lb_av] Comm on [facility] temperature 2022-01-13 13:00:00 98.1 [degF] Com [facility] bmi 2022-01-13 13:00:00 35.36 kg/m2 Comm on [facility] blood pressure systolic 2022-01-13 13:00:00 132 mm[Hg] [facility] blood pressure diastolic 2022-01-13 13:00:00 75 mm[Hg] Common [facility] height 2022-01-06 13:50:00 64 [in_i] Commo n [facility] weight 2022-01-06 13:50:00 204.9 [lb_av] Co [facility] temperature 2022-01-06 13:50:00 97.4 [degF] Com [facility] bmi 2022-01-06 13:50:00 35.17 kg/m2 Comm on [facility] oximetry 2022-01-06 13:50:00 96 % Commo n [facility] respiratory rate 2022-01-06 13:50:00 17 /min [facility] blood pressure systolic 2022-01-06 13:50:00 129 mm[Hg] Common [facility] blood pressure diastolic 2022-01-06 13:50:00 74 mm[Hg] Common [facility] height 2021-09-07 13:00:00 64 [in_i] Commo n [facility] weight 2021-09-07 13:00:00 191.9 [lb_av] Co [facility] temperature 2021-09-07 13:00:00 96.3 [degF] Com [facility] bmi 2021-09-07 13:00:00 32.94 kg/m2 Comm on [facility] oximetry 2021-09-07 13:00:00 95 % Commo n [facility] respiratory rate 2021-09-07 13:00:00 16 /min Common [facility] blood pressure systolic 2021-09-07 13:00:00 134 mm[Hg] [facility] blood pressure diastolic 2021-09-07 13:00:00 75 mm[Hg] Common [facility] height 2021-05-25 16:20:00 64 [in_i] Commo n [facility] weight 2021-05-25 16:20:00 175 [lb_av] Comm on [facility] temperature 2021-05-25 16:20:00 98 [degF] Comm on [facility] bmi 2021-05-25 16:20:00 30.04 kg/m2 Comm on [facility] blood pressure systolic 2021-05-25 16:20:00 132 mm[Hg] Common [facility] blood pressure diastolic 2021-05-25 16:20:00 70 mm[Hg] Common [facility] height 2021-01-29 13:00:00 64 [in_i] Commo n [facility] weight 2021-01-29 13:00:00 172 [lb_av] Comm on [facility] temperature 2021-01-29 13:00:00 97.5 [degF] Com mon [facility] bmi 2021-01-29 13:00:00 29.52 kg/m2 Comm on [facility] blood pressure systolic 2021-01-29 13:00:00 135 mm[Hg] [facility] blood pressure diastolic 2021-01-29 13:00:00 70 mm[Hg] [facility] Procedures Procedure Date / Time Performed Performing Clinicia n Source MR CERVICAL SPINE WO CONTRAST 2020-01-03 16:04:53 Requisition, Paper [facility] ASSIGNMENT OF BENEFITS 2020-01-03 14:52:10 Docto r Unassigned, [place] [facility] Encounters Start Date/Time End Date/Time Encounter Type Admission Type Attending [facility] Care Department Encounter ID Source 2022-11-19 09:49:00 Outpatient Johnson, Mode STLMLC ST[facility] [id number] [facility] 2022-11-04 13:15:00 Outpatient Johnson, Mode [facility]C ST[facility] [id number] [facility] 2022-08-26 11:04:00 Outpatient Johnson, Mode [facility]C ST[facility] [id number] [facility] 2022-07-06 09:20:01 Outpatient Johnson, Mode [facility]C ST[facility] [id number] [facility] 2022-07-02 09:15:00 Outpatient Johnson, Mode [facility]C ST[facility] [id number] [facility] 2022-06-24 14:38:01 Outpatient Johnson, Mode [facility]MLC ST[facility] [id number] [facility] 2022-04-07 10:54:00 Outpatient Johnson, Mode [facility]C ST[facility] [id number] [facility] 2022-04-05 13:33:01 Outpatient Johnson, Mode [facility]MLC ST[facility] [id number] [facility] 2022-01-14 07:17:00 Outpatient Johnson, Mode [facility]C ST[facility] [id number] [facility] 2022-01-05 11:43:00 Outpatient Johnson, Mode [facility] ST[facility] [id number] [facility] 2021-12-31 11:26:00 Outpatient Johnson, Mode [facility] ST[facility] [id number] [facility] 2021-10-09 10:47:01 Outpatient Johnson, Mode [facility] ST[facility] [id number] [facility] 2021-09-08 10:11:20 Outpatient Johnson, Mode [facility]C ST[facility] [id number] [facility] 2021-09-07 13:25:06 Outpatient Johnson, Mode [facility]MLC ST[facility] [id number] [facility] 2021-09-04 11:34:00 Outpatient Johnson, Mode [facility] ST[facility] [id number] [facility] 2021-05-20 13:45:21 Outpatient Johnson, Mode [facility]C ST[facility] [id number] [facility] 2021-05-20 13:45:10 Outpatient Johnson, Mode [facility]MLC ST[facility] [id number] [facility] 2021-05-20 13:32:56 Outpatient Johnson, Mode [facility]C ST[facility] [id number] [facility] 2021-05-20 13:14:18 Outpatient Johnson, Mode [facility]C ST[facility] [id number] [facility] 2021-05-20 13:05:50 Outpatient Johnson, Mode [facility] ST[facility] [id number] [facility] 2021-05-20 12:59:33 Outpatient Johnson, Mode [facility] ST[facility] [id number] [facility] 2021-05-20 12:56:29 Outpatient Johnson, Mode [facility] ST[facility] [id number] [facility] 2021-05-20 12:08:06 Outpatient Johnson, Mode [facility] ST[facility] [id number] [facility] 2021-05-20 12:07:38 Outpatient Johnson, Mode [facility] ST[facility] [id number] [facility] 2021-05-20 11:17:53 Outpatient Johnson, Mode [facility] ST[facility] [id number] [facility] 2021-05-20 11:17:22 Outpatient Johnson, Mode [facility] ST[facility] [id number] [facility] 2021-05-20 11:10:00 Outpatient JohnsonMode ramsey STLMLC ST[facility] [id number] [facility] 2021-05-20 11:02:01 Outpatient JohnsonMode STLMLC STLMLC [id number] [facility] 2021-05-20 11:01:01 Outpatient JohnsonMode STLMLC STLMLC [id number] [facility] 2022-11-22 00:00:00 2022-11-22 00:00:00 OFFICE VISIT ESTAB PT LEVEL 4 [facility] [id number] [facility] 2022-10-11 00:00:00 2022-10-11 00:00:00 NON-BILLAB LE VISIT [facility]C ST[facility]C [id number] [facility] 2022-09-22 00:00:00 2022-09-22 00:00:00 NON-BILLAB LE VISIT [facility]C ST[facility]C [id number] [facility] 2022-09-03 00:00:00 2022-09-03 00:00:00 NON-BILLAB LE VISIT ST[facility]C ST[facility]C [id number] [facility] 2022-08-30 00:00:00 2022-08-30 00:00:00 (TEL) ST[facility]C ST[facility] [id number] [facility] 2022-08-30 00:00:00 2022-08-30 00:00:00 OFFICE VISIT ESTAB PT LEVEL 3 [facility] ST[facility] [id number] [facility] 2022-08-26 00:00:00 2022-08-26 00:00:00 OFFICE VISIT ESTAB PT LEVEL 3 [facility] ST[facility] [id number] [facility] 2022-08-26 00:00:00 2022-08-26 00:00:00 (TEL) STLMLC ST[facility]C [id number] [facility] 2022-08-18 00:00:00 2022-08-18 00:00:00 (TEL) STLMLC ST[facility]C [id number] [facility] 2022-07-08 00:00:00 2022-07-08 00:00:00 OFFICE VISIT ESTAB PT LEVEL 4 [facility] ST[facility]C [id number] [facility] 2022-06-25 00:00:00 2022-06-25 00:00:00 OFFICE VISIT ESTAB PT LEVEL 3 [facility] ST[facility] [id number] [facility] 2022-06-24 00:00:00 2022-06-24 00:00:00 (TEL) STLMLC STLMLC [id number] [facility] 2022-04-07 00:00:00 2022-04-07 00:00:00 OFFICE VISIT ESTAB PT LEVEL 4 [facility] ST[facility]C [id number] [facility] 2022-03-04 00:00:00 2022-03-04 00:00:00 (TEL) ST[facility]MLC STL[facility]C [id number] [facility] 2022-01-22 00:00:00 2022-01-22 00:00:00 OFFICE VISIT EST PT LEVEL 3 [facility] ST[facility] [id number] [facility] 2022-01-21 00:00:00 2022-01-21 00:00:00 (TEL) STLMLC STL[facility]C [id number] [facility] 2022-01-13 00:00:00 2022-01-13 00:00:00 (TEL) STLMLC STLMLC [id number] [facility] 2022-01-13 00:00:00 2022-01-13 00:00:00 OFFICE VISIT NEW PT LEVEL 3 [facility] ST[facility]C [id number] [facility] 2022-01-06 00:00:00 2022-01-06 00:00:00 (WELLNESS) Wellness Visit [facility]C ST[facility]C [id number] [facility] 2021-12-29 00:00:00 2021-12-29 00:00:00 (TEL) STLMLC STLMLC [id number] [facility] 2021-10-27 00:00:00 2021-10-27 00:00:00 (TEL) STLMLC STLMLC [id number] [facility] 2021-10-16 00:00:00 2021-10-16 00:00:00 (TEL) STLMLC STLMLC [id number] [facility] 2021-09-07 00:00:00 2021-09-07 00:00:00 OFFICE VISIT ESTAB PT LEVEL 4 [facility] ST[facility]C [id number] [facility] 2021-07-23 00:00:00 2021-07-23 00:00:00 (TEL) STLMLC STLMLC [id number] [facility] 2021-07-07 00:00:00 2021-07-07 00:00:00 (TEL) STLMLC STLMLC [id number] [facility] 2021-06-12 00:00:00 2021-06-12 00:00:00 (TEL) STLMLC STL[facility]C [id number] [facility] 2021-05-25 00:00:00 2021-05-25 00:00:00 OFFICE VISIT EST PT LEVEL 3 [facility] ST[facility]C [id number] [facility] 2021-01-30 00:00:00 2021-01-30 00:00:00 (TEL) STLMLC STLMLC [id number] [facility] 2021-01-29 00:00:00 2021-01-29 00:00:00 OFFICE VISIT ESTAB PT LEVEL 4 [facility] ST[facility] [id number] [facility] 2020-12-30 00:00:00 2020-12-30 00:00:00 Outpatient [facility] [id number] [facility] 2020-12-23 00:00:00 2020-12-23 00:00:00 Outpatient [facility] STL[facility]C [id number] [facility] 2020-12-17 00:00:00 2020-12-17 00:00:00 Outpatient [facility] ST[facility] [id number] [facility] 2020-12-15 00:00:00 2020-12-15 00:00:00 Outpatient [facility] ST[facility] [id number] [facility] 2020-12-15 00:00:00 2020-12-15 00:00:00 Outpatient [facility] [id number] [facility] 2020-11-21 00:00:00 2020-11-21 00:00:00 Outpatient [facility] ST[facility] [id number] [facility] 2020-10-22 00:00:00 2020-10-22 00:00:00 Outpatient [facility] ST[facility] [id number] [facility] 2020-10-15 00:00:00 2020-10-15 00:00:00 Outpatient [facility] ST[facility]C [id number] [facility] 2020-10-13 00:00:00 2020-10-13 00:00:00 Outpatient [facility]C ST[facility]C [id number] [facility] 2020-10-13 00:00:00 2020-10-13 00:00:00 Outpatient [facility]C ST[facility]C [id number] [facility] 2020-10-03 00:00:00 2020-10-03 00:00:00 Outpatient [facility]C ST[facility]C [id number] [facility] 2020-09-24 00:00:00 2020-09-24 00:00:00 Outpatient [facility]C ST[facility]C [id number] [facility] 2020-08-26 00:00:00 2020-08-26 00:00:00 Outpatient [facility] ST[facility]C [id number] [facility] 2020-03-18 00:00:00 2020-03-18 00:00:00 Outpatient [facility]C ST[facility] [id number] [facility] 2020-03-05 00:00:00 2020-03-05 00:00:00 Outpatient [facility] [id number] [facility] 2020-02-20 00:00:00 2020-02-20 00:00:00 Outpatient [facility] [id number] [facility] 2020-01-22 00:00:00 2020-01-22 00:00:00 Outpatient [facility] [id number] [facility] 2020-01-03 09:53:20 2020-01-03 23:59:00 Hospital Encounter Radiology [facility] [id number] [facility] 2020-01-03 09:53:20 2020-01-03 23:59:00 Hospital Encounter Radiology [facility] [id number] 2020-01-03 00:00:00 2020-01-03 00:00:00 Outpatient R RADIOLOGY [facility] [id number] [facility] 2020-01-03 00:00:00 2020-01-03 00:00:00 Orders Only Doctor Unassigned, [place] [facility] [id number] [facility] 2020-01-03 00:00:00 2020-01-03 00:00:00 Orders Only Doctor Unassigned, [place] [facility] [facility] [id number] 2019-10-10 09:30:00 2019-10-10 09:30:00 [facility] Medicine [id number] [facility] 2019-08-14 11:30:00 2019-08-14 11:30:[address] [facility] [id number] [facility] 2019-08-10 10:42:00 2019-08-10 10:42:[address] [facility] [id number] [facility] 2019-07-10 10:45:00 2019-07-10 10:45:00 [facility] [id number] [facility] 2019-06-19 12:53:00 2019-06-19 12:53:[address] [facility] [id number] [facility] 2019-06-14 08:09:00 2019-06-14 08:09:00 [facility] [id number] [facility] 2019-05-15 09:45:00 2019-05-15 09:45:00 [facility] [id number] [facility] 2019-05-01 17:15:00 2019-05-01 17:15:00 [facility] [id number] [facility] 2019-04-24 12:46:00 2019-04-24 12:46:00 [facility] [id number] [facility] 2019-04-11 14:30:00 2019-04-11 14:30:00 [facility] [id number] [facility] 2019-04-03 10:19:00 2019-04-03 10:19:00 [facility] [id number] [facility] 2019-04-02 16:33:00 2019-04-02 16:33:00 [facility] [id number] [facility] 2019-01-17 13:00:00 2019-01-17 13:00:00 [facility]patient [facility] [id number] [facility] 2019-01-01 14:30:00 2019-01-01 14:30:00 [facility]patient [facility] [id number] [facility] 2018-12-20 17:00:00 2018-12-20 17:00:00 [facility]patient [facility] [id number] [facility] 2018-12-20 14:00:00 2018-12-20 14:00:00 [facility]patient [facility] [id number] [facility] Results Test Description Test Time Test Comments Results Result Co mments Source TSH REFLEX TO FREE [id number] 00:00:00* Test Item Value Reference Range Interpretation Comme nts TSH REFLEX TO FREE T4 (test code = 69726-5) 2.700 UIU/ML See_Comment [Automated messa ge] The system which generated this result transmitted reference range: 0.400-4.100 UIU/ML. The reference range was not used to interpret this result as normal/abnormal. LIPID PANEL WITH REFLEX DIRECT [id number] 00:00:00* Test Item Value Reference Range Interpretation Comme nts CALC LDL CHOL (test code = 00538-2) 88 MG/DL See_Comment [Automated messa ge] The system which generated this result transmitted reference range: <100 MG/DL. The reference range was not used to interpret this result as normal/abnormal. CHOLESTEROL (test code = 2093-3) 161 MG/DL See_Comment [Automated messa ge] The system which generated this result transmitted reference range: <200 MG/DL. The reference range was not used to interpret this result as normal/abnormal. HDL CHOLESTEROL (test code = 2085-9) 42 MG/DL See_Comment [Automated [employer]] The system which generated this result transmitted reference range: >39 MG/DL. The reference range was not used to interpret this result as normal/abnormal. RISK RATIO LDL/HDL (test code = 44936-9) 2.10 RATIO See_Comment [Automated message] The system which generated this result transmitted reference range: <3.22 RATIO. The reference range was not used to interpret this result as normal/abnormal. TRIGLYCERIDES (test code = 2571-8) 214 MG/DL See_Comment H [Automated messa ge] The system which generated this result transmitted reference range: <150 MG/DL. The reference range was not used to interpret this result as normal/abnormal. PATHOLOGIST SMEAR [id number] 00:00:00* Test Item Value Reference Range Interpretation Comme nts BASOPHILS (test code = 02758-6) 0.6 % COMMENTS (test code = 85309-0) (NOTE) DIAGNOSIS: (test code = 43425-6) (NOTE) EOSINOPHILS (test code = 72154-6) 3.0 % HEMATOCRIT (test code = 04232-2) 40.5 % See_Comment [Automated messa ge] The system which generated this result transmitted reference range: 34.0-45.0 %. The reference range was not used to interpret this result as normal/abnormal. HEMOGLOBIN (test code = 718-7) 13.5 G/DL See_Comment [Automated messa ge] The system which generated this result transmitted reference range: 11.5-15.5 G/DL. The reference range was not used to interpret this result as normal/abnormal. LYMPHOCYTES (test code = 80717-1) 29.4 % MCH (test code = 27453-6) 28.8 PG See_Comment [Automated messa ge] The system which generated this result transmitted reference range: 25.0-33.0 PG. The reference range was not used to interpret this result as normal/abnormal. MCHC (test code = 41960-7) 33.3 G/DL See_Comment [Automated messa ge] The system which generated this result transmitted reference range: 31.0-36.0 G/DL. The reference range was not used to interpret this result as normal/abnormal. MCV (test code = 07704-2) 86.5 fL See_Comment [Automated messa ge] The system which generated this result transmitted reference range: 80.0-99.0 fL. The reference range was not used to interpret this result as normal/abnormal. MICROSCOPIC DESCRIPTION: (test code = 57348-8) (NOTE) MONOCYTES (test code = 08141-9) 7.8 % NEUTROPHILS (test code = 71811-1) 59.0 % NUCLEATED RBCS (test code = 99672-3) 0.0 /100 WBC'S See_Comment [Automated messa ge] The system which generated this result transmitted reference range: 0.0 /100 WBC'S. The reference range was not used to interpret this result as normal/abnormal. PATHOLOGIST: (test code = 92970-5) (NOTE) PLATELET COUNT (test code = 99753-0) 389 K/UL See_Comment [Automated messa ge] The system which generated this result transmitted reference range: 130-400 K/UL. The reference range was not used to interpret this result as normal/abnormal. RBC (test code = 73484-5) 4.68 M/UL See_Comment [Automated messa ge] The system which generated this result transmitted reference range: 3.80-5.40 M/UL. The reference range was not used to interpret this result as normal/abnormal. RDW (test code = 33075-7) 13.8 % See_Comment [Automated messa ge] The system which generated this result transmitted reference range: 11.5-15.0 %. The reference range was not used to interpret this result as normal/abnormal. WBC (test code = 01556-6) 8.2 K/UL See_Comment [Automated messa ge] The system which generated this result transmitted reference range: 3.5-11.0 K/UL. The reference range was not used to interpret this result as normal/abnormal. ALBUMIN/CREATININE RATIO, RANDOM [id number] 00:00:00* Test Item Value Reference Range Interpretation Comme nts ALBUMIN, URINE, RANDOM (test code = 36759-4) <0.2 MG/DL NOT ESTAB MG/DL CALC ALBUMIN/CREAT, RND (test code = 16266-1) <4 MG/G See_Comment [Automated messa ge] The system which generated this result transmitted reference range: <30 MG/G. The reference range was not used to interpret this result as normal/abnormal. CREATININE, URINE, CONC. (test code = 2161-8) 52.7 MG/DL NOT ESTAB MG/DL COMPREHENSIVE METABOLIC [id number] 00:00:00* Test Item Value Reference Range Interpretation Comme nts ALBUMIN (test code = 1751-7) 4.5 G/DL See_Comment [Automated messa ge] The system which generated this result transmitted reference range: 3.5-5.2 G/DL. The reference range was not used to interpret this result as normal/abnormal. ALKALINE PHOSPHATASE (test code = 6768-6) 73 U/L See_Comment [Automated message] The system which generated this result transmitted reference range: 40-140 U/L. The reference range was not used to interpret this result as normal/abnormal. BILIRUBIN, TOTAL (test code = 1975-2) 0.4 MG/DL See_Comment [Automated message] The system which generated this result transmitted reference range: <=1.2 MG/DL. The reference range was not used to interpret this result as normal/abnormal. BUN (test code = 3094-0) 17 MG/DL See_Comment [Automated messa ge] The system which generated this result transmitted reference range: 8-23 MG/DL. The reference range was not used to interpret this result as normal/abnormal. CALCIUM (test code = 82524-0) 9.9 MG/DL See_Comment [Automated messa ge] The system which generated this result transmitted reference range: 8.5-10.5 MG/DL. The reference range was not used to interpret this result as normal/abnormal. CALC A/G RATIO (test code = 1759-0) 1.9 RATIO See_Comment [Automated messa ge] The system which generated this result transmitted reference range: 1.0-2.6 RATIO. The reference range was not used to interpret this result as normal/abnormal. CALC BUN/CREAT (test code = 3097-3) 19 RATIO See_Comment [Automated messa ge] The system which generated this result transmitted reference range: 6-28 RATIO. The reference range was not used to interpret this result as normal/abnormal. CALC GLOBULIN (test code = 84909-5) 2.4 G/DL See_Comment [Automated messa ge] The system which generated this result transmitted reference range: 1.9-3.7 G/DL. The reference range was not used to interpret this result as normal/abnormal. CARBON DIOXIDE (test code = 1963-8) 22 MEQ/L See_Comment [Automated messa ge] The system which generated this result transmitted reference range: 19-31 MEQ/L. The reference range was not used to interpret this result as normal/abnormal. CHLORIDE (test code = 2075-0) 104 MEQ/L See_Comment [Automated messa ge] The system which generated this result transmitted reference range: 95-107 MEQ/L. The reference range was not used to interpret this result as normal/abnormal. CREATININE (test code = 2160-0) 0.89 MG/DL See_Comment [Automated messa ge] The system which generated this result transmitted reference range: 0.60-1.30 MG/DL. The reference range was not used to interpret this result as normal/abnormal. eGFR (2020 CKD-EPI) (test code = 68546-5) 73 ML/MIN/1.73 See_Comment [Automated messa ge] The system which generated this result transmitted reference range: >60 ML/MIN/1.73. The reference range was not used to interpret this result as normal/abnormal. GLUCOSE (test code = 1558-6) 116 MG/DL See_Comment H [Automated messa ge] The system which generated this result transmitted reference range: 70-99 MG/DL. The reference range was not used to interpret this result as normal/abnormal. POTASSIUM (test code = 2823-3) 4.1 MEQ/L See_Comment [Automated messa ge] The system which generated this result transmitted reference range: 3.5-5.4 MEQ/L. The reference range was not used to interpret this result as normal/abnormal. PROTEIN, TOTAL (test code = 2885-2) 6.9 G/DL See_Comment [Automated messa ge] The system which generated this result transmitted reference range: 6.1-8.3 G/DL. The reference range was not used to interpret this result as normal/abnormal. AST (test code = 1920-8) 14 U/L See_Comment [Automated messa ge] The system which generated this result transmitted reference range: 9-40 U/L. The reference range was not used to interpret this result as normal/abnormal. ALT (test code = 1742-6) 15 U/L See_Comment [Automated messa ge] The system which generated this result transmitted reference range: 5-40 U/L. The reference range was not used to interpret this result as normal/abnormal. SODIUM (test code = 2951-2) 141 MEQ/L See_Comment [Automated [employer]] The system which generated this result transmitted reference range: 133-146 MEQ/L. The reference range was not used to interpret this result as normal/abnormal. MR CERVICAL SPINE WO [id number] 16:17:36HISTORY: Chronic neck pain radiating into both shoulders with bilateralhand numbness. TECHNIQUE: T1/T2/STIR sagittal and T1/T2 [...] compressioncompression. Minimal bilateral nerve root compression suspected. C5- C6: Moderate degenerative disc disease with narrowing of [...] noted on both sides,slightly more on the rightside with mild right nerve root compression andminimal left nerve root compression. C7-T1, T1- T2, T2-T3, T3-T4: Unremarkable. CONCLUSIONS:1. Reversal of normal cervical lordosis suggestive of chronicneck musclespasm.2. Spinal stenosis at C6-C7, C5- C6 secondary to grade 1 retrolisthesis ofC6 over C7 and C5 over C6, prominent osteophyte complex encroach into thespinal canal with additional encroachment from dorsal aspect by thickenedligaments causing mild flattening of the spinal cord in AP dimension atC5-C6 and C6-C7.3. Foraminal encroachment causing mild right nerve root compression atC6-C7,minimal left nerve root compression at C6- C7 and minimal bilateralnerve root compression suspected at C4-C5. [facility], Radiant Results Inft User - 01/03/2020 11:18 AM CDTHISTORY: Chronic neck pain radiating into both shoulders with bilateralhand numbness.TECHNIQUE: T1/T2/STIR sagittal and T1/T2 FRFSE/2D MERGE axial studies ofcervical spines were obtained.FINDINGS: Reversal of normal cervical lordosisis suggestive of chronicneck muscle spasm. No compression fracture or abnormal marrow changes ofthebones detected. Spinal canal is of adequate size and no intrinsiccervical cord pathology detected.Low lying cerebellar tonsils noted, left side more than right, minimallyprotruding below the level offoramina magnum..C2-C3: Prominent bulging disc into the prevertebral soft tissue. Minimalbulging disc in the spinal canal without cord compression or foraminalencroachment.C3-C4: Small osteophytes along the ventral vertebral margins [...] compression andminimal left nerve root compression.C7-T1, T1-T2, T2- T3, T3-T4: Unremarkable.CONCLUSIONS:1. Reversal of normal cervical lordosis suggestive of [...] and minimal bilateralnerve root compression suspected at C4-C5.[facility]CT Elbow Left Wo Con
[2023-05-03 14:42] LABS: Specific Gravity 1.011 (1.005-1.030); Urine Bacteria 20-50 /HPF (<20); Urine Bilirubin NEGATIVE (Negative); Urine Blood Negative (Negative); Urine Clarity Extremely Turbid (Clear); Urine Color Dark-Yellow (Yellow); Urine Glucose 2+ (Negative); Urine Mucus Slight /HPF (None Seen); Urine Protein NEGATIVE (Negative); Urine Urobilinogen Normal (Normal); Urine WBC Clump Rare /HPF (None Seen)
--- NOTE | 2023-05-03 15:26 | EDPHYS ---
Physician Documentation [facility] Name: Batsheva Guevara Age: 63 yrs Sex: Female : 1960 Arrival Date: 05/03/2023 Time: 13:53 Bed DX4 Private MD: ED Physician Ermias Levine HPI: 05/03 15:26 This 63 yrs old Female presents to ER via Ambulatory with complaints of Possible UTI. ms3 15:26 63-year-old female with past medical history of hyperlipidemia, diabetes, chronic pain, ms3 hypertension presents to the emergency department for dysuria, urinary frequency, urinary urgency that has been ongoing for 3 days. Patient denies hematuria or pain. Patient states the discomfort is worse with urination. Patient denies fevers, chills, back pain. Historical: - Allergies: 14:15 No Known Allergies; ll1 - PMHx: 14:15 High Cholesterol; Diabetes - NIDDM; chronic neck pain; Hypertension; ll1 - PSHx: 14:15 section; hysterectomy; ll1 - Immunization history:: Adult Immunizations up to date. - Social history:: Smoking status: Patient denies any tobacco usage or history of. ROS: 15:26 Positive for urinary symptoms, urinary frequency, burning with urination, Negative ms3 for hematuria, 15:26 Constitutional: Negative for fever, and chills. Neck: Negative for injury, pain, and swelling, Cardiovascular: Negative for chest pain, and palpitations. Respiratory: Negative for shortness of breath, cough, wheezing, and pleuritic chest pain, Abdomen/GI: Negative for abdominal pain, nausea, vomiting, diarrhea, and constipation, 15:26 All other systems are negative, Exam: 15:26 Constitutional: This is a well developed, well nourished patient who is awake, alert, ms3 and in no acute distress. Head/Face: Normocephalic, atraumatic. Neck: Trachea midline, no cervical lymphadenopathy. Supple, full range of motion without nuchal rigidity, or vertebral point tenderness. No Meningismus. Chest/axilla: Normal chest wall appearance and motion. Nontender with no deformity. Cardiovascular: Regular rate and rhythm with a normal S1 and S2. No gallops, murmurs, or rubs. Normal PMI, no JVD. No pulse deficits. Respiratory: Lungs have equal breath sounds bilaterally, clear to auscultation and percussion. No rales, rhonchi or wheezes noted. No increased work of breathing, no retractions or nasal flaring. Skin: Warm, dry with normal turgor. Normal color with no rashes, no lesions, and no evidence of cellulitis. 15:26 Abdomen/GI: Inspection: abdomen appears normal, Bowel sounds: normal, Palpation: mild abdominal tenderness, in the suprapubic area, Vital Signs: 14:15 BP 157 / 81; Pulse 79; Resp 17; Temp 97.4; Pulse Ox 97% ; Weight 75.3 kg; Height 5 ft. ll1 3 in. ; Pain 0/10; 14:15 Body Mass Index 29.41 (75.30 kg, 160.02 cm) ll1 14:15 Pain Scale: Adult ll1 MDM: 14:20 Patient medically screened. ms3 15:26 Differential diagnosis: urinary tract infection, Dysuria. Data reviewed: vital signs, ms3 nurses notes, and as a result, I will discharge patient. Care significantly affected by the following chronic conditions: Diabetes, Hypertension. Counseling: I had a detailed discussion with the patient and/or guardian regarding the historical points, exam findings, and any diagnostic results supporting the discharge/admit diagnosis, lab results, to return to the emergency department if symptoms worsen or persist or if there are any questions or concerns that arise at home. Special discussion: I discussed with the patient/guardian in detail that at this point there is no indication for admission to the hospital. It is understood, however, that if the symptoms persist or worsen the patient needs to return immediately for re-evaluation. ED course: Discussed urinalysis results indicating urinary tract infection with patient. Patient to follow-up with primary care physician in 2 to 3 days. Patient given prescription for Vantin. All questions were answered. Return precautions discussed include worsening symptoms, or any other concerns. On reevaluation patient is alert, no apparent distress, nontoxic-appearing, ambulatory number department, asking for discharge. 05/03 14:21 Order name: Urinalysis w/ reflexes; Complete Time: 15:22 ms3 05/03 14:45 Order name: Urine Culture EDMS Administered Medications: No medications were administered Disposition Summary: 05/03/23 15:26 Discharge Ordered Notes: Location: Home ms3 Condition: Stable ms3 Diagnosis - UTI/ Urinary tract infection, site not specified ms3 Followup: ms3 - With: Mode Johnson DO - When: 2 - 3 days - Reason: Recheck today's complaints Discharge Instructions: - Discharge Summary Sheet ms3 - Urinary Tract Infection, Adult ms3 Forms: - Medication Reconciliation Form ms3 - Thank You Letter ms3 - Antibiotic Education ms3 - Prescription Opioid Use ms3 - Patient Portal Instructions ms3 - Leadership Thank You Letter ms3 Prescriptions: - cefpodoxime 100 mg Oral Tablet - take 1 tablet ORAL route every 12 hours for 10 days take with food; 20 tablet; ms3 Refills: 0, Product Selection Permitted Signatures: Dispatcher [employer] Austen Ulloa RN RN ll1 Ermias Levine DO DO ms3
--- NOTE | 2023-05-03 15:26 | ER ---
Nurse's Notes [facility] Name: Batsheva Guevara Age: 63 yrs Sex: Female : 1960 Arrival Date: 05/03/2023 Time: 13:53 Bed DX4 Private MD: Diagnosis: UTI/ Urinary tract infection, site not specified Presentation: 05/03 14:15 Chief complaint: Patient states: Dysuria since Tuesday. No fever. Coronavirus screen: ll1 Client denies travel out of the [place] in the last 14 days. At this time, the client does not indicate any symptoms associated with coronavirus-19. Ebola Screen: Patient denies travel to an Ebola-affected area in the 21 days before illness onset. Initial Sepsis Screen: Does the patient meet any 2 criteria? No. Patient's initial sepsis screen is negative. Does the patient have a suspected source of infection? Yes: Dysuria/Frequency/Urgency/UTI. Risk Assessment: Do you want to hurt yourself or someone else? Patient reports no desire to harm self or others. Onset of symptoms was April 30, 2023. 14:15 Method Of Arrival: Ambulatory ll1 14:15 Acuity: HERMELINDA 4 ll1 Historical: - Allergies: 14:15 No Known Allergies; ll1 - PMHx: 14:15 High Cholesterol; Diabetes - NIDDM; chronic neck pain; Hypertension; ll1 - PSHx: 14:15 section; hysterectomy; ll1 - Immunization history:: Adult Immunizations up to date. - Social history:: Smoking status: Patient denies any tobacco usage or history of. Vital Signs: 14:15 BP 157 / 81; Pulse 79; Resp 17; Temp 97.4; Pulse Ox 97% ; Weight 75.3 kg; Height 5 ft. ll1 3 in. ; Pain 0/10; 14:15 Body Mass Index 29.41 (75.30 kg, 160.02 cm) ll1 14:15 Pain Scale: Adult ll1 ED Course: 13:57 Patient arrived in ED. im 14:05 Ermias Levine DO is Attending Physician. ms3 14:16 Triage completed. ll1 14:16 Arm band placed on. ll1 14:28 Urinalysis w/ reflexes Sent. ll1 15:25 Mode Johnson DO is Referral Physician. ms3 15:50 No provider procedures requiring assistance completed. Patient did not have IV access ll1 during this emergency room visit. Administered Medications: No medications were administered Medication: 15:50 VIS not applicable for this client. ll1 Outcome: 15:26 Discharge ordered by . ms3 15:50 Discharged to home ambulatory, ll1 15:50 Condition: good 15:50 Discharge instructions given to patient, Instructed on discharge instructions, follow up and referral plans. medication usage, Demonstrated understanding of instructions, follow-up care, medications, Prescriptions given X 1, 15:50 Patient left the ED. ll1 Signatures: Austen Barton RN RN ll1 Ermias Levine DO DO ms3 Catherine Gallo
[2023-05-03 16:51] VITALS: BP 157/81; TEMP 97.4; O2SAT 97
== END ==
LOC: ER 13:53
DX: N39.0 Urinary tract infection, site not specified (principal)
CPT/HCPCS: 81001; 87086; 87088; 99283

== ENCOUNTER 2023-10-08 13:46 | Emergency (ER) | payer OTHER, SELFPAY ==
--- OUTSIDE RECORDS SUMMARY | 2023-10-08 13:51 | XMS REPORT | Continuity of Care Document ---
Author Name Unknown Address [address] [facility] [place] [address] [facility] thconnect Address [address] [facility] [address] [place] [address] Care Team Providers Care Osteopathic Neurologist Name Role Phone Mode Johnson Attending Clinician Unavailable RADHA DYER Attending Clinician Unavailable JENNIFER ROMERO Attending Clinician Unavailable Radiology Attending Clinician Unavailable RADIOLOGY Attending Clinician Unavailable Doctor Unassigned, Correll Attending Clinician U navailable Payers Payer Name Policy Type Policy Number Effective Date Expirati on Date Source [facility] TOUSSAINTErnieC COPAY FOCUS 9 [id number] 2023 00:00:00 [facility] [id number] 2021 00:00:00 [facility] Problems Condition Name Condition Details Condition Category Status Onset Date Resolution Date Last Treatment Date Treating Clinician Comments Source 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) 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) Disease Active 08-07 00:00: 00 Nita Gil - Externa l Hypothyroi dism Hypothyroi dism Disease Active 08-07 00:00: 00 Nita Avilaold - Externa l Chronic hepatitis C without hepatic coma (multi HCC) Chronic hepatitis C without hepatic coma (multi HCC) Disease Active 08-07 00:00: 00 Nita Gil - Externa l Hepatomega ly Hepatomega ly Disease Active 08-07 00:00: 00 Nita Gil - Externa l Hypertensi on Hypertensi on Disease Active 08-07 00:00: 00 Nita Gil - Externa l Cervical spinal stenosis Cervical spinal stenosis Disease Active 08-07 00:00: 00 Nita Gil - Externa l Anemia Anemia Disease Active 08-07 00:00: 00 Nita Gil - Externa l Body mass index 30.00 to 34.99 Body mass index (BMI) of 32.0 to 32.9 in adult Problem [facility] [id number] Noncomplia nce with dietary restrictio n Problem [facility] [id number] Pain in right hip Problem [facility] [id number] Pain in left hip Problem [facility] [id number] Bilateral carpal tunnel syndrome Problem [facility] [id number] Gastroesop hageal reflux disease without esophagiti s Problem [facility] [id number] Mixed hyperlipid emia Problem [facility] [id number] Pain in joint of left elbow Problem [facility] [id number] Closed displaced fracture of head of left radius with routine healing, subsequent encounter Problem [facility] [id number] Dislocatio n of distal radioulnar joint of left wrist, initial encounter Problem [facility] [id number] Other chronic pain Problem [facility] [id number] Displaced fracture of head of left radius, initial encounter for closed fracture Problem [facility] [id number] Type 2 diabetes mellitus with other specified complicati on, without long-term current use of insulin Problem [facility] [id number] Depression with anxiety Problem [facility] [id number] Allergic rhinitis, unspecifie d seasonalit y, unspecifie d trigger Problem [facility] [id number] Subclinica l hypothyroi dism Problem [facility] [id number] Cervical herniated disc Problem [facility] [id number] Obesity (BMI 30-39.9) Problem [facility] [id number] Other obesity due to excess calories Problem [facility] Allergies, Adverse Reactions, Alerts Allergy Name Allergy Type Status Severity Reaction(s) Onset Date Inactive Date Treating Clinician Comments Source NO KNOWN ALLERGIE S Drug Class Active [facility] Social History Social Habit Start Date Stop Date Quantity Comments Source Sexual orientation Colette Gil - External Exposure to SARS-CoV-2 (event) Not sure [facility] History of tobacco use Passive smoker [place] - External Cigarettes smoked current (pack per day) - Reported 2023-08-08 00:00:00 2023-08-08 00:00:00 Nita Gil - External Cigarette pack-years 2023-08-08 00:00:00 2023-08-08 00:00:00 Nita Gil - External Alcoholic beverage intake 2023-08-08 00:00:00 2023-08-08 00:00:00 .29 /d Nita Gil - External History of Social function 2023-08-08 00:00:00 2023-08-08 00:00:00 [place] Alcohol Comment 2023-08-08 00:00:00 2023-08-08 00:00:00 socially [place]ita [place] Sex assigned at 1960 00:00:00 1960 00:00:00 [place] Smoking Status Start Date Stop Date Source Unknown if ever smoked [facility] Ex-smoker 2023-08-08 00:00:00 2023-08-08 00:00:00 Colette ledezma Louise [place] Medications Ordered Medication Name Filled Medication Name Start Date Stop Date Current Medication? Ordering Clinician Indication Dosage Frequency Signature (SIG) Comments Components Source Cyclobenzap rine HCl 10 MG oral Tablet 08-07 10:36: 22 Yes 10mg Take 1 tablet (10 mg total) by mouth daily. [place] FLUTICASONE PROPIONATE, NASAL, 50 MCG/ACT nasal Suspension 07-13 00:00: 00 Yes INSTILL ONE (1) SPRAY IN EACH NOSTRIL NASALLY ONCE A DAY. [place] Metformin HCl 500 MG oral Tablet 06-14 00:00: 00 Yes 500mg Take 1 tablet (500 mg total) by mouth in the morning and 1 tablet (500 mg total) in the evening. Take with meals. [place] Atorvastati n Calcium 40 MG oral Tablet 06-09 00:00: 00 Yes 40mg Take 1 tablet (40 mg total) by mouth daily. [place] LISINOPRIL- HCTZ 10-12.5 MG oral Tablet 06-09 00:00: 00 Yes 1{tbl} Take 1 tablet by mouth daily. [place] Pantoprazol e Sodium 40 MG oral Tablet Delayed Response 06-09 00:00: 00 Yes 40mg Take 1 tablet (40 mg total) by mouth daily. [place] Montelukast (SINGULAIR) 10 MG oral Tablet tablet 05-27 00:00: 00 Yes 10mg Take 1 tablet (10 mg total) by mouth daily. Nita Austinfarrah - Externa l Kenalog (Triamcinol one) Kenalog (Triamcinol one) 01-01 00:00: 00 No 40mg [facility] Cyclobenzap rine HCl 10 MG Cyclobenzap rine HCl 10 MG No 1{table t_as_ne eded} QD Cyclobenza carolina HCl 10 MG Pantoprazol e Sodium 40 MG Pantoprazol e Sodium 40 MG No 1{table t} QD Pantoprazo le Sodium 40 MG Montelukast Sodium 10 MG Montelukast Sodium 10 MG No 1{table t} QD Montelukas t Sodium 10 MG Atorvastati n Calcium 40 MG Atorvastati n Calcium 40 MG No 1{table t} QD Atorvastat in Calcium 40 MG metFORMIN HCl 500 MG metFORMIN HCl 500 MG No 1{table t_with_ a_meal} BID metFORMIN HCl 500 MG Immunizations Ordered Immunization Name Filled Immunization Name Date Status Comments Source Flucelvax - single dose syringe Flucelvax - single dose syringe 2022-01-06 14:17:00 Completed [facility] Flucelvax - single dose syringe Flucelvax - single dose syringe 2022-01-06 14:17:00 Completed [facility] Flucelvax - single dose syringe Flucelvax - single dose syringe 2022-01-06 14:17:00 Completed [facility] Flucelvax - single dose syringe Flucelvax - single dose syringe 2022-01-06 14:17:00 Completed [facility] Flucelvax - single dose syringe Flucelvax - single dose syringe 2022-01-06 14:17:00 Completed [facility] Flucelvax - single dose syringe Flucelvax - single dose syringe 2022-01-06 14:17:00 Completed [facility] Flucelvax - single dose syringe Flucelvax - single dose syringe 2022-01-06 14:17:00 Completed [facility] Flucelvax - single dose syringe Flucelvax - single dose syringe 2022-01-06 14:17:00 Completed [facility] Flucelvax - single dose syringe Flucelvax - single dose syringe 2022-01-06 14:17:00 Completed [facility] Flucelvax - single dose syringe Flucelvax - single dose syringe 2022-01-06 14:17:00 Completed [facility] Flucelvax - single dose syringe Flucelvax - single dose syringe 2022-01-06 14:17:00 Completed [facility] Flucelvax - single dose syringe Flucelvax - single dose syringe 2022-01-06 14:17:00 Completed [facility] Moderna COVID-19 Vaccine Moderna COVID-19 Vaccine 2020-08-07 17:23:00 Completed [facility] Moderna COVID-19 Vaccine Moderna COVID-19 Vaccine 2020-08-07 17:23:00 Completed [facility] Moderna COVID-19 Vaccine Moderna COVID-19 Vaccine 2020-08-07 17:23:00 Completed [facility] Moderna COVID-19 Vaccine Moderna COVID-19 Vaccine 2020-08-07 17:23:00 Completed [facility] Moderna COVID-19 Vaccine Moderna COVID-19 Vaccine 2020-08-07 17:23:00 Completed [facility] Moderna COVID-19 Vaccine Moderna COVID-19 Vaccine 2020-08-07 17:23:00 Completed [facility] Moderna COVID-19 Vaccine Moderna COVID-19 Vaccine 2020-08-07 17:23:00 Completed [facility] Moderna COVID-19 Vaccine Moderna COVID-19 Vaccine 2020-08-07 17:23:00 Completed [facility] Moderna COVID-19 Vaccine Moderna COVID-19 Vaccine 2020-08-07 17:23:00 Completed [facility] Moderna COVID-19 Vaccine Moderna COVID-19 Vaccine 2020-08-07 17:23:00 Completed [facility] Moderna COVID-19 Vaccine Moderna COVID-19 Vaccine 2020-08-07 17:23:00 Completed [facility] Moderna COVID-19 Vaccine Moderna COVID-19 Vaccine 2020-08-07 17:23:00 Completed [facility] Moderna COVID-19 Vaccine Moderna COVID-19 Vaccine 2020-08-07 17:23:00 Completed [facility] Moderna COVID-19 Vaccine Moderna COVID-19 Vaccine 2020-08-07 17:23:00 Completed [facility] Moderna COVID-19 Vaccine Moderna COVID-19 Vaccine 2020-08-07 17:23:00 Completed [facility] Moderna COVID-19 Vaccine Moderna COVID-19 Vaccine 2020-08-07 17:23:00 Completed [facility] Moderna COVID-19 Vaccine Moderna COVID-19 Vaccine 2020-08-07 17:23:00 Completed [facility] Moderna COVID-19 Vaccine Moderna COVID-19 Vaccine 2020-08-07 17:23:00 Completed [facility] Moderna COVID-19 Vaccine Moderna COVID-19 Vaccine 2020-08-07 17:23:00 Completed [facility] Moderna COVID-19 Vaccine Moderna COVID-19 Vaccine 2020-08-07 17:23:00 Completed [facility] Moderna COVID-19 Vaccine Moderna COVID-19 Vaccine 2020-08-07 17:23:00 Completed [facility] Moderna COVID-19 Vaccine Moderna COVID-19 Vaccine 2020-07-10 17:22:00 Completed [facility] Moderna COVID-19 Vaccine Moderna COVID-19 Vaccine 2020-07-10 17:22:00 Completed [facility] Moderna COVID-19 Vaccine Moderna COVID-19 Vaccine 2020-07-10 17:22:00 Completed [facility] Moderna COVID-19 Vaccine Moderna COVID-19 Vaccine 2020-07-10 17:22:00 Completed [facility] Moderna COVID-19 Vaccine Moderna COVID-19 Vaccine 2020-07-10 17:22:00 Completed [facility] Moderna COVID-19 Vaccine Moderna COVID-19 Vaccine 2020-07-10 17:22:00 Completed [facility] Moderna COVID-19 Vaccine Moderna COVID-19 Vaccine 2020-07-10 17:22:00 Completed [facility] Moderna COVID-19 Vaccine Moderna COVID-19 Vaccine 2020-07-10 17:22:00 Completed [facility] Moderna COVID-19 Vaccine Moderna COVID-19 Vaccine 2020-07-10 17:22:00 Completed [facility] Moderna COVID-19 Vaccine Moderna COVID-19 Vaccine 2020-07-10 17:22:00 Completed [facility] Moderna COVID-19 Vaccine Moderna COVID-19 Vaccine 2020-07-10 17:22:00 Completed [facility] Moderna COVID-19 Vaccine Moderna COVID-19 Vaccine 2020-07-10 17:22:00 Completed [facility] Moderna COVID-19 Vaccine Moderna COVID-19 Vaccine 2020-07-10 17:22:00 Completed [facility] Moderna COVID-19 Vaccine Moderna COVID-19 Vaccine 2020-07-10 17:22:00 Completed [facility] Moderna COVID-19 Vaccine Moderna COVID-19 Vaccine 2020-07-10 17:22:00 Completed [facility] Moderna COVID-19 Vaccine Moderna COVID-19 Vaccine 2020-07-10 17:22:00 Completed [facility] Moderna COVID-19 Vaccine Moderna COVID-19 Vaccine 2020-07-10 17:22:00 Completed [facility] Moderna COVID-19 Vaccine Moderna COVID-19 Vaccine 2020-07-10 17:22:00 Completed [facility] Moderna COVID-19 Vaccine Moderna COVID-19 Vaccine 2020-07-10 17:22:00 Completed [facility] Moderna COVID-19 Vaccine Moderna COVID-19 Vaccine 2020-07-10 17:22:00 [facility] Vaccine 2020-07-10 17:22:00 Completed [facility] Afluria single dose Afluria single dose 10:26:00 Completed [facility] Afluria single dose Afluria single dose 10:26:00 Completed [facility] Afluria single dose Afluria single dose 10:26:00 Completed [facility] Afluria single dose Afluria single dose 10:26:00 Completed [facility] Afluria single dose Afluria single dose 10:26:00 Completed [facility] Afluria single dose Afluria single dose 10:26:00 Completed [facility] Afluria single dose Afluria single dose 10:26:00 Completed [facility] Afluria single dose Afluria single dose 10:26:00 Completed [facility] Afluria single dose Afluria single dose 10:26:00 Completed [facility] Afluria single dose Afluria single dose 10:26:00 Completed [facility] Afluria single dose Afluria single dose 10:26:00 Completed [facility] Afluria single dose Afluria single dose 10:26:00 Completed [facility] Afluria single dose Afluria single dose 10:26:00 Completed [facility] Afluria single dose Afluria single dose 10:26:00 Completed [facility] Afluria single dose Afluria single dose 10:26:00 Completed [facility] Afluria single dose Afluria single dose 10:26:00 Completed [facility] Afluria single dose Afluria single dose 10:26:00 Completed [facility] Afluria single dose Afluria single dose 10:26:00 Completed [facility] Afluria single dose Afluria single dose 10:26:00 Completed [facility] Afluria single dose Afluria single dose 10:26:00 Completed [facility] Afluria single dose Afluria single dose 10:26:00 Completed [facility] Afluria single dose Afluria single dose 13:15:00 Completed [facility] Afluria single dose Afluria single dose 13:15:00 Completed [facility] Afluria single dose Afluria single dose 13:15:00 Completed [facility] Afluria single dose Afluria single dose 13:15:00 Completed [facility] Afluria single dose Afluria single dose 13:15:00 Completed [facility] Afluria single dose Afluria single dose 13:15:00 Completed [facility] Afluria single dose Afluria single dose 13:15:00 Completed [facility] Afluria single dose Afluria single dose 13:15:00 Completed [facility] Afluria single dose Afluria single dose 13:15:00 Completed [facility] Afluria single dose Afluria single dose 13:15:00 Completed [facility] Afluria single dose Afluria single dose 13:15:00 Completed [facility] Afluria single dose Afluria single dose 13:15:00 Completed [facility] Afluria single dose Afluria single dose 13:15:00 Completed [facility] Afluria single dose Afluria single dose 13:15:00 Completed [facility] Afluria single dose Afluria single dose 13:15:00 Completed [facility] Afluria single dose Afluria single dose 13:15:00 Completed [facility] Afluria single dose Afluria single dose 13:15:00 Completed [facility] Afluria single dose Afluria single dose 13:15:00 Completed [facility] Afluria single dose Afluria single dose 13:15:00 Completed [facility] Afluria single dose Afluria single dose 13:15:00 Completed [facility] Afluria single dose Afluria single dose 13:15:00 Completed [facility] Afluria single dose Afluria single dose 00:00:00 Completed [facility] Kenalog (Triamcinolone) Kenalog (Triamcinolone) 2019-01-01 14:58:00 Completed [facility] Afluria single dose Afluria single dose Unknown Completed [facility] Flucelvax - single dose syringe Flucelvax - single dose syringe Unknown Completed [facility] Moderna COVID-19 Vaccine Moderna COVID-19 Vaccine Unknown Completed [facility] Moderna COVID-19 Vaccine Moderna COVID-19 Vaccine Unknown Completed [facility] Afluria single dose Afluria single dose Unknown Completed [facility] Afluria single dose Afluria single dose Unknown Completed [facility] Flucelvax - single dose syringe Flucelvax - single dose syringe Unknown Completed [facility] Moderna COVID-19 Vaccine Moderna COVID-19 Vaccine Unknown Completed [facility] Moderna COVID-19 Vaccine Moderna COVID-19 Vaccine Unknown Completed [facility] Afluria single dose Afluria single dose Unknown Completed [facility] Afluria single dose Afluria single dose Unknown Completed [facility] Flucelvax - single dose syringe Flucelvax - single dose syringe Unknown Completed [facility] Moderna COVID-19 Vaccine Moderna COVID-19 Vaccine Unknown Completed [facility] Moderna COVID-19 Vaccine Moderna COVID-19 Vaccine Unknown Completed [facility] Afluria single dose Afluria single dose Unknown Completed [facility] Afluria single dose Afluria single dose Unknown Completed [facility] Flucelvax - single dose syringe Flucelvax - single dose syringe Unknown Completed [facility] Moderna COVID-19 Vaccine Moderna COVID-19 Vaccine Unknown Completed [facility] Moderna COVID-19 Vaccine Moderna COVID-19 Vaccine Unknown Completed [facility] Afluria (IIV4) - 3 years and older - SDS - 0.5mL Afluria (IIV4) - 3 years and older - SDS - 0.5mL Unknown Completed [facility] Afluria (IIV4) - 3 years and older - SDS - 0.5mL Afluria (IIV4) - 3 years and older - SDS - 0.5mL Unknown Completed [facility] Flucelvax (ccIIV4) - SDS - 0.5mL Flucelvax (ccIIV4) - SDS - 0.5mL Unknown Completed [facility] Moderna COVID-19 Vaccine Moderna COVID-19 Vaccine Unknown Completed [facility] Moderna COVID-19 Vaccine Moderna COVID-19 Vaccine Unknown Completed [facility] Afluria (IIV4) - 3 years and older - SDS - 0.5mL Afluria (IIV4) - 3 years and older - SDS - 0.5mL Unknown Completed [facility] Afluria (IIV4) - 3 years and older - SDS - 0.5mL Afluria (IIV4) - 3 years and older - SDS - 0.5mL Unknown Completed [facility] Flucelvax (ccIIV4) - SDS - 0.5mL Flucelvax (ccIIV4) - SDS - 0.5mL Unknown Completed [facility] Moderna COVID-19 Vaccine Moderna COVID-19 Vaccine Unknown Completed [facility] Moderna COVID-19 Vaccine Moderna COVID-19 Vaccine Unknown Completed [facility] Afluria (IIV4) - 3 years and older - SDS - 0.5mL Afluria (IIV4) - 3 years and older - SDS - 0.5mL Unknown Completed [facility] Afluria (IIV4) - 3 years and older - SDS - 0.5mL Afluria (IIV4) - 3 years and older - SDS - 0.5mL Unknown Completed [facility] Flucelvax (ccIIV4) - SDS - 0.5mL Flucelvax (ccIIV4) - SDS - 0.5mL Unknown Completed [facility] Moderna COVID-19 Vaccine Moderna COVID-19 Vaccine Unknown Completed [facility] Moderna COVID-19 Vaccine Moderna COVID-19 Vaccine Unknown Completed [facility] Covid-19 Vaccine Moderna (Spikevax), Mrna-lnp, Daron Protein, Pf Unknown Completed Nita Gil - External Afluria (IIV4) - 3 years and older - SDS - 0.5mL Afluria (IIV4) - 3 years and older - SDS - 0.5mL Unknown Completed [facility] Afluria (IIV4) - 3 years and older - SDS - 0.5mL Afluria (IIV4) - 3 years and older - SDS - 0.5mL Unknown Completed [facility] Flucelvax (ccIIV4) - SDS - 0.5mL Flucelvax (ccIIV4) - SDS - 0.5mL Unknown Completed [facility] Moderna COVID-19 Vaccine Moderna COVID-19 Vaccine Unknown Completed [facility] Moderna COVID-19 Vaccine Moderna COVID-19 Vaccine Unknown Completed [facility] Afluria (IIV4) - 3 years and older - SDS - 0.5mL Afluria (IIV4) - 3 years and older - SDS - 0.5mL Unknown Completed [facility] Afluria (IIV4) - 3 years and older - SDS - 0.5mL Afluria (IIV4) - 3 years and older - SDS - 0.5mL Unknown Completed [facility] Flucelvax (ccIIV4) - SDS - 0.5mL Flucelvax (ccIIV4) - SDS - 0.5mL Unknown Completed [facility] Moderna COVID-19 Vaccine Moderna COVID-19 Vaccine Unknown Completed [facility] Moderna COVID-19 Vaccine Moderna COVID-19 Vaccine Unknown Completed [facility] Covid-19 Vaccine Moderna (Spikevax), Mrna-lnp, Daron Protein, Pf Unknown Completed Nita Gil - External Afluria (IIV4) - 3 years and older - SDS - 0.5mL Afluria (IIV4) - 3 years and older - SDS - 0.5mL Unknown Completed [facility] Afluria (IIV4) - 3 years and older - SDS - 0.5mL Afluria (IIV4) - 3 years and older - SDS - 0.5mL Unknown Completed [facility] Flucelvax (ccIIV4) - SDS - 0.5mL Flucelvax (ccIIV4) - SDS - 0.5mL Unknown Completed [facility] Moderna COVID-19 Vaccine Moderna COVID-19 Vaccine Unknown Completed [facility] Moderna COVID-19 Vaccine Moderna COVID-19 Vaccine Unknown Completed [facility] Afluria (IIV4) - 3 years and older - SDS - 0.5mL Afluria (IIV4) - 3 years and older - SDS - 0.5mL Unknown Completed [facility] Afluria (IIV4) - 3 years and older - SDS - 0.5mL Afluria (IIV4) - 3 years and older - SDS - 0.5mL Unknown Completed [facility] Flucelvax (ccIIV4) - SDS - 0.5mL Flucelvax (ccIIV4) - SDS - 0.5mL Unknown Completed [facility] Moderna COVID-19 Vaccine Moderna COVID-19 Vaccine Unknown Completed [facility] Moderna COVID-19 Vaccine Moderna COVID-19 Vaccine Unknown Completed [facility] Influenza Virus Vaccine, No Preserv, age 6 months and up Unknown Completed Nita Gil - External Afluria single dose Afluria single dose Unknown Completed [facility] Afluria single dose Afluria single dose Unknown Completed [facility] Flucelvax - single dose syringe Flucelvax - single dose syringe Unknown Completed [facility] Moderna COVID-19 Vaccine Moderna COVID-19 Vaccine Unknown Completed [facility] Moderna COVID-19 Vaccine Moderna COVID-19 Vaccine Unknown Completed [facility] Afluria single dose Afluria single dose Unknown Completed [facility] Afluria single dose Afluria single dose Unknown Completed [facility] Flucelvax - single dose syringe Flucelvax - single dose syringe Unknown Completed [facility] Moderna COVID-19 Vaccine Moderna COVID-19 Vaccine Unknown Completed [facility] Moderna COVID-19 Vaccine Moderna COVID-19 Vaccine Unknown Completed [facility] Afluria single dose Afluria single dose Unknown Completed [facility] Afluria single dose Afluria single dose Unknown Completed [facility] Flucelvax - single dose syringe Flucelvax - single dose syringe Unknown Completed [facility] Moderna COVID-19 Vaccine Moderna COVID-19 Vaccine Unknown Completed [facility] Moderna COVID-19 Vaccine Moderna COVID-19 Vaccine Unknown Completed [facility] Afluria single dose Afluria single dose Unknown Completed [facility] Afluria single dose Afluria single dose Unknown Completed [facility] Flucelvax - single dose syringe Flucelvax - single dose syringe Unknown Completed [facility] Moderna COVID-19 Vaccine Moderna COVID-19 Vaccine Unknown Completed [facility] Moderna COVID-19 Vaccine Moderna COVID-19 Vaccine Unknown Completed [facility] Afluria single dose Afluria single dose Unknown Completed [facility] Afluria single dose Afluria single dose Unknown Completed [facility] Flucelvax - single dose syringe Flucelvax - single dose syringe Unknown Completed [facility] Moderna COVID-19 Vaccine Moderna COVID-19 Vaccine Unknown Completed [facility] Moderna COVID-19 Vaccine Moderna COVID-19 Vaccine Unknown Completed [facility] Afluria single dose Afluria single dose Unknown Completed [facility] Afluria single dose Afluria single dose Unknown Completed [facility] Flucelvax - single dose syringe Flucelvax - single dose syringe Unknown Completed [facility] Moderna COVID-19 Vaccine Moderna COVID-19 Vaccine Unknown Completed [facility] Moderna COVID-19 Vaccine Moderna COVID-19 Vaccine Unknown Completed [facility] Afluria single dose Afluria single dose Unknown Completed [facility] Afluria single dose Afluria single dose Unknown Completed [facility] Flucelvax - single dose syringe Flucelvax - single dose syringe Unknown Completed [facility] Moderna COVID-19 Vaccine Moderna COVID-19 Vaccine Unknown Completed [facility] Moderna COVID-19 Vaccine Moderna COVID-19 Vaccine Unknown Completed [facility] Afluria single dose Afluria single dose Unknown Completed [facility] Vital Signs Vital Name Observation Time Observation Value Comments Lv ashraf Systolic blood pressure 2023-08-08 15:24:00 144 mm[Hg] Nita Seybo ld - External Diastolic blood pressure 2023-08-08 15:24:00 74 mm[Hg] Nita Seybo ld - External Heart rate 2023-08-08 15:24:00 78 /min Kelse y Seybold - External Body temperature 2023-08-08 15:24:00 36.33 Moriah Nita Seybold - External Respiratory rate 2023-08-08 15:24:00 15 /min Nita Seybold - External Body height 2023-08-08 15:24:00 162.6 cm Anny ey Seybold - External Body weight 2023-08-08 15:24:00 75.751 kg Anny ey Seybold - External BMI 2023-08-08 15:24:00 28.67 kg/m2 Anny ey Seybold - External height 2023-06-08 09:10:00 64 [in_i] Commo n [facility] weight 2023-06-08 09:10:00 172 [lb_av] Comm on [facility] temperature 2023-06-08 09:10:00 97.2 [degF] Com mon [facility] bmi 2023-06-08 09:10:00 29.52 kg/m2 Comm on [facility] oximetry 2023-06-08 09:10:00 96 % Commo n [facility] blood pressure systolic 2023-06-08 09:10:00 130 mm[Hg] [facility] blood pressure diastolic 2023-06-08 09:10:00 68 mm[Hg] [facility] height 2023-02-24 10:40:00 64 [in_i] Commo n [facility] weight 2023-02-24 10:40:00 167 [lb_av] Comm on [facility] bmi 2023-02-24 10:40:00 28.66 kg/m2 Comm on [facility] height 2022-11-22 15:10:00 64 [in_i] Commo n [facility] weight 2022-11-22 15:10:00 176.4 [lb_av] Co mmon [facility] temperature 2022-11-22 15:10:00 97.3 [degF] Com mon [facility] bmi 2022-11-22 15:10:00 30.28 kg/m2 Comm on [facility] oximetry 2022-11-22 15:10:00 98 % Commo n [facility] respiratory rate 2022-11-22 15:10:00 16 /min Common [facility] blood pressure systolic 2022-11-22 15:10:00 131 mm[Hg] [facility] blood pressure diastolic 2022-11-22 15:10:00 84 mm[Hg] [facility] height 2022-10-11 13:00:00 64 [in_i] Commo n [facility] weight 2022-10-11 13:00:00 180 [lb_av] Comm on [facility] temperature 2022-10-11 13:00:00 97.6 [degF] Com mon [facility] bmi 2022-10-11 13:00:00 30.89 kg/m2 Comm on [facility] blood pressure systolic 2022-10-11 13:00:00 131 mm[Hg] [facility] blood pressure diastolic 2022-10-11 13:00:00 80 mm[Hg] [facility] height 2022-09-22 11:00:00 64 [in_i] Commo n [facility] weight 2022-09-22 11:00:00 181 [lb_av] Comm on [facility] temperature 2022-09-22 11:00:00 98.0 [degF] Com mon [facility] bmi 2022-09-22 11:00:00 31.07 kg/m2 Comm on [facility] blood pressure systolic 2022-09-22 11:00:00 128 mm[Hg] [facility] blood pressure diastolic 2022-09-22 11:00:00 78 mm[Hg] [facility] height 2022-09-03 09:30:00 64 [in_i] Commo n [facility] weight 2022-09-03 09:30:00 180 [lb_av] Comm on [facility] temperature 2022-09-03 09:30:00 97.8 [degF] Com [facility] bmi 2022-09-03 09:30:00 30.89 kg/m2 Comm on [facility] blood pressure systolic 2022-09-03 09:30:00 120 mm[Hg] Common [facility] blood pressure diastolic 2022-09-03 09:30:00 76 mm[Hg] [facility] height 2022-08-30 10:30:00 64 [in_i] Commo n [facility] weight 2022-08-30 10:30:00 180 [lb_av] Comm on [facility] temperature 2022-08-30 10:30:00 97.2 [degF] Com [facility] bmi 2022-08-30 10:30:00 30.89 kg/m2 Comm on [facility] blood pressure systolic 2022-08-30 10:30:00 124 mm[Hg] Common [facility] blood pressure diastolic 2022-08-30 10:30:00 72 mm[Hg] [facility] height 2022-08-26 08:30:00 64 [in_i] Commo n [facility] weight 2022-08-26 08:30:00 181 [lb_av] Comm on [facility] temperature 2022-08-26 08:30:00 97.8 [degF] Com [facility] bmi 2022-08-26 08:30:00 31.07 kg/m2 Comm on [facility] blood pressure systolic 2022-08-26 08:30:00 122 mm[Hg] [facility] blood pressure diastolic 2022-08-26 08:30:00 78 mm[Hg] [facility] height 2022-07-08 10:20:00 64 [in_i] Commo n [facility] weight 2022-07-08 10:20:00 185.4 [lb_av] Co [facility] temperature 2022-07-08 10:20:00 97.3 [degF] Com [facility] bmi 2022-07-08 10:20:00 31.82 kg/m2 Comm on [facility] oximetry 2022-07-08 10:20:00 98 % Commo n [facility] respiratory rate 2022-07-08 10:20:00 17 /min [facility] blood pressure systolic 2022-07-08 10:20:00 117 mm[Hg] [facility] blood pressure diastolic 2022-07-08 10:20:00 71 mm[Hg] [facility] height 2022-06-25 09:20:00 64 [in_i] Commo n [facility] weight 2022-06-25 09:20:00 186.0 [lb_av] Co [facility] temperature 2022-06-25 09:20:00 97.0 [degF] Com [facility] bmi 2022-06-25 09:20:00 31.92 kg/m2 Comm on [facility] oximetry 2022-06-25 09:20:00 96 % Commo n [facility] respiratory rate 2022-06-25 09:20:00 18 /min Common [facility] blood pressure systolic 2022-06-25 09:20:00 127 mm[Hg] [facility] blood pressure diastolic 2022-06-25 09:20:00 77 mm[Hg] [facility] height 2022-04-07 11:10:00 64 [in_i] Commo n [facility] weight 2022-04-07 11:10:00 192.4 [lb_av] Co mmon [facility] temperature 2022-04-07 11:10:00 97.3 [degF] Com mon [facility] bmi 2022-04-07 11:10:00 33.02 kg/m2 Comm on [facility] oximetry 2022-04-07 11:10:00 96 % Commo n [facility] respiratory rate 2022-04-07 11:10:00 17 /min [facility] blood pressure systolic 2022-04-07 11:10:00 124 mm[Hg] [facility] blood pressure diastolic 2022-04-07 11:10:00 69 mm[Hg] [facility] height 2022-01-22 08:20:00 64 [in_i] Commo n [facility] weight 2022-01-22 08:20:00 206 [lb_av] Comm on [facility] bmi 2022-01-22 08:20:00 35.36 kg/m2 Comm on [facility] height 2022-01-13 13:00:00 64 [in_i] Commo n [facility] weight 2022-01-13 13:00:00 206 [lb_av] Comm on [facility] temperature 2022-01-13 13:00:00 98.1 [degF] Com [facility] bmi 2022-01-13 13:00:00 35.36 kg/m2 Comm on [facility] blood pressure systolic 2022-01-13 13:00:00 132 mm[Hg] Common [facility] blood pressure diastolic 2022-01-13 13:00:00 75 mm[Hg] [facility] height 2022-01-06 13:50:00 64 [in_i] Commo n [facility] weight 2022-01-06 13:50:00 204.9 [lb_av] Co mmon [facility] temperature 2022-01-06 13:50:00 97.4 [degF] Com [facility] bmi 2022-01-06 13:50:00 35.17 kg/m2 Comm on [facility] oximetry 2022-01-06 13:50:00 96 % Commo n [facility] respiratory rate 2022-01-06 13:50:00 17 /min [facility] blood pressure systolic 2022-01-06 13:50:00 129 mm[Hg] Common [facility] blood pressure diastolic 2022-01-06 13:50:00 74 mm[Hg] [facility] height 2021-09-07 13:00:00 64 [in_i] Commo n [facility] weight 2021-09-07 13:00:00 191.9 [lb_av] Co mmon [facility] temperature 2021-09-07 13:00:00 96.3 [degF] Com [facility] bmi 2021-09-07 13:00:00 32.94 kg/m2 Comm on [facility] oximetry 2021-09-07 13:00:00 95 % Commo n [facility] respiratory rate 2021-09-07 13:00:00 16 /min [facility] blood pressure systolic 2021-09-07 13:00:00 134 mm[Hg] [facility] blood pressure diastolic 2021-09-07 13:00:00 75 mm[Hg] [facility] height 2021-05-25 16:20:00 64 [in_i] Commo n [facility] weight 2021-05-25 16:20:00 175 [lb_av] Comm on [facility] temperature 2021-05-25 16:20:00 98 [degF] Comm on [facility] bmi 2021-05-25 16:20:00 30.04 kg/m2 Comm on [facility] blood pressure systolic 2021-05-25 16:20:00 132 mm[Hg] [facility] blood pressure diastolic 2021-05-25 16:20:00 70 mm[Hg] [facility] height 2021-01-29 13:00:00 64 [in_i] Commo n [facility] weight 2021-01-29 13:00:00 172 [lb_av] Comm on [facility] temperature 2021-01-29 13:00:00 97.5 [degF] Com mon [facility] bmi 2021-01-29 13:00:00 29.52 kg/m2 Comm on [facility] blood pressure systolic 2021-01-29 13:00:00 135 mm[Hg] [facility] blood pressure diastolic 2021-01-29 13:00:00 70 mm[Hg] [facility] Procedures Procedure Date / Time Performed Performing Clinicia n Source MR CERVICAL SPINE WO CONTRAST 2020-01-03 16:04:53 Requisition, Paper [facility] ASSIGNMENT OF BENEFITS 2020-01-03 14:52:10 Docto r Unassigned, Correll [facility] Encounters Start Date/Time End Date/Time Encounter Type Admission Type Attending Clinicians Care Facility Care Department Encounter ID Source 2023-10-07 11:20:00 Outpatient Johnson, Mode STLMLC ST[facility] [id number] [facility] 2023-08-01 13:42:01 Outpatient Johnson, Mode [facility] [id number] [facility] 2023-07-27 11:07:00 Outpatient Johnson, Mode [facility]LMLC [facility] [id number] [facility] 2023-06-07 14:03:00 Outpatient Johnson, Mode STLMLC ST[facility] [id number] [facility] 2023-06-01 08:12:00 Outpatient Johnson, Mode STLMLC ST[facility] [id number] [facility] 2022-11-19 09:49:00 Outpatient Johnson, Mode STLMLC ST[facility] [id number] [facility] 2022-11-04 13:15:00 Outpatient Johnson, Mode STLMLC ST[facility] [id number] [facility] 2022-08-26 11:04:00 Outpatient Johnson, Mode STLMLC ST[facility]C [id number] [facility] 2022-07-06 09:20:01 Outpatient Johnson, Mode [facility]LMLC ST[facility] [id number] [facility] 2022-07-02 09:15:00 Outpatient Johnson, Mode STLMLC ST[facility]C [id number] [facility] 2022-06-24 14:38:01 Outpatient Johnson, Mode [facility]MLC ST[facility] [id number] [facility] 2022-04-07 10:54:00 Outpatient Johnson, Mode [facility]MLC ST[facility] [id number] [facility] 2022-04-05 13:33:01 Outpatient Johnson, Mode [facility]C ST[facility] [id number] [facility] 2022-01-14 07:17:00 Outpatient Johnson, Mode [facility]MLC ST[facility] [id number] [facility] 2022-01-05 11:43:00 Outpatient Johnson, Mode [facility]MLC ST[facility] [id number] [facility] 2021-12-31 11:26:00 Outpatient Johnson, Mode [facility]MLC ST[facility] [id number] [facility] 2021-10-09 10:47:01 Outpatient Johnson, Mode [facility]C ST[facility] [id number] [facility] 2021-09-08 10:11:20 Outpatient Johnson, Mode STLMLC ST[facility] [id number] [facility] 2021-09-07 13:25:06 Outpatient Johnson, Mode [facility]LMLC ST[facility] [id number] [facility] 2021-09-04 11:34:00 Outpatient Johnson, Mode STLMLC ST[facility] [id number] [facility] 2021-05-20 13:45:21 Outpatient Johnson, Mode [facility]MLC ST[facility] [id number] [facility] 2021-05-20 13:45:10 Outpatient Johnson, Mode STLMLC ST[facility] [id number] [facility] 2021-05-20 13:32:56 Outpatient Johnson, Mode STLMLC ST[facility] [id number] [facility] 2021-05-20 13:14:18 Outpatient Johnson, Mode STLMLC ST[facility] [id number] [facility] 2021-05-20 13:05:50 Outpatient Johnson, Mode STLMLC ST[facility]C [id number] [facility] 2021-05-20 12:59:33 Outpatient Johnson, Mode STLMLC ST[facility]C [id number] [facility] 2021-05-20 12:56:29 Outpatient Johnson, Mode STLMLC ST[facility]C [id number] [facility] 2021-05-20 12:08:06 Outpatient Johnson, Mode STLMLC ST[facility]C [id number] [facility] 2021-05-20 12:07:38 Outpatient Johnson, Mode STLMLC ST[facility] [id number] [facility] 2021-05-20 11:17:53 Outpatient Johnson, Mode [facility]C ST[facility] [id number] [facility] 2021-05-20 11:17:22 Outpatient Johnson, Mode [facility]MLC ST[facility] [id number] [facility] 2021-05-20 11:10:00 Outpatient Johnson, Mode [facility]LMLC ST[facility]C [id number] [facility] 2021-05-20 11:02:01 Outpatient Johnson, Mode STLMLC ST[facility]C [id number] [facility] 2021-05-20 11:01:01 Outpatient Johnson, Mode STLMLC ST[facility]C [id number] [facility] 2023-10-04 00:00:00 2023-10-04 00:00:00 (TEL) STLMLC [facility] [id number] [facility] 2023-09-30 00:00:00 2023-09-30 00:00:00 (TEL) STLMLC ST[facility] [id number] [facility] 2023-09-20 00:00:00 2023-09-20 00:00:00 (TEL) STLMLC ST[facility]C [id number] [facility] 2023-09-12 16:00:00 2023-09-12 16:00:00 Outpatient NITA SMITH [id number] Nita Gil 2023-08-10 00:00:00 2023-08-10 00:00:00 Outpatient NITA SMITH [id number] Nita Gil 2023-08-10 00:00:00 2023-08-10 00:00:00 Outpatient RADHA DYER NITA SMITH [id number] [facility] 2023-08-09 00:00:00 2023-08-09 00:00:00 Outpatient NITA NITA [id number] Nita [facility] 2023-08-09 00:00:00 2023-08-09 00:00:00 Outpatient NITA SMITH [id number] [facility] 2023-08-09 00:00:00 2023-08-09 00:00:00 Outpatient NITA SMITH [id number] [facility] 2023-08-08 10:30:00 2023-08-08 10:30:00 Outpatient JENNIFER ROMERO NITA SMITH [id number] [facility] 2023-07-27 00:00:00 2023-07-27 00:00:00 (TEL) STLMLC STLMLC [id number] [facility] 2023-06-08 00:00:00 2023-06-08 00:00:00 OFFICE VISIT ESTAB PT LEVEL 4 [facility]C ST[facility] [id number] [facility] 2023-04-19 00:00:00 2023-04-19 00:00:00 (TEL) STLMLC STLMLC [id number] [facility] 2023-02-24 00:00:00 2023-02-24 00:00:00 OFFICE VISIT ESTAB PT LEVEL 3 [facility]C ST[facility] [id number] [facility] 2023-02-24 00:00:00 2023-02-24 00:00:00 (TEL) STLMLC STLMLC [id number] [facility] 2022-11-22 00:00:00 2022-11-22 00:00:00 OFFICE VISIT ESTAB PT LEVEL 4 [facility]C ST[facility]C [id number] [facility] 2022-10-11 00:00:00 2022-10-11 00:00:00 NON-BILLAB LE VISIT STLMLC STLMLC [id number] [facility] 2022-09-22 00:00:00 2022-09-22 00:00:00 NON-BILLAB LE VISIT STLMLC STLMLC [id number] [facility] 2022-09-03 00:00:00 2022-09-03 00:00:00 NON-BILLAB LE VISIT STLMLC STLMLC [id number] [facility] 2022-08-30 00:00:00 2022-08-30 00:00:00 (TEL) STLMLC STLMLC [id number] [facility] 2022-08-30 00:00:00 2022-08-30 00:00:00 OFFICE VISIT ESTAB PT LEVEL 3 [facility]C ST[facility]C [id number] [facility] 2022-08-26 00:00:00 2022-08-26 00:00:00 OFFICE VISIT ESTAB PT LEVEL 3 [facility]C ST[facility]C [id number] [facility] 2022-08-26 00:00:00 2022-08-26 00:00:00 (TEL) STLMLC STLMLC [id number] [facility] 2022-08-18 00:00:00 2022-08-18 00:00:00 (TEL) STLMLC STLMLC [id number] [facility] 2022-07-08 00:00:00 2022-07-08 00:00:00 OFFICE VISIT ESTAB PT LEVEL 4 [facility]C ST[facility]C [id number] [facility] 2022-06-25 00:00:00 2022-06-25 00:00:00 OFFICE VISIT ESTAB PT LEVEL 3 [facility]C ST[facility]C [id number] [facility] 2022-06-24 00:00:00 2022-06-24 00:00:00 (TEL) STLMLC STLMLC [id number] [facility] 2022-04-07 00:00:00 2022-04-07 00:00:00 OFFICE VISIT ESTAB PT LEVEL 4 [facility]C STL[facility]C [id number] [facility] 2022-03-04 00:00:00 2022-03-04 00:00:00 (TEL) STLMLC STLMLC [id number] [facility] 2022-01-22 00:00:00 2022-01-22 00:00:00 OFFICE VISIT EST PT LEVEL 3 [facility]C STL[facility]C [id number] [facility] 2022-01-21 00:00:00 2022-01-21 00:00:00 (TEL) STLMLC STLMLC [id number] [facility] 2022-01-13 00:00:00 2022-01-13 00:00:00 (TEL) STLMLC STLMLC [id number] [facility] 2022-01-13 00:00:00 2022-01-13 00:00:00 OFFICE VISIT NEW PT LEVEL 3 [facility]C ST[facility]C [id number] [facility] 2022-01-06 00:00:00 2022-01-06 00:00:00 (WELLNESS) Wellness Visit STLMLC STLMLC [id number] [facility] 2021-12-29 00:00:00 2021-12-29 00:00:00 (TEL) STLMLC STLMLC [id number] [facility] 2021-10-27 00:00:00 2021-10-27 00:00:00 (TEL) STLMLC STLMLC [id number] [facility] 2021-10-16 00:00:00 2021-10-16 00:00:00 (TEL) STLMLC STLMLC [id number] [facility] 2021-09-07 00:00:00 2021-09-07 00:00:00 OFFICE VISIT ESTAB PT LEVEL 4 [facility]C STL[facility]C [id number] [facility] 2021-07-23 00:00:00 2021-07-23 00:00:00 (TEL) STLMLC STLMLC [id number] [facility] 2021-07-07 00:00:00 2021-07-07 00:00:00 (TEL) STLMLC STLMLC [id number] [facility] 2021-06-12 00:00:00 2021-06-12 00:00:00 (TEL) STLMLC STLMLC [id number] [facility] 2021-05-25 00:00:00 2021-05-25 00:00:00 OFFICE VISIT EST PT LEVEL 3 ST[facility]C STL[facility]C [id number] [facility] 2021-01-30 00:00:00 2021-01-30 00:00:00 (TEL) STLMLC STLMLC [id number] [facility] 2021-01-29 00:00:00 2021-01-29 00:00:00 OFFICE VISIT ESTAB PT LEVEL 4 [facility]C STL[facility]C [id number] [facility] 2020-12-30 00:00:00 2020-12-30 00:00:00 Outpatient STLMLC ST[facility]C [id number] [facility] 2020-12-23 00:00:00 2020-12-23 00:00:00 Outpatient [facility]LMLC ST[facility]C [id number] [facility] 2020-12-17 00:00:00 2020-12-17 00:00:00 Outpatient STLMLC STLMLC [id number] [facility] 2020-12-15 00:00:00 2020-12-15 00:00:00 Outpatient STLMLC STLMLC [id number] [facility] 2020-12-15 00:00:00 2020-12-15 00:00:00 Outpatient STLMLC STL[facility]C [id number] [facility] 2020-11-21 00:00:00 2020-11-21 00:00:00 Outpatient STLMLC STLMLC [id number] [facility] 2020-10-22 00:00:00 2020-10-22 00:00:00 Outpatient [facility]LMLC STLMLC [id number] [facility] 2020-10-15 00:00:00 2020-10-15 00:00:00 Outpatient [facility]LMLC ST[facility]C [id number] [facility] 2020-10-13 00:00:00 2020-10-13 00:00:00 Outpatient STLMLC STL[facility]C [id number] [facility] 2020-10-13 00:00:00 2020-10-13 00:00:00 Outpatient STLMLC STLMLC [id number] [facility] 2020-10-03 00:00:00 2020-10-03 00:00:00 Outpatient STLMLC STL[facility]C [id number] [facility] 2020-09-24 00:00:00 2020-09-24 00:00:00 Outpatient STLMLC STLMLC [id number] [facility] 2020-08-26 00:00:00 2020-08-26 00:00:00 Outpatient [facility]MLC STLMLC [id number] [facility] 2020-03-18 00:00:00 2020-03-18 00:00:00 Outpatient STLMLC STL[facility]C [id number] [facility] 2020-03-05 00:00:00 2020-03-05 00:00:00 Outpatient [facility]C STL[facility]C [id number] [facility] 2020-02-20 00:00:00 2020-02-20 00:00:00 Outpatient [facility]C STL[facility]C [id number] [facility] 2020-01-22 00:00:00 2020-01-22 00:00:00 Outpatient [facility]C STLMLC [id number] [facility] 2020-01-03 09:53:20 2020-01-03 23:59:00 Hospital Encounter Radiology [facility] [id number] 2020-01-03 09:53:20 2020-01-03 23:59:00 Hospital Encounter Radiology [facility] [id number] [facility] 2020-01-03 00:00:00 2020-01-03 00:00:00 Outpatient R RADIOLOGY [facility] [id number] [facility] 2020-01-03 00:00:00 2020-01-03 00:00:00 Orders Only Doctor Unassigned, Correll [facility] [id number] 2020-01-03 00:00:00 2020-01-03 00:00:00 Orders Only Doctor Unassigned, Correll [facility] [id number] [facility] 2019-10-10 09:30:00 2019-10-10 09:30:[address] [facility] [id number] [facility] 2019-08-14 11:30:00 2019-08-14 11:30:[address] [facility] [facility] [id number] [facility] 2019-08-10 10:42:00 2019-08-10 10:42:00 [facility] [facility] [id number] [facility] 2019-07-10 10:45:00 2019-07-10 10:45:[address] [facility] [id number] [facility] [facility] 2019-06-19 12:53:00 2019-06-19 12:53:[address] [facility] [id number] [facility] 2019-06-14 08:09:00 2019-06-14 08:09:[address] [facility] [id number] [facility] 2019-05-15 09:45:00 2019-05-15 09:45:00 [facility] [id number] [facility] 2019-05-01 17:15:00 2019-05-01 17:15:[address] [facility] [id number] [facility] 2019-04-24 12:46:00 2019-04-24 12:46:00 [facility] [id number] [facility] 2019-04-11 14:30:00 2019-04-11 14:30:00 [facility] [id number] [facility] 2019-04-03 10:19:00 2019-04-03 10:19:00 [facility] [id number] [facility] 2019-04-02 16:33:00 2019-04-02 16:33:00 [facility] [id number] [facility] 2019-01-17 13:00:00 2019-01-17 13:00:00 [facility] [id number] [facility] 2019-01-01 14:30:00 2019-01-01 14:30:[address] [facility] [id number] [facility] 2018-12-20 17:00:00 2018-12-20 17:00:00 [facility] [id number] [facility] 2018-12-20 14:00:00 2018-12-20 14:00:00 [facility] [id number] [facility] Results Test Description Test Time Test Comments Results Result Co mments Source STREP A RAPID 2023-02-24 00:00:00 Result TSH REFLEX TO FREE [id number] 00:00:00* Test Item Value Reference Range Interpretation Comme nts TSH REFLEX TO FREE T4 (test code = 63344-2) 2.700 UIU/ML See_Comment [Automated messa ge] The system which generated this result transmitted reference range: 0.400-4.100 UIU/ML. The reference range was not used to interpret this result as normal/abnormal. LIPID PANEL WITH REFLEX DIRECT [id number] 00:00:00* Test Item Value Reference Range Interpretation Comme nts CALC LDL CHOL (test code = 41079-3) 88 MG/DL See_Comment [Automated messa ge] The [...] code = 2085-9) 42 MG/DL See_Comment [Automated messa ge] The system which generated this result transmitted reference range: >39 MG/DL. The reference range was not used to interpret this result as normal/abnormal. RISK RATIO LDL/HDL (test code = 61615-2) 2.10 RATIO See_Comment [Automated message] The system [...] interpret this result as normal/abnormal. PATHOLOGIST SMEAR [id number] 00:00:00* Test Item Value Reference Range Interpretation Comme nts BASOPHILS (test code = 26844-1) 0.6 % COMMENTS (test code = 61824-4) (NOTE) DIAGNOSIS: (test code = 92861-3) (NOTE) EOSINOPHILS (test code = 23408-9) 3.0 % HEMATOCRIT (test code = 07025-4) 40.5 % See_Comment [Automated messa ge] The [...] result as normal/abnormal. LYMPHOCYTES (test code = 24353-9) 29.4 % MCH (test code = 12529-9) 28.8 PG See_Comment [Automated messa ge] The system which generated this result transmitted reference range: 25.0-33.0 PG. The reference range was not used to interpret this result as normal/abnormal. MCHC (test code = 69777-2) 33.3 G/DL See_Comment [Automated messa ge] The system which generated this result transmitted reference range: 31.0-36.0 G/DL. The reference range was not used to interpret this result as normal/abnormal. MCV (test code = 72934-3) 86.5 fL See_Comment [Automated messa ge] The system which generated this result transmitted reference range: 80.0-99.0 fL. The reference range was not used to interpret this result as normal/abnormal. MICROSCOPIC DESCRIPTION: (test code = 57020-1) (NOTE) MONOCYTES (test code = 15684-7) 7.8 % NEUTROPHILS (test code = 76763-4) 59.0 % NUCLEATED RBCS (test code = 94214-4) 0.0 /100 WBC'S See_Comment [Automated messa ge] The system which generated this result transmitted reference range: 0.0 /100 WBC'S. The reference range was not used to interpret this result as normal/abnormal. PATHOLOGIST: (test code = 23109-3) (NOTE) PLATELET COUNT (test code = 51533-8) 389 K/UL See_Comment [Automated messa ge] The system which generated this result transmitted reference range: 130-400 K/UL. The reference range was not used to interpret this result as normal/abnormal. RBC (test code = 98652-8) 4.68 M/UL See_Comment [Automated messa ge] The system which generated this result transmitted reference range: 3.80-5.40 M/UL. The reference range was not used to interpret this result as normal/abnormal. RDW (test code = 60965-4) 13.8 % See_Comment [Automated messa ge] The system which generated this result transmitted reference range: 11.5-15.0 %. The reference range was not used to interpret this result as normal/abnormal. WBC (test code = 73709-3) 8.2 K/UL See_Comment [Automated messa ge] The system which generated this result transmitted reference range: 3.5-11.0 K/UL. The reference range was not used to interpret this result as normal/abnormal. ALBUMIN/CREATININE RATIO, RANDOM [id number] 00:00:00* Test Item Value Reference Range Interpretation Comme nts ALBUMIN, URINE, RANDOM (test code = 62649-7) <0.2 MG/DL NOT ESTAB MG/DL CALC ALBUMIN/CREAT, RND (test code = 58262-6) <4 MG/G See_Comment [Automated messa ge] The system which generated this result transmitted reference range: <30 MG/G. The reference range was not used to interpret this result as normal/abnormal. CREATININE, URINE, CONC. (test code = 2161-8) 52.7 MG/DL NOT ESTAB MG/DL COMPREHENSIVE METABOLIC [id number] 00:00:00* Test Item Value Reference Range Interpretation [...] result as normal/abnormal. CALCIUM (test code = 45031-3) 9.9 MG/DL See_Comment [Automated messa ge] The [...] as normal/abnormal. CALC GLOBULIN (test code = 98964-9) 2.4 G/DL See_Comment [Automated messa ge] The [...] normal/abnormal. eGFR (2020 CKD-EPI) (test code = 51999-3) 73 ML/MIN/1.73 See_Comment [Automated messa ge] The [...] code = 2951-2) 141 MEQ/L See_Comment [Automated messa ge] The system which generated this result transmitted reference range: 133-146 MEQ/L. The reference range was not used to interpret this result as normal/abnormal. MR CERVICAL SPINE WO [id number] 16:17:36HISTORY: Chronic neck pain radiating into both [...] and minimal bilateralnerve root compression suspected at C4-C5.[facility], COVID 19 Antigen + Flu by SofiaPOC, COVID 19 Antigen + Flu by SofiaCT Elbow Left Wo ConCT Elbow Left Wo Con Notes Date/Time Note Provider Source 2023-08-08 10:36:26 [id number]:36:26F ormatting of this note is different from the original.Chief ComplaintPatient presents Bharat Coates has seen Dr. Johnson as PCP in the past 3 years. Last annual over a year ago.HerniaInguinal hernia that [place] [address]-4Apqjx [id number]:36:54Nurse [id number]. [id number] for patient xxis93476-9Wibbz NoteLNNARRATIVEFormatted C-CDA narrative JagjitNEWMAN MEMORIAL H[facility] – SHATTUCKYuryWright-Patterson [facility] [facility].[id number] 2.3.15|[id number]. [id number] [facility]"
[2023-10-08] MEDS ORDERED: ONDANSETRON 4 MG/2 ML VIAL ONE (14:51)
[2023-10-08] MEDS ORDERED: MORPHINE 4 MG/ML SYR ONE (14:51)
[2023-10-08 15:45] LABS: Absolute Basophils 0.1 K/uL (0-0.5); Absolute Eosinophils 0.4 K/uL (0-0.5); Absolute Lymphocytes (CBC) 2.2 K/uL (0.7-4.9); Absolute Monocytes 0.7 K/uL (0.1-1.3); Absolute Neutrophil 4.4 K/uL (1.8-8.0); Basophils % 0.7 % (0-1.3); Eosinophils % 5.4 % (0-4.4); Hematocrit 39.1 % (36.0-45.0); Hemoglobin 12.9 g/dL (12.0-15.0); Lymphocytes % 28.3 % (15.3-44.8); MCH 28.9 pg (27.0-35.0); MCV 87.5 fL (80-100); MPV 7.9 fL (7.6-11.3); Monocytes % 9.5 % (3.3-12.3); Neutrophils % 56.1 % (41.7-73.7); Platelets 342 thou/uL (152-406); RBC Red Blood Cell Count 4.47 M/uL (3.86-4.86); Red Cell Distribution Width 14.4 % (12.1-15.2)
[2023-10-08 16:01] LABS: Anion Gap 5.8 mEq/L (5.0-15.0); Potassium 3.8 mEq/L (3.5-5.1)
--- NOTE | 2023-10-08 17:03 | RAD REPORT ---
EXAM DESCRIPTION: CT - Abdomen Pelvis W Contrast - 10/08/2023 4:26 pm CLINICAL HISTORY: Abdominal pain COMPARISON: 2021 and 2020 TECHNIQUE: Computed axial tomography of the abdomen pelvis was obtained. 100 cc Isovue-300 was admin istered intravenously. Oral contrast was not requested which limits evaluation of bowel and appendix All CT scans are performed using dose optimization technique as appropriate and may include automated exposure control or mA/KV adjustment according to patient size. FINDINGS: 6 x 4.3 centimeter low-density mass within dome of liver contains coarse calcification. It is without significant change from prior imaging. It probably is benign Mild to moderate dilatation of common bile duct is without change. Spleen, pancreas and adrenals are unremarkable. 3 centimeter left renal cyst. Mild bilateral renal cortical thinning. Small umbilical hernia Hysterectomy. No evidence diverticulitis. Small left inguinal hernia contains fat. Mild increased density is present. Right lung calcified granulomas IMPRESSION: Small left inguinal hernia contains fat. Mild increased density may indicate mild inflam mation. Mild to moderate dilatation of the common bile duct without significant change 2021
--- NOTE | 2023-10-08 17:06 | EDPHYS ---
[facility] Name: Batsheva Guevara Age: 63 yrs Sex: Female : 1960 Arrival Date: 10/08/2023 Time: 13:46 Bed 16 Private MD: Alex [facility] ED Physician Jack Lopez HPI: 10/07 14:04 This 63 yrs old Female presents to ER via Ambulatory with complaints of hernia pain. [facility] 14:04 63 female with a past medical attention and diabetes ER for left inguinal hernia pain jh7 patient had an ultrasound 2 weeks ago identifying a fat-containing inguinal hernia. She reports that it is gradually become more painful and worsens with movement of her left leg. Denies fever, nausea, vomiting, or any other symptoms. Patient calm in triage. Historical: - Allergies: 14:06 No Known Allergies; ph - Home Meds: 14:06 Metformin Oral [Active]; atorvastatin oral [Active]; lisinopril Oral [Active]; ph montelukast oral [Active]; pantoprazole oral [Active]; - PMHx: 14:06 Diabetes - NIDDM; chronic neck pain; Hypertension; High Cholesterol; ph - PSHx: 14:06 section; hysterectomy; neck sx; L arm sx; ph - Immunization history:: Adult Immunizations up to date. - Infectious Disease History:: Denies. - Social history:: Smoking status: Patient denies any tobacco usage or history of. ROS: 14:04 Constitutional: Per HPI 7 Exam: 14:04 Constitutional: This is a well developed, well nourished patient who is awake, alert, jh7 and in no acute distress. Head/Face: Normocephalic, atraumatic. Neck: Trachea midline, no thyromegaly or masses palpated, and no cervical lymphadenopathy. Supple, full range of motion without nuchal rigidity, or vertebral point tenderness. No Meningismus. Cardiovascular: Regular rate and rhythm with a normal S1 and S2. No gallops, murmurs, or rubs. Normal PMI, no JVD. No pulse deficits. Respiratory: Lungs have equal breath sounds bilaterally, clear to auscultation and percussion. No rales, rhonchi or wheezes noted. No increased work of breathing, no retractions or nasal flaring. Back: No spinal tenderness. No costovertebral tenderness. Full range of motion. Skin: Warm, dry with normal turgor. Normal color with no rashes, no lesions, and no evidence of cellulitis. MS/ Extremity: Pulses equal, no cyanosis. Neurovascular intact. Full, normal range of motion. Neuro: Awake and alert, GCS 15, oriented to person, place, time, and situation. Motor strength 5/5 in all extremities. Sensory grossly intact. Normal gait. 14:04 Abdomen/GI: Inspection: abdomen appears normal, Bowel sounds: normal, Palpation: Left inguinal hernia that is nonreducible and mildly tender to palpation., Vital Signs: 14:04 BP 141 / 90; Pulse 73; Resp 18; Temp 97.4; Pulse Ox 100% on R/A; Weight 76.2 kg; Height ph 5 ft. 3 in. ; 14:48 BP 152 / 96; Pulse 74; Resp 18; Pulse Ox 100% on R/A; mb9 16:30 BP 151 / 93; Pulse 55; Resp 18; Pulse Ox 99% on R/A; mb9 14:04 Body Mass Index 29.76 (76.20 kg, 160.02 cm) ph MDM: 13:50 Patient medically screened. [facility] 17:05 Differential diagnosis: Incarcerated inguinal hernia, strangulated inguinal hernia. [facility] Data reviewed: vital signs, nurses notes, lab test result(s), radiologic studies, CT scan. I considered the following discharge prescriptions or medication management in the emergency department Medications were administered in the Emergency Department. See MAR. Care significantly affected by the following chronic conditions: Diabetes, Hypertension. Counseling: I had a detailed discussion with the patient and/or guardian regarding the historical points, exam findings, and any diagnostic results supporting the discharge/admit diagnosis, the need for outpatient follow up, a general surgeon, to return to the emergency department if symptoms worsen or persist or if there are any questions or concerns that arise at home. 10/07 14:09 Order name: CBC with Diff; Complete Time: 15:53 [facility] 10/07 14:09 Order name: BMP; Complete Time: 16:02 [facility] 10/07 14:09 Order name: CT Abd/Pelvis - IV Contrast Only; Complete Time: 17:04 [facility] Administered Medications: 15:28 Drug: Ondansetron IVP 4 mg IVP once; over 2 minutes Route: IVP; Site: left forearm; mb9 16:50 Follow up: Response: No adverse reaction mb9 15:32 Drug: morphine IVP or IV 4 mg IVP once over 4 mins Route: IVP; Infused Over: 4 mins; mb9 Site: left forearm; 16:50 Follow up: Response: No adverse reaction mb9 Disposition Summary: 10/08/23 17:05 Discharge Ordered Notes: Location: Home [facility] Problem: an ongoing problem [facility] Symptoms: are unchanged [facility] Condition: Stable [facility] Diagnosis - Unilateral inguinal hernia, without obstruction or gangrene [facility] Followup: [facility] - With: Marshall Rosado MD - When: 2 - 3 days - Reason: Recheck today's complaints Discharge Instructions: - Discharge Summary Sheet [facility] - Inguinal Hernia, Adult [facility] Forms: - Medication Reconciliation Form [facility] - Patient Portal Instructions [facility] - Leadership Thank You Letter [facility] Addendum: 10/11/2023 14:12 I was immediately available for consultation during this patient's visit. I did not e c2 personally see the patient or discuss the patient with the PARDEEP. . Signatures: Dispatcher [employer] Rosa Mitchell RN RN ph Emilia Gutierrez, HOSPITAL DIRECTOR HOSPITAL DIRECTOR 7 Ce Zapata RN RN mb9 Jack Lopez MD MD ec2
--- NOTE | 2023-10-08 17:06 | ER ---
Nurse's Notes [facility] Name: Batsheva Guevara Age: 63 yrs Sex: Female : 1960 Arrival Date: 10/08/2023 Time: 13:46 Bed 16 Private MD: Mode Johnson Diagnosis: Unilateral inguinal hernia, without obstruction or gangrene Presentation: 10/07 14:04 Chief complaint: Patient states: L inguinal hernia, had US approx 2 weeks ago, states ph that pain is worse today. Coronavirus screen: Vaccine status: Patient reports receiving the 2nd dose of the covid vaccine. Ebola Screen: No symptoms or risks identified at this time. Initial Sepsis Screen: Does the patient meet any 2 criteria? No. Patient's initial sepsis screen is negative. Does the patient have a suspected source of infection? No. Patient's initial sepsis screen is negative. Risk Assessment: Do you want to hurt yourself or someone else? Patient reports no desire to harm self or others. Onset of symptoms was October 08, 2023. 14:04 Method Of Arrival: Ambulatory 14:04 Acuity: HERMELINDA 3 ph Historical: - Allergies: 14:06 No Known Allergies; ph - Home Meds: 14:06 Metformin Oral [Active]; atorvastatin oral [Active]; lisinopril Oral [Active]; ph montelukast oral [Active]; pantoprazole oral [Active]; - PMHx: 14:06 Diabetes - NIDDM; chronic neck pain; Hypertension; High Cholesterol; ph - PSHx: 14:06 section; hysterectomy; neck sx; L arm sx; ph - Immunization history:: Adult Immunizations up to date. - Infectious Disease History:: Denies. - Social history:: Smoking status: Patient denies any tobacco usage or history of. Screenin:47 [facility] ED Fall Risk Assessment (Adult) History of falling in the last 3 months, mb9 including since admission No falls in past 3 months (0 pts) Confusion or Disorientation No (0 pts) Intoxicated or Sedated No (0 pts) Impaired Gait No (0 pts) Mobility Assist Device Used No (0 pt) Altered Elimination No (0 pt) Score/Fall Risk Level 0 - 2 = Low Risk Oriented to surroundings, Maintained a safe environment, Educated pt \T\ family on fall prevention, incl call for assistance when getting out of bed. Abuse screen: Denies threats or abuse. Nutritional screening: No deficits noted. Tuberculosis screening: No symptoms or risk factors identified. Assessment: 14:45 General: Appears in no apparent distress. Behavior is calm, cooperative. Pain: mb9 Complains of pain in abdomen Pain radiates to RLQ. Pain: Quality of pain is described as throbbing, Pain began suddenly, Is continuous, Aggravated by repositioning. Neuro: Level of Consciousness is awake, alert, obeys commands. Cardiovascular: Heart tones S1 S2 present Patient's skin is warm and dry. Respiratory: Airway is patent Respiratory effort is even, unlabored, Respiratory pattern is regular, symmetrical, Breath sounds are clear bilaterally. GI: Abdomen is round non-distended, Bowel sounds present X 4 quads. GI: Abd is soft Abdomen is tender to palpation in right lower quadrant. : No signs and/or symptoms were reported regarding the genitourinary system. EENT: No signs and/or symptoms were reported regarding the EENT system. Derm: Skin is pink, warm \T\ dry. Musculoskeletal: Range of motion: intact in all extremities. 16:30 Reassessment: No changes from previously documented assessment. Patient and/or family mb9 updated on plan of care and expected duration. Pain level reassessed. Patient is alert, oriented x 3, equal unlabored respirations, skin warm/dry/pink. 17:06 Reassessment: Patient appears in no apparent distress at this time. No changes from mb9 previously documented assessment. Patient and/or family updated on plan of care and expected duration. Pain level reassessed. Vital Signs: 14:04 BP 141 / 90; Pulse 73; Resp 18; Temp 97.4; Pulse Ox 100% on R/A; Weight 76.2 kg; Height ph 5 ft. 3 in. ; 14:48 BP 152 / 96; Pulse 74; Resp 18; Pulse Ox 100% on R/A; mb9 16:30 BP 151 / 93; Pulse 55; Resp 18; Pulse Ox 99% on R/A; mb9 14:04 Body Mass Index 29.76 (76.20 kg, 160.02 cm) ph ED Course: 13:49 Patient arrived in ED. am2 13:49 Mode Johnson DO is Private Physician. am2 13:49 [facility] Gutierrez [facility]NP [facility] 13:49 Jack Lopez MD is Attending Physician. 7 14:06 Triage completed. ph 14:08 Arm band placed on Patient placed in waiting room, Patient notified of wait time. ph 14:41 Ce Zapata, LUNA is Primary Nurse. mb9 14:47 Placed in gown. Bed in low position. Call light in reach. Side rails up X 1. Provided mb9 Education on: press call light if needing anything. Client placed on continuous cardiac and pulse oximetry monitoring. NIBP monitoring applied. Door closed. Noise minimized. Warm blanket given. Pillow given. 14:48 No provider procedures requiring assistance completed. mb9 14:55 Missed attempt(s): 22 gauge in left forearm. Bleeding controlled, band aid applied, mb9 catheter tip intact. 15:00 Missed attempt(s): 22 gauge in right forearm. Bleeding controlled, band aid applied, mb9 catheter tip intact. 15:30 Accessed ,peripheral vein via ultrasound, utilizing static ultrasound technique using mb9 ,sterile technique, per hospital protocol. Clean \T\ dry. Dressing intact. Good blood return. Flushes easily. 16:28 CT Abd/Pelvis - IV Contrast Only In Process Unspecified. EDNE 17:05 Marshall Rosado MD is Referral Physician. [facility] 17:06 IV discontinued, intact, bleeding controlled, No redness/swelling at site. Pressure mb9 dressing applied. Administered Medications: 15:28 Drug: Ondansetron IVP 4 mg IVP once; over 2 minutes Route: IVP; Site: left forearm; mb9 16:50 Follow up: Response: No adverse reaction mb9 15:32 Drug: morphine IVP or IV 4 mg IVP once over 4 mins Route: IVP; Infused Over: 4 mins; mb9 Site: left forearm; 16:50 Follow up: Response: No adverse reaction mb9 Medication: 14:47 VIS not applicable for this client. mb9 Outcome: 17:05 Discharge ordered by . 7 17:06 Discharged to home ambulatory, mb9 17:06 Condition: stable 17:06 Discharge instructions given to patient, Instructed on discharge instructions, follow up and referral plans. Demonstrated understanding of instructions, follow-up care, 17:13 Patient left the ED. mb9 Signatures: Dispatcher [employer] Rosa Mitchell, RN RN ph Shaw, Shereen torres2 Emilia Gutierrez, DRY END TESTER DRY END TESTER jh7 Ce Zapata, RN RN mb9
[2023-10-08 17:21] VITALS: BP 151/93; TEMP 97.4; O2SAT 99
== END 2023-10-08 17:13 | disposition home or self-care (01) ==
LOC: ER 13:46
DX: K40.90 Unilateral inguinal hernia, without obstruction or gangrene, not specified as recurrent (principal)
CPT/HCPCS: 85025; 80048; 36415; 74177; 96375; 96374; 99284; Q9967; J2405

== ENCOUNTER 2024-03-02 16:48 | Emergency (ER) | payer OTHER ==
--- OUTSIDE RECORDS SUMMARY | 2024-03-02 16:52 | XMS REPORT | Continuity of Care Document ---
Author Name Unknown Address [address] [facility]. [address] [place] [address] [facility] thconnect Address [address] [facility] [address] [place] [address] Care Team Providers Care Loan Servicing Officer Name Role Phone Johnson, Mode M Attending Clinician Unavailable Christel Tovar Attending Clinician Unavaila RADHA Tam Attending Clinician Unavailable JENNIFER ROMERO Attending Clinician Unavailable Radiology Attending Clinician Unavailable RADIOLOGY Attending Clinician Unavailable Doctor Unassigned, [place] Attending Clinician U navailable Christel Tovar Admitting Clinician Unavaila sury Payers Payer Name Policy Type Policy Number Effective Date Expirati on Date Source [facility] Individual Exchange Benefit Plan [id number] 2023 00:00:00 2024 00:00:00 [facility] NITA-TAYA SILVER-C COPAY FOCUS 9 [id number] 2023 00:00:00 [facility] [id number] 2021 00:00:00 [facility] Problems Condition Name Condition Details Condition Category Status Onset Date Resolution Date Last Treatment Date Treating Clinician Comments Source 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) 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) Disease Active 08-07 00:00: 00 Nita Seybold - Externa l Hypothyroi dism Hypothyroi dism Disease Active 08-07 00:00: 00 Nita Seybold - Externa l Chronic hepatitis C without hepatic coma (multi HCC) Chronic hepatitis C without hepatic coma (multi HCC) Disease Active 08-07 00:00: 00 Nita Seybold - Externa l Hepatomega ly Hepatomega ly Disease Active 08-07 00:00: 00 Nita Seybold - Externa l Hypertensi on Hypertensi on Disease Active 08-07 00:00: 00 Nita Seybold - Externa l Spinal stenosis in cervical region Spinal stenosis, cervical region Problem [facility] Overweight Overweight (BMI 25.0-29.9) Problem [facility] Anemia Anemia, unspecifie d type Problem [facility] Body mass index 30.00 to 34.99 Body mass index (BMI) of 32.0 to 32.9 in adult Problem [facility] [id number] Noncomplia nce with dietary restrictio n Problem [facility] [id number] Pain in right hip Problem [facility] [id number] Pain in left hip Problem [facility] [id number] Bilateral carpal tunnel syndrome Problem [facility] [id number] Gastroesop hageal reflux disease without esophagiti s Problem [facility] [id number] Mixed hyperlipid emia Problem [facility] [id number] Pain in joint of left elbow Problem [facility] [id number] Closed displaced fracture of head of left radius with routine healing, subsequent encounter Problem [facility] [id number] Dislocatio n of distal radioulnar joint of left wrist, initial encounter Problem [facility] [id number] Other chronic pain Problem [facility] [id number] Displaced fracture of head of left radius, initial encounter for closed fracture Problem [facility] [id number] Type 2 diabetes mellitus with other specified complicati on, without long-term current use of insulin Problem [facility] [id number] Depression with anxiety Problem [facility] [id number] Allergic rhinitis, unspecifie d seasonalit y, unspecifie d trigger Problem [facility] [id number] Subclinica l hypothyroi dism Problem [facility] [id number] Cervical herniated disc Problem [facility] [id number] Body mass index (BMI) 32.0-32.9, adult Problem [facility] [id number] Other obesity due to excess calories Problem [facility] Allergies, Adverse Reactions, Alerts Allergy Name Allergy Type Status Severity Reaction(s) Onset Date Inactive Date Treating Clinician Comments Source NO KNOWN ALLERGIE S Drug Class Active [facility] Social History Social Habit Start Date Stop Date Quantity Comments Source Sexual orientation Colette Gil - External History of tobacco use Passive smoker [place] External Exposure to SARS-CoV-2 (event) Not sure [facility] Cigarettes smoked current (pack per day) - Reported 2023-08-08 00:00:00 2023-08-08 00:00:00 Nita Gil - External Cigarette pack-years 2023-08-08 00:00:00 2023-08-08 00:00:00 Nita Gil - External Alcoholic beverage intake 2023-08-08 00:00:00 2023-08-08 00:00:00 .29 /d Nita Gil - External History of Social function 2023-08-08 00:00:00 2023-08-08 00:00:00 Nita Gil - External Alcohol Comment 2023-08-08 00:00:00 2023-08-08 00:00:00 socially Nita Gil - External Sex assigned at 1960 00:00:00 1960 00:00:00 Nita Gil - External Smoking Status Start Date Stop Date Source Unknown if ever smoked [facility] Never Smoker [facility] Ex-smoker 2023-08-08 00:00:00 2023-08-08 00:00:00 Colette Gil - External Medications Ordered Medication Name Filled Medication Name Start Date Stop Date Current Medication? Ordering Clinician Indication Dosage Frequency Signature (SIG) Comments Components Source Levsin 0.125 MG Levsin 0.125 MG 2023-04 00:00: 00 No 1{table t_as_ne eded} Levsin 0.125 MG Zofran 4 MG Zofran 4 MG 2023-04 00:00: 00 No 1{table t} TID Zofran 4 MG Cyclobenzap rine HCl 10 MG oral Tablet 08-07 10:36: 22 Yes 10mg Take 1 tablet (10 mg total) by mouth daily. [place] FLUTICASONE PROPIONATE, NASAL, 50 MCG/ACT nasal Suspension - 00:00: 00 Yes INSTILL ONE (1) SPRAY [...] mg total) by mouth daily. [place] Kenalog (Triamcinol one) Kenalog (Triamcinol one) 01-01 00:00: 00 No 40mg [facility] Cyclobenzap rine HCl 10 MG Cyclobenzap rine [...] 1{table t_as_ne eded} traMADol HCl 50 MG Immunizations Ordered Immunization Name Filled Immunization Name Date Status Comments Source Flucelvax - single dose syringe Flucelvax - single dose syringe 2022-01-06 14:17:00 Completed [facility] Flucelvax - single dose syringe Flucelvax - single dose syringe 2022-01-06 14:17:00 Completed [facility] Flucelvax - single dose syringe Flucelvax - single dose syringe 2022-01-06 14:17:00 Completed [facility] Flucelvax - single dose syringe Flucelvax - single dose syringe 2022-01-06 14:17:00 Completed [facility] Flucelvax - single dose syringe Flucelvax - single dose syringe 2022-01-06 14:17:00 Completed [facility] Flucelvax - single dose syringe Flucelvax - single dose syringe 2022-01-06 14:17:00 Completed [facility] Flucelvax - single dose syringe Flucelvax - single dose syringe 2022-01-06 14:17:00 Completed [facility] Flucelvax - single dose syringe Flucelvax - single dose syringe 2022-01-06 14:17:00 Completed [facility] Flucelvax - single dose syringe Flucelvax - single dose syringe 2022-01-06 14:17:00 Completed [facility] Moderna COVID-19 Vaccine Moderna COVID-19 Vaccine 2020-08-07 17:23:00 Completed [facility] Moderna COVID-19 Vaccine Moderna COVID-19 Vaccine 2020-08-07 17:23:00 Completed [facility] Moderna COVID-19 Vaccine Moderna COVID-19 Vaccine 2020-08-07 17:23:00 Completed [facility] Moderna COVID-19 Vaccine Moderna COVID-19 Vaccine 2020-08-07 17:23:00 Completed [facility] Moderna COVID-19 Vaccine Moderna COVID-19 Vaccine 2020-08-07 17:23:00 Completed [facility] Moderna COVID-19 Vaccine Moderna COVID-19 Vaccine 2020-08-07 17:23:00 Completed [facility] Moderna COVID-19 Vaccine Moderna COVID-19 Vaccine 2020-08-07 17:23:00 Completed [facility] Moderna COVID-19 Vaccine Moderna COVID-19 Vaccine 2020-08-07 17:23:00 Completed [facility] Moderna COVID-19 Vaccine Moderna COVID-19 Vaccine 2020-08-07 17:23:00 Completed [facility] Moderna COVID-19 Vaccine Moderna COVID-19 Vaccine 2020-08-07 17:23:00 Completed [facility] Moderna COVID-19 Vaccine Moderna COVID-19 Vaccine 2020-08-07 17:23:00 Completed [facility] Moderna COVID-19 Vaccine Moderna COVID-19 Vaccine 2020-07-10 17:22:00 Completed [facility] Moderna COVID-19 Vaccine Moderna COVID-19 Vaccine 2020-07-10 17:22:00 Completed [facility] Moderna COVID-19 Vaccine Moderna COVID-19 Vaccine 2020-07-10 17:22:00 Completed [facility] Moderna COVID-19 Vaccine Moderna COVID-19 Vaccine 2020-07-10 17:22:00 Completed [facility] Moderna COVID-19 Vaccine Moderna COVID-19 Vaccine 2020-07-10 17:22:00 Completed [facility] Moderna COVID-19 Vaccine Moderna COVID-19 Vaccine 2020-07-10 17:22:00 Completed [facility] Moderna COVID-19 Vaccine Moderna COVID-19 Vaccine 2020-07-10 17:22:00 Completed [facility] Moderna COVID-19 Vaccine Moderna COVID-19 Vaccine 2020-07-10 17:22:00 Completed [facility] Moderna COVID-19 Vaccine Moderna COVID-19 Vaccine 2020-07-10 17:22:00 Completed [facility] Moderna COVID-19 Vaccine Moderna COVID-19 Vaccine 2020-07-10 17:22:00 [facility] Moderna COVID-19 Vaccine 2020-07-10 17:22:00 Completed [facility] Afluria single dose Afluria single dose 10:26:00 Completed [facility] Afluria single dose Afluria single dose 10:26:00 Completed [facility] Afluria single dose Afluria single dose 10:26:00 Completed [facility] Afluria single dose Afluria single dose 10:26:00 Completed [facility] Afluria single dose Afluria single dose 10:26:00 Completed [facility] Afluria single dose Afluria single dose 10:26:00 Completed [facility] Afluria single dose Afluria single dose 10:26:00 Completed [facility] Afluria single dose Afluria single dose 10:26:00 Completed [facility] Afluria single dose Afluria single dose 10:26:00 Completed [facility] Afluria single dose Afluria single dose 10:26:00 Completed [facility] Afluria single dose Afluria single dose 10:26:00 Completed [facility] Afluria single dose Afluria single dose 13:15:00 Completed [facility] Afluria single dose Afluria single dose 13:15:00 Completed [facility] Afluria single dose Afluria single dose 13:15:00 Completed [facility] Afluria single dose Afluria single dose 13:15:00 Completed [facility] Afluria single dose Afluria single dose 13:15:00 Completed [facility] Afluria single dose Afluria single dose 13:15:00 Completed [facility] Afluria single dose Afluria single dose 13:15:00 Completed [facility] Afluria single dose Afluria single dose 13:15:00 Completed [facility] Afluria single dose Afluria single dose 13:15:00 Completed [facility] Afluria single dose Afluria single dose 13:15:00 Completed [facility] Afluria single dose Afluria single dose 13:15:00 Completed [facility] Afluria (IIV4) - 3 years and older - SDS - 0.5mL Afluria (IIV4) - 3 years and older - SDS - 0.5mL 2019-01-17 00:00:00 Completed [facility] Kenalog (Triamcinolone) Kenalog (Triamcinolone) 2019-01-01 14:58:00 Completed [facility] Covid-19 Vaccine Moderna (Spikevax), Mrna-lnp, Daron Protein, Pf Unknown Completed Nita Gil - External Influenza Virus Vaccine, No Preserv, age 6 months and up Unknown Completed Nita Gil - External Afluria single dose Afluria single dose Unknown Completed [facility] Flucelvax - single dose syringe Flucelvax - single dose syringe Unknown Completed [facility] Moderna COVID-19 Vaccine Moderna COVID-19 Vaccine Unknown Completed [facility] Afluria single dose Afluria single dose Unknown Completed [facility] Flucelvax - single dose syringe Flucelvax - single dose syringe Unknown Completed [facility] Moderna COVID-19 Vaccine Moderna COVID-19 Vaccine Unknown Completed [facility] Afluria single dose Afluria single dose Unknown Completed [facility] Flucelvax - single dose syringe Flucelvax - single dose syringe Unknown Completed [facility] Moderna COVID-19 Vaccine Moderna COVID-19 Vaccine Unknown Completed [facility] Afluria single dose Afluria single dose Unknown Completed [facility] Flucelvax - single dose syringe Flucelvax - single dose syringe Unknown Completed [facility] Moderna COVID-19 Vaccine Moderna COVID-19 Vaccine Unknown Completed [facility] Afluria (IIV4) - 3 years and older - SDS - 0.5mL Afluria (IIV4) - 3 years and older - SDS - 0.5mL Unknown Completed [facility] Flucelvax (ccIIV4) - SDS - 0.5mL Flucelvax (ccIIV4) - SDS - 0.5mL Unknown Completed [facility] Moderna COVID-19 Vaccine Moderna COVID-19 Vaccine Unknown Completed [facility] Afluria (IIV4) - 3 years and older - SDS - 0.5mL Afluria (IIV4) - 3 years and older - SDS - 0.5mL Unknown Completed [facility] Flucelvax (ccIIV4) - SDS - 0.5mL Flucelvax (ccIIV4) - SDS - 0.5mL Unknown Completed [facility] Moderna COVID-19 Vaccine Moderna COVID-19 Vaccine Unknown Completed [facility] Afluria (IIV4) - 3 years and older - SDS - 0.5mL Afluria (IIV4) - 3 years and older - SDS - 0.5mL Unknown Completed [facility] Flucelvax (ccIIV4) - SDS - 0.5mL Flucelvax (ccIIV4) - SDS - 0.5mL Unknown Completed [facility] Moderna COVID-19 Vaccine Moderna COVID-19 Vaccine Unknown Completed [facility] Afluria (IIV4) - 3 years and older - SDS - 0.5mL Afluria (IIV4) - 3 years and older - SDS - 0.5mL Unknown Completed [facility] Flucelvax (ccIIV4) - SDS - 0.5mL Flucelvax (ccIIV4) - SDS - 0.5mL Unknown Completed [facility] Moderna COVID-19 Vaccine Moderna COVID-19 Vaccine Unknown Completed [facility] Afluria (IIV4) - 3 years and older - SDS - 0.5mL Afluria (IIV4) - 3 years and older - SDS - 0.5mL Unknown Completed [facility] Flucelvax (ccIIV4) - SDS - 0.5mL Flucelvax (ccIIV4) - SDS - 0.5mL Unknown Completed [facility] Moderna COVID-19 Vaccine Moderna COVID-19 Vaccine Unknown Completed [facility] Afluria (IIV4) - 3 years and older - SDS - 0.5mL Afluria (IIV4) - 3 years and older - SDS - 0.5mL Unknown Completed [facility] Flucelvax (ccIIV4) - SDS - 0.5mL Flucelvax (ccIIV4) - SDS - 0.5mL Unknown Completed [facility] Moderna COVID-19 Vaccine Moderna COVID-19 Vaccine Unknown Completed [facility] Afluria (IIV4) - 3 years and older - SDS - 0.5mL Afluria (IIV4) - 3 years and older - SDS - 0.5mL Unknown Completed [facility] Flucelvax (ccIIV4) - SDS - 0.5mL Flucelvax (ccIIV4) - SDS - 0.5mL Unknown Completed [facility] Moderna COVID-19 Vaccine Moderna COVID-19 Vaccine Unknown Completed [facility] Afluria single dose Afluria single dose Unknown Completed [facility] Flucelvax - single dose syringe Flucelvax - single dose syringe Unknown Completed [facility] Moderna COVID-19 Vaccine Moderna COVID-19 Vaccine Unknown Completed [facility] Afluria single dose Afluria single dose Unknown Completed [facility] Flucelvax - single dose syringe Flucelvax - single dose syringe Unknown Completed [facility] Moderna COVID-19 Vaccine Moderna COVID-19 Vaccine Unknown Completed [facility] Afluria single dose Afluria single dose Unknown Completed [facility] Flucelvax - single dose syringe Flucelvax - single dose syringe Unknown Completed [facility] Moderna COVID-19 Vaccine Moderna COVID-19 Vaccine Unknown Completed [facility] Afluria single dose Afluria single dose Unknown Completed [facility] Flucelvax - single dose syringe Flucelvax - single dose syringe Unknown Completed [facility] Moderna COVID-19 Vaccine Moderna COVID-19 Vaccine Unknown Completed [facility] Afluria single dose Afluria single dose Unknown Completed [facility] Flucelvax - single dose syringe Flucelvax - single dose syringe Unknown Completed [facility] Moderna COVID-19 Vaccine Moderna COVID-19 Vaccine Unknown Completed [facility] Afluria single dose Afluria single dose Unknown Completed [facility] Flucelvax - single dose syringe Flucelvax - single dose syringe Unknown Completed [facility] Moderna COVID-19 Vaccine Moderna COVID-19 Vaccine Unknown Completed [facility] Afluria single dose Afluria single dose Unknown Completed [facility] Flucelvax - single dose syringe Flucelvax - single dose syringe Unknown Completed [facility] Moderna COVID-19 Vaccine Moderna COVID-19 Vaccine Unknown Completed [facility] Vital Signs Vital Name Observation Time Observation Value Comments S pascale height 2024-02-14 11:40:00 64 [in_i] Commo n [facility] weight 2024-02-14 11:40:00 167 [lb_av] Comm on [facility] temperature 2024-02-14 11:40:00 98.9 [degF] Com [facility] bmi 2024-02-14 11:40:00 28.66 kg/m2 Comm on [facility] blood pressure systolic 2024-02-14 11:40:00 126 mm[Hg] Common [facility] blood pressure diastolic 2024-02-14 11:40:00 63 mm[Hg] [facility] height 2024-01-31 14:30:00 64 [in_i] Commo n [facility] weight 2024-01-31 14:30:00 171.8 [lb_av] Co mmon [facility] temperature 2024-01-31 14:30:00 96.8 [degF] Com [facility] bmi 2024-01-31 14:30:00 29.49 kg/m2 Comm on [facility] oximetry 2024-01-31 14:30:00 96 % Commo n [facility] blood pressure systolic 2024-01-31 14:30:00 124 mm[Hg] [facility] blood pressure diastolic 2024-01-31 14:30:00 70 mm[Hg] Common [facility] height 2023-10-10 14:20:00 64 [in_i] Commo n [facility] weight 2023-10-10 14:20:00 169.0 [lb_av] Co mmon [facility] temperature 2023-10-10 14:20:00 97.4 [degF] Com [facility] bmi 2023-10-10 14:20:00 29.01 kg/m2 Comm on [facility] oximetry 2023-10-10 14:20:00 97 % Commo n [facility] respiratory rate 2023-10-10 14:20:00 18 /min [facility] blood pressure systolic 2023-10-10 14:20:00 124 mm[Hg] [facility] blood pressure diastolic 2023-10-10 14:20:00 73 mm[Hg] [facility] Systolic blood pressure 2023-08-08 15:24:00 144 mm[Hg] Nita Solis ld - External Diastolic blood pressure 2023-08-08 15:24:00 74 mm[Hg] Nita Avilao ld - External Heart rate 2023-08-08 15:24:00 78 /min Kel y Seybold - External Body temperature 2023-08-08 15:24:00 36.33 Moriah Nita Cheungybold - External Respiratory rate 2023-08-08 15:24:00 15 /min Nita Cheungybold - External Body height 2023-08-08 15:24:00 162.6 cm Anny malik Seybold - External Body weight 2023-08-08 15:24:00 75.751 kg Anny ey Seybold - External BMI 2023-08-08 15:24:00 28.67 kg/m2 Anny malik Seybold - External height 2023-06-08 09:10:00 64 [in_i] Commo n [facility] weight 2023-06-08 09:10:00 172 [lb_av] Comm on [facility] temperature 2023-06-08 09:10:00 97.2 [degF] Com mon [facility] bmi 2023-06-08 09:10:00 29.52 kg/m2 Comm on [facility] oximetry 2023-06-08 09:10:00 96 % Commo n [facility] blood pressure systolic 2023-06-08 09:10:00 130 mm[Hg] [facility] blood pressure diastolic 2023-06-08 09:10:00 68 mm[Hg] [facility] height 2023-02-24 10:40:00 64 [in_i] Commo n [facility] weight 2023-02-24 10:40:00 167 [lb_av] Comm on [facility] bmi 2023-02-24 10:40:00 28.66 kg/m2 Comm on [facility] height 2022-11-22 15:10:00 64 [in_i] Commo n [facility] weight 2022-11-22 15:10:00 176.4 [lb_av] Co mmon [facility] temperature 2022-11-22 15:10:00 97.3 [degF] Com mon [facility] bmi 2022-11-22 15:10:00 30.28 kg/m2 Comm on [facility] oximetry 2022-11-22 15:10:00 98 % Commo n [facility] respiratory rate 2022-11-22 15:10:00 16 /min Common [facility] blood pressure systolic 2022-11-22 15:10:00 131 mm[Hg] [facility] blood pressure diastolic 2022-11-22 15:10:00 84 mm[Hg] Common [facility] height 2022-10-11 13:00:00 64 [in_i] Commo n [facility] weight 2022-10-11 13:00:00 180 [lb_av] Comm on [facility] temperature 2022-10-11 13:00:00 97.6 [degF] Com mon [facility] bmi 2022-10-11 13:00:00 30.89 kg/m2 Comm on [facility] blood pressure systolic 2022-10-11 13:00:00 131 mm[Hg] [facility] blood pressure diastolic 2022-10-11 13:00:00 80 mm[Hg] Common [facility] height 2022-09-22 11:00:00 64 [in_i] Commo n [facility] weight 2022-09-22 11:00:00 181 [lb_av] Comm on [facility] temperature 2022-09-22 11:00:00 98.0 [degF] Com [facility] bmi 2022-09-22 11:00:00 31.07 kg/m2 Comm on [facility] blood pressure systolic 2022-09-22 11:00:00 128 mm[Hg] [facility] blood pressure diastolic 2022-09-22 11:00:00 78 mm[Hg] Common [facility] height 2022-09-03 09:30:00 64 [in_i] Commo n [facility] weight 2022-09-03 09:30:00 180 [lb_av] Comm on [facility] [facility] temperature 2022-09-03 09:30:00 97.8 [degF] Com [facility] bmi 2022-09-03 09:30:00 30.89 kg/m2 Comm on [facility] blood pressure systolic 2022-09-03 09:30:00 120 mm[Hg] Common [facility] blood pressure diastolic 2022-09-03 09:30:00 76 mm[Hg] [facility] height 2022-08-30 10:30:00 64 [in_i] Commo n [facility] weight 2022-08-30 10:30:00 180 [lb_av] Comm on [facility] temperature 2022-08-30 10:30:00 97.2 [degF] Com [facility] bmi 2022-08-30 10:30:00 30.89 kg/m2 Comm on [facility] blood pressure systolic 2022-08-30 10:30:00 124 mm[Hg] Common Spiri t [facility] blood pressure diastolic 2022-08-30 10:30:00 72 mm[Hg] [facility] height 2022-08-26 08:30:00 64 [in_i] Commo n [facility] weight 2022-08-26 08:30:00 181 [lb_av] Comm on [facility] temperature 2022-08-26 08:30:00 97.8 [degF] Com [facility] bmi 2022-08-26 08:30:00 31.07 kg/m2 Comm on [facility] blood pressure systolic 2022-08-26 08:30:00 122 mm[Hg] Common [facility] blood pressure diastolic 2022-08-26 08:30:00 78 mm[Hg] [facility] height 2022-07-08 10:20:00 64 [in_i] Commo n [facility] weight 2022-07-08 10:20:00 185.4 [lb_av] Co [facility] temperature 2022-07-08 10:20:00 97.3 [degF] Com [facility] bmi 2022-07-08 10:20:00 31.82 kg/m2 Comm on [facility] oximetry 2022-07-08 10:20:00 98 % Commo n [facility] respiratory rate 2022-07-08 10:20:00 17 /min [facility] blood pressure systolic 2022-07-08 10:20:00 117 mm[Hg] [facility] blood pressure diastolic 2022-07-08 10:20:00 71 mm[Hg] Common [facility] height 2022-06-25 09:20:00 64 [in_i] Commo n [facility] weight 2022-06-25 09:20:00 186.0 [lb_av] Co on [facility] temperature 2022-06-25 09:20:00 97.0 [degF] Com [facility] bmi 2022-06-25 09:20:00 31.92 kg/m2 Comm on [facility] oximetry 2022-06-25 09:20:00 96 % Commo n [facility] respiratory rate 2022-06-25 09:20:00 18 /min [facility] blood pressure systolic 2022-06-25 09:20:00 127 mm[Hg] Common Spiri t [facility] blood pressure diastolic 2022-06-25 09:20:00 77 mm[Hg] Common [facility] height 2022-04-07 11:10:00 64 [in_i] Commo n [facility] weight 2022-04-07 11:10:00 192.4 [lb_av] Co mmon [facility] temperature 2022-04-07 11:10:00 97.3 [degF] Com mon [facility] bmi 2022-04-07 11:10:00 33.02 kg/m2 Comm on [facility] oximetry 2022-04-07 11:10:00 96 % Commo n [facility] respiratory rate 2022-04-07 11:10:00 17 /min [facility] blood pressure systolic 2022-04-07 11:10:00 124 mm[Hg] Common [facility] blood pressure diastolic 2022-04-07 11:10:00 69 mm[Hg] Common [facility] height 2022-01-22 08:20:00 64 [in_i] Commo n [facility] weight 2022-01-22 08:20:00 206 [lb_av] Comm on [facility] bmi 2022-01-22 08:20:00 35.36 kg/m2 Comm on [facility] height 2022-01-13 13:00:00 64 [in_i] Commo n [facility] weight 2022-01-13 13:00:00 206 [lb_av] Comm on [facility] temperature 2022-01-13 13:00:00 98.1 [degF] Com mon [facility] bmi 2022-01-13 13:00:00 35.36 kg/m2 Comm on [facility] blood pressure systolic 2022-01-13 13:00:00 132 mm[Hg] Common Spiri t [facility] blood pressure diastolic 2022-01-13 13:00:00 75 mm[Hg] Common [facility] height 2022-01-06 13:50:00 64 [in_i] Commo n [facility] weight 2022-01-06 13:50:00 204.9 [lb_av] Co mmon [facility] temperature 2022-01-06 13:50:00 97.4 [degF] Com mon [facility] bmi 2022-01-06 13:50:00 35.17 kg/m2 Comm on [facility] oximetry 2022-01-06 13:50:00 96 % Commo n [facility] respiratory rate 2022-01-06 13:50:00 17 /min [facility] blood pressure systolic 2022-01-06 13:50:00 129 mm[Hg] Common [facility] blood pressure diastolic 2022-01-06 13:50:00 74 mm[Hg] Common [facility] height 2021-09-07 13:00:00 64 [in_i] Commo n [facility] weight 2021-09-07 13:00:00 191.9 [lb_av] Co mmon [facility] temperature 2021-09-07 13:00:00 96.3 [degF] Com [facility] bmi 2021-09-07 13:00:00 32.94 kg/m2 Comm on [facility] oximetry 2021-09-07 13:00:00 95 % Commo n [facility] respiratory rate 2021-09-07 13:00:00 16 /min [facility] blood pressure systolic 2021-09-07 13:00:00 134 mm[Hg] Common [facility] blood pressure diastolic 2021-09-07 13:00:00 75 mm[Hg] Common [facility] height 2021-05-25 16:20:00 64 [in_i] Commo n [facility] weight 2021-05-25 16:20:00 175 [lb_av] Comm on [facility] temperature 2021-05-25 16:20:00 98 [degF] Comm on [facility] bmi 2021-05-25 16:20:00 30.04 kg/m2 Comm on [facility] blood pressure systolic 2021-05-25 16:20:00 132 mm[Hg] Common [facility] blood pressure diastolic 2021-05-25 16:20:00 70 mm[Hg] Common [facility] height 2021-01-29 13:00:00 64 [in_i] Commo n [facility] weight 2021-01-29 13:00:00 172 [lb_av] Comm on [facility] temperature 2021-01-29 13:00:00 97.5 [degF] Com mon [facility] bmi 2021-01-29 13:00:00 29.52 kg/m2 Comm on [facility] blood pressure systolic 2021-01-29 13:00:00 135 mm[Hg] Common [facility] blood pressure diastolic 2021-01-29 13:00:00 70 mm[Hg] [facility] Procedures Procedure Date / Time Performed Performing Clinicia n Source MR CERVICAL SPINE WO CONTRAST 2020-01-03 16:04:53 Requisition, Paper [facility] ASSIGNMENT OF BENEFITS 2020-01-03 14:52:10 Docto r Unassigned, [place] [facility] Encounters Start Date/Time End Date/Time Encounter Type Admission Type Attending Clinicians Care Facility Care Department Encounter ID Source 2024-01-25 14:13:00 Outpatient Mode Johnson [facility] [id number] [facility] 2024-01-09 11:30:00 Inpatient Christel Ballard [facility] [id number] 81 [facility] 2023-10-24 16:59:00 Outpatient Johnson, Mode [facility] [id number] [facility] 2023-10-10 14:26:00 Outpatient Johnson, Mode [facility] [id number] [facility] 2023-10-07 11:20:00 Outpatient Johnson, Mode [facility] [id number] [facility] 2023-08-01 13:42:01 Outpatient Johnson, Mode [facility] [id number] [facility] 2023-07-27 11:07:00 Outpatient Johnson, Mode [facility] [id number] [facility] 2023-06-07 14:03:00 Outpatient Johnson, Mode [facility] [id number] [facility] 2023-06-01 08:12:00 Outpatient Johnson, Mode [facility] [id number] [facility] 2022-11-19 09:49:00 Outpatient Johnson, Mode [facility] [id number] [facility] 2022-11-04 13:15:00 Outpatient Johnson, Mode [facility] [id number] [facility] 2022-08-26 11:04:00 Outpatient Johnson, Mode [facility] [id number] [facility] 2022-07-06 09:20:01 Outpatient Johnson, Mode [facility] [id number] [facility] 2022-07-02 09:15:00 Outpatient Johnson, Mode [facility] [id number] [facility] 2022-06-24 14:38:01 Outpatient Johnson, Mode [facility] [id number] [facility] 2022-04-07 10:54:00 Outpatient Johnson, Mode [facility] [id number] [facility] 2022-04-05 13:33:01 Outpatient Johnson, Mode [facility] [id number] [facility] 2022-01-14 07:17:00 Outpatient Johnson, Mode [facility] [id number] [facility] 2022-01-05 11:43:00 Outpatient Johnson, Mode [facility] [id number] [facility] 2021-12-31 11:26:00 Outpatient Johnson, Mode [facility] [id number] [facility] 2021-10-09 10:47:01 Outpatient Johnson, Mode [facility] [id number] [facility] 2021-09-08 10:11:20 Outpatient Johnson, Mode [facility] [id number] [facility] 2021-09-07 13:25:06 Outpatient Johnson, Mode [facility] [id number] [facility] 2021-09-04 11:34:00 Outpatient Johnson, Mode [facility] [id number] [facility] 2021-05-20 13:45:21 Outpatient Johnson, Mode [facility] [id number] [facility] 2021-05-20 13:45:10 Outpatient Johnson, Mode [facility] [id number] [facility] 2021-05-20 13:32:56 Outpatient Johnson, Mode [facility] [id number] [facility] 2021-05-20 13:14:18 Outpatient Johnson, Mode [facility] [id number] [facility] 2021-05-20 13:05:50 Outpatient Johnson, Mode [facility] [id number] [facility] 2021-05-20 12:59:33 Outpatient Johnson, Mode [facility] [id number] [facility] 2021-05-20 12:56:29 Outpatient Johnson, Mode [facility] [id number] [facility] 2021-05-20 12:08:06 Outpatient Johnson, Mode [facility] [id number] [facility] 2021-05-20 12:07:38 Outpatient Johnson, Mode [facility] [id number] [facility] 2021-05-20 11:17:53 Outpatient Johnson, Mode [facility] [id number] [facility] 2021-05-20 11:17:22 Outpatient Johnson, Mode [facility] [id number] [facility] 2021-05-20 11:10:00 Outpatient Johnson, Mode [facility] [id number] [facility] 2021-05-20 11:02:01 Outpatient Johnson, Mode [facility] [id number] [facility] 2021-05-20 11:01:01 Outpatient Johnson, Mode [facility] [id number] [facility] 2024-02-14 00:00:00 2024-02-14 00:00:00 OFFICE VISIT ESTAB PT LEVEL 4 [facility] [id number] [facility] 2024-02-13 00:00:00 2024-02-13 00:00:00 (TEL) [facility]C [facility] [id number] [facility] 2024-02-02 00:00:00 2024-02-02 00:00:00 (TEL) [facility]C [facility] [id number] [facility] 2024-01-31 00:00:00 2024-01-31 00:00:00 OFFICE VISIT ESTAB PT LEVEL 4 [facility] [id number] [facility] 2023-11-03 00:00:00 2023-11-03 00:00:00 (TEL) [facility] [id number] [facility] 2023-10-10 00:00:00 2023-10-10 00:00:00 OFFICE VISIT ESTAB PT LEVEL 4 [facility] [id number] [facility] 2023-10-04 00:00:00 2023-10-04 00:00:00 (TEL) [facility]C [facility] [id number] [facility] 2023-09-30 00:00:00 2023-09-30 00:00:00 (TEL) [facility] [id number] [facility] 2023-09-20 00:00:00 2023-09-20 00:00:00 (TEL) [facility]C [facility] [id number] [facility] 2023-09-12 16:00:00 2023-09-12 16:00:00 Outpatient NITA SMITH [id number] [facility] 2023-08-10 00:00:00 2023-08-10 00:00:00 Outpatient NITA SMITH [id number] [facility] 2023-08-10 00:00:00 2023-08-10 00:00:00 Outpatient RADHA DYER [id number] [facility] 2023-08-09 00:00:00 2023-08-09 00:00:00 Outpatient NITA SMITH [id number] [facility] 2023-08-09 00:00:00 2023-08-09 00:00:00 Outpatient NITA SMITH [id number] [facility] 2023-08-09 00:00:00 2023-08-09 00:00:00 Outpatient NITA SMITH [id number] [facility] 2023-08-08 10:30:00 2023-08-08 10:30:00 Outpatient JENNIFER ROMERO NITA SMITH [id number] [facility] 2023-07-27 00:00:00 2023-07-27 00:00:00 (TEL) [facility]C [facility] [id number] [facility] 2023-06-08 00:00:00 2023-06-08 00:00:00 OFFICE VISIT ESTAB PT LEVEL 4 [facility] [id number] [facility] 2023-04-19 00:00:00 2023-04-19 00:00:00 (TEL) [facility]C [facility] [id number] [facility] 2023-02-24 00:00:00 2023-02-24 00:00:00 OFFICE VISIT ESTAB PT LEVEL 3 [facility] [id number] [facility] 2023-02-24 00:00:00 2023-02-24 00:00:00 (TEL) [facility]C [facility] [id number] [facility] 2022-11-22 00:00:00 2022-11-22 00:00:00 OFFICE VISIT ESTAB PT LEVEL 4 [facility] [id number] [facility] 2022-10-11 00:00:00 2022-10-11 00:00:00 NON-BILLAB LE VISIT [facility]C [facility] [id number] [facility] 2022-09-22 00:00:00 2022-09-22 00:00:00 NON-BILLAB LE VISIT [facility]C [facility] [id number] [facility] 2022-09-03 00:00:00 2022-09-03 00:00:00 NON-BILLAB LE VISIT [facility]C [facility] [id number] [facility] 2022-08-30 00:00:00 2022-08-30 00:00:00 (TEL) ST[facility]C [facility] [id number] [facility] 2022-08-30 00:00:00 2022-08-30 00:00:00 OFFICE VISIT ESTAB PT LEVEL 3 [facility] [id number] [facility] 2022-08-26 00:00:00 2022-08-26 00:00:00 OFFICE VISIT ESTAB PT LEVEL 3 [facility] [id number] [facility] 2022-08-26 00:00:00 2022-08-26 00:00:00 (TEL) ST[facility]C [facility] [id number] [facility] 2022-08-18 00:00:00 2022-08-18 00:00:00 (TEL) STL[facility]C [facility] [id number] [facility] 2022-07-08 00:00:00 2022-07-08 00:00:00 OFFICE VISIT ESTAB PT LEVEL 4 [facility] [id number] [facility] 2022-06-25 00:00:00 2022-06-25 00:00:00 OFFICE VISIT ESTAB PT LEVEL 3 [facility] [id number] [facility] 2022-06-24 00:00:00 2022-06-24 00:00:00 (TEL) ST[facility]C [facility] [id number] [facility] 2022-04-07 00:00:00 2022-04-07 00:00:00 OFFICE VISIT ESTAB PT LEVEL 4 [facility] [id number] [facility] 2022-03-04 00:00:00 2022-03-04 00:00:00 (TEL) ST[facility]C [facility] [id number] [facility] 2022-01-22 00:00:00 2022-01-22 00:00:00 OFFICE VISIT EST PT LEVEL 3 [facility] [id number] [facility] 2022-01-21 00:00:00 2022-01-21 00:00:00 (TEL) STL[facility]C [facility] [id number] [facility] 2022-01-13 00:00:00 2022-01-13 00:00:00 (TEL) STL[facility]C [facility] [id number] [facility] 2022-01-13 00:00:00 2022-01-13 00:00:00 OFFICE VISIT NEW PT LEVEL 3 [facility] [id number] [facility] 2022-01-06 00:00:00 2022-01-06 00:00:00 (WELLNESS) Wellness Visit STL[facility]C ST[facility] [id number] [facility] 2021-12-29 00:00:00 2021-12-29 00:00:00 (TEL) STLMLC ST[facility] [id number] [facility] 2021-10-27 00:00:00 2021-10-27 00:00:00 (TEL) STLMLC [facility] [id number] [facility] 2021-10-16 00:00:00 2021-10-16 00:00:00 (TEL) STLMLC [facility] [id number] [facility] 2021-09-07 00:00:00 2021-09-07 00:00:00 OFFICE VISIT ESTAB PT LEVEL 4 [facility] [id number] [facility] 2021-07-23 00:00:00 2021-07-23 00:00:00 (TEL) STLMLC [facility] [id number] [facility] 2021-07-07 00:00:00 2021-07-07 00:00:00 (TEL) STLMLC [facility] [id number] [facility] 2021-06-12 00:00:00 2021-06-12 00:00:00 (TEL) STLMLC [facility] [id number] [facility] 2021-05-25 00:00:00 2021-05-25 00:00:00 OFFICE VISIT EST PT LEVEL 3 [facility] [id number] [facility] 2021-01-30 00:00:00 2021-01-30 00:00:00 (TEL) STLMLC ST[facility] [id number] [facility] 2021-01-29 00:00:00 2021-01-29 00:00:00 OFFICE VISIT ESTAB PT LEVEL 4 [facility] [id number] [facility] 2020-12-30 00:00:00 2020-12-30 00:00:00 Outpatient [facility] [id number] [facility] 2020-12-23 00:00:00 2020-12-23 00:00:00 Outpatient [facility] [id number] [facility] 2020-12-17 00:00:00 2020-12-17 00:00:00 Outpatient [facility] [id number] [facility] 2020-12-15 00:00:00 2020-12-15 00:00:00 Outpatient [facility] [id number] [facility] 2020-12-15 00:00:00 2020-12-15 00:00:00 Outpatient [facility] [id number] [facility] 2020-11-21 00:00:00 2020-11-21 00:00:00 Outpatient [facility] [id number] [facility] 2020-10-22 00:00:00 2020-10-22 00:00:00 Outpatient [facility] [id number] [facility] 2020-10-15 00:00:00 2020-10-15 00:00:00 Outpatient [facility] [id number] [facility] 2020-10-13 00:00:00 2020-10-13 00:00:00 Outpatient [facility] [id number] [facility] 2020-10-13 00:00:00 2020-10-13 00:00:00 Outpatient [facility] [id number] [facility] 2020-10-03 00:00:00 2020-10-03 00:00:00 Outpatient [facility] [id number] [facility] 2020-09-24 00:00:00 2020-09-24 00:00:00 Outpatient [facility] [id number] [facility] 2020-08-26 00:00:00 2020-08-26 00:00:00 Outpatient [facility] [id number] [facility] 2020-03-18 00:00:00 2020-03-18 00:00:00 Outpatient [facility] [id number] [facility] 2020-03-05 00:00:00 2020-03-05 00:00:00 Outpatient [facility] [id number] [facility] 2020-02-20 00:00:00 2020-02-20 00:00:00 Outpatient [facility] [id number] [facility] 2020-01-22 00:00:00 2020-01-22 00:00:00 Outpatient [facility]C [facility] [id number] [facility] 2020-01-03 09:53:20 2020-01-03 23:59:00 Hospital Encounter Radiology [facility] [id number] 2020-01-03 09:53:20 2020-01-03 23:59:00 Hospital Encounter Radiology [facility] [id number] [facility] 2020-01-03 00:00:00 2020-01-03 00:00:[address] [facility] [id number] [facility] 2020-01-03 00:00:00 2020-01-03 00:00:00 Orders Only Doctor Unassigned, [place] [facility] [id number] 2020-01-03 00:00:00 2020-01-03 00:00:00 Orders Only Doctor Unassigned, [place] [facility] [id number] [facility] 2019-10-10 09:30:00 2019-10-10 09:30:[address] [facility] [id number] [facility] 2019-08-14 11:30:00 2019-08-14 11:30:[address] [facility] [id number] [facility] 2019-08-10 10:42:00 2019-08-10 10:42:[address] [facility] [id number] [facility] 2019-07-10 10:45:00 2019-07-10 10:45:[address] [facility] [id number] [facility] 2019-06-19 12:53:00 2019-06-19 12:53:[address] [facility] [id number] [facility] 2019-06-14 08:09:00 2019-06-14 08:09:[address] [facility] [id number] [facility] 2019-05-15 09:45:00 2019-05-15 09:45:[address] [facility] [id number] [facility] 2019-05-01 17:15:00 2019-05-01 17:15:[address] [facility] [id number] [facility] 2019-04-24 12:46:00 2019-04-24 12:46:[address] [facility] [id number] [facility] 2019-04-11 14:30:00 2019-04-11 14:30:00 [facility] [id number] [facility] 2019-04-03 10:19:00 2019-04-03 10:19:00 [facility] [id number] [facility] 2019-04-02 16:33:00 2019-04-02 16:33:00 [facility] [id number] [facility] 2019-01-17 13:00:00 2019-01-17 13:00:00 [facility] [id number] [facility] 2019-01-01 14:30:00 2019-01-01 14:30:00 [facility] [id number] [facility] 2018-12-20 17:00:00 2018-12-20 17:00:00 [facility] [id number] [facility] 2018-12-20 14:00:00 2018-12-20 14:00:00 [facility] [id number] [facility] Results Test Description Test Time Test Comments Results Result Co mments Source COMPREHENSIVE METABOLIC [id number] 00:00:00* Test Item Value Reference Range Interpretation Comme nts HEMOGLOBIN A1c (test code = 4548-4) 7.0 % See_Comment H [Automated messa Rewind Me] The system which generated this result transmitted reference range: 4.2-5.6 %. The reference range was not used to interpret this result as normal/abnormal. TSH REFLEX TO FREE T4 (test code = 81612-6) 2.200 UIU/ML See_Comment [Automated message] The system which generated this result transmitted reference range: 0.400-4.100 UIU/ML. The reference range was not used to interpret this result as normal/abnormal. CALC LDL CHOL (test code = 41476-9) 90 MG/DL See_Comment [Automated messa ge] The system which generated this result transmitted reference range: <100 MG/DL. The reference range was not used to interpret this result as normal/abnormal. CHOLESTEROL (test code = 2093-3) 160 MG/DL See_Comment [Automated messa ge] The system which generated this result transmitted reference range: <200 MG/DL. The reference range was not used to interpret this result as normal/abnormal. HDL CHOLESTEROL (test code = 2085-9) 49 MG/DL See_Comment [Automated messa ge] The system which generated this result transmitted reference range: >39 MG/DL. The reference range was not used to interpret this result as normal/abnormal. RISK RATIO LDL/HDL (test code = 47197-9) 1.84 RATIO See_Comment [Automated message] The system which generated this result transmitted reference range: <3.22 RATIO. The reference range was not used to interpret this result as normal/abnormal. TRIGLYCERIDES (test code = 2571-8) 113 MG/DL See_Comment [Automated messa ge] The system which generated this result transmitted reference range: <150 MG/DL. The reference range was not used to interpret this result as normal/abnormal. BASOPHILS (test code = 18231-0) 1.0 % DIAGNOSIS: (test code = 55647-1) (NOTE) COMMENTS (test code = 39660-7) (NOTE) EOSINOPHILS (test code = 03003-2) 4.4 % HEMATOCRIT (test code = 39765-9) 41.0 % See_Comment [Automated messa ge] The system [...] result as normal/abnormal. LYMPHOCYTES (test code = 65566-7) 27.1 % MCH (test code = 14355-8) 28.8 PG See_Comment [Automated Critical Linksa ge] The system which generated this result transmitted reference range: 25.0-33.0 PG. The reference range was not used to interpret this result as normal/abnormal. MCHC (test code = 38897-1) 32.9 G/DL See_Comment [Automated messa ge] The system which generated this result transmitted reference range: 31.0-36.0 G/DL. The reference range was not used to interpret this result as normal/abnormal. MCV (test code = 13982-0) 87.6 fL See_Comment [Automated messa ge] The system which generated this result transmitted reference range: 80.0-99.0 fL. The reference range was not used to interpret this result as normal/abnormal. MICROSCOPIC DESCRIPTION: (test code = 51662-3) (NOTE) MONOCYTES (test code = 77615-5) 7.6 % NEUTROPHILS (test code = 79676-2) 59.6 % NUCLEATED RBCS (test code = 64463-8) 0.0 /100 WBC'S See_Comment [Automated message] The system which generated this result transmitted reference range: 0.0 /100 WBC'S. The reference range was not used to interpret this result as normal/abnormal. PATHOLOGIST: (test code = 60325-7) (NOTE) PLATELET COUNT (test code = 61799-7) 404 K/UL See_Comment H [Automated messa ge] The system which generated this result transmitted reference range: 130-400 K/UL. The reference range was not used to interpret this result as normal/abnormal. RBC (test code = 92237-8) 4.68 M/UL See_Comment [Automated messa ge] The system which generated this result transmitted reference range: 3.80-5.40 M/UL. The reference range was not used to interpret this result as normal/abnormal. RDW (test code = 13889-0) 12.4 % See_Comment [Automated messa ge] The system which generated this result transmitted reference range: 11.5-15.0 %. The reference range was not used to interpret this result as normal/abnormal. WBC (test code = 45832-9) 7.3 K/UL See_Comment [Automated messa ge] The system which generated this result transmitted reference range: 3.5-11.0 K/UL. The reference range was not used to interpret this result as normal/abnormal. ALBUMIN, URINE, RANDOM (test code = 95264-8) 0.3 MG/DL NOT ESTAB MG/DL CALC ALBUMIN/CREAT, RND (test code = 69035-7) 3 MG/G See_Comment [Automated messa ge] The system which generated this result transmitted reference range: <30 MG/G. The reference range was not used to interpret this result as normal/abnormal. CREATININE, URINE, CONC. (test code = 2161-8) 98.0 MG/DL NOT ESTAB MG/DL ALBUMIN (test code = 1751-7) 4.3 G/DL See_Comment [Automated messa ge] The system which generated this result transmitted reference range: 3.5-5.2 G/DL. The reference range was not used to interpret this result as normal/abnormal. ALKALINE PHOSPHATASE (test code = 6768-6) 64 U/L See_Comment [Automated message] The system which generated this result transmitted reference range: 40-140 U/L. The reference range was not used to interpret this result as normal/abnormal. BILIRUBIN, TOTAL (test code = 1975-2) 0.6 MG/DL See_Comment [Automated Critical Linksa ge] The system which generated this result transmitted reference range: <=1.2 MG/DL. The reference range was not used to interpret this result as normal/abnormal. BUN (test code = 3094-0) 14 MG/DL See_Comment [Automated Critical Linksa ge] The system which generated this result transmitted reference range: 8-23 MG/DL. The reference range was not used to interpret this result as normal/abnormal. CALCIUM (test code = 61676-7) 9.5 MG/DL See_Comment [Automated Critical Linksa ge] The system which generated this result transmitted reference range: 8.5-10.5 MG/DL. The reference range was not used to interpret this result as normal/abnormal. CALC A/G RATIO (test code = 1759-0) 1.9 RATIO See_Comment [Automated Critical Linksa ge] The system which generated this result transmitted reference range: 1.0-2.6 RATIO. The reference range was not used to interpret this result as normal/abnormal. CALC BUN/CREAT (test code = 3097-3) 16 RATIO See_Comment [Automated Critical Linksa ge] The system which generated this result transmitted reference range: 6-28 RATIO. The reference range was not used to interpret this result as normal/abnormal. CALC GLOBULIN (test code = 99222-5) 2.3 G/DL See_Comment [Automated messa ge] The system which generated this result transmitted reference range: 1.9-3.7 G/DL. The reference range was not used to interpret this result as normal/abnormal. CARBON DIOXIDE (test code = 1962-8) 21 MEQ/L See_Comment [Automated messa ge] The system [...] as normal/abnormal. CREATININE (test code = 2160-0) 0.87 MG/DL See_Comment [Automated messa ge] The system which generated this result transmitted reference range: 0.60-1.30 MG/DL. The reference range was not used to interpret this result as normal/abnormal. eGFR (2020 CKD-EPI) (test code = 15337-5) 74 ML/MIN/1.73 See_Comment [Automated message] The system which generated this result transmitted reference range: >60 ML/MIN/1.73. The reference range was not used to interpret this result as normal/abnormal. GLUCOSE (test code = 1558-6) 173 MG/DL See_Comment H [Automated messa ge] The [...] normal/abnormal. PROTEIN, TOTAL (test code = 2885-2) 6.6 G/DL See_Comment [Automated messa ge] The system which generated this result transmitted reference range: 6.1-8.3 G/DL. The reference range was not used to interpret this result as normal/abnormal. AST (test code = 1920-8) 23 U/L See_Comment [Automated messa ge] The system which generated this result transmitted reference range: 9-40 U/L. The reference range was not used to interpret this result as normal/abnormal. ALT (test code = 1742-6) 26 U/L See_Comment [Automated messa ge] The system which generated this result transmitted reference range: 5-40 U/L. The reference range was not used to interpret this result as normal/abnormal. SODIUM (test code = 2951-2) 141 MEQ/L See_Comment [Automated messa ge] The system which generated this result transmitted reference range: 133-146 MEQ/L. The reference range was not used to interpret this result as normal/abnormal. STREP A [id number] 00:00:00ResultHEMOGLOBIN [id number] 00:00:00* Test Item Value Reference Range Interpretation Comme nts HEMOGLOBIN A1c (test code = 4548-4) 7.1 % See_Comment H [Automated messa ge] The system which generated this result transmitted reference range: 4.2-5.6 %. The reference range was not used to interpret this result as normal/abnormal. MR CERVICAL SPINE WO [id number] 16:17:36HISTORY: Chronic neck pain radiating into both [...] minimal bilateralnerve root compression suspected at C4-C5. Dcmb, Radiant Results Inft User - 01/03/2020 11:18 [...] minimal bilateralnerve root compression suspected at C4-C5.[facility], COVID 19 Antigen + Flu by [facility], COVID 19 Antigen + Flu by [facility], COVID 19 Antigen + Flu by [facility], COVID 19 Antigen + Flu by [facility] Elbow Left Wo ConCT Elbow Left Wo Con Notes Date/Time Note Provider Source 2023-08-08 10:36:26 Chief Complaint Patient presents with Establish Care She has seen Dr. Johnson as PCP in the past 3 years. Last annual over a year ago. Hernia Inguinal hernia that she would like to discuss. Scarlet Alfaro MA II T [facility]
[2024-03-02 18:23] LABS: Urine Bilirubin NEGATIVE (Negative); Urine Blood Negative (Negative); Urine Clarity Extremely Turbid (Clear); Urine Color Yellow (Yellow); Urine Glucose NEGATIVE (Negative); Urine Ketones NEGATIVE (Negative); Urine Nitrite NEGATIVE (Negative); Urine Protein TRACE (Negative); Urine Urobilinogen Normal (Normal); Urine pH 5.5 (5.0-7.0)
[2024-03-02 18:25] LABS: Urine Microscopic Reflex YN ORDER UMIC; Urine RBC <5 /HPF (None Seen)
[2024-03-02 18:26] LABS: Sqamous Epithelial <5 /HPF (None Seen); Urine Bacteria <20 /HPF (<20); Urine Culture Reflex Order NOT NEEDED; Urine Mucus Slight /HPF (None Seen)
[2024-03-02] MEDS ORDERED: NA CHLORIDE 0.9% 1,000 ML ONE (18:33)
[2024-03-02] MEDS ORDERED: ONDANSETRON 4 MG/2 ML VIAL ONE (18:33)
[2024-03-02] MEDS ORDERED: KETOROLAC 30 MG/ML INJ ONE (18:33)
[2024-03-02 18:52] LABS: Albumin 3.8 g/dL (3.4-5.0); Anion Gap 12.4 mEq/L (5.0-15.0); Bilirubin Total 0.7 mg/dL (0.2-1.0); Globulin 3.7 g/dL (2.3-3.5); Potassium 3.4 mEq/L (3.5-5.1); Protein, Total 7.5 g/dL (6.4-8.2)
[2024-03-02 18:58] LABS: Absolute Eosinophils 0.3 K/uL (0-0.5); Absolute Lymphocytes (CBC) 3.1 K/uL (0.7-4.9); Absolute Monocytes 0.9 K/uL (0.1-1.3); Absolute Neutrophil 5.9 K/uL (1.8-8.0); Basophils % 0.4 % (0-1.3); Eosinophils % 2.8 % (0-4.4); Hematocrit 39.2 % (36.0-45.0); Hemoglobin 13.7 g/dL (12.0-15.0); Lymphocytes % 30.5 % (15.3-44.8); MCH 29.8 pg (27.0-35.0); MCHC 34.9 g/dL (32.0-36.0); MCV 85.4 fL (80-100); MPV 7.8 fL (7.6-11.3); Monocytes % 8.5 % (3.3-12.3); Neutrophils % 57.8 % (41.7-73.7); Platelets 336 thou/uL (152-406); RBC Red Blood Cell Count 4.58 M/uL (3.86-4.86); Red Cell Distribution Width 14.3 % (12.1-15.2)
--- NOTE | 2024-03-02 19:26 | RAD REPORT ---
EXAMINATION: Stone Protocol CLINICAL INDICATION: Abdominal pain/left flank pain TECHNIQUE: CT abdomen and pelvis was performed, without IV contrast, as per department protocol. Oral contrast not given. Axial, sagittal and coronal reconstructions were obtained. One or more of the following dose reduction techniques were used: Automated exposure control, adjustment of the mA and k V according to the patient size, and iterative reconstruction. Unless otherwise specified, incidental findings do not require dedicated imaging follow-up. COMPARISON: September 2023.and 2021 FINDINGS: The lack of intravenous and oral contrast limits the sensitivity of this exam for evaluation of solid visceral organs, vascular structures, and bowel A renal calculus not seen. No ureteral calculus. A bladder calculus not noted. No hydronephrosis. 3.1 cm left renal cyst.. Mild left renal cortical thinning unchanged. 5.7 cm hepatic mass containing a calcification unchanged from 2021. Splenic granulomata. The pancreas and adrenals grossly normal. No evidence of diverticulitis. Hysterectomy. No adnexal mass. Small umbilical and inguinal hernias containing fat. Calcified granulo ma right lower lobe IMPRESSION: Negative for a genitourinary calculus 5.7 cm hepatic mass unchanged from 2021 probably benign
--- NOTE | 2024-03-02 20:32 | EDPHYS ---
Physician Documentation [facility] Name: Batsheva Guevara Age: 63 yrs Sex: Female : 1960 Arrival Date: 03/02/2024 Time: 16:48 Bed 6 Private MD: ED Physician Gabriel Yousif HPI: 03/02 17:30 This 63 yrs old Female presents to ER via Ambulatory with complaints of Flank Pain - cp Left. 17:30 The patient complains of pain in the left upper quadrant of abdomen and left upper cp lateral abdomen. The pain radiates to the left mid back. 17:30 Onset: The symptoms/episode began/occurred couple days ago, pain worse today. cp 17:30 Associated signs and symptoms: Pertinent positives: diarrhea, nausea, Pertinent cp negatives: dysuria, fever, hematuria, pain radiating to the lower extremities, vomiting. Severity of pain: in the emergency department the pain is unchanged despite home interventions. Historical: - Allergies: 17:17 No Known Allergies; iw - PMHx: 17:15 chronic neck pain; Diabetes - NIDDM; High Cholesterol; Hypertension; iw - PSHx: 17:15 section; hysterectomy; L arm SX; Neck sx; iw - Immunization history:: Adult Immunizations up to date. - Infectious Disease History:: Denies. - Social history:: Smoking status: Patient denies any tobacco usage or history of. ROS: 17:35 Constitutional: Negative for body aches, chills, fever, poor PO intake, cp 17:35 Eyes: Negative for injury, pain, redness, and discharge, cp 17:35 ENT: Negative for drainage from ear(s), ear pain, sore throat, difficulty swallowing, difficulty handling secretions, 17:35 Cardiovascular: Negative for edema, palpitations, 17:35 Respiratory: Negative for cough, shortness of breath, wheezing, 17:35 Abdomen/GI: Positive for abdominal pain, nausea, diarrhea, of the left upper quadrant and left upper lateral, Negative for vomiting, constipation, 17:35 Back: Positive for radiated pain, of the left flank, Negative for injury or acute deformity, decreased range of motion, 17:35 : Negative for urinary symptoms, 17:35 Neuro: Negative for altered mental status, dizziness, headache, weakness, 17:35 All other systems are negative, Exam: 17:40 Constitutional: The patient appears in no acute distress, alert, awake, cp non-diaphoretic, non-toxic, well developed, well nourished, uncomfortable, 17:40 Head/Face: Normocephalic, atraumatic. cp 17:40 Eyes: Periorbital structures: appear normal, Conjunctiva: normal, no exudate, no injection, Sclera: no appreciated abnormality, Lids and lashes: appear normal, bilaterally, 17:40 ENT: External ear(s): are unremarkable, Nose: is normal, Mouth: Lips: moist, Oral mucosa: pink and intact, moist, Posterior pharynx: is normal, airway is patent, no erythema, no exudate, 17:40 Chest/axilla: Inspection: normal, 17:40 Cardiovascular: Rate: normal, Rhythm: regular, 17:40 Respiratory: the patient does not display signs of respiratory distress, Respirations: normal, no use of accessory muscles, no retractions, labored breathing, is not present, Breath sounds: are clear throughout, no decreased breath sounds, no stridor, no wheezing, 17:40 Abdomen/GI: Inspection: abdomen appears normal, Bowel sounds: active, all quadrants, Palpation: soft, in all quadrants, moderate abdominal tenderness, in the posterior aspect of left lateral abdomen, anterior aspect of left lateral abdomen and left upper quadrant, rebound tenderness, is not appreciated, involuntary guarding, is not appreciated, 17:40 Back: pain, that is moderate, of the left mid back, 17:40 Skin: cellulitis, is not appreciated, no rash present. 17:40 Neuro: Orientation: to person, place \T\ time. Mentation: is normal, Gait: is steady, Vital Signs: 17:14 BP 100 / 85; Pulse 77; Resp 16; Pulse Ox 100% on R/A; Weight 76.2 kg; Height 5 ft. 4 iw in. ; Pain 6/10; 18:54 BP 119 / 79; Pulse 65; Pulse Ox 94% on R/A; MAP 91 mmHg; Pain 5/10; tm6 19:08 BP 119 / 79; Pulse 69; Resp 18; Pulse Ox 98% ; Pain 2/10; bm8 20:47 BP 122 / 75; Pulse 64; Resp 17; Temp 98.1; Pulse Ox 100% ; Pain 0/10; bm8 17:14 Body Mass Index 28.84 (76.20 kg, 162.56 cm) iw 17:14 Pain Scale: Adult iw 18:54 Pain Scale: Adult tm6 19:08 Pain Scale: Adult bm8 20:47 Pain Scale: Adult bm8 Nathaly Coma Score: 19:08 Eye Response: spontaneous(4). Motor Response: obeys commands(6). Verbal Response: bm8 oriented(5). Total: 15. 20:47 Eye Response: spontaneous(4). Motor Response: obeys commands(6). Verbal Response: bm8 oriented(5). Total: 15. MDM: 20:32 Medical Screening Exam initiated cp 20:32 Data reviewed: vital signs, nurses notes, lab test result(s), radiologic studies, CT cp scan, and as a result, I will discharge patient. 20:32 Differential diagnosis: nephrolithiasis, pyelonephritis, UTI, diverticulitis, cp pancreatitis. I considered the following discharge prescriptions or medication management in the emergency department Medications were administered in the Emergency Department. See MAR. Care significantly affected by the following chronic conditions: Diabetes, Hypertension, Chronic Kidney Disease. Counseling: I had a detailed discussion with the patient and/or guardian regarding the historical points, exam findings, and any diagnostic results supporting the discharge/admit diagnosis, lab results, radiology results, to return to the emergency department if symptoms worsen or persist or if there are any questions or concerns that arise at home. Response to treatment: the patient's symptoms have mildly improved after treatment, and as a result, I will discharge patient. 03/02 17:27 Order name: CBC with Diff; Complete Time: 19:03 cp 03/02 17:27 Order name: CMP; Complete Time: 19:03 cp 03/02 19:03 Interpretation: Normal except: NA 135; K 3.4; BUN 23; CRE 1.55; GFR 37; GLOB 3.7; A/G cp 1.0. 03/02 17: Order name: Lipase; Complete Time: 19:03 cp 03/02 17:27 Order name: Urinalysis w/ reflexes; Complete Time: 18:39 cp 03/02 20:19 Interpretation: Normal except: [facility] Extremely Turbid; UPROT TRACE; UESTR 500. cp 03/02 19:04 Order name: CT Stone Protocol; Complete Time: 20:17 cp 03/02 17:27 Order name: IV Saline Lock; Complete Time: 18:33 cp 03/02 17:27 Order name: Labs collected and sent; Complete Time: 18:33 cp Administered Medications: 18:50 Drug: TORadol - Ketorolac IVP 15 mg IVP once Route: IVP; Site: left forearm; tm6 20:49 Follow up: Response: No adverse reaction bm8 18:50 Drug: Ondansetron IVP 4 mg IVP once; over 2 minutes Route: IVP; Site: left forearm; tm6 20:49 Follow up: Response: No adverse reaction bm8 18:50 Drug: NS 0.9% IV 1000 ml IV at 1 bolus Per protocol; to be given as a bolus over 60 tm6 minutes Route: IV; Rate: 1 bolus; Site: left forearm; 20:48 Follow up: Response: No adverse reaction; IV Status: Completed infusion; IV Intake: bm8 1000ml Disposition: 03/03 08:11 Co-signature as Attending Physician, Gabriel Yousif MD I reviewed the patient's care rt provided by the Advanced Practice Provider and agree with the diagnosis and treatment plan. Disposition Summary: 03/02/24 20:32 Discharge Ordered Notes: Location: Home cp Problem: new cp Symptoms: have improved cp Condition: Stable cp Diagnosis - Upper abdominal pain, unspecified cp - Dorsalgia, unspecified cp Followup: cp - With: Private Physician - When: 2 - 3 days - Reason: Recheck today's complaints Discharge Instructions: - Discharge Summary Sheet cp - Flank Pain, Adult cp Forms: - Medication Reconciliation Form cp - Antibiotic Education cp - Prescription Opioid Use cp - Patient Portal Instructions cp - Leadership Thank You Letter cp Prescriptions: - Anaprox DS 550 mg Oral Tablet - take 1 tablet ORAL route every 12 hours As needed; 20 tablet; Refills: 0, cp Product Selection Permitted - Macrobid 100 mg Oral Capsule - take 1 capsule ORAL route every 12 hours for 7 days; 14 capsule; Refills: 0, cp Product Selection Permitted - methocarbamol 750 mg Oral tablet - take 1 tablet ORAL route 3 times per day; 30 tablet; Refills: 0, Product cp Selection Permitted Signatures: [facility] Kellee Freeman RN RN iw Page, Corey, PA PA cp Gabriel Yousif MD MD rt Bashir Vaz RN RN tm6 Castillo Zambrano RN bm8 Corrections: (The following items were deleted from the chart) 03/02 18:40 18:40 Abdomen Pelvis W Con+CT.RAD.BRZ ordered. EDMS EDMS
--- NOTE | 2024-03-02 20:32 | ER ---
Nurse's Notes [facility] Name: Batsheva Guevara Age: 63 yrs Sex: Female : 1960 Arrival Date: 03/02/2024 Time: 16:48 Bed 6 Private MD: Diagnosis: Upper abdominal pain, unspecified;Dorsalgia, unspecified Presentation: 03/02 17:14 Chief complaint: Patient states: LUQ pain under ribs/breast started a couple days ago , iw worse today , started on Ozempic 3 weeks ago and has had diarrhea for 3 weeks. Coronavirus screen: At this time, the client does not indicate any symptoms associated with coronavirus-19. Ebola Screen: No symptoms or risks identified at this time. Initial Sepsis Screen: Does the patient meet any 2 criteria? No. Patient's initial sepsis screen is negative. Does the patient have a suspected source of infection? No. Patient's initial sepsis screen is negative. Risk Assessment: Do you want to hurt yourself or someone else? Patient reports no desire to harm self or others. Onset of symptoms was February 29, 2024. 17:14 Method Of Arrival: Ambulatory iw 17:14 Acuity: HERMELINDA 3 iw Triage Assessment: 17:16 General: Appears in no apparent distress. Behavior is calm, cooperative. Pain: iw Complains of pain in left upper quadrant. Historical: - Allergies: 17:17 No Known Allergies; iw - PMHx: 17:15 chronic neck pain; Diabetes - NIDDM; High Cholesterol; Hypertension; iw - PSHx: 17:15 section; hysterectomy; L arm SX; Neck sx; iw - Immunization history:: Adult Immunizations up to date. - Infectious Disease History:: Denies. - Social history:: Smoking status: Patient denies any tobacco usage or history of. Screenin:53 [facility] ED Fall Risk Assessment (Adult) History of falling in the last 3 months, tm6 including since admission No falls in past 3 months (0 pts) Confusion or Disorientation No (0 pts) Intoxicated or Sedated No (0 pts) Impaired Gait No (0 pts) Mobility Assist Device Used No (0 pt) Altered Elimination No (0 pt) Score/Fall Risk Level 0 - 2 = Low Risk Oriented to surroundings, Maintained a safe environment, Educated pt \T\ family on fall prevention, incl call for assistance when getting out of bed. Abuse screen: Denies threats or abuse. Denies injuries from another. Nutritional screening: No deficits noted. Tuberculosis screening: No symptoms or risk factors identified. Assessment: 17:20 General: Appears uncomfortable, Behavior is calm, cooperative. Pain: Complains of pain tm6 in left upper quadrant Pain currently is 5 out of 10 on a pain scale. Pain began three weeks ago, worsening today. Neuro: Level of Consciousness is awake, alert, obeys commands, Oriented to person, place, time, situation. Cardiovascular: Patient's skin is warm and dry. Respiratory: Airway is patent Respiratory effort is even, unlabored, Respiratory pattern is regular, symmetrical. GI: Abdomen is flat, non-distended, Reports upper abdominal pain, diarrhea, nausea, since x3 weeks. : No signs and/or symptoms were reported regarding the genitourinary system. EENT: No signs and/or symptoms were reported regarding the EENT system. Derm: No deficits noted. No signs and/or symptoms reported regarding the dermatologic system. Musculoskeletal: No signs and/or symptoms reported regarding the musculoskeletal system. 19:08 Reassessment: Patient appears in no apparent distress at this time. Patient and/or bm8 family updated on plan of care and expected duration. Pain level reassessed. Patient is alert, oriented x 3, equal unlabored respirations, skin warm/dry/pink. Patient states feeling better. Patient states symptoms have improved. GI: Abdomen is flat, non-distended, Bowel sounds present X 4 quads. Reports upper abdominal pain, Pain is 2 out of 10 on a pain scale. Patient currently denies nausea, vomiting. 20:47 Reassessment: Patient appears in no apparent distress at this time. Patient and/or bm8 family updated on plan of care and expected duration. Pain level reassessed. Patient is alert, oriented x 3, equal unlabored respirations, skin warm/dry/pink. Patient denies pain at this time. Patient states feeling better. Patient states symptoms have improved. Vital Signs: 17:14 BP 100 / 85; Pulse 77; Resp 16; Pulse Ox 100% on R/A; Weight 76.2 kg; Height 5 ft. 4 iw in. ; Pain 6/10; 18:54 BP 119 / 79; Pulse 65; Pulse Ox 94% on R/A; MAP 91 mmHg; Pain 5/10; tm6 19:08 BP 119 / 79; Pulse 69; Resp 18; Pulse Ox 98% ; Pain 2/10; bm8 20:47 BP 122 / 75; Pulse 64; Resp 17; Temp 98.1; Pulse Ox 100% ; Pain 0/10; bm8 17:14 Body Mass Index 28.84 (76.20 kg, 162.56 cm) iw 17:14 Pain Scale: Adult iw 18:54 Pain Scale: Adult tm6 19:08 Pain Scale: Adult bm8 20:47 Pain Scale: Adult bm8 [place] Coma Score: 19:08 Eye Response: spontaneous(4). Motor Response: obeys commands(6). Verbal Response: bm8 oriented(5). Total: 15. 20:47 Eye Response: spontaneous(4). Motor Response: obeys commands(6). Verbal Response: bm8 oriented(5). Total: 15. ED Course: 16:54 Patient arrived in ED. ra3 16:57 Everardo Joseph PA is PHCP. cp 16:58 Ermias Levine DO is Attending Physician. cp 17:15 Triage completed. iw 17:15 Arm band placed on. iw 17:20 Patient has correct armband on for positive identification. Bed in low position. Call tm6 light in reach. Side rails up X 1. Provided Education on: use of call gonzalez. Client placed on continuous cardiac and pulse oximetry monitoring. NIBP monitoring applied. Pulse ox on. NIBP on. 17:48 Bashir Vaz, LUNA is Primary Nurse. tm6 17:58 Gabriel Yousif MD is Attending Physician. cp 18:07 Missed attempt(s): 24 gauge in right forearm. Bleeding controlled, band aid applied, tm6 catheter tip intact. 18:33 CBC with Diff Sent. em1 18:33 CMP Sent. em1 18:33 Lipase Sent. em1 18:33 Initial lab(s) drawn, by me, sent to lab. Inserted saline lock: 22 gauge in left wrist, em1 using aseptic technique. Blood collected. Flushed with 10 mL NS. 19:08 No provider procedures requiring assistance completed. bm8 19:18 CT Stone Protocol In Process Unspecified. EDMS 20:47 IV discontinued, intact, bleeding controlled, No redness/swelling at site. Pressure bm8 dressing applied. Administered Medications: 18:50 Drug: TORadol - Ketorolac IVP 15 mg IVP once Route: IVP; Site: left forearm; tm6 20:49 Follow up: Response: No adverse reaction bm8 18:50 Drug: Ondansetron IVP 4 mg IVP once; over 2 minutes Route: IVP; Site: left forearm; tm6 20:49 Follow up: Response: No adverse reaction bm8 18:50 Drug: NS 0.9% IV 1000 ml IV at 1 bolus Per protocol; to be given as a bolus over 60 tm6 minutes Route: IV; Rate: 1 bolus; Site: left forearm; 20:48 Follow up: Response: No adverse reaction; IV Status: Completed infusion; IV Intake: bm8 1000ml Medication: 19:08 VIS not applicable for this client. bm8 Intake: 20:48 IV: 1000ml; Total: 1000ml. bm8 Outcome: 20:32 Discharge ordered by MD. cp 20:47 Discharged to home ambulatory, bm8 20:47 Condition: stable 20:47 Discharge instructions given to patient, family, Instructed on discharge instructions, follow up and referral plans. no drinking with medication, no driving heavy equipment, medication usage, safety practices, Demonstrated understanding of instructions, follow-up care, medications, 20:50 Patient left the ED. bm8 Signatures: Dispatcher [employer] EDKellee Hooper RN RN iw Martinez, Eric em1 Everardo Joseph PA PA cp Masterson, Tawney, RN RN 6 Edith Marroquin ra3 Castillo Zambrano RN RN bm8 Corrections: (The following items were deleted from the chart) 17:17 17:14 BP 100 / 85; Pulse 77bpm; Resp 16bpm; Pulse Ox 100% RA; iw iw 18:54 17:20 BP 119 / 79; Pulse 65bpm; Pulse Ox 94% RA; MAP 91 mmHg; Pain 5/10, Adult; tm6 tm6
[2024-03-02 21:18] VITALS: BP 122/75; TEMP 98.1; O2SAT 100
== END 2024-03-02 20:50 | disposition home or self-care (01) ==
LOC: ER 16:48
DX: R10.12 Left upper quadrant pain (principal); M54.9 Dorsalgia, unspecified; E11.9 Type 2 diabetes mellitus without complications; I10 Essential (primary) hypertension
CPT/HCPCS: 96361; 85025; 81001; 36415; 81003; 83690; 80053; 76377; 74176; 96375; 96374; 99284; J2405; J7030